=== PATIENT | female | born 1945 | race Caucasian/White ===

== ENCOUNTER 2017-04-16 12:24 | Inpatient (IN) | payer OTHER ==
[2017-04-16] MEDS ORDERED: NS 1000 ML 1,000 ML IV ONE (13:17)
[2017-04-16 13:46] LABS: BASOPHILS % (AUTO) 0.6 % (0.2-1.0); EOSINOPHILS # (AUTO) 0.1 x10^3/uL (0.0-0.2); EOSINOPHILS % (AUTO) 0.8 % (0.9-2.9); HEMATOCRIT 42.6 % (36.0-47.0); HEMOGLOBIN 14.3 g/dL (12.0-16.0); LYMPHOCYTES # (AUTO) 2.4 X10^3/uL (1.3-2.9); LYMPHOCYTES % (AUTO) 30.6 % (21.0-51.0); MEAN CORPUSCULAR HEMOGLOBIN 32.4 pg (27.0-34.0); MEAN CORPUSCULAR HGB CONC 33.6 g/dL (33.0-35.0); MEAN CORPUSCULAR VOLUME 96.6 fL (80.0-100.0); MEAN PLATELET VOLUME 9.4 fL (7.4-11.0); MONOCYTES # (AUTO) 0.3 x10^3/uL (0.3-0.8); MONOCYTES % (AUTO) 3.6 % (0.0-13.0); NEUTROPHILS % (AUTO) 64.4 % (42.0-75.0); PLATELET COUNT 274 X10^3/uL (150.0-450.0); RED BLOOD COUNT 4.41 X10^6/uL (3.5-5.4); WHITE BLOOD COUNT 7.7 X10^3/uL (3.6-10.0)
[2017-04-16 13:58] LABS: ALANINE AMINOTRANSFERASE 46 Units/L (12-78); ALBUMIN 3.5 g/dL (3.4-5.0); ALKALINE PHOSPHATASE 66 Units/L (46-116); ASPARTATE AMINO TRANSFERASE 37 Units/L (15-37); BLOOD UREA NITROGEN 16 mg/dL (7-18); CALCIUM 8.6 mg/dL (8.5-10.1); CARBON DIOXIDE 27.3 mmol/L (21-32); CHLORIDE 101 mmol/L (98-107); COR NA(FOR HYPERGLY) 141 mmol/L (136-145); CREATININE 0.88 mg/dL (0.55-1.02); SODIUM 139 mmol/L (136-145); eGFR BLACK RACES > 60 (>60); eGFR NON BLACK RACES > 60 (>60)
[2017-04-16] MEDS: ZOVIRAX TOP SCH ×3 (14:27→22:21)
--- NOTE | 2017-04-16 14:46 | DR.UPDATE ---
H&P Update History and Physical Update: WAS SEEN IN THE OFFICE TODAY. A H&P WAS COMPLETED PRIOR TO ADMISSION. PATIENT HAS BEEN SEEN AND EXAMINED WITH NO CHANGES NOTED TO H&P. Changes noted: NO Yes with the following:
[2017-04-16] MEDS: NS 1000 ML 1,000 ML IV SCH ×2 (14:47→18:14)
[2017-04-16] MEDS: XYLOCAINE VISCOUS TOP SCH ×3 (14:47→21:53)
[2017-04-16] MEDS: NICOTINE PATCH TD SCH (15:00)
[2017-04-16] MEDS: NORCO 10/325 TAB PO PRN ×3 (15:00→22:22)
[2017-04-16] MEDS: ZOVIRAX PO SCH ×3 (15:21→21:53)
[2017-04-16] MEDS: MORPHINE SULFATE INJ 2 MG INJ IVP PRN ×2 (16:00→20:04)
[2017-04-16 16:25] LABS: BILIRUBIN,URINE NEGATIVE (NEGATIVE); BLOOD/HEMOGLOBIN,URINE 1+ (NEGATIVE); GLUCOSE, URINE NEGATIVE (NEGATIVE); KETONES,URINE NEGATIVE (NEGATIVE); LEUKOCYTE ESTERASE ,URINE NEGATIVE (NEGATIVE); NITRITES,URINE NEGATIVE (NEGATIVE); PROTEIN,URINE NEGATIVE (NEGATIVE); UROBILINOGEN,URINE NORMAL (NORMAL)
[2017-04-16 16:32] LABS: APPEARANCE,URINE CLEAR (CLEAR); COLOR,URINE YELLOW (YELLOW)
[2017-04-16 16:33] LABS: BACTERIA,URINE NEGATIVE /HPF (NEGATIVE); RBC,URINE 0-2 /HPF (NEGATIVE); SQUAMOUS EPITHELIAL CELL,UR NEGATIVE /HPF (NEGATIVE)
[2017-04-16] MEDS ORDERED: AMBIEN PO PRN (20:11)
[2017-04-17] MEDS: ZOVIRAX TOP SCH ×6 (01:10→21:11)
[2017-04-17] MEDS: XYLOCAINE VISCOUS TOP SCH ×4 (01:11→22:29)
[2017-04-17] MEDS: ZOVIRAX PO SCH ×4 (01:36→13:33)
[2017-04-17] MEDS: NS 1000 ML 1,000 ML IV SCH ×5 (01:37→16:46)
[2017-04-17] MEDS: MORPHINE SULFATE INJ 2 MG INJ IVP PRN ×4 (03:11→20:56)
[2017-04-17] MEDS: NORCO 10/325 TAB PO PRN ×3 (05:34→16:45)
[2017-04-17 05:36] LABS: BASOPHILS # (AUTO) 0.1 X10^3/uL (0.0-0.1); BASOPHILS % (AUTO) 0.9 % (0.2-1.0); EOSINOPHILS # (AUTO) 0.2 x10^3/uL (0.0-0.2); EOSINOPHILS % (AUTO) 3.1 % (0.9-2.9); HEMATOCRIT 34.3 % (36.0-47.0); HEMOGLOBIN 11.7 g/dL (12.0-16.0); MEAN CORPUSCULAR HEMOGLOBIN 32.8 pg (27.0-34.0); MEAN CORPUSCULAR HGB CONC 34.2 g/dL (33.0-35.0); MEAN CORPUSCULAR VOLUME 95.9 fL (80.0-100.0); MEAN PLATELET VOLUME 9.1 fL (7.4-11.0); MONOCYTES # (AUTO) 0.6 x10^3/uL (0.3-0.8); MONOCYTES % (AUTO) 8.6 % (0.0-13.0); NEUTROPHILS # (AUTO) 4.3 x10^3/uL (2.2-4.8); NEUTROPHILS % (AUTO) 59.4 % (42.0-75.0); PLATELET COUNT 178 X10^3/uL (150.0-450.0); RED BLOOD COUNT 3.57 X10^6/uL (3.5-5.4); RED CELL DISTRIBUTION WIDTH 14.8 % (11.6-16.5); WHITE BLOOD COUNT 7.2 X10^3/uL (3.6-10.0)
[2017-04-17 05:45] LABS: ALANINE AMINOTRANSFERASE 43 Units/L (12-78); ALBUMIN 2.4 g/dL (3.4-5.0); ALKALINE PHOSPHATASE 46 Units/L (46-116); ASPARTATE AMINO TRANSFERASE 38 Units/L (15-37); BLOOD UREA NITROGEN 13 mg/dL (7-18); CALCIUM 6.9 mg/dL (8.5-10.1); CARBON DIOXIDE 30.8 mmol/L (21-32); CHLORIDE 108 mmol/L (98-107); COR CA(FOR HYPOALB) 8.2 mg/dL (8.5-10.1); CREATININE 0.81 mg/dL (0.55-1.02); SODIUM 143 mmol/L (136-145); TOTAL PROTEIN 5.2 g/dL (6.4-8.2); eGFR BLACK RACES > 60 (>60); eGFR NON BLACK RACES > 60 (>60)
[2017-04-17] MEDS: ZOFRAN INJ 4 MG VIAL IVP PRN (06:21)
[2017-04-17] MEDS ORDERED: POTASSIUM CHL 60 MEQ/NS 0.45% 500 ML IV PRN (07:21)
[2017-04-17] MEDS ORDERED: POTASSIUM CHL 40 MEQ/NS 0.45% 500 ML IV PRN (07:21)
[2017-04-17] MEDS ORDERED: MAGNESIUM SULFATE 1 GM/100 mL PREMIX 1 GM/100 ML BAG IV PRN (07:21)
[2017-04-17] MEDS ORDERED: K-RIDER 10 MEQ/NS 100 ML 10 MEQ/100 ML BAG IV PRN (07:21)
[2017-04-17] MEDS ORDERED: POTASSIUM CHLORIDE LIQ 20 MEQ UDC PO PRN (07:21)
[2017-04-17] MEDS: NICOTINE PATCH TD SCH (09:39)
[2017-04-17] MEDS: K-LYTE EFFERVESCENT PO PRN (09:41)
[2017-04-17] MEDS: MAG-OX TAB PO PRN ×2 (09:42→20:55)
[2017-04-17] MEDS ORDERED: PATIENT'S HOME MEDICATION (Aspirin [Aspirin] 81 MG) PO SCH (09:45)
[2017-04-17] MEDS ORDERED: PATIENT'S HOME MEDICATION PO SCH ×2 (10:00)
[2017-04-17] MEDS: ASPIRIN EC 81 MG PO SCH (10:00)
[2017-04-17] MEDS: CYMBALTA PO SCH (10:01)
[2017-04-17] MEDS: SYNTHROID 88 mcg TAB PO SCH (10:01)
[2017-04-17] MEDS: IMURAN PO SCH (11:09)
[2017-04-17] MEDS: PHENERGAN INJ 25 MG IV PRN (15:21)
[2017-04-17] MEDS: NEURONTIN CAP 300 MG PO SCH ×2 (16:45→22:29)
[2017-04-17] MEDS: TORADOL 30 MG VIAL IVP SCH ×2 (16:46→21:11)
[2017-04-17] MEDS: LIPITOR TAB 40 MG PO SCH (20:54)
[2017-04-17] MEDS: AMBIEN PO SCH (20:54)
[2017-04-17] MEDS ORDERED: PATIENT'S HOME MEDICATION (Atorvastatin Calcium [Lipitor] 80 MG) PO SCH (21:00)
[2017-04-17] MEDS: ZOVIRAX VIAL 500 MG 500 MG in NS 100 ML IV + SPIKE MINIBAG* 100 ML IV SCH (21:12)
[2017-04-18] MEDS: XYLOCAINE VISCOUS TOP SCH ×4 (01:49→20:40)
[2017-04-18] MEDS: ZOVIRAX TOP SCH ×6 (01:49→20:46)
[2017-04-18] MEDS: NS 1000 ML 1,000 ML IV SCH ×5 (01:49→17:50)
[2017-04-18] MEDS: TORADOL 30 MG VIAL IVP SCH ×5 (04:50→21:55)
[2017-04-18] MEDS: ZOVIRAX VIAL 500 MG 500 MG in NS 100 ML IV + SPIKE MINIBAG* 100 ML IV SCH ×3 (05:09→21:54)
[2017-04-18] MEDS: NEURONTIN CAP 300 MG PO SCH ×3 (05:09→21:54)
[2017-04-18 05:23] LABS: BASOPHILS % (AUTO) 0.8 % (0.2-1.0); EOSINOPHILS # (AUTO) 0.3 x10^3/uL (0.0-0.2); EOSINOPHILS % (AUTO) 4.9 % (0.9-2.9); HEMATOCRIT 35.2 % (36.0-47.0); LYMPHOCYTES # (AUTO) 1.9 X10^3/uL (1.3-2.9); LYMPHOCYTES % (AUTO) 32.1 % (21.0-51.0); MEAN CORPUSCULAR HEMOGLOBIN 32.7 pg (27.0-34.0); MEAN CORPUSCULAR VOLUME 96.3 fL (80.0-100.0); MEAN PLATELET VOLUME 9.6 fL (7.4-11.0); MONOCYTES # (AUTO) 0.5 x10^3/uL (0.3-0.8); MONOCYTES % (AUTO) 8.9 % (0.0-13.0); NEUTROPHILS # (AUTO) 3.1 x10^3/uL (2.2-4.8); NEUTROPHILS % (AUTO) 53.3 % (42.0-75.0); PLATELET COUNT 178 X10^3/uL (150.0-450.0); RED BLOOD COUNT 3.66 X10^6/uL (3.5-5.4); RED CELL DISTRIBUTION WIDTH 14.7 % (11.6-16.5); WHITE BLOOD COUNT 5.9 X10^3/uL (3.6-10.0)
[2017-04-18 05:41] LABS: ALANINE AMINOTRANSFERASE 47 Units/L (12-78); ALBUMIN 2.4 g/dL (3.4-5.0); ALKALINE PHOSPHATASE 51 Units/L (46-116); ASPARTATE AMINO TRANSFERASE 46 Units/L (15-37); BLOOD UREA NITROGEN 7 mg/dL (7-18); CALCIUM 6.9 mg/dL (8.5-10.1); CHLORIDE 108 mmol/L (98-107); COR CA(FOR HYPOALB) 8.2 mg/dL (8.5-10.1); CREATININE 0.78 mg/dL (0.55-1.02); MAGNESIUM 1.7 mg/dL (1.7-2.9); SODIUM 143 mmol/L (136-145); TOTAL PROTEIN 5.3 g/dL (6.4-8.2); eGFR BLACK RACES > 60 (>60); eGFR NON BLACK RACES > 60 (>60)
[2017-04-18] MEDS: MORPHINE SULFATE INJ 2 MG INJ IVP PRN ×2 (06:50→12:03)
[2017-04-18] MEDS: K-LYTE EFFERVESCENT PO PRN (09:12)
[2017-04-18] MEDS: CYMBALTA PO SCH (09:12)
[2017-04-18] MEDS: SYNTHROID 88 mcg TAB PO SCH (09:12)
[2017-04-18] MEDS: OSCAL+D or CALTRATE+D PO SCH (09:12)
[2017-04-18] MEDS: ASPIRIN EC 81 MG PO SCH (09:13)
[2017-04-18] MEDS: IMURAN PO SCH (09:13)
[2017-04-18] MEDS: NICOTINE PATCH TD SCH (09:14)
[2017-04-18] MEDS: NORCO 10/325 TAB PO PRN ×3 (09:20→19:55)
[2017-04-18] MEDS ORDERED: IMODIUM CAP 2 MG PO ONE (20:08)
[2017-04-18] MEDS ORDERED: IMODIUM CAP 2 MG PO PRN (20:08)
[2017-04-18] MEDS: AMBIEN PO SCH (20:44)
[2017-04-18] MEDS: BENTYL CAP 10 MG PO SCH (20:44)
[2017-04-18] MEDS: LIPITOR TAB 40 MG PO SCH (20:45)
[2017-04-18] MEDS: PHENERGAN INJ 25 MG IV PRN (23:15)
[2017-04-19] MEDS: XYLOCAINE VISCOUS TOP SCH ×4 (01:09→20:31)
[2017-04-19] MEDS: ZOVIRAX TOP SCH ×6 (01:09→21:54)
[2017-04-19] MEDS: NEURONTIN CAP 300 MG PO SCH ×3 (05:21→21:47)
[2017-04-19] MEDS: TORADOL 30 MG VIAL IVP SCH ×4 (05:21→21:54)
[2017-04-19] MEDS: NS 1000 ML 1,000 ML IV SCH ×4 (05:24→21:51)
[2017-04-19 05:31] LABS: BASOPHILS % (AUTO) 0.6 % (0.2-1.0); EOSINOPHILS # (AUTO) 0.3 x10^3/uL (0.0-0.2); EOSINOPHILS % (AUTO) 4.3 % (0.9-2.9); HEMATOCRIT 31.5 % (36.0-47.0); HEMOGLOBIN 10.9 g/dL (12.0-16.0); LYMPHOCYTES # (AUTO) 1.2 X10^3/uL (1.3-2.9); LYMPHOCYTES % (AUTO) 18.8 % (21.0-51.0); MEAN CORPUSCULAR HEMOGLOBIN 33.2 pg (27.0-34.0); MEAN CORPUSCULAR HGB CONC 34.5 g/dL (33.0-35.0); MEAN CORPUSCULAR VOLUME 96.1 fL (80.0-100.0); MEAN PLATELET VOLUME 9.8 fL (7.4-11.0); MONOCYTES # (AUTO) 0.8 x10^3/uL (0.3-0.8); MONOCYTES % (AUTO) 12.6 % (0.0-13.0); NEUTROPHILS # (AUTO) 3.9 x10^3/uL (2.2-4.8); NEUTROPHILS % (AUTO) 63.7 % (42.0-75.0); PLATELET COUNT 162 X10^3/uL (150.0-450.0); RED BLOOD COUNT 3.28 X10^6/uL (3.5-5.4); RED CELL DISTRIBUTION WIDTH 15.3 % (11.6-16.5); WHITE BLOOD COUNT 6.1 X10^3/uL (3.6-10.0)
[2017-04-19 05:44] LABS: ALANINE AMINOTRANSFERASE 45 Units/L (12-78); ALKALINE PHOSPHATASE 62 Units/L (46-116); ASPARTATE AMINO TRANSFERASE 51 Units/L (15-37); BLOOD UREA NITROGEN 11 mg/dL (7-18); CALCIUM 6.2 mg/dL (8.5-10.1); CARBON DIOXIDE 27.5 mmol/L (21-32); CHLORIDE 108 mmol/L (98-107); COR CA(FOR HYPOALB) 7.8 mg/dL (8.5-10.1); CREATININE 0.77 mg/dL (0.55-1.02); TOTAL PROTEIN 4.6 g/dL (6.4-8.2); eGFR BLACK RACES > 60 (>60); eGFR NON BLACK RACES > 60 (>60)
[2017-04-19 06:01] LABS: SODIUM 137 mmol/L (136-145)
[2017-04-19] MEDS: ZOVIRAX VIAL 500 MG 500 MG in NS 100 ML IV + SPIKE MINIBAG* 100 ML IV SCH ×3 (07:10→21:53)
[2017-04-19] MEDS: ASPIRIN EC 81 MG PO SCH (09:00)
[2017-04-19] MEDS: OSCAL+D or CALTRATE+D PO SCH (09:00)
[2017-04-19] MEDS: CYMBALTA PO SCH (09:00)
[2017-04-19] MEDS: NICOTINE PATCH TD SCH (09:00)
[2017-04-19] MEDS: BENTYL CAP 10 MG PO SCH ×4 (09:00→20:34)
[2017-04-19] MEDS: SYNTHROID 88 mcg TAB PO SCH (09:00)
[2017-04-19] MEDS: IMURAN PO SCH (09:02)
[2017-04-19] MEDS: ALBUMIN HUMAN 25%- 100ML 100 ML IV SCH (10:00)
[2017-04-19] MEDS: PROCALAMINE 3 % 1,000 ML IV SCH (10:00)
[2017-04-19] MEDS ORDERED: PHARMACY CONSULT - TPN XX SCH (10:00)
[2017-04-19] MEDS: ZOFRAN INJ 4 MG VIAL IVP PRN (13:33)
[2017-04-19] MEDS: MORPHINE SULFATE INJ 2 MG INJ IVP PRN ×2 (13:34→20:36)
[2017-04-19] MEDS: AMBIEN PO SCH (20:34)
[2017-04-19] MEDS: LIPITOR TAB 40 MG PO SCH (20:35)
--- NOTE | 2017-04-19 21:17 | PCM.PROG ---
Progress Note - Progress Note for Day of Date: 04/17/17 - Subjective Subjective: WAS ADMITTED FOR SHINGLES AND DEHYDRATION. TODAY, SHE IS ALERT AND ORIENTED, LYING IN BED ON MORNING ROUNDS. PATIENTS FAMILY IS AT BEDSIDE. TODAY, SHE IS NOTED TO BE CRYING AND IS WITH COMPLAINTS OF SEVERE PAIN TO LEFT ARM, FLANK. AND BACK. SHE ALSO COMPLAINS OF NAUSEA AND VOMITING. ON EXAMINATION, HEART IS NORMAL IN RATE AND RHYTHM. BILATERAL LUNGS ARE CLEAR TO AUSCULTATION. ABDOMEN IS ROUND, SOFT, AND NON-TENDER WITH NORMAL BOWEL SOUNDS NOTED IN ALL QUADRANTS. SHE CONTINUES WITH VESICULAR RASH AND ERYTHEMA TO LEFT CHEST AND BREAST AREA, LEFT UPPER ARM, LEFT FLANK, AND LEFT UPPER BACK. THERE IS NORMAL RANGE OF MOTION NOTED TO ALL EXTREMITIES. HER VITALS THIS MORNING ARE 98.2-101-20-91%-130/74. LABS WERE OBTAINED. ABNORMAL LAB VALUES INCLUDE THE FOLLOWING: HGB 11.7, HCT 34.3, POTASSIUM 3.4, CHLORIDE 108, CALCIUM 6.9, MAGNESIUM 1.3, AST 38, TOTAL PROTEIN 5.2, ALBUMIN 2.4. TODAY, WE WILL START CYMBALTA 30MG PO DAILY, TORADOL 30MG IV Q6H, GABAPENTIN 300MG PO TID. WE WILL DISCONTINUE PO ACYCLOVIR AND START ACYCLOVIR 500MG IV Q8H. WE WILL ALSO START PHENERGAN 12.5MG IV Q6H PRN. WE PLAN TO FOLLOW UP WITH AM LABS AND CONTINUE TO MONITOR PATIENT. - Past Medical Family Social History Past Med/Fam/Surg Hx: No changes since H&P Allergies: Allergies iodine Allergy (Verified 04/16/17 14:07) prochlorperazine Allergy (Verified 04/16/17 14:07) - Review of Systems ROS: No change since H&P - Vital Signs and I&O's Vital Signs: Temperature 98.4 F Pulse Rate [Right Brachial] 107 Respiratory Rate 18 Blood Pressure [Right Arm] 138/71 Blood Pressure [Left Arm] 150/83 Blood Pressure 106/55 O2 Sat by Pulse Oximetry 94 Intake and Output: Intake & Output 04/17/17 04/18/17 04/19/17 04/20/17 11:59 11:59 11:59 11:59 Intake Total 3050 2040 1060 480 Output Total 350 3100 1300 Balance 2700 -1060 -240 480 - Physical Exam Oriented: Normal Eyes: Normal Ear: Normal Nose: Normal Throat: Normal Respiratory: Normal Cardiovascular: Normal : Normal Auscultation: Bowel Sounds: Normal Palpation: Normal Tenderness: Normal Skin: Vesicular (VESICULAR RASH TO LEFT CHEST, BREAST AREA, UPPER ARM, FLANK, AND UPPER BACK), Red, Tender Musculoskeletal: Normal Psychiatric: Normal Mood Description: Calm Affect: Normal Speech Pattern: Clear, Appropriate - Laboratory and Diagnostics Result Diagrams: 04/19/17 04:10 04/19/17 04:10 Labs: Laboratory WBC 6.1 X10^3/uL (3.6-10.0) 04/19/17 04:10 RBC 3.28 X10^6/uL (3.5-5.4) L 04/19/17 04:10 Hgb 10.9 g/dL (12.0-16.0) L 04/19/17 04:10 Hct 31.5 % (36.0-47.0) L 04/19/17 04:10 MCV 96.1 fL (80.0-100.0) 04/19/17 04:10 MCH 33.2 pg (27.0-34.0) 04/19/17 04:10 MCHC 34.5 g/dL (33.0-35.0) 04/19/17 04:10 RDW 15.3 % (11.6-16.5) 04/19/17 04:10 Plt Count 162 X10^3/uL (150.0-450.0) 04/19/17 04:10 MPV 9.8 fL (7.4-11.0) 04/19/17 04:10 Neut % 63.7 % (42.0-75.0) 04/19/17 04:10 Lymph % 18.8 % (21.0-51.0) L 04/19/17 04:10 [place] % 12.6 % (0.0-13.0) 04/19/17 04:10 Eos % 4.3 % (0.9-2.9) H 04/19/17 04:10 Baso % 0.6 % (0.2-1.0) 04/19/17 04:10 Neut # 3.9 x10^3/uL (2.2-4.8) 04/19/17 04:10 Lymph # 1.2 X10^3/uL (1.3-2.9) L 04/19/17 04:10 [place] # 0.8 x10^3/uL (0.3-0.8) 04/19/17 04:10 Eos # 0.3 x10^3/uL (0.0-0.2) H 04/19/17 04:10 Baso # 0.0 X10^3/uL (0.0-0.1) 04/19/17 04:10 Absolute Nucleated RBC 0.1 /100WBC 04/19/17 04:10 Sodium 137 mmol/L (136-145) 04/19/17 04:10 Corrected Sodium TNP 04/19/17 04:10 Potassium 3.7 mmol/L (3.5-5.1) 04/19/17 04:10 Chloride 108 mmol/L (98-107) H 04/19/17 04:10 Carbon Dioxide 27.5 mmol/L (21-32) 04/19/17 04:10 BUN 11 mg/dL (7-18) 04/19/17 04:10 Creatinine 0.77 mg/dL (0.55-1.02) 04/19/17 04:10 Est GFR (MDRD) Af Amer > 60 (>60) 04/19/17 04:10 Est GFR (MDRD) Non-Af > 60 (>60) 04/19/17 04:10 Glucose 97 mg/dL (65-99) 04/19/17 04:10 Calcium 6.2 mg/dL (8.5-10.1) L 04/19/17 04:10 Corrected Calcium 7.8 mg/dL (8.5-10.1) L 04/19/17 04:10 Magnesium 1.7 mg/dL (1.7-2.9) 04/18/17 04:20 Total Bilirubin 0.30 mg/dL (0.2-1.0) 04/19/17 04:10 AST 51 Units/L (15-37) H 04/19/17 04:10 ALT 45 Units/L (12-78) 04/19/17 04:10 Alkaline Phosphatase 62 Units/L (46-116) 04/19/17 04:10 Total Protein 4.6 g/dL (6.4-8.2) L 04/19/17 04:10 Albumin 2.0 g/dL (3.4-5.0) L 04/19/17 04:10 Globulin 2.6 g/dL (2.5-4.5) 04/19/17 04:10 Albumin/Globulin Ratio 0.8 Ratio (1.1-2.1) L 04/19/17 04:10 Specimen Type Clean catch urine 04/16/17 16:00 Urine Color Yellow (YELLOW) 04/16/17 16:00 Urine Appearance Clear (CLEAR) 04/16/17 16:00 Urine pH 7.0 (5.0 - 8.0) 04/16/17 16:00 Ur Specific [place] 1.005 (1.000-1.030) 04/16/17 16:00 Urine Protein Negative (NEGATIVE) 04/16/17 16:00 Urine Glucose (UA) Negative (NEGATIVE) 04/16/17 16:00 Urine Ketones Negative (NEGATIVE) 04/16/17 16:00 Urine Occult Blood 1+ (NEGATIVE) 04/16/17 16:00 Urine Nitrite Negative (NEGATIVE) 04/16/17 16:00 Urine Bilirubin Negative (NEGATIVE) 04/16/17 16:00 Urine Urobilinogen Normal (NORMAL) 04/16/17 16:00 Ur Leukocyte Esterase Negative (NEGATIVE) 04/16/17 16:00 Urine RBC 0-2 /HPF (NEGATIVE) 04/16/17 16:00 Urine WBC 0-2 /HPF (NEGATIVE) 04/16/17 16:00 Ur Squamous Epith Cells Negative /HPF (NEGATIVE) 04/16/17 16:00 Urine Bacteria Negative /HPF (NEGATIVE) 04/16/17 16:00 Ur Culture Indicated? No/not indicated 04/16/17 16:00 - Plan (1) Shingles Status: Acute Qualifiers: Herpes zoster complications: unspecified herpes zoster complication Qualified Code(s): B02.8 - Zoster with other complications Plan: ACYCLOVIR 500MG IV Q8H, ACYCLOVIR TOPICAL Q4H, GABAPENTIN 300MG PO TID, TORADOL 30MG IV Q6H, CONTINUE TO MONITOR (2) Dehydration Status: Acute Plan: NORMAL SALINE AT 150ML/HR, CONTINUE TO MONITOR (3) Nausea & vomiting Status: Acute Qualifiers: Vomiting type: unspecified Vomiting Intractability: intractable Qualified Code(s): R11.2 - Nausea with vomiting, unspecified Plan: PHENERGAN 12.5MG IV Q6H PRN, ZOFRAN 4MG IV Q6H PRN, CONTINUE TO MONITOR (4) Depression Status: Chronic Qualifiers: Depression Type: major depressive disorder Major depression recurrence: recurrent Active/Remission status: currently active Major depression episode severity: unspecified Qualified Code(s): F33.9 - Major depressive disorder, recurrent, unspecified Plan: CYMBALTA 30MG PO DAILY, CONTINUE TO MONITOR (5) Hx of Crohn's disease Status: Chronic Plan: CONTINUE IMURAN, CONTINUE TO MONITOR (6) Hyperlipidemia Status: Chronic Qualifiers: Hyperlipidemia type: mixed hyperlipidemia Qualified Code(s): E78.2 - Mixed hyperlipidemia Plan: CONTINUE LIPITOR, CONTINUE TO MONITOR (7) Hypothyroidism Status: Chronic Qualifiers: Hypothyroidism type: acquired Qualified Code(s): E03.9 - Hypothyroidism, unspecified Plan: CONTINUE SYNTHROID, CONTINUE TO MONITOR
[2017-04-20] MEDS: XYLOCAINE VISCOUS TOP SCH ×4 (02:00→20:26)
[2017-04-20] MEDS: ZOVIRAX TOP SCH ×6 (02:00→20:34)
[2017-04-20] MEDS: TORADOL 30 MG VIAL IVP SCH ×2 (04:45→09:02)
[2017-04-20] MEDS: NEURONTIN CAP 300 MG PO SCH ×3 (06:01→21:30)
[2017-04-20] MEDS: ZOVIRAX VIAL 500 MG 500 MG in NS 100 ML IV + SPIKE MINIBAG* 100 ML IV SCH ×3 (06:03→21:31)
[2017-04-20 06:09] LABS: ALANINE AMINOTRANSFERASE 51 Units/L (12-78); ALBUMIN 2.2 g/dL (3.4-5.0); ALKALINE PHOSPHATASE 68 Units/L (46-116); ASPARTATE AMINO TRANSFERASE 47 Units/L (15-37); BLOOD UREA NITROGEN 9 mg/dL (7-18); CALCIUM 6.8 mg/dL (8.5-10.1); CARBON DIOXIDE 27.1 mmol/L (21-32); CHLORIDE 109 mmol/L (98-107); COR CA(FOR HYPOALB) 8.2 mg/dL (8.5-10.1); CREATININE 0.68 mg/dL (0.55-1.02); SODIUM 142 mmol/L (136-145); eGFR BLACK RACES > 60 (>60); eGFR NON BLACK RACES > 60 (>60)
[2017-04-20 06:12] LABS: BASOPHILS % (AUTO) 0.8 % (0.2-1.0); EOSINOPHILS # (AUTO) 0.2 x10^3/uL (0.0-0.2); HEMATOCRIT 32.4 % (36.0-47.0); HEMOGLOBIN 11.2 g/dL (12.0-16.0); LYMPHOCYTES # (AUTO) 1.1 X10^3/uL (1.3-2.9); LYMPHOCYTES % (AUTO) 19.1 % (21.0-51.0); MEAN CORPUSCULAR HGB CONC 34.5 g/dL (33.0-35.0); MEAN CORPUSCULAR VOLUME 95.5 fL (80.0-100.0); MEAN PLATELET VOLUME 9.8 fL (7.4-11.0); MONOCYTES # (AUTO) 0.5 x10^3/uL (0.3-0.8); MONOCYTES % (AUTO) 8.9 % (0.0-13.0); NEUTROPHILS % (AUTO) 67.2 % (42.0-75.0); PLATELET COUNT 158 X10^3/uL (150.0-450.0); RED CELL DISTRIBUTION WIDTH 15.1 % (11.6-16.5)
[2017-04-20] MEDS: ALBUMIN HUMAN 25%- 100ML 100 ML IV SCH (08:57)
[2017-04-20] MEDS: NICOTINE PATCH TD SCH (08:57)
[2017-04-20] MEDS: IMURAN PO SCH (08:58)
[2017-04-20] MEDS: SYNTHROID 88 mcg TAB PO SCH (08:58)
[2017-04-20] MEDS: BENTYL CAP 10 MG PO SCH ×4 (08:59→21:30)
[2017-04-20] MEDS: OSCAL+D or CALTRATE+D PO SCH (09:00)
[2017-04-20] MEDS: ASPIRIN EC 81 MG PO SCH (09:01)
[2017-04-20] MEDS: CYMBALTA PO SCH (09:06)
[2017-04-20] MEDS: NS 1000 ML 1,000 ML IV SCH ×2 (11:17→13:31)
[2017-04-20] MEDS: NORCO 10/325 TAB PO PRN (12:01)
[2017-04-20] MEDS: PROCALAMINE 3 % 1,000 ML IV SCH (12:02)
[2017-04-20] MEDS: MORPHINE SULFATE INJ 2 MG INJ IVP PRN ×2 (13:35→20:33)
--- NOTE | 2017-04-20 14:17 | PCM.PROG ---
Progress Note - Progress Note for Day of Date: 04/18/17 - Subjective Subjective: WAS ADMITTED FOR SHINGLES AND DEHYDRATION. TODAY, SHE IS ALERT AND ORIENTED, SITTING UP IN BED ON MORNING ROUNDS. PATIENTS FAMILY IS AT BEDSIDE. TODAY, SHE IS REPORTS THAT PAIN CONTINUES TO BE PRESENT, BUT HAS IMPROVED SINCE YESTERDAY. SHE REPORTS THAT NAUSEA HAS SUBSIDED AT THIS TIME. ON EXAMINATION, HEART IS NORMAL IN RATE AND RHYTHM. BILATERAL LUNGS ARE CLEAR TO AUSCULTATION. ABDOMEN IS ROUND, SOFT, AND NON-TENDER WITH NORMAL BOWEL SOUNDS NOTED IN ALL QUADRANTS. SHE CONTINUES WITH VESICULAR RASH AND ERYTHEMA TO LEFT CHEST AND BREAST AREA, LEFT UPPER ARM, LEFT FLANK, AND LEFT UPPER BACK. THERE IS NORMAL RANGE OF MOTION NOTED TO ALL EXTREMITIES. HER VITALS THIS MORNING ARE 96.9-97-18-97%-94/55. LABS WERE OBTAINED. ABNORMAL LAB VALUES INCLUDE THE FOLLOWING: HCT 35.2, CHLORIDE 108, CALCIUM 6.9, AST 46, TOTAL PROTEIN 5.3, ALBUMIN 2.4. SHE CONTINUES TO RECEIVE ACYCLOVIR IV AND TOPICAL WELL PAIN MEDICATIONS. WE PLAN TO FOLLOW UP WITH AM LABS AND CONTINUE TO MONITOR PATIENT. IF SHE REMAINS STABLE, WE WILL PLAN FOR DISCHARGE IN THE MORNING. - Past Medical Family Social History Past Med/Fam/Surg Hx: No changes since H&P Allergies: Allergies iodine Allergy (Verified 04/16/17 14:07) prochlorperazine Allergy (Verified 04/16/17 14:07) - Review of Systems ROS: No change since H&P - Vital Signs and I&O's Vital Signs: Temperature 98.0 F Pulse Rate [Right Brachial] 100 Respiratory Rate 20 Blood Pressure [Right Arm] 160/84 Blood Pressure [Left Arm] 150/83 Blood Pressure 106/55 O2 Sat by Pulse Oximetry 99 Intake and Output: Intake & Output 04/18/17 04/19/17 04/20/17 04/21/17 11:59 11:59 11:59 11:59 Intake Total 2040 1060 960 Output Total 3100 1300 Balance -1060 -240 960 - Physical Exam Oriented: Normal Eyes: Normal Ear: Normal Nose: Normal Throat: Normal Respiratory: Normal Cardiovascular: Normal : Normal Auscultation: Bowel Sounds: Normal Palpation: Normal Tenderness: Normal Skin: Vesicular (VESICULAR RASH TO LEFT CHEST, BREAST AREA, UPPER ARM, FLANK, AND UPPER BACK), Red, Tender Musculoskeletal: Normal Psychiatric: Normal Mood Description: Calm Affect: Normal Speech Pattern: Clear, Appropriate - Laboratory and Diagnostics Result Diagrams: 04/20/17 04:05 04/20/17 04:05 Labs: Laboratory WBC 6.0 X10^3/uL (3.6-10.0) 04/20/17 04:05 RBC 3.40 X10^6/uL (3.5-5.4) L 04/20/17 04:05 Hgb 11.2 g/dL (12.0-16.0) L 04/20/17 04:05 Hct 32.4 % (36.0-47.0) L 04/20/17 04:05 MCV 95.5 fL (80.0-100.0) 04/20/17 04:05 MCH 33.0 pg (27.0-34.0) 04/20/17 04:05 MCHC 34.5 g/dL (33.0-35.0) 04/20/17 04:05 RDW 15.1 % (11.6-16.5) 04/20/17 04:05 Plt Count 158 X10^3/uL (150.0-450.0) 04/20/17 04:05 MPV 9.8 fL (7.4-11.0) 04/20/17 04:05 Neut % 67.2 % (42.0-75.0) 04/20/17 04:05 Lymph % 19.1 % (21.0-51.0) L 04/20/17 04:05 [place] % 8.9 % (0.0-13.0) 04/20/17 04:05 Eos % 4.0 % (0.9-2.9) H 04/20/17 04:05 Baso % 0.8 % (0.2-1.0) 04/20/17 04:05 Neut # 4.0 x10^3/uL (2.2-4.8) 04/20/17 04:05 Lymph # 1.1 X10^3/uL (1.3-2.9) L 04/20/17 04:05 [place] # 0.5 x10^3/uL (0.3-0.8) 04/20/17 04:05 Eos # 0.2 x10^3/uL (0.0-0.2) 04/20/17 04:05 Baso # 0.0 X10^3/uL (0.0-0.1) 04/20/17 04:05 Absolute Nucleated RBC 0.1 /100WBC 04/20/17 04:05 Sodium 142 mmol/L (136-145) 04/20/17 04:05 Corrected Sodium TNP 04/20/17 04:05 Potassium 3.8 mmol/L (3.5-5.1) 04/20/17 04:05 Chloride 109 mmol/L (98-107) H 04/20/17 04:05 Carbon Dioxide 27.1 mmol/L (21-32) 04/20/17 04:05 BUN 9 mg/dL (7-18) 04/20/17 04:05 Creatinine 0.68 mg/dL (0.55-1.02) 04/20/17 04:05 Est GFR (MDRD) Af Amer > 60 (>60) 04/20/17 04:05 Est GFR (MDRD) Non-Af > 60 (>60) 04/20/17 04:05 Glucose 104 mg/dL (65-99) H 04/20/17 04:05 Calcium 6.8 mg/dL (8.5-10.1) L 04/20/17 04:05 Corrected Calcium 8.2 mg/dL (8.5-10.1) L 04/20/17 04:05 Magnesium 1.7 mg/dL (1.7-2.9) 04/18/17 04:20 Total Bilirubin 0.30 mg/dL (0.2-1.0) 04/20/17 04:05 AST 47 Units/L (15-37) H 04/20/17 04:05 ALT 51 Units/L (12-78) 04/20/17 04:05 Alkaline Phosphatase 68 Units/L (46-116) 04/20/17 04:05 Total Protein 5.0 g/dL (6.4-8.2) L 04/20/17 04:05 Albumin 2.2 g/dL (3.4-5.0) L 04/20/17 04:05 Globulin 2.8 g/dL (2.5-4.5) 04/20/17 04:05 Albumin/Globulin Ratio 0.8 Ratio (1.1-2.1) L 04/20/17 04:05 Specimen Type Clean catch urine 04/16/17 16:00 Urine Color Yellow (YELLOW) 04/16/17 16:00 Urine Appearance Clear (CLEAR) 04/16/17 16:00 Urine pH 7.0 (5.0 - 8.0) 04/16/17 16:00 Ur Specific [place] 1.005 (1.000-1.030) 04/16/17 16:00 Urine Protein Negative (NEGATIVE) 04/16/17 16:00 Urine Glucose (UA) Negative (NEGATIVE) 04/16/17 16:00 Urine Ketones Negative (NEGATIVE) 04/16/17 16:00 Urine Occult Blood 1+ (NEGATIVE) 04/16/17 16:00 Urine Nitrite Negative (NEGATIVE) 04/16/17 16:00 Urine Bilirubin Negative (NEGATIVE) 04/16/17 16:00 Urine Urobilinogen Normal (NORMAL) 04/16/17 16:00 Ur Leukocyte Esterase Negative (NEGATIVE) 04/16/17 16:00 Urine RBC 0-2 /HPF (NEGATIVE) 04/16/17 16:00 Urine WBC 0-2 /HPF (NEGATIVE) 04/16/17 16:00 Ur Squamous Epith Cells Negative /HPF (NEGATIVE) 04/16/17 16:00 Urine Bacteria Negative /HPF (NEGATIVE) 04/16/17 16:00 Ur Culture Indicated? No/not indicated 04/16/17 16:00 - Plan (1) Shingles Status: Acute Qualifiers: Herpes zoster complications: unspecified herpes zoster complication Qualified Code(s): B02.8 - Zoster with other complications Plan: ACYCLOVIR 500MG IV Q8H, ACYCLOVIR TOPICAL Q4H, GABAPENTIN 300MG PO TID, TORADOL 30MG IV Q6H, CONTINUE TO MONITOR (2) Dehydration Status: Acute Plan: NORMAL SALINE AT 150ML/HR, CONTINUE TO MONITOR (3) Nausea & vomiting Status: Acute Qualifiers: Vomiting type: unspecified Vomiting Intractability: intractable Qualified Code(s): R11.2 - Nausea with vomiting, unspecified Plan: PHENERGAN 12.5MG IV Q6H PRN, ZOFRAN 4MG IV Q6H PRN, CONTINUE TO MONITOR (4) Depression Status: Chronic Qualifiers: Depression Type: major depressive disorder Major depression recurrence: recurrent Active/Remission status: currently active Major depression episode severity: unspecified Qualified Code(s): F33.9 - Major depressive disorder, recurrent, unspecified Plan: CYMBALTA 30MG PO DAILY, CONTINUE TO MONITOR (5) Hx of Crohn's disease Status: Chronic Plan: CONTINUE IMURAN, CONTINUE TO MONITOR (6) Hyperlipidemia Status: Chronic Qualifiers: Hyperlipidemia type: mixed hyperlipidemia Qualified Code(s): E78.2 - Mixed hyperlipidemia Plan: CONTINUE LIPITOR, CONTINUE TO MONITOR (7) Hypothyroidism Status: Chronic Qualifiers: Hypothyroidism type: acquired Qualified Code(s): E03.9 - Hypothyroidism, unspecified Plan: CONTINUE SYNTHROID, CONTINUE TO MONITOR
[2017-04-20] MEDS: LIPITOR TAB 40 MG PO SCH (20:28)
[2017-04-20] MEDS: AMBIEN PO SCH (20:29)
[2017-04-21] MEDS: NS 1000 ML 1,000 ML IV SCH ×2 (00:33→11:14)
[2017-04-21] MEDS: ZOVIRAX TOP SCH ×6 (01:47→20:53)
[2017-04-21] MEDS: MORPHINE SULFATE INJ 2 MG INJ IVP PRN ×3 (02:16→20:52)
[2017-04-21] MEDS: XYLOCAINE VISCOUS TOP SCH ×4 (02:16→20:52)
[2017-04-21] MEDS: ZOVIRAX VIAL 500 MG 500 MG in NS 100 ML IV + SPIKE MINIBAG* 100 ML IV SCH ×3 (05:19→21:41)
[2017-04-21] MEDS: NEURONTIN CAP 300 MG PO SCH ×3 (05:19→21:40)
[2017-04-21] MEDS: TYLENOL 325 MG TAB PO PRN (05:20)
[2017-04-21 05:25] LABS: BASOPHILS # (AUTO) 0.1 X10^3/uL (0.0-0.1); BASOPHILS % (AUTO) 0.8 % (0.2-1.0); EOSINOPHILS # (AUTO) 0.3 x10^3/uL (0.0-0.2); EOSINOPHILS % (AUTO) 3.6 % (0.9-2.9); HEMATOCRIT 32.1 % (36.0-47.0); LYMPHOCYTES # (AUTO) 1.4 X10^3/uL (1.3-2.9); LYMPHOCYTES % (AUTO) 16.8 % (21.0-51.0); MEAN CORPUSCULAR HEMOGLOBIN 32.8 pg (27.0-34.0); MEAN CORPUSCULAR HGB CONC 34.1 g/dL (33.0-35.0); MEAN CORPUSCULAR VOLUME 96.1 fL (80.0-100.0); MEAN PLATELET VOLUME 9.2 fL (7.4-11.0); MONOCYTES # (AUTO) 0.7 x10^3/uL (0.3-0.8); MONOCYTES % (AUTO) 8.9 % (0.0-13.0); NEUTROPHILS # (AUTO) 5.8 x10^3/uL (2.2-4.8); NEUTROPHILS % (AUTO) 69.9 % (42.0-75.0); PLATELET COUNT 177 X10^3/uL (150.0-450.0); RED BLOOD COUNT 3.35 X10^6/uL (3.5-5.4); WHITE BLOOD COUNT 8.3 X10^3/uL (3.6-10.0)
[2017-04-21 05:37] LABS: ALANINE AMINOTRANSFERASE 39 Units/L (12-78); ALBUMIN 2.6 g/dL (3.4-5.0); ALKALINE PHOSPHATASE 108 Units/L (46-116); ASPARTATE AMINO TRANSFERASE 41 Units/L (15-37); BLOOD UREA NITROGEN 8 mg/dL (7-18); CALCIUM 6.8 mg/dL (8.5-10.1); CARBON DIOXIDE 27.1 mmol/L (21-32); CHLORIDE 104 mmol/L (98-107); COR CA(FOR HYPOALB) 7.9 mg/dL (8.5-10.1); CREATININE 0.74 mg/dL (0.55-1.02); SODIUM 136 mmol/L (136-145); TOTAL PROTEIN 5.4 g/dL (6.4-8.2); eGFR BLACK RACES > 60 (>60); eGFR NON BLACK RACES > 60 (>60)
[2017-04-21] MEDS: OSCAL+D or CALTRATE+D PO SCH (08:31)
[2017-04-21] MEDS: BENTYL CAP 10 MG PO SCH ×4 (08:31→21:40)
[2017-04-21] MEDS: SYNTHROID 88 mcg TAB PO SCH (08:31)
[2017-04-21] MEDS: CYMBALTA PO SCH (08:32)
[2017-04-21] MEDS: IMURAN PO SCH (08:32)
[2017-04-21] MEDS: ASPIRIN EC 81 MG PO SCH (08:32)
[2017-04-21] MEDS: ALBUMIN HUMAN 25%- 100ML 100 ML IV SCH (08:33)
[2017-04-21] MEDS: NICOTINE PATCH TD SCH (08:33)
[2017-04-21] MEDS: NORCO 10/325 TAB PO PRN (08:53)
--- NOTE | 2017-04-21 11:14 | RAD ---
History: Shortness of breath Study: Portable upright AP chest Comparison: None Findings: The heart size is normal. There is a Port-A-Cath via the right subclavian vein. There are s urgical clips adjacent to the right hilum. The lungs are grossly clear without mass or atelectasis or consolidation. No effusion is demonstrated. Impression: No evidence for acute disease status post right thoracotomy Reported By:
--- NOTE | 2017-04-21 12:22 | PCM.PROG ---
Progress Note - Progress Note for Day of Date: 04/19/17 - Subjective Subjective: WAS ADMITTED FOR SHINGLES AND DEHYDRATION. TODAY, SHE IS ALERT AND ORIENTED, LYING IN BED ON MORNING ROUNDS. TODAY, SHE REPORTS CONTINUED IMPROVEMENT IN PAIN RELATED TO SHINGLES. SHE ALSO REPORTS WEAKNESS AND MODERATE, DIFFUSE ABDOMINAL PAIN AND DIARRHEA. PATIENT HAS A MEDICAL HISTORY SIGNIFICANT FOR CROHNS DISEASE FOR WHICH SHE CURRENTLY TAKES IMURAN. ON EXAMINATION, HEART IS NORMAL IN RATE AND RHYTHM. BILATERAL LUNGS ARE CLEAR TO AUSCULTATION. ABDOMEN IS ROUND, SOFT, AND NOTED WITH DIFFUSE TENDERNESS ON PALPATION. HYPERACTIVE BOWEL SOUNDS ARE NOTED IN ALL QUADRATNS. SHE CONTINUES WITH VESICULAR RASH AND ERYTHEMA TO LEFT CHEST AND BREAST AREA, LEFT UPPER ARM, LEFT FLANK, AND LEFT UPPER BACK. THERE IS NORMAL RANGE OF MOTION NOTED TO ALL EXTREMITIES. HER VITALS THIS MORNING ARE 98.3-95-18-93%-116/65. LABS WERE OBTAINED. ABNORMAL LAB VALUES INCLUDE THE FOLLOWING: RBC 3.25, HGB 11.2, HCT 32.4, CHLORIDE 108, CALCIUM 6.2, AST 51, TOTAL PROTEIN 4.6, ALBUMIN 2.0. TODAY, WE WILL START TPN AND ALBUMIN 25% IV DAILY. WE WILL ALSO START BENTYL 20MG PO QID AND INCREASE GABAPENTIN TO 600MG PO TID. OTHERWISE, WE WILL CONTINUE WITH CURRENT PLAN OF CARE. WE PLAN TO FOLLOW UP WITH AM LABS AND CONTINUE TO MONITOR PATIENT. - Past Medical Family Social History Past Med/Fam/Surg Hx: No changes since H&P Allergies: Allergies iodine Allergy (Verified 04/16/17 14:07) prochlorperazine Allergy (Verified 04/16/17 14:07) - Review of Systems ROS: No change since H&P - Vital Signs and I&O's Vital Signs: Temperature 98.8 F Pulse Rate [Right Brachial] 98 Respiratory Rate 22 Blood Pressure [Right Arm] 112/60 Blood Pressure [Left Arm] 150/83 Blood Pressure 106/55 O2 Sat by Pulse Oximetry 94 Intake and Output: Intake & Output 04/19/17 04/20/17 04/21/17 04/22/17 11:59 11:59 11:59 11:59 Intake Total 9969 393 9213 Output Total 1300 Balance -000 213 1837 - Physical Exam Oriented: Normal Eyes: Normal Ear: Normal Nose: Normal Throat: Normal Respiratory: Normal Cardiovascular: Normal : Normal Auscultation: Bowel Sounds: Increased Palpation: Normal Tenderness: Diffuse, Moderate, Guarding. negative: Rebound, Rigidity Skin: Vesicular (VESICULAR RASH TO LEFT CHEST, BREAST AREA, UPPER ARM, FLANK, AND UPPER BACK), Red, Tender Musculoskeletal: Normal Psychiatric: Normal Mood Description: Calm Affect: Normal Speech Pattern: Clear, Appropriate - Laboratory and Diagnostics Result Diagrams: 04/21/17 04:30 04/21/17 04:30 Labs: Laboratory WBC 8.3 X10^3/uL (3.6-10.0) 04/21/17 04:30 RBC 3.35 X10^6/uL (3.5-5.4) L 04/21/17 04:30 Hgb 11.0 g/dL (12.0-16.0) L 04/21/17 04:30 Hct 32.1 % (36.0-47.0) L 04/21/17 04:30 MCV 96.1 fL (80.0-100.0) 04/21/17 04:30 MCH 32.8 pg (27.0-34.0) 04/21/17 04:30 MCHC 34.1 g/dL (33.0-35.0) 04/21/17 04:30 RDW 15.0 % (11.6-16.5) 04/21/17 04:30 Plt Count 177 X10^3/uL (150.0-450.0) 04/21/17 04:30 MPV 9.2 fL (7.4-11.0) 04/21/17 04:30 Neut % 69.9 % (42.0-75.0) 04/21/17 04:30 Lymph % 16.8 % (21.0-51.0) L 04/21/17 04:30 [place] % 8.9 % (0.0-13.0) 04/21/17 04:30 Eos % 3.6 % (0.9-2.9) H 04/21/17 04:30 Baso % 0.8 % (0.2-1.0) 04/21/17 04:30 Neut # 5.8 x10^3/uL (2.2-4.8) H 04/21/17 04:30 Lymph # 1.4 X10^3/uL (1.3-2.9) 04/21/17 04:30 [place] # 0.7 x10^3/uL (0.3-0.8) 04/21/17 04:30 Eos # 0.3 x10^3/uL (0.0-0.2) H 04/21/17 04:30 Baso # 0.1 X10^3/uL (0.0-0.1) 04/21/17 04:30 Absolute Nucleated RBC 0.0 /100WBC 04/21/17 04:30 Sodium 136 mmol/L (136-145) 04/21/17 04:30 Corrected Sodium TNP 04/21/17 04:30 Potassium 3.5 mmol/L (3.5-5.1) 04/21/17 04:30 Chloride 104 mmol/L (98-107) 04/21/17 04:30 Carbon Dioxide 27.1 mmol/L (21-32) 04/21/17 04:30 BUN 8 mg/dL (7-18) 04/21/17 04:30 Creatinine 0.74 mg/dL (0.55-1.02) 04/21/17 04:30 Est GFR (MDRD) Af Amer > 60 (>60) 04/21/17 04:30 Est GFR (MDRD) Non-Af > 60 (>60) 04/21/17 04:30 Glucose 92 mg/dL (65-99) 04/21/17 04:30 Calcium 6.8 mg/dL (8.5-10.1) L 04/21/17 04:30 Corrected Calcium 7.9 mg/dL (8.5-10.1) L 04/21/17 04:30 Magnesium 1.7 mg/dL (1.7-2.9) 04/18/17 04:20 Total Bilirubin 0.40 mg/dL (0.2-1.0) 04/21/17 04:30 AST 41 Units/L (15-37) H 04/21/17 04:30 ALT 39 Units/L (12-78) 04/21/17 04:30 Alkaline Phosphatase 108 Units/L (46-116) 04/21/17 04:30 Total Protein 5.4 g/dL (6.4-8.2) L 04/21/17 04:30 Albumin 2.6 g/dL (3.4-5.0) L 04/21/17 04:30 Globulin 2.8 g/dL (2.5-4.5) 04/21/17 04:30 Albumin/Globulin Ratio 0.9 Ratio (1.1-2.1) L 04/21/17 04:30 Specimen Type Clean catch urine 04/16/17 16:00 Urine Color Yellow (YELLOW) 04/16/17 16:00 Urine Appearance Clear (CLEAR) 04/16/17 16:00 Urine pH 7.0 (5.0 - 8.0) 04/16/17 16:00 Ur Specific [place] 1.005 (1.000-1.030) 04/16/17 16:00 Urine Protein Negative (NEGATIVE) 04/16/17 16:00 Urine Glucose (UA) Negative (NEGATIVE) 04/16/17 16:00 Urine Ketones Negative (NEGATIVE) 04/16/17 16:00 Urine Occult Blood 1+ (NEGATIVE) 04/16/17 16:00 Urine Nitrite Negative (NEGATIVE) 04/16/17 16:00 Urine Bilirubin Negative (NEGATIVE) 04/16/17 16:00 Urine Urobilinogen Normal (NORMAL) 04/16/17 16:00 Ur Leukocyte Esterase Negative (NEGATIVE) 04/16/17 16:00 Urine RBC 0-2 /HPF (NEGATIVE) 04/16/17 16:00 Urine WBC 0-2 /HPF (NEGATIVE) 04/16/17 16:00 Ur Squamous Epith Cells Negative /HPF (NEGATIVE) 04/16/17 16:00 Urine Bacteria Negative /HPF (NEGATIVE) 04/16/17 16:00 Ur Culture Indicated? No/not indicated 04/16/17 16:00 - Plan (1) Shingles Status: Acute Qualifiers: Herpes zoster complications: unspecified herpes zoster complication Qualified Code(s): B02.8 - Zoster with other complications Plan: ACYCLOVIR 500MG IV Q8H, ACYCLOVIR TOPICAL Q4H, GABAPENTIN 600MG PO TID, TORADOL 30MG IV Q6H, CONTINUE TO MONITOR (2) Abdominal pain Status: Acute Qualifiers: Abdominal location: unspecified location Qualified Code(s): R10.9 - Unspecified abdominal pain Plan: BENTYL 20MG PO QID, CONTINUE TO MONITOR (3) Dehydration Status: Acute Plan: PROCALAMINE AT 40ML/HR, NORMAL SALINE AT 150ML/HR, ALBUMIN 255 IV DAILY, CONTINUE TO MONITOR (4) Nausea & vomiting Status: Acute Qualifiers: Vomiting type: unspecified Vomiting Intractability: intractable Qualified Code(s): R11.2 - Nausea with vomiting, unspecified Plan: PHENERGAN 12.5MG IV Q6H PRN, ZOFRAN 4MG IV Q6H PRN, CONTINUE TO MONITOR (5) Depression Status: Chronic Qualifiers: Depression Type: major depressive disorder Major depression recurrence: recurrent Active/Remission status: currently active Major depression episode severity: unspecified Qualified Code(s): F33.9 - Major depressive disorder, recurrent, unspecified Plan: CYMBALTA 30MG PO DAILY, CONTINUE TO MONITOR (6) Hx of Crohn's disease Status: Chronic Plan: CONTINUE IMURAN, CONTINUE TO MONITOR (7) Hyperlipidemia Status: Chronic Qualifiers: Hyperlipidemia type: mixed hyperlipidemia Qualified Code(s): E78.2 - Mixed hyperlipidemia Plan: CONTINUE LIPITOR, CONTINUE TO MONITOR (8) Hypothyroidism Status: Chronic Qualifiers: Hypothyroidism type: acquired Qualified Code(s): E03.9 - Hypothyroidism, unspecified Plan: CONTINUE SYNTHROID, CONTINUE TO MONITOR
[2017-04-21] MEDS: ZOFRAN INJ 4 MG VIAL IVP PRN (12:58)
[2017-04-21 13:02] LABS: BILIRUBIN,URINE NEGATIVE (NEGATIVE); BLOOD/HEMOGLOBIN,URINE 3+ (NEGATIVE); GLUCOSE, URINE NEGATIVE (NEGATIVE); KETONES,URINE NEGATIVE (NEGATIVE); LEUKOCYTE ESTERASE ,URINE NEGATIVE (NEGATIVE); NITRITES,URINE NEGATIVE (NEGATIVE); PROTEIN,URINE NEGATIVE (NEGATIVE); UROBILINOGEN,URINE NORMAL (NORMAL)
[2017-04-21 13:08] LABS: APPEARANCE,URINE CLEAR (CLEAR); BACTERIA,URINE NEGATIVE /HPF (NEGATIVE); COLOR,URINE YELLOW (YELLOW); RBC,URINE 0-2 /HPF (NEGATIVE); SQUAMOUS EPITHELIAL CELL,UR NEGATIVE /HPF (NEGATIVE)
[2017-04-21] MEDS: CHECK PATCH XX SCH (20:53)
[2017-04-21] MEDS: LIPITOR TAB 40 MG PO SCH (20:53)
[2017-04-21] MEDS: AMBIEN PO SCH (20:53)
--- NOTE | 2017-04-21 21:30 | PCM.PROG ---
Progress Note - Progress Note for Day of Date: 04/20/17 - Subjective Subjective: WAS ADMITTED FOR SHINGLES AND DEHYDRATION. TODAY, SHE IS ALERT AND ORIENTED, LYING IN BED ON MORNING ROUNDS. TODAY, SHE REPORTS CONTINUED IMPROVEMENT IN PAIN RELATED TO SHINGLES. SHE ALSO CONTINUES WITH ABDOMINAL PAIN TODAY, BUT REPORTS THAT IT HAS SIGNIFICANTLY IMPROVED SINCE YESTERDAY. SHE DENIES DIARRHEA THIS MORNING. ON EXAMINATION, HEART IS NORMAL IN RATE AND RHYTHM. BILATERAL LUNGS ARE CLEAR TO AUSCULTATION. ABDOMEN IS ROUND, SOFT, AND NOTED WITH DIFFUSE TENDERNESS ON PALPATION. HYPERACTIVE BOWEL SOUNDS ARE NOTED IN ALL QUADRATNS. SHE CONTINUES WITH VESICULAR RASH AND ERYTHEMA TO LEFT CHEST AND BREAST AREA, LEFT UPPER ARM, LEFT FLANK, AND LEFT UPPER BACK. THERE IS NORMAL RANGE OF MOTION NOTED TO ALL EXTREMITIES. HER VITALS THIS MORNING ARE 98.0-110-22-97%-171/81. LABS WERE OBTAINED. ABNORMAL LAB VALUES INCLUDE THE FOLLOWING: RBC 3.40, HGB 11.2, HCT 32.4, CHLORIDE 109, GLUCOSE 104, CALCIUM 6.8, AST 47, TOTAL PROTEIN 5.0, ALBUMIN 2.2. TODAY, WE WILL DISCONTINUE THE TORADOL, THIS MAY BE A CAUSE OF THE [place] FLARE UP. OTHERWISE, WE WILL CONTINUE WITH CURRENT PLAN OF CARE. WE PLAN TO FOLLOW UP WITH AM LABS AND CONTINUE TO MONITOR PATIENT. - Past Medical Family Social History Past Med/Fam/Surg Hx: No changes since H&P Allergies: Allergies iodine Allergy (Verified 04/16/17 14:07) prochlorperazine Allergy (Verified 04/16/17 14:07) - Review of Systems ROS: No change since H&P - Vital Signs and I&O's Vital Signs: Temperature 98.8 F Pulse Rate [Right Brachial] 124 Respiratory Rate 23 Blood Pressure [Right Arm] 173/79 Blood Pressure [Left Arm] 150/83 Blood Pressure 106/55 O2 Sat by Pulse Oximetry 94 Intake and Output: Intake & Output 04/19/17 04/20/17 04/21/17 04/22/17 11:59 11:59 11:59 11:59 Intake Total 3086 643 5654 1300 Output Total 1300 Balance -787 270 3267 1300 - Physical Exam Oriented: Normal Eyes: Normal Ear: Normal Nose: Normal Throat: Normal Respiratory: Normal Cardiovascular: Normal : Normal Auscultation: Bowel Sounds: Increased Palpation: Normal Tenderness: Diffuse, Moderate, Guarding. negative: Rebound, Rigidity Skin: Vesicular (VESICULAR RASH TO LEFT CHEST, BREAST AREA, UPPER ARM, FLANK, AND UPPER BACK), Red, Tender Musculoskeletal: Normal Psychiatric: Normal Mood Description: Calm Affect: Normal Speech Pattern: Clear, Appropriate - Laboratory and Diagnostics Result Diagrams: 04/21/17 04:30 04/21/17 04:30 Labs: Laboratory WBC 8.3 X10^3/uL (3.6-10.0) 04/21/17 04:30 RBC 3.35 X10^6/uL (3.5-5.4) L 04/21/17 04:30 Hgb 11.0 g/dL (12.0-16.0) L 04/21/17 04:30 Hct 32.1 % (36.0-47.0) L 04/21/17 04:30 MCV 96.1 fL (80.0-100.0) 04/21/17 04:30 MCH 32.8 pg (27.0-34.0) 04/21/17 04:30 MCHC 34.1 g/dL (33.0-35.0) 04/21/17 04:30 RDW 15.0 % (11.6-16.5) 04/21/17 04:30 Plt Count 177 X10^3/uL (150.0-450.0) 04/21/17 04:30 MPV 9.2 fL (7.4-11.0) 04/21/17 04:30 Neut % 69.9 % (42.0-75.0) 04/21/17 04:30 Lymph % 16.8 % (21.0-51.0) L 04/21/17 04:30 [place] % 8.9 % (0.0-13.0) 04/21/17 04:30 Eos % 3.6 % (0.9-2.9) H 04/21/17 04:30 Baso % 0.8 % (0.2-1.0) 04/21/17 04:30 Neut # 5.8 x10^3/uL (2.2-4.8) H 04/21/17 04:30 Lymph # 1.4 X10^3/uL (1.3-2.9) 04/21/17 04:30 [place] # 0.7 x10^3/uL (0.3-0.8) 04/21/17 04:30 Eos # 0.3 x10^3/uL (0.0-0.2) H 04/21/17 04:30 Baso # 0.1 X10^3/uL (0.0-0.1) 04/21/17 04:30 Absolute Nucleated RBC 0.0 /100WBC 04/21/17 04:30 Sodium 136 mmol/L (136-145) 04/21/17 04:30 Corrected Sodium TNP 04/21/17 04:30 Potassium 3.5 mmol/L (3.5-5.1) 04/21/17 04:30 Chloride 104 mmol/L (98-107) 04/21/17 04:30 Carbon Dioxide 27.1 mmol/L (21-32) 04/21/17 04:30 BUN 8 mg/dL (7-18) 04/21/17 04:30 Creatinine 0.74 mg/dL (0.55-1.02) 04/21/17 04:30 Est GFR (MDRD) Af Amer > 60 (>60) 04/21/17 04:30 Est GFR (MDRD) Non-Af > 60 (>60) 04/21/17 04:30 Glucose 92 mg/dL (65-99) 04/21/17 04:30 Calcium 6.8 mg/dL (8.5-10.1) L 04/21/17 04:30 Corrected Calcium 7.9 mg/dL (8.5-10.1) L 04/21/17 04:30 Magnesium 1.7 mg/dL (1.7-2.9) 04/18/17 04:20 Total Bilirubin 0.40 mg/dL (0.2-1.0) 04/21/17 04:30 AST 41 Units/L (15-37) H 04/21/17 04:30 ALT 39 Units/L (12-78) 04/21/17 04:30 Alkaline Phosphatase 108 Units/L (46-116) 04/21/17 04:30 Total Protein 5.4 g/dL (6.4-8.2) L 04/21/17 04:30 Albumin 2.6 g/dL (3.4-5.0) L 04/21/17 04:30 Globulin 2.8 g/dL (2.5-4.5) 04/21/17 04:30 Albumin/Globulin Ratio 0.9 Ratio (1.1-2.1) L 04/21/17 04:30 Specimen Type Clean catch urine 04/21/17 12:43 Urine Color Yellow (YELLOW) 04/21/17 12:43 Urine Appearance Clear (CLEAR) 04/21/17 12:43 Urine pH 7.0 (5.0 - 8.0) 04/21/17 12:43 Ur Specific [place] 1.005 (1.000-1.030) 04/21/17 12:43 Urine Protein Negative (NEGATIVE) 04/21/17 12:43 Urine Glucose (UA) Negative (NEGATIVE) 04/21/17 12:43 Urine Ketones Negative (NEGATIVE) 04/21/17 12:43 Urine Occult Blood 3+ (NEGATIVE) 04/21/17 12:43 Urine Nitrite Negative (NEGATIVE) 04/21/17 12:43 Urine Bilirubin Negative (NEGATIVE) 04/21/17 12:43 Urine Urobilinogen Normal (NORMAL) 04/21/17 12:43 Ur Leukocyte Esterase Negative (NEGATIVE) 04/21/17 12:43 Urine RBC 0-2 /HPF (NEGATIVE) 04/21/17 12:43 Urine WBC 0 /HPF (NEGATIVE) 04/21/17 12:43 Ur Squamous Epith Cells Negative /HPF (NEGATIVE) 04/21/17 12:43 Urine Bacteria Negative /HPF (NEGATIVE) 04/21/17 12:43 Ur Culture Indicated? Yes/culture set up 04/21/17 12:43 Influenza Type A (PCR) Negative (NEGATIVE) 04/21/17 17:17 Influenza Type B (PCR) Negative (NEGATIVE) 04/21/17 17:17 - Plan (1) Shingles Status: Acute Qualifiers: Herpes zoster complications: unspecified herpes zoster complication Qualified Code(s): B02.8 - Zoster with other complications Plan: ACYCLOVIR 500MG IV Q8H, ACYCLOVIR TOPICAL Q4H, GABAPENTIN 600MG PO TID, CONTINUE TO MONITOR (2) Abdominal pain Status: Acute Qualifiers: Abdominal location: unspecified location Qualified Code(s): R10.9 - Unspecified abdominal pain Plan: BENTYL 20MG PO QID, CONTINUE TO MONITOR (3) Dehydration Status: Acute Plan: PROCALAMINE AT 40ML/HR, NORMAL SALINE AT 150ML/HR, ALBUMIN 255 IV DAILY, CONTINUE TO MONITOR (4) Nausea & vomiting Status: Acute Qualifiers: Vomiting type: unspecified Vomiting Intractability: intractable Qualified Code(s): R11.2 - Nausea with vomiting, unspecified Plan: PHENERGAN 12.5MG IV Q6H PRN, ZOFRAN 4MG IV Q6H PRN, CONTINUE TO MONITOR (5) Depression Status: Chronic Qualifiers: Depression Type: major depressive disorder Major depression recurrence: recurrent Active/Remission status: currently active Major depression episode severity: unspecified Qualified Code(s): F33.9 - Major depressive disorder, recurrent, unspecified Plan: CYMBALTA 30MG PO DAILY, CONTINUE TO MONITOR (6) Hx of Crohn's disease Status: Chronic Plan: CONTINUE IMURAN, CONTINUE TO MONITOR (7) Hyperlipidemia Status: Chronic Qualifiers: Hyperlipidemia type: mixed hyperlipidemia Qualified Code(s): E78.2 - Mixed hyperlipidemia Plan: CONTINUE LIPITOR, CONTINUE TO MONITOR (8) Hypothyroidism Status: Chronic Qualifiers: Hypothyroidism type: acquired Qualified Code(s): E03.9 - Hypothyroidism, unspecified Plan: CONTINUE SYNTHROID, CONTINUE TO MONITOR
[2017-04-22] MEDS: TYLENOL 325 MG TAB PO PRN (00:20)
[2017-04-22] MEDS: NS 1000 ML 1,000 ML IV SCH ×2 (01:37→14:18)
[2017-04-22] MEDS: ZOVIRAX TOP SCH ×6 (01:37→22:44)
[2017-04-22] MEDS: XYLOCAINE VISCOUS TOP SCH ×4 (01:38→20:17)
[2017-04-22] MEDS: NEURONTIN CAP 300 MG PO SCH ×3 (05:22→22:44)
[2017-04-22] MEDS: ZOVIRAX VIAL 500 MG 500 MG in NS 100 ML IV + SPIKE MINIBAG* 100 ML IV SCH ×3 (05:23→22:45)
[2017-04-22 05:55] LABS: ALANINE AMINOTRANSFERASE 39 Units/L (12-78); ALBUMIN 2.6 g/dL (3.4-5.0); ALKALINE PHOSPHATASE 130 Units/L (46-116); ASPARTATE AMINO TRANSFERASE 41 Units/L (15-37); BLOOD UREA NITROGEN 8 mg/dL (7-18); CALCIUM 7.3 mg/dL (8.5-10.1); CARBON DIOXIDE 27.9 mmol/L (21-32); CHLORIDE 106 mmol/L (98-107); COR CA(FOR HYPOALB) 8.4 mg/dL (8.5-10.1); COR NA(FOR HYPERGLY) 142 mmol/L (136-145); CREATININE 0.75 mg/dL (0.55-1.02); SODIUM 141 mmol/L (136-145); TOTAL PROTEIN 5.4 g/dL (6.4-8.2); eGFR BLACK RACES > 60 (>60); eGFR NON BLACK RACES > 60 (>60)
[2017-04-22 06:13] LABS: BASOPHILS # (AUTO) 0.1 X10^3/uL (0.0-0.1); EOSINOPHILS # (AUTO) 0.2 x10^3/uL (0.0-0.2); EOSINOPHILS % (AUTO) 2.8 % (0.9-2.9); HEMATOCRIT 29.3 % (36.0-47.0); HEMOGLOBIN 10.3 g/dL (12.0-16.0); LYMPHOCYTES % (AUTO) 14.4 % (21.0-51.0); MEAN CORPUSCULAR HEMOGLOBIN 33.3 pg (27.0-34.0); MEAN CORPUSCULAR HGB CONC 35.1 g/dL (33.0-35.0); MEAN PLATELET VOLUME 9.2 fL (7.4-11.0); MONOCYTES # (AUTO) 0.7 x10^3/uL (0.3-0.8); NEUTROPHILS # (AUTO) 4.7 x10^3/uL (2.2-4.8); NEUTROPHILS % (AUTO) 70.8 % (42.0-75.0); PLATELET COUNT 168 X10^3/uL (150.0-450.0); RED BLOOD COUNT 3.08 X10^6/uL (3.5-5.4); RED CELL DISTRIBUTION WIDTH 15.1 % (11.6-16.5); WHITE BLOOD COUNT 6.7 X10^3/uL (3.6-10.0)
[2017-04-22] MEDS: BENTYL CAP 10 MG PO SCH ×4 (08:40→20:15)
[2017-04-22] MEDS: OSCAL+D or CALTRATE+D PO SCH (08:41)
[2017-04-22] MEDS: ASPIRIN EC 81 MG PO SCH (08:41)
[2017-04-22] MEDS: CYMBALTA PO SCH (08:41)
[2017-04-22] MEDS: IMURAN PO SCH (08:41)
[2017-04-22] MEDS: MAG-OX TAB PO PRN (08:41)
[2017-04-22] MEDS: SYNTHROID 88 mcg TAB PO SCH (08:41)
[2017-04-22] MEDS: NICOTINE PATCH TD SCH (08:41)
[2017-04-22] MEDS: CHECK PATCH XX SCH ×2 (08:42→20:26)
[2017-04-22] MEDS: ALBUMIN HUMAN 25%- 100ML 100 ML IV SCH (08:43)
[2017-04-22] MEDS: NORCO 10/325 TAB PO PRN ×3 (08:55→20:13)
[2017-04-22] MEDS ORDERED: SALINE 3% 15 ML NEB TX NEB ONE (09:34)
[2017-04-22] MEDS ORDERED: PHARMACY CONSULT - VANCOMYCIN XX SCH (11:00)
[2017-04-22] MEDS ORDERED: VANCOMYCIN HCL 1 GM VIAL 1 GM in D5W 250 ML IV 250 ML IV SCH (11:00)
[2017-04-22] MEDS: TAMIFLU PO SCH ×2 (11:04→20:15)
[2017-04-22] MEDS: VANCOMYCIN HCL 1 GM VIAL 1 GM in NS 250 ML IV 250 ML IV SCH ×2 (11:04→20:18)
--- NOTE | 2017-04-22 13:24 | PCM.PROG ---
Progress Note - Progress Note for Day of Date: 04/21/17 - Subjective Subjective: WAS ADMITTED FOR SHINGLES AND DEHYDRATION. TODAY, SHE IS ALERT AND ORIENTED, LYING IN BED ON MORNING ROUNDS. THROUGHOUT THE NIGHT, PATIENT BEGAN WITH FEVER. TEMPERATURE WAS NOTED TO REACH 101.8 AT 4AM. TODAY, SHE REPORTS GENERALIZED WEAKNESS AND CHILLS. SHE IS ALSO NOTED WITH COMPLAINTS OF NASAL CONGESTION AND COUGH. ON EXAMINATION, HEART IS NORMAL IN RATE AND RHYTHM. BILATERAL LUNGS ARE NOTED WITH SCATTERED WHEEZING. ABDOMEN IS ROUND, SOFT, AND CONTINUES WITH MILD, DIFFUSE TENDERNESS ON PALPATION. NORMAL BOWEL SOUNDS ARE NOTED IN ALL QUADRATNS. SHE CONTINUES WITH VESICULAR RASH AND ERYTHEMA TO LEFT CHEST AND BREAST AREA, LEFT UPPER ARM, LEFT FLANK, AND LEFT UPPER BACK, ALTHOUGH IMPROVING. THERE IS NORMAL RANGE OF MOTION NOTED TO ALL EXTREMITIES. HER VITALS THIS MORNING ARE 98.8-98-22-94%-112/60. LABS WERE OBTAINED. ABNORMAL LAB VALUES INCLUDE THE FOLLOWING: RBC 3.35, HGB 11.0, HCT 32.1, CALCIUM 6.8, AST 41, TOTAL PROTEIN 5.4, ALBUMIN 2.6. BLOOD CULTURES ARE PENDING. TODAY, WE PLAN TO OBTAIN URINE, AND SPUTUM CULTURES. WE WILL OBTAIN A CHEST XRAY AND INFLUENZA SWAB. OTHERWISE, WE WILL CONTINUE WITH CURRENT PLAN OF CARE. WE PLAN TO FOLLOW UP WITH AM LABS AND CONTINUE TO MONITOR PATIENT. - Past Medical Family Social History Past Med/Fam/Surg Hx: No changes since H&P Allergies: Allergies iodine Allergy (Verified 04/16/17 14:07) prochlorperazine Allergy (Verified 04/16/17 14:07) - Review of Systems ROS: No change since H&P - Vital Signs and I&O's Vital Signs: Temperature 98.4 F Pulse Rate [Right Brachial] 102 Pulse Rate 110 Respiratory Rate 20 Blood Pressure [Right Arm] 120/71 Blood Pressure [Left Arm] 150/83 Blood Pressure 106/55 O2 Sat by Pulse Oximetry 95 Intake and Output: Intake & Output 04/20/17 04/21/17 04/22/17 04/23/17 11:59 11:59 11:59 11:59 Intake Total 960 5300 2220 Balance 960 5300 2220 - Physical Exam Oriented: Normal Eyes: Normal Ear: Normal Nose: Other (NASAL CONGESTION ) Throat: Normal Respiratory: Normal Cardiovascular: Normal : Normal Auscultation: Bowel Sounds: Increased Palpation: Normal Tenderness: Diffuse, Moderate, Guarding. negative: Rebound, Rigidity Skin: Vesicular (VESICULAR RASH TO LEFT CHEST, BREAST AREA, UPPER ARM, FLANK, AND UPPER BACK), Red, Tender Musculoskeletal: Normal Psychiatric: Normal Mood Description: Calm Affect: Normal Speech Pattern: Clear, Appropriate - Laboratory and Diagnostics Result Diagrams: 04/22/17 04:15 04/22/17 04:15 Labs: 04/22/17 10:40 Sputum - Expectorated Sputum - Final 04/21/17 12:43 Urine,Clean Catch Urine Culture - Preliminary Laboratory WBC 6.7 X10^3/uL (3.6-10.0) 04/22/17 04:15 RBC 3.08 X10^6/uL (3.5-5.4) L 04/22/17 04:15 Hgb 10.3 g/dL (12.0-16.0) L 04/22/17 04:15 Hct 29.3 % (36.0-47.0) L 04/22/17 04:15 MCV 95.0 fL (80.0-100.0) 04/22/17 04:15 MCH 33.3 pg (27.0-34.0) 04/22/17 04:15 MCHC 35.1 g/dL (33.0-35.0) H 04/22/17 04:15 RDW 15.1 % (11.6-16.5) 04/22/17 04:15 Plt Count 168 X10^3/uL (150.0-450.0) 04/22/17 04:15 MPV 9.2 fL (7.4-11.0) 04/22/17 04:15 Neut % 70.8 % (42.0-75.0) 04/22/17 04:15 Lymph % 14.4 % (21.0-51.0) L 04/22/17 04:15 [place] % 11.0 % (0.0-13.0) 04/22/17 04:15 Eos % 2.8 % (0.9-2.9) 04/22/17 04:15 Baso % 1.0 % (0.2-1.0) 04/22/17 04:15 Neut # 4.7 x10^3/uL (2.2-4.8) 04/22/17 04:15 Lymph # 1.0 X10^3/uL (1.3-2.9) L 04/22/17 04:15 [place] # 0.7 x10^3/uL (0.3-0.8) 04/22/17 04:15 Eos # 0.2 x10^3/uL (0.0-0.2) 04/22/17 04:15 Baso # 0.1 X10^3/uL (0.0-0.1) 04/22/17 04:15 Absolute Nucleated RBC 0.0 /100WBC 04/22/17 04:15 Sodium 141 mmol/L (136-145) 04/22/17 04:15 Corrected Sodium 142 mmol/L (136-145) 04/22/17 04:15 Potassium 3.1 mmol/L (3.5-5.1) L 04/22/17 04:15 Chloride 106 mmol/L (98-107) 04/22/17 04:15 Carbon Dioxide 27.9 mmol/L (21-32) 04/22/17 04:15 BUN 8 mg/dL (7-18) 04/22/17 04:15 Creatinine 0.75 mg/dL (0.55-1.02) 04/22/17 04:15 Est GFR (MDRD) Af Amer > 60 (>60) 04/22/17 04:15 Est GFR (MDRD) Non-Af > 60 (>60) 04/22/17 04:15 Glucose 121 mg/dL (65-99) H 04/22/17 04:15 Calcium 7.3 mg/dL (8.5-10.1) L 04/22/17 04:15 Corrected Calcium 8.4 mg/dL (8.5-10.1) L 04/22/17 04:15 Magnesium 1.6 mg/dL (1.7-2.9) L 04/22/17 04:15 Total Bilirubin 0.70 mg/dL (0.2-1.0) 04/22/17 04:15 AST 41 Units/L (15-37) H 04/22/17 04:15 ALT 39 Units/L (12-78) 04/22/17 04:15 Alkaline Phosphatase 130 Units/L (46-116) H 04/22/17 04:15 Total Protein 5.4 g/dL (6.4-8.2) L 04/22/17 04:15 Albumin 2.6 g/dL (3.4-5.0) L 04/22/17 04:15 Globulin 2.8 g/dL (2.5-4.5) 04/22/17 04:15 Albumin/Globulin Ratio 0.9 Ratio (1.1-2.1) L 04/22/17 04:15 Specimen Type Clean catch urine 04/21/17 12:43 Urine Color Yellow (YELLOW) 04/21/17 12:43 Urine Appearance Clear (CLEAR) 04/21/17 12:43 Urine pH 7.0 (5.0 - 8.0) 04/21/17 12:43 Ur Specific [place] 1.005 (1.000-1.030) 04/21/17 12:43 Urine Protein Negative (NEGATIVE) 04/21/17 12:43 Urine Glucose (UA) Negative (NEGATIVE) 04/21/17 12:43 Urine Ketones Negative (NEGATIVE) 04/21/17 12:43 Urine Occult Blood 3+ (NEGATIVE) 04/21/17 12:43 Urine Nitrite Negative (NEGATIVE) 04/21/17 12:43 Urine Bilirubin Negative (NEGATIVE) 04/21/17 12:43 Urine Urobilinogen Normal (NORMAL) 04/21/17 12:43 Ur Leukocyte Esterase Negative (NEGATIVE) 04/21/17 12:43 Urine RBC 0-2 /HPF (NEGATIVE) 04/21/17 12:43 Urine WBC 0 /HPF (NEGATIVE) 04/21/17 12:43 Ur Squamous Epith Cells Negative /HPF (NEGATIVE) 04/21/17 12:43 Urine Bacteria Negative /HPF (NEGATIVE) 04/21/17 12:43 Ur Culture Indicated? Yes/culture set up 04/21/17 12:43 Influenza Type A (PCR) Negative (NEGATIVE) 04/21/17 17:17 Influenza Type B (PCR) Negative (NEGATIVE) 04/21/17 17:17 - Plan (1) Shingles Status: Acute Qualifiers: Herpes zoster complications: unspecified herpes zoster complication Qualified Code(s): B02.8 - Zoster with other complications Plan: ACYCLOVIR 500MG IV Q8H, ACYCLOVIR TOPICAL Q4H, GABAPENTIN 600MG PO TID, CONTINUE TO MONITOR (2) Abdominal pain Status: Acute Qualifiers: Abdominal location: unspecified location Qualified Code(s): R10.9 - Unspecified abdominal pain Plan: BENTYL 20MG PO QID, CONTINUE TO MONITOR (3) Dehydration Status: Acute Plan: PROCALAMINE AT 40ML/HR, NORMAL SALINE AT 150ML/HR, ALBUMIN 255 IV DAILY, CONTINUE TO MONITOR (4) Nausea & vomiting Status: Acute Qualifiers: Vomiting type: unspecified Vomiting Intractability: intractable Qualified Code(s): R11.2 - Nausea with vomiting, unspecified Plan: PHENERGAN 12.5MG IV Q6H PRN, ZOFRAN 4MG IV Q6H PRN, CONTINUE TO MONITOR (5) Depression Status: Chronic Qualifiers: Depression Type: major depressive disorder Major depression recurrence: recurrent Active/Remission status: currently active Major depression episode severity: unspecified Qualified Code(s): F33.9 - Major depressive disorder, recurrent, unspecified Plan: CYMBALTA 30MG PO DAILY, CONTINUE TO MONITOR (6) Hx of Crohn's disease Status: Chronic Plan: CONTINUE IMURAN, CONTINUE TO MONITOR (7) Hyperlipidemia Status: Chronic Qualifiers: Hyperlipidemia type: mixed hyperlipidemia Qualified Code(s): E78.2 - Mixed hyperlipidemia Plan: CONTINUE LIPITOR, CONTINUE TO MONITOR (8) Hypothyroidism Status: Chronic Qualifiers: Hypothyroidism type: acquired Qualified Code(s): E03.9 - Hypothyroidism, unspecified Plan: CONTINUE SYNTHROID, CONTINUE TO MONITOR
[2017-04-22] MEDS: DIFLUCAN 200 MG IV PREMIX* 200 MG/100 ML BAG IV SCH (16:28)
[2017-04-22] MEDS: LIPITOR TAB 40 MG PO SCH (20:14)
[2017-04-22] MEDS: AMBIEN PO SCH (20:15)
[2017-04-23] MEDS: NORCO 10/325 TAB PO PRN ×3 (00:22→13:49)
[2017-04-23] MEDS: PROCALAMINE 3 % 1,000 ML IV SCH (00:23)
[2017-04-23] MEDS: ZOVIRAX TOP SCH ×6 (00:31→21:47)
[2017-04-23] MEDS: XYLOCAINE VISCOUS TOP SCH ×4 (02:34→21:47)
[2017-04-23] MEDS: NS 1000 ML 1,000 ML IV SCH ×3 (02:34→17:46)
[2017-04-23 05:45] LABS: BASOPHILS # (AUTO) 0.1 X10^3/uL (0.0-0.1); BASOPHILS % (AUTO) 1.3 % (0.2-1.0); EOSINOPHILS # (AUTO) 0.2 x10^3/uL (0.0-0.2); EOSINOPHILS % (AUTO) 3.9 % (0.9-2.9); HEMOGLOBIN 9.7 g/dL (12.0-16.0); LYMPHOCYTES # (AUTO) 0.9 X10^3/uL (1.3-2.9); LYMPHOCYTES % (AUTO) 17.7 % (21.0-51.0); MEAN CORPUSCULAR HEMOGLOBIN 33.5 pg (27.0-34.0); MEAN CORPUSCULAR HGB CONC 34.7 g/dL (33.0-35.0); MEAN CORPUSCULAR VOLUME 96.6 fL (80.0-100.0); MEAN PLATELET VOLUME 9.6 fL (7.4-11.0); MONOCYTES # (AUTO) 0.7 x10^3/uL (0.3-0.8); NEUTROPHILS # (AUTO) 3.3 x10^3/uL (2.2-4.8); NEUTROPHILS % (AUTO) 64.1 % (42.0-75.0); PLATELET COUNT 153 X10^3/uL (150.0-450.0); RED CELL DISTRIBUTION WIDTH 15.9 % (11.6-16.5); WHITE BLOOD COUNT 5.2 X10^3/uL (3.6-10.0)
[2017-04-23] MEDS: NEURONTIN CAP 300 MG PO SCH ×3 (05:52→21:38)
[2017-04-23] MEDS: ZOVIRAX VIAL 500 MG 500 MG in NS 100 ML IV + SPIKE MINIBAG* 100 ML IV SCH (05:54)
[2017-04-23 05:58] LABS: ALANINE AMINOTRANSFERASE 51 Units/L (12-78); ALBUMIN 2.6 g/dL (3.4-5.0); ALKALINE PHOSPHATASE 130 Units/L (46-116); ASPARTATE AMINO TRANSFERASE 71 Units/L (15-37); BLOOD UREA NITROGEN 6 mg/dL (7-18); CALCIUM 6.9 mg/dL (8.5-10.1); CARBON DIOXIDE 28.3 mmol/L (21-32); CHLORIDE 107 mmol/L (98-107); CREATININE 0.61 mg/dL (0.55-1.02); MAGNESIUM 1.5 mg/dL (1.7-2.9); SODIUM 141 mmol/L (136-145); TOTAL PROTEIN 5.4 g/dL (6.4-8.2); eGFR BLACK RACES > 60 (>60); eGFR NON BLACK RACES > 60 (>60)
[2017-04-23 06:04] LABS: BAND NEUTROPHILS % 2 % (0-10)
[2017-04-23 06:05] LABS: PLATELET MORPHOLOGY COMMENT NORMAL (NORMAL)
[2017-04-23] MEDS: VANCOMYCIN HCL 1 GM VIAL 1 GM in NS 250 ML IV 250 ML IV SCH ×2 (08:10→22:10)
[2017-04-23] MEDS: CHECK PATCH XX SCH ×2 (08:10→21:48)
[2017-04-23] MEDS: NICOTINE PATCH TD SCH (08:11)
[2017-04-23] MEDS: ALBUMIN HUMAN 25%- 100ML 100 ML IV SCH (08:11)
[2017-04-23] MEDS: CYMBALTA PO SCH (08:12)
[2017-04-23] MEDS: SYNTHROID 88 mcg TAB PO SCH (08:12)
[2017-04-23] MEDS: OSCAL+D or CALTRATE+D PO SCH (08:12)
[2017-04-23] MEDS: MAG-OX TAB PO PRN (08:13)
[2017-04-23] MEDS: ASPIRIN EC 81 MG PO SCH (08:13)
[2017-04-23] MEDS: BENTYL CAP 10 MG PO SCH ×4 (08:13→21:39)
[2017-04-23] MEDS: MILK OF MAGNESIA PO PRN (08:14)
[2017-04-23] MEDS: DIFLUCAN 200 MG IV PREMIX* 200 MG/100 ML BAG IV SCH (08:14)
[2017-04-23] MEDS: COLACE CAP 100 MG PO PRN (08:14)
[2017-04-23] MEDS: LEVAQUIN PREMIX IV 750 MG 750 MG/150 ML BAG IV SCH (08:14)
[2017-04-23] MEDS: TAMIFLU PO SCH ×2 (08:22→21:39)
[2017-04-23] MEDS: IMURAN PO SCH (08:22)
[2017-04-23] MEDS: MORPHINE SULFATE INJ 2 MG INJ IVP PRN ×2 (16:18→21:39)
[2017-04-23 20:31] LABS: CREATININE 0.67 mg/dL (0.55-1.02); VANCOMYCIN,TROUGH 11.8 ug/mL (15-20)
[2017-04-23] MEDS: LIPITOR TAB 40 MG PO SCH (21:39)
[2017-04-23] MEDS: AMBIEN PO SCH (21:39)
[2017-04-24] MEDS: PHENERGAN INJ 25 MG IV PRN (00:53)
[2017-04-24] MEDS: XYLOCAINE VISCOUS TOP SCH ×3 (02:24→13:18)
[2017-04-24] MEDS: ZOVIRAX TOP SCH ×4 (02:24→13:18)
[2017-04-24] MEDS: PROCALAMINE 3 % 1,000 ML IV SCH (02:37)
[2017-04-24] MEDS: NS 1000 ML 1,000 ML IV SCH (04:55)
[2017-04-24 05:34] LABS: ALANINE AMINOTRANSFERASE 38 Units/L (12-78); ALBUMIN 3.3 g/dL (3.4-5.0); ALKALINE PHOSPHATASE 141 Units/L (46-116); ASPARTATE AMINO TRANSFERASE 45 Units/L (15-37); BLOOD UREA NITROGEN 8 mg/dL (7-18); CALCIUM 7.5 mg/dL (8.5-10.1); CARBON DIOXIDE 27.7 mmol/L (21-32); CHLORIDE 103 mmol/L (98-107); COR CA(FOR HYPOALB) 8.1 mg/dL (8.5-10.1); SODIUM 139 mmol/L (136-145); TOTAL PROTEIN 6.5 g/dL (6.4-8.2); eGFR BLACK RACES > 60 (>60); eGFR NON BLACK RACES > 60 (>60)
[2017-04-24] MEDS: NEURONTIN CAP 300 MG PO SCH ×2 (05:36→13:18)
[2017-04-24 05:55] LABS: BASOPHILS % (AUTO) 0.7 % (0.2-1.0); EOSINOPHILS # (AUTO) 0.2 x10^3/uL (0.0-0.2); EOSINOPHILS % (AUTO) 2.9 % (0.9-2.9); HEMATOCRIT 31.7 % (36.0-47.0); HEMOGLOBIN 10.9 g/dL (12.0-16.0); LYMPHOCYTES # (AUTO) 0.9 X10^3/uL (1.3-2.9); LYMPHOCYTES % (AUTO) 12.6 % (21.0-51.0); MEAN CORPUSCULAR HEMOGLOBIN 32.8 pg (27.0-34.0); MEAN CORPUSCULAR HGB CONC 34.3 g/dL (33.0-35.0); MEAN CORPUSCULAR VOLUME 95.7 fL (80.0-100.0); MONOCYTES # (AUTO) 0.7 x10^3/uL (0.3-0.8); MONOCYTES % (AUTO) 10.7 % (0.0-13.0); NEUTROPHILS % (AUTO) 73.1 % (42.0-75.0); PLATELET COUNT 223 X10^3/uL (150.0-450.0); RED BLOOD COUNT 3.31 X10^6/uL (3.5-5.4); RED CELL DISTRIBUTION WIDTH 16.1 % (11.6-16.5); WHITE BLOOD COUNT 6.8 X10^3/uL (3.6-10.0)
[2017-04-24] MEDS: LEVAQUIN PREMIX IV 750 MG 750 MG/150 ML BAG IV SCH (09:18)
[2017-04-24] MEDS: DIFLUCAN 200 MG IV PREMIX* 200 MG/100 ML BAG IV SCH (09:18)
[2017-04-24] MEDS: OSCAL+D or CALTRATE+D PO SCH (09:19)
[2017-04-24] MEDS: VANCOMYCIN HCL 1 GM VIAL 1 GM in NS 250 ML IV 250 ML IV SCH (09:19)
[2017-04-24] MEDS: IMURAN PO SCH (09:19)
[2017-04-24] MEDS: ASPIRIN EC 81 MG PO SCH (09:20)
[2017-04-24] MEDS: BENTYL CAP 10 MG PO SCH ×2 (09:20→13:17)
[2017-04-24] MEDS: SYNTHROID 88 mcg TAB PO SCH (09:20)
[2017-04-24] MEDS: TAMIFLU PO SCH (09:20)
[2017-04-24] MEDS: CYMBALTA PO SCH (09:20)
[2017-04-24] MEDS: COLACE CAP 100 MG PO PRN (09:20)
[2017-04-24] MEDS: ALBUMIN HUMAN 25%- 100ML 100 ML IV SCH (09:22)
[2017-04-24] MEDS: NICOTINE PATCH TD SCH (09:23)
[2017-04-24] MEDS: CHECK PATCH XX SCH (09:23)
[2017-04-24] MEDS: MILK OF MAGNESIA PO PRN (09:27)
[2017-04-24 13:12] VITALS: BP 138/67
--- NOTE | 2017-04-24 19:13 | PCM.PROG ---
Progress Note - Progress Note for Day of Date: 04/22/17 - Subjective Subjective: WAS ADMITTED FOR SHINGLES AND DEHYDRATION. TODAY, SHE IS ALERT AND ORIENTED, LYING IN BED ON MORNING ROUNDS. SHE CONTINUED WITH FEVER THROUGHOUT THE NIGHT. A TEMPERATURE OF 103.1 WAS NOTED AT MIDNIGHT. SHE IS AFEBRIL THIS MORNING. TODAY, SHE CONTINUES WITH COMPLAINTS OF GENERALIZED WEAKNESS AND CHILLS. SHE REPORTS THAT PAIN FROM SHINGLES HAS RESOLVED. SHE ALSO REPORTS THAT RESPIRATORY SYMPTOMS OF COUGH AND CONGESTION HAVE IMPROVED SINCE WE VISITED WITH HER YESTERDAY. ON EXAMINATION, HEART IS NORMAL IN RATE AND RHYTHM. BILATERAL LUNGS ARE NOTED WITH SCATTERED WHEEZING. ABDOMEN IS ROUND, SOFT, AND CONTINUES WITH MILD, DIFFUSE TENDERNESS ON PALPATION. NORMAL BOWEL SOUNDS ARE NOTED IN ALL QUADRATNS. SHE CONTINUES WITH VESICULAR RASH AND ERYTHEMA TO LEFT CHEST AND BREAST AREA, LEFT UPPER ARM, LEFT FLANK, AND LEFT UPPER BACK, ALTHOUGH IMPROVING. THERE IS NORMAL RANGE OF MOTION NOTED TO ALL EXTREMITIES. HER VITALS THIS MORNING ARE 98.4-99-20-95%-120/71. LABS WERE OBTAINED. ABNORMAL LAB VALUES INCLUDE THE FOLLOWING: RBC 3.08, HGB 10.3, HCT 29.3, POTASSIUM 3.1, GLUCOSE 121, CALCIUM 7.3, MAGNESIUM 1.6, AST 41, ALK PHOS 130, TOTAL PROTEIN 5.4, ALBUMIN 2.6. BLOOD CULTURES ARE PENDING. LAB REPORTS THAT PRELIMINARY REPORTS ARE POSITIVE FOR GROWTH OF COAGULASE NEGATIVE STAPH. A SPUTUM CULURE IS PENDING. GRAM STAIN REPORTS MODERATE GROWTH OF YEAST. URINE CULTURE IS PENDING. TODAY, WE PLAN TO START PATIENT ON VANCOMYCIN 1GM IV Q12H, LEVAQUIN 750MG IV DAILY, AND TAMIFLU 75MG PO BID PROPHYLAXIS PATIENT EXHIBITS SYMTOMS OF THE FLU ALTHOUGH SWABS ARE NEGATIVE. OTHERWISE, WE WILL CONTINUE WITH CURRENT PLAN OF CARE. WE PLAN TO FOLLOW UP WITH AM LABS AND CONTINUE TO MONITOR PATIENT. - Past Medical Family Social History Past Med/Fam/Surg Hx: No changes since H&P Allergies: Allergies iodine Allergy (Verified 04/16/17 14:07) prochlorperazine Allergy (Verified 04/16/17 14:07) - Review of Systems ROS: No change since H&P - Vital Signs and I&O's Vital Signs: Temperature 98.6 F Pulse Rate [Right Brachial] 93 Pulse Rate 110 Respiratory Rate 20 Blood Pressure [Right Arm] 138/67 Blood Pressure [Left Arm] 150/83 Blood Pressure 106/55 O2 Sat by Pulse Oximetry 94 Intake and Output: Intake & Output 04/22/17 04/23/17 04/24/17 04/25/17 11:59 11:59 11:59 11:59 Intake Total 2220 3305 4600 Balance 2220 3305 4600 - Physical Exam Oriented: Normal Eyes: Normal Ear: Normal Nose: Other Throat: Normal Respiratory: Normal Cardiovascular: Normal : Normal Auscultation: Bowel Sounds: Increased Palpation: Normal Tenderness: Diffuse, Moderate, Guarding. negative: Rebound, Rigidity Skin: Vesicular (VESICULAR RASH TO LEFT CHEST, BREAST AREA, UPPER ARM, FLANK, AND UPPER BACK), Red, Tender Musculoskeletal: Normal Psychiatric: Normal Mood Description: Calm Affect: Normal Speech Pattern: Clear, Appropriate - Laboratory and Diagnostics Result Diagrams: 04/24/17 04:08 04/24/17 04:08 Labs: 04/21/17 05:05 Blood Blood Culture - Preliminary 04/21/17 05:07 Blood Blood Culture - Final Staphylococcus Epidermidis 04/22/17 10:40 Sputum - Expectorated Sputum Sputum Culture - Preliminary 04/22/17 10:40 Sputum - Expectorated Sputum - Final 04/21/17 12:43 Urine,Clean Catch Urine Culture - Final Laboratory WBC 6.8 X10^3/uL (3.6-10.0) 04/24/17 04:08 RBC 3.31 X10^6/uL (3.5-5.4) L 04/24/17 04:08 Hgb 10.9 g/dL (12.0-16.0) L 04/24/17 04:08 Hct 31.7 % (36.0-47.0) L 04/24/17 04:08 MCV 95.7 fL (80.0-100.0) 04/24/17 04:08 MCH 32.8 pg (27.0-34.0) 04/24/17 04:08 MCHC 34.3 g/dL (33.0-35.0) 04/24/17 04:08 RDW 16.1 % (11.6-16.5) 04/24/17 04:08 Plt Count 223 X10^3/uL (150.0-450.0) 04/24/17 04:08 Plt Count Comment Adequate (ADEQUATE) 04/23/17 04:03 MPV 9.0 fL (7.4-11.0) 04/24/17 04:08 Neut % 73.1 % (42.0-75.0) 04/24/17 04:08 Lymph % 12.6 % (21.0-51.0) L 04/24/17 04:08 [place] % 10.7 % (0.0-13.0) 04/24/17 04:08 Eos % 2.9 % (0.9-2.9) 04/24/17 04:08 Baso % 0.7 % (0.2-1.0) 04/24/17 04:08 Neut # 5.0 x10^3/uL (2.2-4.8) H 04/24/17 04:08 Lymph # 0.9 X10^3/uL (1.3-2.9) L 04/24/17 04:08 [place] # 0.7 x10^3/uL (0.3-0.8) 04/24/17 04:08 Eos # 0.2 x10^3/uL (0.0-0.2) 04/24/17 04:08 Baso # 0.0 X10^3/uL (0.0-0.1) 04/24/17 04:08 Absolute Nucleated RBC 0.1 /100WBC 04/24/17 04:08 Total Counted 100 04/23/17 04:03 Neutrophils % (Manual) 65 % (39-76) 04/23/17 04:03 Band Neutrophils % 2 % (0-10) 04/23/17 04:03 Lymphocytes % (Manual) 18 % (13-43) 04/23/17 04:03 Monocytes % (Manual) 9 % (4-9) 04/23/17 04:03 Eosinophils % (Manual) 6 % (0-6) 04/23/17 04:03 Plt Morphology Comment Normal (NORMAL) 04/23/17 04:03 RBC Morphology Normal (NORMAL) 04/23/17 04:03 Sodium 139 mmol/L (136-145) 04/24/17 04:08 Corrected Sodium TNP 04/24/17 04:08 Potassium 3.8 mmol/L (3.5-5.1) 04/24/17 04:08 Chloride 103 mmol/L (98-107) 04/24/17 04:08 Carbon Dioxide 27.7 mmol/L (21-32) 04/24/17 04:08 BUN 8 mg/dL (7-18) 04/24/17 04:08 Creatinine 0.70 mg/dL (0.55-1.02) 04/24/17 04:08 Est GFR (MDRD) Af Amer > 60 (>60) 04/24/17 04:08 Est GFR (MDRD) Non-Af > 60 (>60) 04/24/17 04:08 Glucose 96 mg/dL (65-99) 04/24/17 04:08 Calcium 7.5 mg/dL (8.5-10.1) L 04/24/17 04:08 Corrected Calcium 8.1 mg/dL (8.5-10.1) L 04/24/17 04:08 Magnesium 1.7 mg/dL (1.7-2.9) 04/24/17 04:08 Total Bilirubin 0.70 mg/dL (0.2-1.0) 04/24/17 04:08 AST 45 Units/L (15-37) H 04/24/17 04:08 ALT 38 Units/L (12-78) 04/24/17 04:08 Alkaline Phosphatase 141 Units/L (46-116) H 04/24/17 04:08 Total Protein 6.5 g/dL (6.4-8.2) 04/24/17 04:08 Albumin 3.3 g/dL (3.4-5.0) L 04/24/17 04:08 Globulin 3.2 g/dL (2.5-4.5) 04/24/17 04:08 Albumin/Globulin Ratio 1.0 Ratio (1.1-2.1) L 04/24/17 04:08 Specimen Type Clean catch urine 04/21/17 12:43 Urine Color Yellow (YELLOW) 04/21/17 12:43 Urine Appearance Clear (CLEAR) 04/21/17 12:43 Urine pH 7.0 (5.0 - 8.0) 04/21/17 12:43 Ur Specific [place] 1.005 (1.000-1.030) 04/21/17 12:43 Urine Protein Negative (NEGATIVE) 04/21/17 12:43 Urine Glucose (UA) Negative (NEGATIVE) 04/21/17 12:43 Urine Ketones Negative (NEGATIVE) 04/21/17 12:43 Urine Occult Blood 3+ (NEGATIVE) 04/21/17 12:43 Urine Nitrite Negative (NEGATIVE) 04/21/17 12:43 Urine Bilirubin Negative (NEGATIVE) 04/21/17 12:43 Urine Urobilinogen Normal (NORMAL) 04/21/17 12:43 Ur Leukocyte Esterase Negative (NEGATIVE) 04/21/17 12:43 Urine RBC 0-2 /HPF (NEGATIVE) 04/21/17 12:43 Urine WBC 0 /HPF (NEGATIVE) 04/21/17 12:43 Ur Squamous Epith Cells Negative /HPF (NEGATIVE) 04/21/17 12:43 Urine Bacteria Negative /HPF (NEGATIVE) 04/21/17 12:43 Ur Culture Indicated? Yes/culture set up 04/21/17 12:43 Vancomycin Trough 11.8 ug/mL (15-20) L 04/23/17 20:08 Influenza Type A (PCR) Negative (NEGATIVE) 04/21/17 17:17 Influenza Type B (PCR) Negative (NEGATIVE) 04/21/17 17:17 - Plan (1) Shingles Status: Acute Qualifiers: Herpes zoster complications: unspecified herpes zoster complication Qualified Code(s): B02.8 - Zoster with other complications Plan: ACYCLOVIR 500MG IV Q8H, ACYCLOVIR TOPICAL Q4H, GABAPENTIN 600MG PO TID, CONTINUE TO MONITOR (2) Abdominal pain Status: Acute Qualifiers: Abdominal location: unspecified location Qualified Code(s): R10.9 - Unspecified abdominal pain Plan: BENTYL 20MG PO QID, CONTINUE TO MONITOR (3) Dehydration Status: Acute Plan: PROCALAMINE AT 40ML/HR, NORMAL SALINE AT 150ML/HR, ALBUMIN 255 IV DAILY, CONTINUE TO MONITOR (4) Positive blood culture Status: Acute Plan: VANCOMYCIN 1GM IV Q12H, LEVAQUIN 750MG IV DAILY, UNTIL FURTHER REPORTS (5) Nausea & vomiting Status: Acute Qualifiers: Vomiting type: unspecified Vomiting Intractability: intractable Qualified Code(s): R11.2 - Nausea with vomiting, unspecified Plan: PHENERGAN 12.5MG IV Q6H PRN, ZOFRAN 4MG IV Q6H PRN, CONTINUE TO MONITOR (6) Depression Status: Chronic Qualifiers: Depression Type: major depressive disorder Major depression recurrence: recurrent Active/Remission status: currently active Major depression episode severity: unspecified Qualified Code(s): F33.9 - Major depressive disorder, recurrent, unspecified Plan: CYMBALTA 30MG PO DAILY, CONTINUE TO MONITOR (7) Hx of Crohn's disease Status: Chronic Plan: CONTINUE IMURAN, CONTINUE TO MONITOR (8) Hyperlipidemia Status: Chronic Qualifiers: Hyperlipidemia type: mixed hyperlipidemia Qualified Code(s): E78.2 - Mixed hyperlipidemia Plan: CONTINUE LIPITOR, CONTINUE TO MONITOR (9) Hypothyroidism Status: Chronic Qualifiers: Hypothyroidism type: acquired Qualified Code(s): E03.9 - Hypothyroidism, unspecified Plan: CONTINUE SYNTHROID, CONTINUE TO MONITOR
== END 2017-04-24 13:40 | disposition home or self-care (01) | DRG 866 ==
LOC: ICU 12:24 → MED/SURG 12:45 → OBSVTOIN 04-18 08:30
PROVIDERS: ADMIT Internal Medicine; ATTEND Internal Medicine
DX: B02.8 Zoster with other complications (principal); K50.90 Crohn's disease, unspecified, without complications; F33.8 Other recurrent depressive disorders; E86.0 Dehydration; E03.8 Other specified hypothyroidism; E78.2 Mixed hyperlipidemia; R11.2 Nausea with vomiting, unspecified; R10.84 Generalized abdominal pain
CPT/HCPCS: 36415; 71045; 80053; 80202; 81001; 82565; 83735; 84132; 85025; 87040; 87070; 87077; 87086; 87186; 87205; 87502; 94640; 94760; A4216; A4222; B5200; G9035; P9047; G0378; J0133; J1450; J1885; J1956; J2270; J2405; J2550; J3370

== ENCOUNTER 2017-05-29 09:40 | Inpatient (IN) | payer OTHER ==
[~2017-05-29 09:40] MED LIST: DIPRIVAN VIAL ONE; EPHEDRINE SULFATE INJ ONE; NEO-SYNEPHRINE INJ ONE; NORCURON INJ 10 MG VIAL ONE; REGLAN INJ 10 MG VIAL ONE; SUPRANE IN ONE; ZOFRAN INJ 4 MG VIAL ONE
[2017-05-29 10:52] LABS: BASOPHILS # (AUTO) 0.1 X10^3/uL (0.0-0.1); EOSINOPHILS % (AUTO) 0.3 % (0.9-2.9); HEMATOCRIT 32.4 % (36.0-47.0); HEMOGLOBIN 11.1 g/dL (12.0-16.0); LYMPHOCYTES # (AUTO) 0.7 X10^3/uL (1.3-2.9); LYMPHOCYTES % (AUTO) 13.7 % (21.0-51.0); MEAN CORPUSCULAR HEMOGLOBIN 32.6 pg (27.0-34.0); MEAN CORPUSCULAR HGB CONC 34.2 g/dL (33.0-35.0); MEAN CORPUSCULAR VOLUME 95.3 fL (80.0-100.0); MEAN PLATELET VOLUME 9.5 fL (7.4-11.0); MONOCYTES # (AUTO) 0.6 x10^3/uL (0.3-0.8); MONOCYTES % (AUTO) 10.5 % (0.0-13.0); NEUTROPHILS % (AUTO) 74.5 % (42.0-75.0); PLATELET COUNT 185 X10^3/uL (150.0-450.0); WHITE BLOOD COUNT 5.4 X10^3/uL (3.6-10.0)
[2017-05-29 11:17] LABS: ALANINE AMINOTRANSFERASE 20 Units/L (12-78); ALBUMIN 3.1 g/dL (3.4-5.0); ALKALINE PHOSPHATASE 43 Units/L (46-116); ASPARTATE AMINO TRANSFERASE 30 Units/L (15-37); BLOOD UREA NITROGEN 18 mg/dL (7-18); CALCIUM 7.6 mg/dL (8.5-10.1); CHLORIDE 102 mmol/L (98-107); COR CA(FOR HYPOALB) 8.3 mg/dL (8.5-10.1); CREATININE 1.28 mg/dL (0.55-1.02); SODIUM 140 mmol/L (136-145); TOTAL PROTEIN 6.2 g/dL (6.4-8.2); eGFR BLACK RACES 53 (>60); eGFR NON BLACK RACES 44 (>60)
[2017-05-29 11:40] VITALS: BMI 20.4
[2017-05-29] MEDS: NS 1000 ML 1,000 ML IV SCH ×2 (11:44→23:30)
[2017-05-29] MEDS: ZOSYN VIAL 3.375 GM 3.375 GM in NS 100 ML IV + SPIKE MINIBAG* 100 ML IV SCH ×3 (11:44→21:35)
[2017-05-29] MEDS: PERCOCET TAB 5/325 MG PO PRN ×2 (11:45→21:35)
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
[2017-05-29] MEDS ORDERED: TORADOL 15 MG VIAL ONE (13:56)
[2017-05-29] MEDS: TORADOL 15 MG VIAL IVP SCH ×2 (14:14→19:53)
[2017-05-29] MEDS ORDERED: HYDROGEN PEROXIDE 3% ONE (14:38)
[2017-05-29] MEDS ORDERED: VERSED ONE (15:45)
[2017-05-29] MEDS ORDERED: QUELICIN (OR ANECTINE) ONE (15:45)
[2017-05-29] MEDS ORDERED: BACITRACIN VIAL ONE ×2 (16:23→17:29)
[2017-05-29] MEDS ORDERED: MARCAINE 0.25% INJ ONE (16:28)
[2017-05-29] MEDS ORDERED: FENTANYL INJ 250 mcg ONE (16:41)
[2017-05-29] MEDS: NS 1000 ML 1,000 ML ONE ×2 (16:55→17:00)
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
[2017-05-29] MEDS ORDERED: NS IRRIGATION 1000 ML 1,000 ML with BACITRACIN VIAL 50,000 UNT IR ONE ×18 (17:21→17:50)
[2017-05-29] MEDS ORDERED: BACTROBAN OINT ONE (17:45)
[2017-05-29] MEDS ORDERED: PHENERGAN INJ 25 MG IVP PRN (18:05)
[2017-05-29] MEDS ORDERED: DILAUDID INJ IVP PRN (18:05)
[2017-05-29] MEDS ORDERED: ZOFRAN INJ 4 MG VIAL IVP PRN (18:05)
[2017-05-29] MEDS ORDERED: BENADRYL INJ 50 MG VIAL IVP PRN (18:05)
[2017-05-29] MEDS ORDERED: REGLAN INJ 10 MG VIAL IVP PRN (18:05)
[2017-05-29] MEDS ORDERED: DILAUDID INJ ONE (18:31)
[2017-05-29 20:32] LABS: BILIRUBIN,URINE NEGATIVE (NEGATIVE); BLOOD/HEMOGLOBIN,URINE 3+ (NEGATIVE); GLUCOSE, URINE NEGATIVE (NEGATIVE); KETONES,URINE 1+ (NEGATIVE); LEUKOCYTE ESTERASE ,URINE 1+ (NEGATIVE); NITRITES,URINE NEGATIVE (NEGATIVE); PROTEIN,URINE 2+ (NEGATIVE); UROBILINOGEN,URINE NORMAL (NORMAL)
[2017-05-29 20:46] LABS: APPEARANCE,URINE SLIGHTLY HAZY (CLEAR); COLOR,URINE AMBER (YELLOW)
[2017-05-29 20:47] LABS: BACTERIA,URINE TRACE /HPF (NEGATIVE); SQUAMOUS EPITHELIAL CELL,UR MODERATE /HPF (NEGATIVE)
[2017-05-30] MEDS: TORADOL 15 MG VIAL IVP SCH ×5 (01:05→22:10)
[2017-05-30] MEDS: PERCOCET TAB 5/325 MG PO PRN ×2 (03:50→15:09)
[2017-05-30 05:35] LABS: EOSINOPHILS # (AUTO) 0.1 x10^3/uL (0.0-0.2); EOSINOPHILS % (AUTO) 2.5 % (0.9-2.9); HEMATOCRIT 24.5 % (36.0-47.0); HEMOGLOBIN 8.5 g/dL (12.0-16.0); LYMPHOCYTES # (AUTO) 0.8 X10^3/uL (1.3-2.9); LYMPHOCYTES % (AUTO) 21.5 % (21.0-51.0); MEAN CORPUSCULAR HEMOGLOBIN 33.4 pg (27.0-34.0); MEAN CORPUSCULAR HGB CONC 34.8 g/dL (33.0-35.0); MEAN CORPUSCULAR VOLUME 95.8 fL (80.0-100.0); MEAN PLATELET VOLUME 9.8 fL (7.4-11.0); MONOCYTES # (AUTO) 0.3 x10^3/uL (0.3-0.8); MONOCYTES % (AUTO) 8.8 % (0.0-13.0); NEUTROPHILS # (AUTO) 2.6 x10^3/uL (2.2-4.8); NEUTROPHILS % (AUTO) 66.2 % (42.0-75.0); PLATELET COUNT 137 X10^3/uL (150.0-450.0); RED BLOOD COUNT 2.56 X10^6/uL (3.5-5.4); RED CELL DISTRIBUTION WIDTH 15.3 % (11.6-16.5); WHITE BLOOD COUNT 3.9 X10^3/uL (3.6-10.0)
[2017-05-30 05:46] LABS: ALANINE AMINOTRANSFERASE 15 Units/L (12-78); ALBUMIN 2.4 g/dL (3.4-5.0); ALKALINE PHOSPHATASE 34 Units/L (46-116); ASPARTATE AMINO TRANSFERASE 24 Units/L (15-37); BLOOD UREA NITROGEN 18 mg/dL (7-18); CALCIUM 6.4 mg/dL (8.5-10.1); CARBON DIOXIDE 23.6 mmol/L (21-32); CHLORIDE 108 mmol/L (98-107); COR CA(FOR HYPOALB) 7.7 mg/dL (8.5-10.1); CREATININE 0.86 mg/dL (0.55-1.02); SODIUM 142 mmol/L (136-145); TOTAL PROTEIN 4.9 g/dL (6.4-8.2); eGFR BLACK RACES > 60 (>60); eGFR NON BLACK RACES > 60 (>60)
[2017-05-30] MEDS ORDERED: K-RIDER 10 MEQ/NS 100 ML 10 MEQ/100 ML BAG IV PRN (06:01)
[2017-05-30] MEDS ORDERED: POTASSIUM CHLORIDE LIQ 20 MEQ UDC PO PRN (06:01)
[2017-05-30] MEDS ORDERED: MAG-OX TAB PO PRN (06:01)
[2017-05-30] MEDS ORDERED: MAGNESIUM SULFATE 1 GM/100 mL PREMIX 1 GM/100 ML BAG IV PRN (06:01)
[2017-05-30] MEDS ORDERED: K-LYTE EFFERVESCENT PO PRN (06:01)
[2017-05-30] MEDS ORDERED: POTASSIUM CHL 60 MEQ/NS 0.45% 500 ML IV PRN (06:01)
[2017-05-30] MEDS: ZOSYN VIAL 3.375 GM 3.375 GM in NS 100 ML IV + SPIKE MINIBAG* 100 ML IV SCH ×3 (06:37→22:02)
[2017-05-30] MEDS: DILAUDID INJ IVP PRN ×3 (07:56→23:30)
[2017-05-30] MEDS: BENADRYL INJ 50 MG VIAL IVP PRN ×2 (07:58→17:50)
[2017-05-30] MEDS ORDERED: LOVENOX INJ 40 MG SYR SC SCH (09:00)
[2017-05-30] MEDS: LOVENOX INJ 30 MG SYR SC SCH (10:25)
--- NOTE | 2017-05-30 11:16 | DR.PROGNOT ---
Hospital Progress Notes - Progress Note for Day of: Progress Note Date: 05/30/17 - Chief Complaint Chief Complaint: c/o pain Lt leg . swelling is less , able to move all toes without limitation. pulses are good . - History of Present Illness History of Present Illness: no changes. - Past Medical Family Social History Past Med/Fam/Surg Hx: No changes since H&P Allergies: Allergies iodine Allergy (Verified 05/29/17 10:22) prochlorperazine Allergy (Verified 05/29/17 10:22) - Vital Signs Vital Signs: Temperature 98.1 F Pulse Rate [Left Brachial] 99 Pulse Rate 113 Respiratory Rate 20 Blood Pressure [Right Arm] 138/67 Blood Pressure [Left Arm] 86/46 Blood Pressure 107/49 O2 Sat by Pulse Oximetry 96 - Physical Exam Oriented: Normal Eyes: Normal. negative: Blurred Vision, Diplopia, Discharge, Pain, Redness, Photophobia, Other Ear: Normal. negative: Right, Left, Swelling, Ecchymosis, Hemotypanum, Abrasion , Laceration Nose: Normal. negative: Injected, Discharge, Blood, Other Throat: Normal. negative: Tonsillar Hypertrophy, Red, Exudate, Dry, Other Cardiovascular: Edema. negative: S3, S4, Murmur : Normal GI:Auscultation: Normal GI:Palpation: Normal GI: Tenderness: Normal. negative: Rebound, Guarding, Rigidity Skin: Red, Tender, Wound (LEFT LEG AND FOOT ERYTHEMA AND 2+ PITTING EDEMA) Musculoskeletal: Left (still with some swelling of the foot . no blisters now , clean wound), Leg, Ankle, Foot, Swelling, Tender Psychiatric: Normal Mood Description: Calm Speech Pattern: Clear, Appropriate - Laboratory and Diagnostics Result Diagrams: 05/30/17 04:15 05/30/17 04:15 Labs: 05/29/17 17:25 Leg - Left Gram Stain - Final Laboratory WBC 3.9 X10^3/uL (3.6-10.0) 05/30/17 04:15 RBC 2.56 X10^6/uL (3.5-5.4) L 05/30/17 04:15 Hgb 8.5 g/dL (12.0-16.0) L D 05/30/17 04:15 Hct 24.5 % (36.0-47.0) L 05/30/17 04:15 MCV 95.8 fL (80.0-100.0) 05/30/17 04:15 MCH 33.4 pg (27.0-34.0) 05/30/17 04:15 MCHC 34.8 g/dL (33.0-35.0) 05/30/17 04:15 RDW 15.3 % (11.6-16.5) 05/30/17 04:15 Plt Count 137 X10^3/uL (150.0-450.0) L 05/30/17 04:15 MPV 9.8 fL (7.4-11.0) 05/30/17 04:15 Neut % 66.2 % (42.0-75.0) 05/30/17 04:15 Lymph % 21.5 % (21.0-51.0) 05/30/17 04:15 [place] % 8.8 % (0.0-13.0) 05/30/17 04:15 Eos % 2.5 % (0.9-2.9) 05/30/17 04:15 Baso % 1.0 % (0.2-1.0) 05/30/17 04:15 Neut # 2.6 x10^3/uL (2.2-4.8) 05/30/17 04:15 Lymph # 0.8 X10^3/uL (1.3-2.9) L 05/30/17 04:15 [place] # 0.3 x10^3/uL (0.3-0.8) 05/30/17 04:15 Eos # 0.1 x10^3/uL (0.0-0.2) 05/30/17 04:15 Baso # 0.0 X10^3/uL (0.0-0.1) 05/30/17 04:15 Absolute Nucleated RBC 0.0 /100WBC 05/30/17 04:15 Sodium 142 mmol/L (136-145) 05/30/17 04:15 Corrected Sodium TNP 05/30/17 04:15 Potassium 2.8 mmol/L (3.5-5.1) L* 05/30/17 04:15 Chloride 108 mmol/L (98-107) H 05/30/17 04:15 Carbon Dioxide 23.6 mmol/L (21-32) 05/30/17 04:15 BUN 18 mg/dL (7-18) 05/30/17 04:15 Creatinine 0.86 mg/dL (0.55-1.02) 05/30/17 04:15 Est GFR (MDRD) Af Amer > 60 (>60) 05/30/17 04:15 Est GFR (MDRD) Non-Af > 60 (>60) 05/30/17 04:15 Glucose 88 mg/dL (65-99) 05/30/17 04:15 Calcium 6.4 mg/dL (8.5-10.1) L 05/30/17 04:15 Corrected Calcium 7.7 mg/dL (8.5-10.1) L 05/30/17 04:15 Magnesium 1.8 mg/dL (1.7-2.9) 05/30/17 04:15 Total Bilirubin 0.30 mg/dL (0.2-1.0) 05/30/17 04:15 AST 24 Units/L (15-37) 05/30/17 04:15 ALT 15 Units/L (12-78) 05/30/17 04:15 Alkaline Phosphatase 34 Units/L (46-116) L 05/30/17 04:15 Total Protein 4.9 g/dL (6.4-8.2) L 05/30/17 04:15 Albumin 2.4 g/dL (3.4-5.0) L 05/30/17 04:15 Globulin 2.5 g/dL (2.5-4.5) 05/30/17 04:15 Albumin/Globulin Ratio 1.0 Ratio (1.1-2.1) L 05/30/17 04:15 Specimen Type Clean catch urine 05/29/17 19:45 Urine Color [place] (YELLOW) 05/29/17 19:45 Urine Appearance Slightly hazy (CLEAR) 05/29/17 19:45 Urine pH 5.0 (5.0 - 8.0) 05/29/17 19:45 Ur Specific [place] 1.020 (1.000-1.030) 05/29/17 19:45 Urine Protein 2+ (NEGATIVE) 05/29/17 19:45 Urine Glucose (UA) Negative (NEGATIVE) 05/29/17 19:45 Urine Ketones 1+ (NEGATIVE) 05/29/17 19:45 Urine Occult Blood 3+ (NEGATIVE) 05/29/17 19:45 Urine Nitrite Negative (NEGATIVE) 05/29/17 19:45 Urine Bilirubin Negative (NEGATIVE) 05/29/17 19:45 Urine Urobilinogen Normal (NORMAL) 05/29/17 19:45 Ur Leukocyte Esterase 1+ (NEGATIVE) 05/29/17 19:45 Urine RBC 3 - 7 /HPF (NONE SEEN) 05/29/17 19:45 Urine WBC 0 - 3 /HPF (NONE SEEN) 05/29/17 19:45 Ur Squamous Epith Cells Moderate /HPF (NEGATIVE) 05/29/17 19:45 Urine Bacteria Trace /HPF (NEGATIVE) 05/29/17 19:45 Ur Culture Indicated? No/not indicated 05/29/17 19:45 Tissue Pathology To follow 05/29/17 18:00 - Assessment and Plan 1: trauma Lt leg with compound Fx of ankle and metatarsals. wound Lt leg 8 x 5 cm. compartment syndrom Lt fot , s/p decompression and debridement. for skin graft next week. same IV ATB and DVT prophylaxis . - Problem Patient Problems: Patient Problems Compartment syndrome of left lower extremity (Acute) T79.A22A Fibula fracture (Acute) S82.409A Laceration of left lower leg (Acute) S81.812A Tibia fracture (Acute) S82.209A
[2017-05-30 11:20] LABS: CRYPTOSPORIDIUM PARVUM ANTIGEN NEGATIVE (NEGATIVE); GIARDIA LAMBLIA ANTIGEN NEGATIVE (NEGATIVE)
[2017-05-30 11:22] LABS: STOOL FOR WBC POSITIVE (NEGATIVE)
[2017-05-30] MEDS: NS 1000 ML 1,000 ML IV SCH (11:31)
[2017-05-30 12:10] LABS: HEMATOCRIT 25.7 % (36.0-47.0); HEMOGLOBIN 8.8 g/dL (12.0-16.0)
[2017-05-31] MEDS: NS 1000 ML 1,000 ML IV SCH ×2 (00:55→13:00)
[2017-05-31] MEDS: BENADRYL INJ 50 MG VIAL IVP PRN ×2 (03:20→19:05)
[2017-05-31] MEDS: TORADOL 15 MG VIAL IVP SCH ×4 (04:53→21:36)
[2017-05-31] MEDS: DILAUDID INJ IVP PRN ×4 (04:53→23:57)
[2017-05-31] MEDS: ZOSYN VIAL 3.375 GM 3.375 GM in NS 100 ML IV + SPIKE MINIBAG* 100 ML IV SCH ×3 (05:58→21:36)
[2017-05-31 06:45] LABS: EOSINOPHILS # (AUTO) 0.1 x10^3/uL (0.0-0.2); EOSINOPHILS % (AUTO) 3.1 % (0.9-2.9); HEMATOCRIT 25.8 % (36.0-47.0); HEMOGLOBIN 8.8 g/dL (12.0-16.0); LYMPHOCYTES # (AUTO) 0.6 X10^3/uL (1.3-2.9); LYMPHOCYTES % (AUTO) 13.1 % (21.0-51.0); MEAN CORPUSCULAR HEMOGLOBIN 33.2 pg (27.0-34.0); MEAN CORPUSCULAR HGB CONC 34.2 g/dL (33.0-35.0); MEAN CORPUSCULAR VOLUME 96.8 fL (80.0-100.0); MEAN PLATELET VOLUME 9.9 fL (7.4-11.0); MONOCYTES # (AUTO) 0.3 x10^3/uL (0.3-0.8); MONOCYTES % (AUTO) 5.9 % (0.0-13.0); NEUTROPHILS # (AUTO) 3.7 x10^3/uL (2.2-4.8); NEUTROPHILS % (AUTO) 76.9 % (42.0-75.0); PLATELET COUNT 158 X10^3/uL (150.0-450.0); RED BLOOD COUNT 2.67 X10^6/uL (3.5-5.4); RED CELL DISTRIBUTION WIDTH 15.1 % (11.6-16.5); WHITE BLOOD COUNT 4.8 X10^3/uL (3.6-10.0)
[2017-05-31 06:53] LABS: ALANINE AMINOTRANSFERASE 19 Units/L (12-78); ALBUMIN 2.3 g/dL (3.4-5.0); ALKALINE PHOSPHATASE 43 Units/L (46-116); ASPARTATE AMINO TRANSFERASE 33 Units/L (15-37); BLOOD UREA NITROGEN 11 mg/dL (7-18); CALCIUM 6.1 mg/dL (8.5-10.1); CARBON DIOXIDE 23.4 mmol/L (21-32); CHLORIDE 111 mmol/L (98-107); COR CA(FOR HYPOALB) 7.5 mg/dL (8.5-10.1); CREATININE 0.66 mg/dL (0.55-1.02); SODIUM 143 mmol/L (136-145); TOTAL PROTEIN 5.1 g/dL (6.4-8.2); eGFR BLACK RACES > 60 (>60); eGFR NON BLACK RACES > 60 (>60)
[2017-05-31] MEDS ORDERED: BENADRYL INJ 50 MG VIAL IV ONE (08:53)
[2017-05-31] MEDS ORDERED: ESTRADIOL PO SCH (09:00)
[2017-05-31] MEDS ORDERED: PATIENT'S HOME MEDICATION PO SCH ×2 (09:00)
[2017-05-31] MEDS ORDERED: NEURONTIN CAP 300 MG PO SCH (09:00)
[2017-05-31] MEDS: LOVENOX INJ 30 MG SYR SC SCH (09:25)
--- NOTE | 2017-05-31 10:05 | DR.PROGNOT ---
Hospital Progress Notes - Progress Note for Day of: Progress Note Date: 05/31/17 - Chief Complaint Chief Complaint: c/o pain Lt leg . swelling is less , able to move all toes without limitation. pulses are good . all incisions are clean - History of Present Illness History of Present Illness: no changes. - Past Medical Family Social History Past Med/Fam/Surg Hx: No changes since H&P Allergies: Allergies iodine Allergy (Verified 05/29/17 10:22) prochlorperazine Allergy (Verified 05/29/17 10:22) - Review Of Systems ROS: No change since H&P - Vital Signs Vital Signs: Temperature 99.3 F Pulse Rate [Left Brachial] 109 Pulse Rate 113 Respiratory Rate 22 Blood Pressure [Right Arm] 138/67 Blood Pressure [Left Arm] 130/57 Blood Pressure 107/49 O2 Sat by Pulse Oximetry 90 - Physical Exam Oriented: Normal Eyes: Normal. negative: Blurred Vision, Diplopia, Discharge, Pain, Redness, Photophobia, Other Ear: Normal. negative: Right, Left, Swelling, Ecchymosis, Hemotypanum, Abrasion , Laceration Nose: Normal. negative: Injected, Discharge, Blood, Other Throat: Normal. negative: Tonsillar Hypertrophy, Red, Exudate, Dry, Other Cardiovascular: Edema. negative: S3, S4, Murmur : Normal GI:Auscultation: Normal GI:Palpation: Normal GI: Tenderness: Normal. negative: Rebound, Guarding, Rigidity Skin: Red, Tender Musculoskeletal: Left (still with some swelling of the foot . no blisters now , clean wound), Leg, Ankle, Foot Psychiatric: Normal Speech Pattern: Clear, Appropriate - Laboratory and Diagnostics Result Diagrams: 05/31/17 05:05 05/31/17 05:05 Labs: 05/29/17 17:25 Leg - Left Gram Stain - Final 05/29/17 17:25 Leg - Left Wound Culture - Preliminary 05/30/17 09:33 Stool - Final Laboratory WBC 4.8 X10^3/uL (3.6-10.0) 05/31/17 05:05 RBC 2.67 X10^6/uL (3.5-5.4) L 05/31/17 05:05 Hgb 8.8 g/dL (12.0-16.0) L 05/31/17 05:05 Hct 25.8 % (36.0-47.0) L 05/31/17 05:05 MCV 96.8 fL (80.0-100.0) 05/31/17 05:05 MCH 33.2 pg (27.0-34.0) 05/31/17 05:05 MCHC 34.2 g/dL (33.0-35.0) 05/31/17 05:05 RDW 15.1 % (11.6-16.5) 05/31/17 05:05 Plt Count 158 X10^3/uL (150.0-450.0) 05/31/17 05:05 MPV 9.9 fL (7.4-11.0) 05/31/17 05:05 Neut % 76.9 % (42.0-75.0) H 05/31/17 05:05 Lymph % 13.1 % (21.0-51.0) L 05/31/17 05:05 [place] % 5.9 % (0.0-13.0) 05/31/17 05:05 Eos % 3.1 % (0.9-2.9) H 05/31/17 05:05 Baso % 1.0 % (0.2-1.0) 05/31/17 05:05 Neut # 3.7 x10^3/uL (2.2-4.8) 05/31/17 05:05 Lymph # 0.6 X10^3/uL (1.3-2.9) L 05/31/17 05:05 [place] # 0.3 x10^3/uL (0.3-0.8) 05/31/17 05:05 Eos # 0.1 x10^3/uL (0.0-0.2) 05/31/17 05:05 Baso # 0.0 X10^3/uL (0.0-0.1) 05/31/17 05:05 Absolute Nucleated RBC 0.0 /100WBC 05/31/17 05:05 Sodium 143 mmol/L (136-145) 05/31/17 05:05 Corrected Sodium TNP 05/31/17 05:05 Potassium 3.8 mmol/L (3.5-5.1) 05/31/17 05:05 Chloride 111 mmol/L (98-107) H 05/31/17 05:05 Carbon Dioxide 23.4 mmol/L (21-32) 05/31/17 05:05 BUN 11 mg/dL (7-18) 05/31/17 05:05 Creatinine 0.66 mg/dL (0.55-1.02) 05/31/17 05:05 Est GFR (MDRD) Af Amer > 60 (>60) 05/31/17 05:05 Est GFR (MDRD) Non-Af > 60 (>60) 05/31/17 05:05 Glucose 85 mg/dL (65-99) 05/31/17 05:05 Calcium 6.1 mg/dL (8.5-10.1) L 05/31/17 05:05 Corrected Calcium 7.5 mg/dL (8.5-10.1) L 05/31/17 05:05 Magnesium 1.8 mg/dL (1.7-2.9) 05/30/17 04:15 Total Bilirubin 0.20 mg/dL (0.2-1.0) 05/31/17 05:05 AST 33 Units/L (15-37) 05/31/17 05:05 ALT 19 Units/L (12-78) 05/31/17 05:05 Alkaline Phosphatase 43 Units/L (46-116) L 05/31/17 05:05 Total Protein 5.1 g/dL (6.4-8.2) L 05/31/17 05:05 Albumin 2.3 g/dL (3.4-5.0) L 05/31/17 05:05 Globulin 2.8 g/dL (2.5-4.5) 05/31/17 05:05 Albumin/Globulin Ratio 0.8 Ratio (1.1-2.1) L 05/31/17 05:05 Specimen Type Clean catch urine 05/29/17 19:45 Urine Color [place] (YELLOW) 05/29/17 19:45 Urine Appearance Slightly hazy (CLEAR) 05/29/17 19:45 Urine pH 5.0 (5.0 - 8.0) 05/29/17 19:45 Ur Specific [place] 1.020 (1.000-1.030) 05/29/17 19:45 Urine Protein 2+ (NEGATIVE) 05/29/17 19:45 Urine Glucose (UA) Negative (NEGATIVE) 05/29/17 19:45 Urine Ketones 1+ (NEGATIVE) 05/29/17 19:45 Urine Occult Blood 3+ (NEGATIVE) 05/29/17 19:45 Urine Nitrite Negative (NEGATIVE) 05/29/17 19:45 Urine Bilirubin Negative (NEGATIVE) 05/29/17 19:45 Urine Urobilinogen Normal (NORMAL) 05/29/17 19:45 Ur Leukocyte Esterase 1+ (NEGATIVE) 05/29/17 19:45 Urine RBC 3 - 7 /HPF (NONE SEEN) 05/29/17 19:45 Urine WBC 0 - 3 /HPF (NONE SEEN) 05/29/17 19:45 Ur Squamous Epith Cells Moderate /HPF (NEGATIVE) 05/29/17 19:45 Urine Bacteria Trace /HPF (NEGATIVE) 05/29/17 19:45 Ur Culture Indicated? No/not indicated 05/29/17 19:45 Stool Description 75 cc brown loose 05/30/17 09:33 Stl Occult Blood (IFOB) Positive (NEGATIVE) A 05/30/17 09:33 Stool for White Cells Positive (NEGATIVE) A 05/30/17 09:02 Stl C. diff Tox B Gene Negative (NEGATIVE) 05/30/17 09:33 Stl C. diff [id number] Negative (NEGATIVE) 05/30/17 09:33 Cryptosporid parvum Ag Negative (NEGATIVE) 05/30/17 09:33 E. histolytica Antigen Negative (NEGATIVE) 05/30/17 09:33 Giardia lamblia Ag Negative (NEGATIVE) 05/30/17 09:33 Tissue Pathology To follow 05/29/17 18:00 - Assessment and Plan 1: trauma Lt leg with compound Fx of ankle and metatarsals. wound Lt leg 8 x 5 cm. compartment syndrom Lt fot , s/p decompression and debridement. for skin graft next week. same IV ATB and DVT prophylaxis . for skin graft in few days - Problem Patient Problems: Patient Problems Compartment syndrome of left lower extremity (Acute) T79.A22A Fibula fracture (Acute) S82.409A Laceration of left lower leg (Acute) S81.812A Tibia fracture (Acute) S82.209A
[2017-05-31] MEDS: PERCOCET TAB 5/325 MG PO PRN (10:20)
[2017-05-31] MEDS: MEGACE PO SCH ×2 (10:50→20:48)
[2017-05-31] MEDS: CYMBALTA PO SCH (10:50)
[2017-05-31] MEDS: OSCAL+D or CALTRATE+D PO SCH (10:51)
[2017-05-31] MEDS: SYNTHROID 100 mcg TAB PO SCH (10:51)
[2017-05-31] MEDS: ESTRACE PO SCH (10:51)
[2017-05-31] MEDS: NEURONTIN CAP 300 MG PO SCH (10:57)
[2017-05-31] MEDS: IMURAN PO SCH (11:23)
[2017-05-31] MEDS ORDERED: DUONEB 0.5 MG/3 MG NEB SCH (19:00)
[2017-05-31] MEDS: AMBIEN PO SCH (20:48)
[2017-05-31] MEDS: LIPITOR TAB 40 MG PO SCH (20:48)
[2017-05-31] MEDS: NEURONTIN TAB 600 MG PO SCH (20:48)
[2017-05-31] MEDS ORDERED: PATIENT'S HOME MEDICATION (Atorvastatin Calcium [Lipitor] 80 MG) PO SCH (21:00)
[2017-05-31] MEDS: DUONEB 0.5 MG/3 MG NEB SCH (21:17)
[2017-06-01] MEDS: DUONEB 0.5 MG/3 MG NEB SCH ×6 (01:08→20:10)
[2017-06-01] MEDS: NS 1000 ML 1,000 ML IV SCH ×2 (04:01→14:03)
[2017-06-01] MEDS: TORADOL 15 MG VIAL IVP SCH (04:49)
[2017-06-01] MEDS: ZOSYN VIAL 3.375 GM 3.375 GM in NS 100 ML IV + SPIKE MINIBAG* 100 ML IV SCH ×3 (05:21→21:05)
[2017-06-01 05:25] LABS: BASOPHILS % (AUTO) 0.8 % (0.2-1.0); EOSINOPHILS # (AUTO) 0.1 x10^3/uL (0.0-0.2); EOSINOPHILS % (AUTO) 2.9 % (0.9-2.9); HEMATOCRIT 25.1 % (36.0-47.0); HEMOGLOBIN 8.6 g/dL (12.0-16.0); LYMPHOCYTES # (AUTO) 0.9 X10^3/uL (1.3-2.9); LYMPHOCYTES % (AUTO) 17.5 % (21.0-51.0); MEAN CORPUSCULAR HEMOGLOBIN 33.1 pg (27.0-34.0); MEAN CORPUSCULAR HGB CONC 34.4 g/dL (33.0-35.0); MEAN CORPUSCULAR VOLUME 96.4 fL (80.0-100.0); MEAN PLATELET VOLUME 9.4 fL (7.4-11.0); MONOCYTES # (AUTO) 0.3 x10^3/uL (0.3-0.8); MONOCYTES % (AUTO) 6.1 % (0.0-13.0); NEUTROPHILS # (AUTO) 3.6 x10^3/uL (2.2-4.8); NEUTROPHILS % (AUTO) 72.7 % (42.0-75.0); PLATELET COUNT 186 X10^3/uL (150.0-450.0); RED BLOOD COUNT 2.61 X10^6/uL (3.5-5.4); RED CELL DISTRIBUTION WIDTH 14.9 % (11.6-16.5); WHITE BLOOD COUNT 4.9 X10^3/uL (3.6-10.0)
[2017-06-01 05:39] LABS: ALANINE AMINOTRANSFERASE 19 Units/L (12-78); ALBUMIN 2.1 g/dL (3.4-5.0); ALKALINE PHOSPHATASE 65 Units/L (46-116); ASPARTATE AMINO TRANSFERASE 37 Units/L (15-37); BLOOD UREA NITROGEN 8 mg/dL (7-18); CALCIUM 6.4 mg/dL (8.5-10.1); CARBON DIOXIDE 24.4 mmol/L (21-32); CHLORIDE 109 mmol/L (98-107); COR CA(FOR HYPOALB) 7.9 mg/dL (8.5-10.1); SODIUM 142 mmol/L (136-145); TOTAL PROTEIN 5.2 g/dL (6.4-8.2); eGFR BLACK RACES > 60 (>60); eGFR NON BLACK RACES > 60 (>60)
--- NOTE | 2017-06-01 07:42 | RAD ---
HISTORY: Wheezing Study: Chest AP portable Comparison: 04/21/2017 Findings: The patient is rotated slightly to the right. There is a port present on the right. The heart is with in normal limits in size. The alla are normal. Pleuro parenchymal scarring is present in the right [place]iam [place]. A right basilar lung infiltrate suggests the presence of pneumonia. The remainder of the fransisco g hernández are clear. The bony thorax is unremarkable. IMPRESSION: Right basilar lung infiltrate suggestive of pneumonia Reported By:
[2017-06-01] MEDS: DILAUDID INJ IVP PRN ×3 (07:50→19:00)
[2017-06-01] MEDS: IMURAN PO SCH (09:33)
[2017-06-01] MEDS: NEURONTIN CAP 300 MG PO SCH (09:34)
[2017-06-01] MEDS: SYNTHROID 100 mcg TAB PO SCH (09:34)
[2017-06-01] MEDS: ESTRACE PO SCH (09:34)
[2017-06-01] MEDS: OSCAL+D or CALTRATE+D PO SCH (09:35)
[2017-06-01] MEDS: MEGACE PO SCH ×2 (09:35→21:05)
[2017-06-01] MEDS: CYMBALTA PO SCH (09:35)
[2017-06-01] MEDS: LOVENOX INJ 30 MG SYR SC SCH (09:35)
[2017-06-01] MEDS: PERCOCET TAB 5/325 MG PO PRN ×2 (11:52→17:25)
--- NOTE | 2017-06-01 14:32 | PCM.PROG ---
Progress Note - Progress Note for Day of Date: 05/30/17 - Subjective Subjective: IS BEING TREATED FOR OPEN TIBIA/FIBULA FRACTURES OF THE LEFT LEG, LEFT LEG LACERATION, AND COMPARTMENT SYNDROME. TODAY, SHE IS ALERT AND ORIENTED, LYING IN BED ON MORNING ROUNDS. UPON ROUNDS, SHE APPEARS TO BE IN MODERATED DISTRESS. SHE COMPLAINS OF SEVERE PAIN TO LEFT LEG AND ITCHING ALL OVER. SHE ALSO REPORTS SEVERAL LOOSE BOWEL MOVMENTS THE PAST FEW DAYS. ON EXAMINATION, HEART IS REGULAR IN RATE AND RHYTHM. BILATERAL LUNGS ARE CLEAR TO AUSCULTATION. ABDOMEN IS ROUND, SOFT, AND NON-TENDER WITH HYPERACTIVE BOWEL SOUNDS IN ALL QUADRANTS. LEFT LEG IS NOTED WITH A SPLINT. HER VITALS SIGNS THIS MORNING ARE 98.1-99-20-96%-86/46. LABS WERE OBTAINED THIS MORNING. ABNORMAL LAB VALUES INCLUDE THE FOLLOWING: RBC 2.56, HGB 8.5, HCT 24.5, PLT COUNT 137, POTASSIUM 2.8, CHLORIDE 108, CALCIUM 6.4, ALK PHOS 34, TOTAL PROTEIN 4.9, ALBUMIN 2.4. TODAY, WE WILL START DILAUDID 2MG IV Q4H PRN AND BENADRY 50MG IV Q8H PRN. WE WILL OBTAIN STOOL STUDIES. OTHERWISE, WE WILL CONTINUE WITH CURRENT PLAN OF CARE. WE PLAN TO FOLLOW UP WITH AM LABS AND CONTINUE TO MONITOR PATIENT. - Past Medical Family Social History Past Med/Fam/Surg Hx: No changes since H&P Allergies: Allergies iodine Allergy (Verified 05/29/17 10:22) prochlorperazine Allergy (Verified 05/29/17 10:22) - Review of Systems ROS: No change since H&P - Vital Signs and I&O's Vital Signs: Temperature 98.1 F Pulse Rate [Left Brachial] 122 Pulse Rate 97 Respiratory Rate 24 Blood Pressure [Right Arm] 112/55 Blood Pressure [Left Arm] 91/65 Blood Pressure 107/49 O2 Sat by Pulse Oximetry 95 Intake and Output: Intake & Output 05/30/17 05/31/17 06/01/17 06/02/17 11:59 11:59 11:59 11:59 Intake Total 1503 2897 2290 Output Total 5735 1800 925 Balance -4232 1097 1365 - Physical Exam Oriented: Normal Eyes: Normal. negative: Blurred Vision, Diplopia, Discharge, Pain, Redness, Photophobia, Other Ear: Normal. negative: Right, Left, Swelling, Ecchymosis, Hemotypanum, Abrasion , Laceration Nose: Normal. negative: Injected, Discharge, Blood, Other Throat: Normal. negative: Tonsillar Hypertrophy, Red, Exudate, Dry, Other Cardiovascular: Edema. negative: S3, S4, Murmur : Normal Auscultation: Bowel Sounds: Normal Tenderness: Normal. negative: Rebound, Guarding, Rigidity Skin: Red, Tender, Wound (LEFT LEG AND FOOT ERYTHEMA AND 2+ PITTING EDEMA) Musculoskeletal: Left, Leg, Ankle, Foot, Swelling, Tender Psychiatric: Normal Mood Description: Calm Speech Pattern: Clear - Laboratory and Diagnostics Result Diagrams: 06/01/17 04:30 06/01/17 04:30 Labs: 06/01/17 10:15 Sputum - Expectorated Sputum - Final 05/29/17 17:25 Leg - Left Gram Stain - Final 05/29/17 17:25 Leg - Left Wound Culture - Preliminary 05/30/17 09:33 Stool Stool Culture - Preliminary 05/30/17 09:33 Stool - Final Laboratory WBC 4.9 X10^3/uL (3.6-10.0) 06/01/17 04:30 RBC 2.61 X10^6/uL (3.5-5.4) L 06/01/17 04:30 Hgb 8.6 g/dL (12.0-16.0) L 06/01/17 04:30 Hct 25.1 % (36.0-47.0) L 06/01/17 04:30 MCV 96.4 fL (80.0-100.0) 06/01/17 04:30 MCH 33.1 pg (27.0-34.0) 06/01/17 04:30 MCHC 34.4 g/dL (33.0-35.0) 06/01/17 04:30 RDW 14.9 % (11.6-16.5) 06/01/17 04:30 Plt Count 186 X10^3/uL (150.0-450.0) 06/01/17 04:30 MPV 9.4 fL (7.4-11.0) 06/01/17 04:30 Neut % 72.7 % (42.0-75.0) 06/01/17 04:30 Lymph % 17.5 % (21.0-51.0) L 06/01/17 04:30 [place] % 6.1 % (0.0-13.0) 06/01/17 04:30 Eos % 2.9 % (0.9-2.9) 06/01/17 04:30 Baso % 0.8 % (0.2-1.0) 06/01/17 04:30 Neut # 3.6 x10^3/uL (2.2-4.8) 06/01/17 04:30 Lymph # 0.9 X10^3/uL (1.3-2.9) L 06/01/17 04:30 [place] # 0.3 x10^3/uL (0.3-0.8) 06/01/17 04:30 Eos # 0.1 x10^3/uL (0.0-0.2) 06/01/17 04:30 Baso # 0.0 X10^3/uL (0.0-0.1) 06/01/17 04:30 Absolute Nucleated RBC 0.0 /100WBC 06/01/17 04:30 Sodium 142 mmol/L (136-145) 06/01/17 04:30 Corrected Sodium TNP 06/01/17 04:30 Potassium 3.4 mmol/L (3.5-5.1) L 06/01/17 04:30 Chloride 109 mmol/L (98-107) H 06/01/17 04:30 Carbon Dioxide 24.4 mmol/L (21-32) 06/01/17 04:30 BUN 8 mg/dL (7-18) 06/01/17 04:30 Creatinine 0.70 mg/dL (0.55-1.02) 06/01/17 04:30 Est GFR (MDRD) Af Amer > 60 (>60) 06/01/17 04:30 Est GFR (MDRD) Non-Af > 60 (>60) 06/01/17 04:30 Glucose 89 mg/dL (65-99) 06/01/17 04:30 Calcium 6.4 mg/dL (8.5-10.1) L 06/01/17 04:30 Corrected Calcium 7.9 mg/dL (8.5-10.1) L 06/01/17 04:30 Magnesium 1.8 mg/dL (1.7-2.9) 05/30/17 04:15 Total Bilirubin 0.40 mg/dL (0.2-1.0) 06/01/17 04:30 AST 37 Units/L (15-37) 06/01/17 04:30 ALT 19 Units/L (12-78) 06/01/17 04:30 Alkaline Phosphatase 65 Units/L (46-116) 06/01/17 04:30 Total Protein 5.2 g/dL (6.4-8.2) L 06/01/17 04:30 Albumin 2.1 g/dL (3.4-5.0) L 06/01/17 04:30 Globulin 3.1 g/dL (2.5-4.5) 06/01/17 04:30 Albumin/Globulin Ratio 0.7 Ratio (1.1-2.1) L 06/01/17 04:30 Specimen Type Clean catch urine 05/29/17 19:45 Urine Color Gunjan (YELLOW) 05/29/17 19:45 Urine Appearance Slightly hazy (CLEAR) 05/29/17 19:45 Urine pH 5.0 (5.0 - 8.0) 05/29/17 19:45 Ur Specific Lawrence 1.020 (1.000-1.030) 05/29/17 19:45 Urine Protein 2+ (NEGATIVE) 05/29/17 19:45 Urine Glucose (UA) Negative (NEGATIVE) 05/29/17 19:45 Urine Ketones 1+ (NEGATIVE) 05/29/17 19:45 Urine Occult Blood 3+ (NEGATIVE) 05/29/17 19:45 Urine Nitrite Negative (NEGATIVE) 05/29/17 19:45 Urine Bilirubin Negative (NEGATIVE) 05/29/17 19:45 Urine Urobilinogen Normal (NORMAL) 05/29/17 19:45 Ur Leukocyte Esterase 1+ (NEGATIVE) 05/29/17 19:45 Urine RBC 3 - 7 /HPF (NONE SEEN) 05/29/17 19:45 Urine WBC 0 - 3 /HPF (NONE SEEN) 05/29/17 19:45 Ur Squamous Epith Cells Moderate /HPF (NEGATIVE) 05/29/17 19:45 Urine Bacteria Trace /HPF (NEGATIVE) 05/29/17 19:45 Ur Culture Indicated? No/not indicated 05/29/17 19:45 Stool Description 75 cc brown loose 05/30/17 09:33 Stl Occult Blood (IFOB) Positive (NEGATIVE) A 05/30/17 09:33 Stool for White Cells Positive (NEGATIVE) A 05/30/17 09:02 Stl C. diff Tox B Gene Negative (NEGATIVE) 05/30/17 09:33 Stl C. diff [id number] Negative (NEGATIVE) 05/30/17 09:33 Cryptosporid parvum Ag Negative (NEGATIVE) 05/30/17 09:33 E. histolytica Antigen Negative (NEGATIVE) 05/30/17 09:33 Giardia lamblia Ag Negative (NEGATIVE) 05/30/17 09:33 Tissue Pathology To follow 05/29/17 18:00 - Plan (1) Fibula fracture Status: Acute Qualifiers: Encounter type: initial encounter Fibula location: distal Fracture type: open Fracture morphology: unspecified fracture morphology Laterality: left Plan: ORTHOPEDIC CONSULT, TORADOL 15MG IV Q6H, PERCOCET 5/325 2 TABS Q4H PRN PAIN, CONTINUE TO MONITOR (2) Tibia fracture Status: Acute Qualifiers: Encounter type: initial encounter Tibia location: distal Fracture type: open Fracture morphology: unspecified fracture morphology Laterality: left Plan: ORTHOPEDIC CONSULT, TORADOL 15MG IV Q6H, PERCOCET 5/325 2 TABS Q4H PRN PAIN, CONTINUE TO MONITOR (3) Laceration of left lower leg Status: Acute Qualifiers: Encounter type: initial encounter Qualified Code(s): S81.812A - Laceration without foreign body, left lower leg, initial encounter Plan: WOUND CARE, CONTINUE TO MONITOR (4) Compartment syndrome of left lower extremity Status: Acute Qualifiers: Encounter type: initial encounter Qualified Code(s): T79.A22A - Traumatic compartment syndrome of left lower extremity, initial encounter Plan: ORTHOPEDIC CONSULT, CONTINUE TO MONITOR
[2017-06-01] MEDS: AMBIEN PO SCH (21:04)
[2017-06-01] MEDS: NEURONTIN TAB 600 MG PO SCH (21:05)
[2017-06-01] MEDS: LIPITOR TAB 40 MG PO SCH (21:05)
--- NOTE | 2017-06-01 21:16 | DR.PROGNOT ---
Hospital Progress Notes - Progress Note for Day of: Progress Note Date: 06/01/17 - Chief Complaint Chief Complaint: c/o pain Lt leg . swelling is less , able to move all toes without limitation. pulses are good . all incisions are clean - History of Present Illness History of Present Illness: no changes. - Past Medical Family Social History Past Med/Fam/Surg Hx: No changes since H&P Allergies: Allergies iodine Allergy (Verified 05/29/17 10:22) prochlorperazine Allergy (Verified 05/29/17 10:22) - Review Of Systems ROS: No change since H&P - Vital Signs Vital Signs: Temperature 98.5 F Pulse Rate [Left Brachial] 114 Pulse Rate 120 Respiratory Rate 24 Blood Pressure [Right Arm] 112/55 Blood Pressure [Left Arm] 103/51 Blood Pressure 107/49 O2 Sat by Pulse Oximetry 95 - Physical Exam Oriented: Normal Eyes: Normal. negative: Blurred Vision, Diplopia, Discharge, Pain, Redness, Photophobia, Other Ear: Normal. negative: Right, Left, Swelling, Ecchymosis, Hemotypanum, Abrasion , Laceration Nose: Normal. negative: Injected, Discharge, Blood, Other Throat: Normal. negative: Tonsillar Hypertrophy, Red, Exudate, Dry, Other Cardiovascular: Edema. negative: S3, S4, Murmur : Normal GI:Auscultation: Normal GI:Palpation: Normal GI: Tenderness: Normal. negative: Rebound, Guarding, Rigidity Skin: Red, Tender, Wound (LEFT LEG AND FOOT ERYTHEMA AND 2+ PITTING EDEMA) Musculoskeletal: Left, Leg, Ankle, Foot, Swelling, Tender Psychiatric: Normal Mood Description: Calm Speech Pattern: Clear, Appropriate - Laboratory and Diagnostics Result Diagrams: 06/01/17 04:30 06/01/17 04:30 Labs: 06/01/17 10:15 Sputum - Expectorated Sputum - Final 05/29/17 17:25 Leg - Left Gram Stain - Final 05/29/17 17:25 Leg - Left Wound Culture - Preliminary 05/30/17 09:33 Stool Stool Culture - Preliminary 05/30/17 09:33 Stool - Final Laboratory WBC 4.9 X10^3/uL (3.6-10.0) 06/01/17 04:30 RBC 2.61 X10^6/uL (3.5-5.4) L 06/01/17 04:30 Hgb 8.6 g/dL (12.0-16.0) L 06/01/17 04:30 Hct 25.1 % (36.0-47.0) L 06/01/17 04:30 MCV 96.4 fL (80.0-100.0) 06/01/17 04:30 MCH 33.1 pg (27.0-34.0) 06/01/17 04:30 MCHC 34.4 g/dL (33.0-35.0) 06/01/17 04:30 RDW 14.9 % (11.6-16.5) 06/01/17 04:30 Plt Count 186 X10^3/uL (150.0-450.0) 06/01/17 04:30 MPV 9.4 fL (7.4-11.0) 06/01/17 04:30 Neut % 72.7 % (42.0-75.0) 06/01/17 04:30 Lymph % 17.5 % (21.0-51.0) L 06/01/17 04:30 [place] % 6.1 % (0.0-13.0) 06/01/17 04:30 Eos % 2.9 % (0.9-2.9) 06/01/17 04:30 Baso % 0.8 % (0.2-1.0) 06/01/17 04:30 Neut # 3.6 x10^3/uL (2.2-4.8) 06/01/17 04:30 Lymph # 0.9 X10^3/uL (1.3-2.9) L 06/01/17 04:30 [place] # 0.3 x10^3/uL (0.3-0.8) 06/01/17 04:30 Eos # 0.1 x10^3/uL (0.0-0.2) 06/01/17 04:30 Baso # 0.0 X10^3/uL (0.0-0.1) 06/01/17 04:30 Absolute Nucleated RBC 0.0 /100WBC 06/01/17 04:30 Sodium 142 mmol/L (136-145) 06/01/17 04:30 Corrected Sodium TNP 06/01/17 04:30 Potassium 3.4 mmol/L (3.5-5.1) L 06/01/17 04:30 Chloride 109 mmol/L (98-107) H 06/01/17 04:30 Carbon Dioxide 24.4 mmol/L (21-32) 06/01/17 04:30 BUN 8 mg/dL (7-18) 06/01/17 04:30 Creatinine 0.70 mg/dL (0.55-1.02) 06/01/17 04:30 Est GFR (MDRD) Af Amer > 60 (>60) 06/01/17 04:30 Est GFR (MDRD) Non-Af > 60 (>60) 06/01/17 04:30 Glucose 89 mg/dL (65-99) 06/01/17 04:30 Calcium 6.4 mg/dL (8.5-10.1) L 06/01/17 04:30 Corrected Calcium 7.9 mg/dL (8.5-10.1) L 06/01/17 04:30 Magnesium 1.8 mg/dL (1.7-2.9) 05/30/17 04:15 Total Bilirubin 0.40 mg/dL (0.2-1.0) 06/01/17 04:30 AST 37 Units/L (15-37) 06/01/17 04:30 ALT 19 Units/L (12-78) 06/01/17 04:30 Alkaline Phosphatase 65 Units/L (46-116) 06/01/17 04:30 Total Protein 5.2 g/dL (6.4-8.2) L 06/01/17 04:30 Albumin 2.1 g/dL (3.4-5.0) L 06/01/17 04:30 Globulin 3.1 g/dL (2.5-4.5) 06/01/17 04:30 Albumin/Globulin Ratio 0.7 Ratio (1.1-2.1) L 06/01/17 04:30 Specimen Type Clean catch urine 05/29/17 19:45 Urine Color [place] (YELLOW) 05/29/17 19:45 Urine Appearance Slightly hazy (CLEAR) 05/29/17 19:45 Urine pH 5.0 (5.0 - 8.0) 05/29/17 19:45 Ur Specific [place] 1.020 (1.000-1.030) 05/29/17 19:45 Urine Protein 2+ (NEGATIVE) 05/29/17 19:45 Urine Glucose (UA) Negative (NEGATIVE) 05/29/17 19:45 Urine Ketones 1+ (NEGATIVE) 05/29/17 19:45 Urine Occult Blood 3+ (NEGATIVE) 05/29/17 19:45 Urine Nitrite Negative (NEGATIVE) 05/29/17 19:45 Urine Bilirubin Negative (NEGATIVE) 05/29/17 19:45 Urine Urobilinogen Normal (NORMAL) 05/29/17 19:45 Ur Leukocyte Esterase 1+ (NEGATIVE) 05/29/17 19:45 Urine RBC 3 - 7 /HPF (NONE SEEN) 05/29/17 19:45 Urine WBC 0 - 3 /HPF (NONE SEEN) 05/29/17 19:45 Ur Squamous Epith Cells Moderate /HPF (NEGATIVE) 05/29/17 19:45 Urine Bacteria Trace /HPF (NEGATIVE) 05/29/17 19:45 Ur Culture Indicated? No/not indicated 05/29/17 19:45 Stool Description 75 cc brown loose 05/30/17 09:33 Stl Occult Blood (IFOB) Positive (NEGATIVE) A 05/30/17 09:33 Stool for White Cells Positive (NEGATIVE) A 05/30/17 09:02 Stl C. diff Tox B Gene Negative (NEGATIVE) 05/30/17 09:33 Stl C. diff [id number] Negative (NEGATIVE) 05/30/17 09:33 Cryptosporid parvum Ag Negative (NEGATIVE) 05/30/17 09:33 E. histolytica Antigen Negative (NEGATIVE) 05/30/17 09:33 Giardia lamblia Ag Negative (NEGATIVE) 05/30/17 09:33 Tissue Pathology To follow 05/29/17 18:00 - Assessment and Plan 1: trauma Lt leg with compound Fx of ankle and metatarsals. wound Lt leg 8 x 5 cm. compartment syndrom Lt fot , s/p decompression and debridement. same IV ATB and DVT prophylaxis . for skin graft in 2 days ,awaiting C & S 2: same local care ,. leg elevation . IV ATB. for ORIF of the ankle FX and skin graft on Thursday . - Problem Patient Problems: Patient Problems Compartment syndrome of left lower extremity (Acute) T79.A22A Fibula fracture (Acute) S82.409A Laceration of left lower leg (Acute) S81.812A Tibia fracture (Acute) S82.209A
[2017-06-02] MEDS: DUONEB 0.5 MG/3 MG NEB SCH ×6 (00:56→23:34)
[2017-06-02] MEDS: DILAUDID INJ IVP PRN ×2 (01:21→12:17)
[2017-06-02] MEDS: BENADRYL INJ 50 MG VIAL IVP PRN ×2 (01:26→12:16)
[2017-06-02] MEDS: NS 1000 ML 1,000 ML IV SCH ×3 (01:29→12:16)
[2017-06-02] MEDS: PERCOCET TAB 5/325 MG PO PRN ×3 (05:45→17:33)
[2017-06-02] MEDS: ZOSYN VIAL 3.375 GM 3.375 GM in NS 100 ML IV + SPIKE MINIBAG* 100 ML IV SCH ×3 (05:46→20:59)
[2017-06-02 06:12] LABS: BASOPHILS % (AUTO) 0.6 % (0.2-1.0); EOSINOPHILS # (AUTO) 0.2 x10^3/uL (0.0-0.2); EOSINOPHILS % (AUTO) 3.7 % (0.9-2.9); HEMATOCRIT 25.1 % (36.0-47.0); HEMOGLOBIN 8.7 g/dL (12.0-16.0); LYMPHOCYTES # (AUTO) 0.7 X10^3/uL (1.3-2.9); LYMPHOCYTES % (AUTO) 11.4 % (21.0-51.0); MEAN CORPUSCULAR HEMOGLOBIN 33.2 pg (27.0-34.0); MEAN CORPUSCULAR HGB CONC 34.7 g/dL (33.0-35.0); MEAN CORPUSCULAR VOLUME 95.8 fL (80.0-100.0); MEAN PLATELET VOLUME 8.8 fL (7.4-11.0); MONOCYTES # (AUTO) 0.5 x10^3/uL (0.3-0.8); MONOCYTES % (AUTO) 7.9 % (0.0-13.0); NEUTROPHILS # (AUTO) 4.4 x10^3/uL (2.2-4.8); NEUTROPHILS % (AUTO) 76.4 % (42.0-75.0); PLATELET COUNT 205 X10^3/uL (150.0-450.0); RED BLOOD COUNT 2.62 X10^6/uL (3.5-5.4); WHITE BLOOD COUNT 5.8 X10^3/uL (3.6-10.0)
[2017-06-02 06:25] LABS: ALANINE AMINOTRANSFERASE 22 Units/L (12-78); ALKALINE PHOSPHATASE 94 Units/L (46-116); ASPARTATE AMINO TRANSFERASE 39 Units/L (15-37); BLOOD UREA NITROGEN 6 mg/dL (7-18); CALCIUM 6.4 mg/dL (8.5-10.1); CARBON DIOXIDE 22.8 mmol/L (21-32); CHLORIDE 109 mmol/L (98-107); CREATININE 0.64 mg/dL (0.55-1.02); SODIUM 142 mmol/L (136-145); TOTAL PROTEIN 5.5 g/dL (6.4-8.2); eGFR BLACK RACES > 60 (>60); eGFR NON BLACK RACES > 60 (>60)
[2017-06-02] MEDS: NEURONTIN CAP 300 MG PO SCH (08:24)
[2017-06-02] MEDS: LOVENOX INJ 30 MG SYR SC SCH (08:24)
[2017-06-02] MEDS: MEGACE PO SCH ×2 (08:24→20:57)
[2017-06-02] MEDS: ESTRACE PO SCH (08:24)
[2017-06-02] MEDS: IMURAN PO SCH (08:24)
[2017-06-02] MEDS: SYNTHROID 100 mcg TAB PO SCH (08:25)
[2017-06-02] MEDS: OSCAL+D or CALTRATE+D PO SCH (08:25)
[2017-06-02] MEDS: CYMBALTA PO SCH (09:40)
[2017-06-02] MEDS: POTASSIUM CHL 40 MEQ/NS 0.45% 500 ML IV PRN (12:16)
[2017-06-02] MEDS ORDERED: NEOSPORIN OINT ONE (14:20)
[2017-06-02] MEDS ORDERED: NEOSPORIN OINT TOP ONE (14:31)
--- NOTE | 2017-06-02 14:57 | DR.PROGNOT ---
Hospital Progress Notes - Progress Note for Day of: Progress Note Date: 06/02/17 - Chief Complaint Chief Complaint: c/o pain Lt leg . swelling is less , able to move all toes with moderate limitation. pulses are good . all incisions are clean ,no active infection or necrosis - History of Present Illness History of Present Illness: no changes. - Past Medical Family Social History Past Med/Fam/Surg Hx: No changes since H&P Allergies: Allergies iodine Allergy (Verified 05/29/17 10:22) prochlorperazine Allergy (Verified 05/29/17 10:22) - Review Of Systems ROS: No change since H&P - Vital Signs Vital Signs: Temperature 96.7 F Pulse Rate [Left Brachial] 129 Pulse Rate 128 Respiratory Rate 24 Blood Pressure [Right Arm] 112/55 Blood Pressure [Left Arm] 131/62 Blood Pressure 107/49 O2 Sat by Pulse Oximetry 95 - Physical Exam Oriented: Normal Eyes: Normal. negative: Blurred Vision, Diplopia, Discharge, Pain, Redness, Photophobia, Other Ear: Normal. negative: Right, Left, Swelling, Ecchymosis, Hemotypanum, Abrasion , Laceration Nose: Normal. negative: Injected, Discharge, Blood, Other Throat: Normal. negative: Tonsillar Hypertrophy, Red, Exudate, Dry, Other Cardiovascular: Edema. negative: S3, S4, Murmur : Normal GI:Auscultation: Normal GI:Palpation: Normal GI: Tenderness: Normal. negative: Rebound, Guarding, Rigidity Skin: Red, Tender, Wound (leg wound is healthy ,but the bone is exposed ,some tunneling on the medial aspect of the wound .pulses are present ) Musculoskeletal: Left, Leg, Ankle, Foot, Swelling, Tender Psychiatric: Normal Mood Description: Calm Speech Pattern: Clear, Appropriate - Laboratory and Diagnostics Result Diagrams: 06/02/17 05:40 06/02/17 05:40 Labs: 06/01/17 10:15 Sputum - Expectorated Sputum Sputum Culture - Preliminary 06/01/17 10:15 Sputum - Expectorated Sputum - Final 05/29/17 17:25 Leg - Left Gram Stain - Final 05/29/17 17:25 Leg - Left Wound Culture - Final 05/30/17 09:33 Stool Stool Culture - Final 05/30/17 09:33 Stool - Final Laboratory WBC 5.8 X10^3/uL (3.6-10.0) 06/02/17 05:40 RBC 2.62 X10^6/uL (3.5-5.4) L 06/02/17 05:40 Hgb 8.7 g/dL (12.0-16.0) L 06/02/17 05:40 Hct 25.1 % (36.0-47.0) L 06/02/17 05:40 MCV 95.8 fL (80.0-100.0) 06/02/17 05:40 MCH 33.2 pg (27.0-34.0) 06/02/17 05:40 MCHC 34.7 g/dL (33.0-35.0) 06/02/17 05:40 RDW 15.0 % (11.6-16.5) 06/02/17 05:40 Plt Count 205 X10^3/uL (150.0-450.0) 06/02/17 05:40 MPV 8.8 fL (7.4-11.0) 06/02/17 05:40 Neut % 76.4 % (42.0-75.0) H 06/02/17 05:40 Lymph % 11.4 % (21.0-51.0) L 06/02/17 05:40 [place] % 7.9 % (0.0-13.0) 06/02/17 05:40 Eos % 3.7 % (0.9-2.9) H 06/02/17 05:40 Baso % 0.6 % (0.2-1.0) 06/02/17 05:40 Neut # 4.4 x10^3/uL (2.2-4.8) 06/02/17 05:40 Lymph # 0.7 X10^3/uL (1.3-2.9) L 06/02/17 05:40 [place] # 0.5 x10^3/uL (0.3-0.8) 06/02/17 05:40 Eos # 0.2 x10^3/uL (0.0-0.2) 06/02/17 05:40 Baso # 0.0 X10^3/uL (0.0-0.1) 06/02/17 05:40 Absolute Nucleated RBC 0.0 /100WBC 06/02/17 05:40 Sodium 142 mmol/L (136-145) 06/02/17 05:40 Corrected Sodium TNP 06/02/17 05:40 Potassium 3.1 mmol/L (3.5-5.1) L 06/02/17 05:40 Chloride 109 mmol/L (98-107) H 06/02/17 05:40 Carbon Dioxide 22.8 mmol/L (21-32) 06/02/17 05:40 BUN 6 mg/dL (7-18) L 06/02/17 05:40 Creatinine 0.64 mg/dL (0.55-1.02) 06/02/17 05:40 Est GFR (MDRD) Af Amer > 60 (>60) 06/02/17 05:40 Est GFR (MDRD) Non-Af > 60 (>60) 06/02/17 05:40 Glucose 100 mg/dL (65-99) H 06/02/17 05:40 Calcium 6.4 mg/dL (8.5-10.1) L 06/02/17 05:40 Corrected Calcium 8.0 mg/dL (8.5-10.1) L 06/02/17 05:40 Magnesium 1.8 mg/dL (1.7-2.9) 05/30/17 04:15 Total Bilirubin 0.50 mg/dL (0.2-1.0) 06/02/17 05:40 AST 39 Units/L (15-37) H 06/02/17 05:40 ALT 22 Units/L (12-78) 06/02/17 05:40 Alkaline Phosphatase 94 Units/L (46-116) 06/02/17 05:40 Total Protein 5.5 g/dL (6.4-8.2) L 06/02/17 05:40 Albumin 2.0 g/dL (3.4-5.0) L 06/02/17 05:40 Globulin 3.5 g/dL (2.5-4.5) 06/02/17 05:40 Albumin/Globulin Ratio 0.6 Ratio (1.1-2.1) L 06/02/17 05:40 Specimen Type Clean catch urine 05/29/17 19:45 Urine Color [place] (YELLOW) 05/29/17 19:45 Urine Appearance Slightly hazy (CLEAR) 05/29/17 19:45 Urine pH 5.0 (5.0 - 8.0) 05/29/17 19:45 Ur Specific [place] 1.020 (1.000-1.030) 05/29/17 19:45 Urine Protein 2+ (NEGATIVE) 05/29/17 19:45 Urine Glucose (UA) Negative (NEGATIVE) 05/29/17 19:45 Urine Ketones 1+ (NEGATIVE) 05/29/17 19:45 Urine Occult Blood 3+ (NEGATIVE) 05/29/17 19:45 Urine Nitrite Negative (NEGATIVE) 05/29/17 19:45 Urine Bilirubin Negative (NEGATIVE) 05/29/17 19:45 Urine Urobilinogen Normal (NORMAL) 05/29/17 19:45 Ur Leukocyte Esterase 1+ (NEGATIVE) 05/29/17 19:45 Urine RBC 3 - 7 /HPF (NONE SEEN) 05/29/17 19:45 Urine WBC 0 - 3 /HPF (NONE SEEN) 05/29/17 19:45 Ur Squamous Epith Cells Moderate /HPF (NEGATIVE) 05/29/17 19:45 Urine Bacteria Trace /HPF (NEGATIVE) 05/29/17 19:45 Ur Culture Indicated? No/not indicated 05/29/17 19:45 Stool Description 75 cc brown loose 05/30/17 09:33 Stl Occult Blood (IFOB) Positive (NEGATIVE) A 05/30/17 09:33 Stool for White Cells Positive (NEGATIVE) A 05/30/17 09:02 Stl C. diff Tox B Gene Negative (NEGATIVE) 05/30/17 09:33 Stl C. diff [id number]-BI Negative (NEGATIVE) 05/30/17 09:33 Cryptosporid parvum Ag Negative (NEGATIVE) 05/30/17 09:33 E. histolytica Antigen Negative (NEGATIVE) 05/30/17 09:33 Giardia lamblia Ag Negative (NEGATIVE) 05/30/17 09:33 Tissue Pathology To follow 05/29/17 18:00 - Assessment and Plan 1: trauma Lt leg with compound Fx of ankle and metatarsals. wound Lt leg 8 x 5 cm. compartment syndrom Lt fot , s/p decompression and debridement. same IV ATB and DVT prophylaxis . for skin graft in am 2: same local care ,. leg elevation . IV ATB. for ORIF of the ankle FX and skin graft in am - Problem Patient Problems: Patient Problems Compartment syndrome of left lower extremity (Acute) T79.A22A Fibula fracture (Acute) S82.409A Laceration of left lower leg (Acute) S81.812A Tibia fracture (Acute) S82.209A
[2017-06-02] MEDS: LIPITOR TAB 40 MG PO SCH (20:57)
[2017-06-02] MEDS: NEURONTIN TAB 600 MG PO SCH (20:57)
[2017-06-02] MEDS: AMBIEN PO SCH (20:57)
[2017-06-03] MEDS: DUONEB 0.5 MG/3 MG NEB SCH ×5 (01:21→18:28)
[2017-06-03] MEDS: NS 1000 ML 1,000 ML IV SCH ×2 (02:04→23:38)
[2017-06-03] MEDS ORDERED: NS 100 ML IV 100 ML IV ONE ×3 (05:16→21:20)
[2017-06-03 05:27] LABS: BASOPHILS # (AUTO) 0.1 X10^3/uL (0.0-0.1); EOSINOPHILS # (AUTO) 0.3 x10^3/uL (0.0-0.2); EOSINOPHILS % (AUTO) 4.8 % (0.9-2.9); HEMATOCRIT 23.9 % (36.0-47.0); HEMOGLOBIN 8.4 g/dL (12.0-16.0); LYMPHOCYTES # (AUTO) 0.8 X10^3/uL (1.3-2.9); LYMPHOCYTES % (AUTO) 15.5 % (21.0-51.0); MEAN CORPUSCULAR HEMOGLOBIN 33.4 pg (27.0-34.0); MEAN CORPUSCULAR VOLUME 95.3 fL (80.0-100.0); MEAN PLATELET VOLUME 8.8 fL (7.4-11.0); MONOCYTES # (AUTO) 0.5 x10^3/uL (0.3-0.8); MONOCYTES % (AUTO) 9.2 % (0.0-13.0); NEUTROPHILS # (AUTO) 3.8 x10^3/uL (2.2-4.8); NEUTROPHILS % (AUTO) 69.5 % (42.0-75.0); PLATELET COUNT 239 X10^3/uL (150.0-450.0); RED CELL DISTRIBUTION WIDTH 15.4 % (11.6-16.5); WHITE BLOOD COUNT 5.4 X10^3/uL (3.6-10.0)
[2017-06-03] MEDS: ZOSYN VIAL 3.375 GM 3.375 GM in NS 100 ML IV + SPIKE MINIBAG* 100 ML IV SCH ×3 (05:28→21:26)
[2017-06-03 05:50] LABS: ALANINE AMINOTRANSFERASE 21 Units/L (12-78); ALBUMIN 1.8 g/dL (3.4-5.0); ALKALINE PHOSPHATASE 103 Units/L (46-116); ASPARTATE AMINO TRANSFERASE 39 Units/L (15-37); BLOOD UREA NITROGEN 6 mg/dL (7-18); CALCIUM 6.3 mg/dL (8.5-10.1); CARBON DIOXIDE 23.6 mmol/L (21-32); CHLORIDE 109 mmol/L (98-107); COR CA(FOR HYPOALB) 8.1 mg/dL (8.5-10.1); CREATININE 0.71 mg/dL (0.55-1.02); SODIUM 143 mmol/L (136-145); TOTAL PROTEIN 5.1 g/dL (6.4-8.2); eGFR BLACK RACES > 60 (>60); eGFR NON BLACK RACES > 60 (>60)
[2017-06-03] MEDS ORDERED: COLACE CAP 100 MG PO PRN (06:03)
[2017-06-03] MEDS ORDERED: MILK OF MAGNESIA PO PRN (06:03)
--- NOTE | 2017-06-03 07:13 | RAD ---
HISTORY: Wheezing Study: Chest AP portable Comparison: 06/01/2017 Findings: The patient is rotated slightly to the right. There is a right-sided port with its tip in the superio r vena cava. The heart is within normal limits in size. The alla are normal. Postsurgical changes are present on the right. Pleural parenchymal scarring is present right lung base. Right basilar infiltr ate is unchanged. The left lung is clear. IMPRESSION: No significant change from the prior examination Reported By:
[2017-06-03] MEDS ORDERED: MARCAINE 0.25% INJ ONE (07:38)
[2017-06-03] MEDS ORDERED: LR 1000 ML IV 1,000 ML IV ONE (07:50)
[2017-06-03] MEDS ORDERED: DUONEB 0.5 MG/3 MG NEB ONE (07:57)
[2017-06-03] MEDS ORDERED: FENTANYL INJ 100 mcg ONE (07:58)
[2017-06-03] MEDS ORDERED: PHARMACY CONSULT - TPN XX SCH (08:00)
[2017-06-03] MEDS: CYMBALTA PO SCH (08:28)
[2017-06-03] MEDS: ESTRACE PO SCH (08:28)
[2017-06-03] MEDS: IMURAN PO SCH (08:28)
[2017-06-03] MEDS: ALBUMIN HUMAN 25%- 100ML 100 ML IV SCH (08:28)
[2017-06-03] MEDS: MEGACE PO SCH ×2 (08:28→21:12)
[2017-06-03] MEDS: NEURONTIN CAP 300 MG PO SCH (08:29)
[2017-06-03] MEDS: OSCAL+D or CALTRATE+D PO SCH (08:29)
[2017-06-03] MEDS: SYNTHROID 100 mcg TAB PO SCH (08:29)
[2017-06-03] MEDS ORDERED: PROCALAMINE 3 % 1,000 ML IV SCH (09:00)
[2017-06-03] MEDS ORDERED: BACITRACIN VIAL ONE (09:04)
[2017-06-03] MEDS ORDERED: VERSED ONE (09:24)
[2017-06-03] MEDS ORDERED: NEO-SYNEPHRINE INJ ONE (09:24)
[2017-06-03] MEDS ORDERED: DIPRIVAN VIAL ONE (09:24)
[2017-06-03] MEDS ORDERED: ADRENALINE CHL INJ ONE (09:30)
[2017-06-03] MEDS ORDERED: NS IRRIGATION 1000 ML 1,000 ML with BACITRACIN VIAL 50,000 UNT IR ONE ×2 (09:35)
[2017-06-03] MEDS ORDERED: MINERAL OIL PO ONE (09:41)
[2017-06-03] MEDS ORDERED: MINERAL OIL TD ONE (09:41)
[2017-06-03] MEDS ORDERED: BACTROBAN OINT ONE (10:00)
[2017-06-03] MEDS ORDERED: DILAUDID INJ IVP PRN (10:58)
[2017-06-03] MEDS ORDERED: BENADRYL INJ 50 MG VIAL IVP PRN (10:58)
[2017-06-03] MEDS ORDERED: PHENERGAN INJ 25 MG IVP PRN (10:58)
[2017-06-03] MEDS ORDERED: REGLAN INJ 10 MG VIAL IVP PRN (10:58)
[2017-06-03] MEDS ORDERED: ZOFRAN INJ 4 MG VIAL IVP PRN (10:58)
[2017-06-03] MEDS: BENADRYL INJ 50 MG VIAL IVP PRN (15:19)
[2017-06-03] MEDS: DILAUDID INJ IVP PRN ×2 (15:20→21:12)
[2017-06-03] MEDS: PERCOCET TAB 5/325 MG PO PRN (18:19)
--- NOTE | 2017-06-03 20:20 | PCM.PROG ---
Progress Note - Progress Note for Day of Date: 05/31/17 - Subjective Subjective: IS BEING TREATED FOR OPEN TIBIA/FIBULA FRACTURES OF THE LEFT LEG, LEFT LEG LACERATION, AND COMPARTMENT SYNDROME. TODAY, SHE IS LYING IN BED WITH EYES CLOSED ON MORNING ROUNDS. SHE AWAKENS EASILY TO VERBAL STIMULI. PATIENT REPORTS THAT PAIN IS MUCH BETTER THAN YESTERDAY. ON EXAMINATION , HEART IS REGULAR IN RATE AND RHYTHM. BILATERAL LUNGS ARE CLEAR TO AUSCULTATION. ABDOMEN IS ROUND, SOFT, AND NON-TENDER WITH NORMAL BOWEL SOUNDS NOTED IN ALL QUADRANTS. LEFT LEG IS NOTED WITH A SPLINT. SWELLING HAS DECREASED SINCE YESTERDAY AND SHE IS ABLE TO MOVE ALL TOES MORE FREELY WITHOUT LIMITATION. HER VITALS SIGNS THIS MORNING ARE 99.3-109-22-90%-130/57. LABS WERE OBTAINED THIS MORNING. ABNORMAL LAB VALUES INCLUDE THE FOLLOWING: RBC 2.67, HGB 8.8, HCT 25.8, CHLORIDE 111, CALCIUM 6.1, ALK PHOS 43, TOTAL PROTEIN 5.1, ALBUMIN 2.3. WE OBTAINED STOOL STUDIES YESTERDAY. STOOLS POSITIVE FOR OCCULT BLOOD AND WHITE CELLS. TODAY, WE WILL CONTINUE WITH CURRENT PLAN OF CARE. AND CONTINUES TO MONITOR PATIENT WELL AND PLAN TO TAKE HER BACK TO THE OR NEXT WEEK FOR REPAIR OF FRACTURES AND A SKIN GRAFT. WE PLAN TO FOLLOW UP WITH AM LABS AND CONTINUE TO MONITOR PATIENT. - Past Medical Family Social History Past Med/Fam/Surg Hx: No changes since H&P Allergies: Allergies iodine Allergy (Verified 05/29/17 10:22) prochlorperazine Allergy (Verified 05/29/17 10:22) - Review of Systems ROS: No change since H&P - Vital Signs and I&O's Vital Signs: Temperature 99.1 F Pulse Rate [Left Brachial] 120 Pulse Rate 115 Respiratory Rate 16 Blood Pressure [Right Arm] 112/55 Blood Pressure [Left Arm] 113/58 Blood Pressure 134/64 O2 Sat by Pulse Oximetry 94 Intake and Output: Intake & Output 06/01/17 06/02/17 06/03/17 06/04/17 11:59 11:59 11:59 11:59 Intake Total 2290 2662 2230 240 Output Total 925 1450 3260 600 Balance 1365 1212 -1030 -360 - Physical Exam Oriented: Normal Eyes: Normal. negative: Blurred Vision, Diplopia, Discharge, Pain, Redness, Photophobia, Other Ear: Normal. negative: Right, Left, Swelling, Ecchymosis, Hemotypanum, Abrasion , Laceration Nose: Normal. negative: Injected, Discharge, Blood, Other Throat: Normal. negative: Tonsillar Hypertrophy, Red, Exudate, Dry, Other Respiratory: Normal Cardiovascular: Edema. negative: S3, S4, Murmur : Normal Auscultation: Bowel Sounds: Normal Palpation: Normal Tenderness: Normal. negative: Rebound, Guarding, Rigidity Skin: Red, Tender, Wound (leg wound is healthy ,but the bone is exposed ,some tunneling on the medial aspect of the wound .pulses are present ) Musculoskeletal: Left, Leg, Ankle, Foot, Swelling, Tender Psychiatric: Normal Mood Description: Calm Speech Pattern: Clear, Appropriate - Laboratory and Diagnostics Result Diagrams: 06/03/17 04:20 06/03/17 04:20 Labs: 05/29/17 17:25 Leg - Left Gram Stain - Final 05/29/17 17:25 Leg - Left Wound Culture - Preliminary 06/01/17 10:15 Sputum - Expectorated Sputum Sputum Culture - Preliminary 06/01/17 10:15 Sputum - Expectorated Sputum - Final 05/30/17 09:33 Stool Stool Culture - Final 05/30/17 09:33 Stool - Final Laboratory WBC 5.4 X10^3/uL (3.6-10.0) 06/03/17 04:20 RBC 2.50 X10^6/uL (3.5-5.4) L 06/03/17 04:20 Hgb 8.4 g/dL (12.0-16.0) L 06/03/17 04:20 Hct 23.9 % (36.0-47.0) L 06/03/17 04:20 MCV 95.3 fL (80.0-100.0) 06/03/17 04:20 MCH 33.4 pg (27.0-34.0) 06/03/17 04:20 MCHC 35.0 g/dL (33.0-35.0) 06/03/17 04:20 RDW 15.4 % (11.6-16.5) 06/03/17 04:20 Plt Count 239 X10^3/uL (150.0-450.0) 06/03/17 04:20 MPV 8.8 fL (7.4-11.0) 06/03/17 04:20 Neut % 69.5 % (42.0-75.0) 06/03/17 04:20 Lymph % 15.5 % (21.0-51.0) L 06/03/17 04:20 Long % 9.2 % (0.0-13.0) 06/03/17 04:20 Eos % 4.8 % (0.9-2.9) H 06/03/17 04:20 Baso % 1.0 % (0.2-1.0) 06/03/17 04:20 Neut # 3.8 x10^3/uL (2.2-4.8) 06/03/17 04:20 Lymph # 0.8 X10^3/uL (1.3-2.9) L 06/03/17 04:20 Long # 0.5 x10^3/uL (0.3-0.8) 06/03/17 04:20 Eos # 0.3 x10^3/uL (0.0-0.2) H 06/03/17 04:20 Baso # 0.1 X10^3/uL (0.0-0.1) 06/03/17 04:20 Absolute Nucleated RBC 0.0 /100WBC 06/03/17 04:20 Sodium 143 mmol/L (136-145) 06/03/17 04:20 Corrected Sodium TNP 06/03/17 04:20 Potassium 3.4 mmol/L (3.5-5.1) L 06/03/17 04:20 Chloride 109 mmol/L (98-107) H 06/03/17 04:20 Carbon Dioxide 23.6 mmol/L (21-32) 06/03/17 04:20 BUN 6 mg/dL (7-18) L 06/03/17 04:20 Creatinine 0.71 mg/dL (0.55-1.02) 06/03/17 04:20 Est GFR (MDRD) Af Amer > 60 (>60) 06/03/17 04:20 Est GFR (MDRD) Non-Af > 60 (>60) 06/03/17 04:20 Glucose 89 mg/dL (65-99) 06/03/17 04:20 Calcium 6.3 mg/dL (8.5-10.1) L 06/03/17 04:20 Corrected Calcium 8.1 mg/dL (8.5-10.1) L 06/03/17 04:20 Magnesium 1.8 mg/dL (1.7-2.9) 05/30/17 04:15 Total Bilirubin 0.50 mg/dL (0.2-1.0) 06/03/17 04:20 AST 39 Units/L (15-37) H 06/03/17 04:20 ALT 21 Units/L (12-78) 06/03/17 04:20 Alkaline Phosphatase 103 Units/L (46-116) 06/03/17 04:20 Total Protein 5.1 g/dL (6.4-8.2) L 06/03/17 04:20 Albumin 1.8 g/dL (3.4-5.0) L 06/03/17 04:20 Globulin 3.3 g/dL (2.5-4.5) 06/03/17 04:20 Albumin/Globulin Ratio 0.5 Ratio (1.1-2.1) L 06/03/17 04:20 Specimen Type Clean catch urine 05/29/17 19:45 Urine Color [place] (YELLOW) 05/29/17 19:45 Urine Appearance Slightly hazy (CLEAR) 05/29/17 19:45 Urine pH 5.0 (5.0 - 8.0) 05/29/17 19:45 Ur Specific [place] 1.020 (1.000-1.030) 05/29/17 19:45 Urine Protein 2+ (NEGATIVE) 05/29/17 19:45 Urine Glucose (UA) Negative (NEGATIVE) 05/29/17 19:45 Urine Ketones 1+ (NEGATIVE) 05/29/17 19:45 Urine Occult Blood 3+ (NEGATIVE) 05/29/17 19:45 Urine Nitrite Negative (NEGATIVE) 05/29/17 19:45 Urine Bilirubin Negative (NEGATIVE) 05/29/17 19:45 Urine Urobilinogen Normal (NORMAL) 05/29/17 19:45 Ur Leukocyte Esterase 1+ (NEGATIVE) 05/29/17 19:45 Urine RBC 3 - 7 /HPF (NONE SEEN) 05/29/17 19:45 Urine WBC 0 - 3 /HPF (NONE SEEN) 05/29/17 19:45 Ur Squamous Epith Cells Moderate /HPF (NEGATIVE) 05/29/17 19:45 Urine Bacteria Trace /HPF (NEGATIVE) 05/29/17 19:45 Ur Culture Indicated? No/not indicated 05/29/17 19:45 Stool Description 75 cc brown loose 05/30/17 09:33 Stl Occult Blood (IFOB) Positive (NEGATIVE) A 05/30/17 09:33 Stool for White Cells Positive (NEGATIVE) A 05/30/17 09:02 Stl C. diff Tox B Gene Negative (NEGATIVE) 05/30/17 09:33 Stl C. diff [id number]-BI Negative (NEGATIVE) 05/30/17 09:33 Cryptosporid parvum Ag Negative (NEGATIVE) 05/30/17 09:33 E. histolytica Antigen Negative (NEGATIVE) 05/30/17 09:33 Giardia lamblia Ag Negative (NEGATIVE) 05/30/17 09:33 Tissue Pathology To follow 05/29/17 18:00 - Plan (1) Fibula fracture Status: Acute Qualifiers: Encounter type: initial encounter Fibula location: distal Fracture type: open Fracture morphology: unspecified fracture morphology Laterality: left Plan: ORTHOPEDIC CONSULT, TORADOL 15MG IV Q6H, PERCOCET 5/325 2 TABS Q4H PRN PAIN, CONTINUE TO MONITOR (2) Tibia fracture Status: Acute Qualifiers: Encounter type: initial encounter Tibia location: distal Fracture type: open Fracture morphology: unspecified fracture morphology Laterality: left Plan: ORTHOPEDIC CONSULT, TORADOL 15MG IV Q6H, PERCOCET 5/325 2 TABS Q4H PRN PAIN, CONTINUE TO MONITOR (3) Laceration of left lower leg Status: Acute Qualifiers: Encounter type: initial encounter Qualified Code(s): S81.812A - Laceration without foreign body, left lower leg, initial encounter Plan: WOUND CARE, CONTINUE TO MONITOR (4) Compartment syndrome of left lower extremity Status: Acute Qualifiers: Encounter type: initial encounter Qualified Code(s): T79.A22A - Traumatic compartment syndrome of left lower extremity, initial encounter Plan: ORTHOPEDIC CONSULT, CONTINUE TO MONITOR (5) Depression Status: Chronic Qualifiers: Depression Type: major depressive disorder Major depression recurrence: recurrent Active/Remission status: currently active Major depression episode severity: unspecified Qualified Code(s): F33.9 - Major depressive disorder, recurrent, unspecified Plan: CONTINUE CYMBALTA, CONTINUE TO MONITOR (6) Hx of Crohn's disease Status: Chronic Plan: CONTINUE IMURAN, CONTINUE TO MONITOR (7) Hyperlipidemia Status: Chronic Qualifiers: Hyperlipidemia type: mixed hyperlipidemia Qualified Code(s): E78.2 - Mixed hyperlipidemia Plan: CONTINUE LIPITOR, CONTINUE TO MONITOR (8) Hypothyroidism Status: Chronic Qualifiers: Hypothyroidism type: subclinical iodine-deficiency Qualified Code(s): E02 - Subclinical iodine-deficiency hypothyroidism Plan: CONTINUE SYNTHROID, CONTINUE TO MONITOR
--- NOTE | 2017-06-03 20:27 | PCM.PROG ---
Progress Note - Progress Note for Day of Date: 06/01/17 - Subjective Subjective: IS BEING TREATED FOR OPEN TIBIA/FIBULA FRACTURES OF THE LEFT LEG, LEFT LEG LACERATION, AND COMPARTMENT SYNDROME. TODAY, SHE IS LYING IN BED WITH EYES CLOSED ON MORNING ROUNDS. SHE AWAKENS EASILY TO VERBAL STIMULI. PATIENT CONTINUES TO REPORT IMPROVED PAIN. TODAY, SHE REPORTS SHORTNESS OF BREATH. SHE REPORTS THAT SHORTNESS OF BREATH BEGAN LAST NIGHT. ON EXAMINATION, HEART IS REGULAR IN RATE AND RHYTHM. BILATERAL LUNGS ARE NOTED WITH DIMINISHED LUNG SOUNDS THROUGHOUT. ABDOMEN IS ROUND, SOFT, AND NON-TENDER WITH NORMAL BOWEL SOUNDS NOTED IN ALL QUADRANTS. LEFT LEG IS NOTED WITH A SPLINT. SWELLING HAS DECREASED SINCE YESTERDAY AND SHE IS ABLE TO MOVE ALL TOES MORE FREELY WITHOUT LIMITATION. HER VITALS SIGNS THIS MORNING ARE 98.5-104-24-96 %-92/63. LABS WERE OBTAINED THIS MORNING. ABNORMAL LAB VALUES INCLUDE THE FOLLOWING: RBC 2.61, HGB 8.6, HCT 25.1, POTASSIUM 3.4, CHLORIDE 109, CALCIUM 6.4 , TOTAL PROTEIN 5.2, ALBUMIN 2.1. WE OBTAINED A CHEST XRAY THIS MORNING DUE TO COMPLAINTS OF SHORTNESS OF BREATH. IT REPORTED RIGHT BASILAR LUNG INFILTRATE SUGGESTIVE OF PNEUMONIA. TODAY, WE WILL START PATIENT ON BREATHING TREATMENTS AND ON THE PNEUMONIA PATHWAY. OTHERWISE, WE WILL CONTINUE WITH CURRENT PLAN OF CARE. AND WILL CONTINUE TO MONITOR PATIENT WELL. WE PLAN TO FOLLOW UP WITH AM LABS AND CHEST XRAY AND CONTINUE TO MONITOR PATIENT. - Past Medical Family Social History Past Med/Fam/Surg Hx: No changes since H&P Allergies: Allergies iodine Allergy (Verified 05/29/17 10:22) prochlorperazine Allergy (Verified 05/29/17 10:22) - Review of Systems ROS: No change since H&P - Vital Signs and I&O's Vital Signs: Temperature 99.1 F Pulse Rate [Left Brachial] 120 Pulse Rate 115 Respiratory Rate 16 Blood Pressure [Right Arm] 112/55 Blood Pressure [Left Arm] 113/58 Blood Pressure 134/64 O2 Sat by Pulse Oximetry 94 Intake and Output: Intake & Output 06/01/17 06/02/17 06/03/17 06/04/17 11:59 11:59 11:59 11:59 Intake Total 2290 2662 2230 240 Output Total 925 1450 3390 600 Balance 1365 7948 -1918 -957 - Physical Exam Oriented: Normal Eyes: Normal. negative: Blurred Vision, Diplopia, Discharge, Pain, Redness, Photophobia, Other Ear: Normal. negative: Right, Left, Swelling, Ecchymosis, Hemotypanum, Abrasion , Laceration Nose: Normal. negative: Injected, Discharge, Blood, Other Throat: Normal. negative: Tonsillar Hypertrophy, Red, Exudate, Dry, Other Respiratory: Right, Left, Generalized, Diminished Cardiovascular: Edema. negative: S3, S4, Murmur : Normal Auscultation: Bowel Sounds: Normal Palpation: Normal Tenderness: Normal. negative: Rebound, Guarding, Rigidity Skin: Red, Tender, Wound (leg wound is healthy ,but the bone is exposed ,some tunneling on the medial aspect of the wound .pulses are present ) Musculoskeletal: Left, Leg, Ankle, Foot, Swelling, Tender Psychiatric: Normal Mood Description: Calm Speech Pattern: Clear, Appropriate - Laboratory and Diagnostics Result Diagrams: 06/03/17 04:20 06/03/17 04:20 Labs: 05/29/17 17:25 Leg - Left Gram Stain - Final 05/29/17 17:25 Leg - Left Wound Culture - Preliminary 06/01/17 10:15 Sputum - Expectorated Sputum Sputum Culture - Preliminary 06/01/17 10:15 Sputum - Expectorated Sputum - Final 05/30/17 09:33 Stool Stool Culture - Final 05/30/17 09:33 Stool - Final Laboratory WBC 5.4 X10^3/uL (3.6-10.0) 06/03/17 04:20 RBC 2.50 X10^6/uL (3.5-5.4) L 06/03/17 04:20 Hgb 8.4 g/dL (12.0-16.0) L 06/03/17 04:20 Hct 23.9 % (36.0-47.0) L 06/03/17 04:20 MCV 95.3 fL (80.0-100.0) 06/03/17 04:20 MCH 33.4 pg (27.0-34.0) 06/03/17 04:20 MCHC 35.0 g/dL (33.0-35.0) 06/03/17 04:20 RDW 15.4 % (11.6-16.5) 06/03/17 04:20 Plt Count 239 X10^3/uL (150.0-450.0) 06/03/17 04:20 MPV 8.8 fL (7.4-11.0) 06/03/17 04:20 Neut % 69.5 % (42.0-75.0) 06/03/17 04:20 Lymph % 15.5 % (21.0-51.0) L 06/03/17 04:20 [place] % 9.2 % (0.0-13.0) 06/03/17 04:20 Eos % 4.8 % (0.9-2.9) H 06/03/17 04:20 Baso % 1.0 % (0.2-1.0) 06/03/17 04:20 Neut # 3.8 x10^3/uL (2.2-4.8) 06/03/17 04:20 Lymph # 0.8 X10^3/uL (1.3-2.9) L 06/03/17 04:20 [place] # 0.5 x10^3/uL (0.3-0.8) 06/03/17 04:20 Eos # 0.3 x10^3/uL (0.0-0.2) H 06/03/17 04:20 Baso # 0.1 X10^3/uL (0.0-0.1) 06/03/17 04:20 Absolute Nucleated RBC 0.0 /100WBC 06/03/17 04:20 Sodium 143 mmol/L (136-145) 06/03/17 04:20 Corrected Sodium TNP 06/03/17 04:20 Potassium 3.4 mmol/L (3.5-5.1) L 06/03/17 04:20 Chloride 109 mmol/L (98-107) H 06/03/17 04:20 Carbon Dioxide 23.6 mmol/L (21-32) 06/03/17 04:20 BUN 6 mg/dL (7-18) L 06/03/17 04:20 Creatinine 0.71 mg/dL (0.55-1.02) 06/03/17 04:20 Est GFR (MDRD) Af Amer > 60 (>60) 06/03/17 04:20 Est GFR (MDRD) Non-Af > 60 (>60) 06/03/17 04:20 Glucose 89 mg/dL (65-99) 06/03/17 04:20 Calcium 6.3 mg/dL (8.5-10.1) L 06/03/17 04:20 Corrected Calcium 8.1 mg/dL (8.5-10.1) L 06/03/17 04:20 Magnesium 1.8 mg/dL (1.7-2.9) 05/30/17 04:15 Total Bilirubin 0.50 mg/dL (0.2-1.0) 06/03/17 04:20 AST 39 Units/L (15-37) H 06/03/17 04:20 ALT 21 Units/L (12-78) 06/03/17 04:20 Alkaline Phosphatase 103 Units/L (46-116) 06/03/17 04:20 Total Protein 5.1 g/dL (6.4-8.2) L 06/03/17 04:20 Albumin 1.8 g/dL (3.4-5.0) L 06/03/17 04:20 Globulin 3.3 g/dL (2.5-4.5) 06/03/17 04:20 Albumin/Globulin Ratio 0.5 Ratio (1.1-2.1) L 06/03/17 04:20 Specimen Type Clean catch urine 05/29/17 19:45 Urine Color [place] (YELLOW) 05/29/17 19:45 Urine Appearance Slightly hazy (CLEAR) 05/29/17 19:45 Urine pH 5.0 (5.0 - 8.0) 05/29/17 19:45 Ur Specific [place] 1.020 (1.000-1.030) 05/29/17 19:45 Urine Protein 2+ (NEGATIVE) 05/29/17 19:45 Urine Glucose (UA) Negative (NEGATIVE) 05/29/17 19:45 Urine Ketones 1+ (NEGATIVE) 05/29/17 19:45 Urine Occult Blood 3+ (NEGATIVE) 05/29/17 19:45 Urine Nitrite Negative (NEGATIVE) 05/29/17 19:45 Urine Bilirubin Negative (NEGATIVE) 05/29/17 19:45 Urine Urobilinogen Normal (NORMAL) 05/29/17 19:45 Ur Leukocyte Esterase 1+ (NEGATIVE) 05/29/17 19:45 Urine RBC 3 - 7 /HPF (NONE SEEN) 05/29/17 19:45 Urine WBC 0 - 3 /HPF (NONE SEEN) 05/29/17 19:45 Ur Squamous Epith Cells Moderate /HPF (NEGATIVE) 05/29/17 19:45 Urine Bacteria Trace /HPF (NEGATIVE) 05/29/17 19:45 Ur Culture Indicated? No/not indicated 05/29/17 19:45 Stool Description 75 cc brown loose 05/30/17 09:33 Stl Occult Blood (IFOB) Positive (NEGATIVE) A 05/30/17 09:33 Stool for White Cells Positive (NEGATIVE) A 05/30/17 09:02 Stl C. diff Tox B Gene Negative (NEGATIVE) 05/30/17 09:33 Stl C. diff [id number] Negative (NEGATIVE) 05/30/17 09:33 Cryptosporid parvum Ag Negative (NEGATIVE) 05/30/17 09:33 E. histolytica Antigen Negative (NEGATIVE) 05/30/17 09:33 Giardia lamblia Ag Negative (NEGATIVE) 05/30/17 09:33 Tissue Pathology To follow 05/29/17 18:00 - Plan (1) Fibula fracture Status: Acute Qualifiers: Encounter type: initial encounter Fibula location: distal Fracture type: open Fracture morphology: unspecified fracture morphology Laterality: left Plan: ORTHOPEDIC CONSULT, TORADOL 15MG IV Q6H, PERCOCET 5/325 2 TABS Q4H PRN PAIN, CONTINUE TO MONITOR (2) Tibia fracture Status: Acute Qualifiers: Encounter type: initial encounter Tibia location: distal Fracture type: open Fracture morphology: unspecified fracture morphology Laterality: left Plan: ORTHOPEDIC CONSULT, TORADOL 15MG IV Q6H, PERCOCET 5/325 2 TABS Q4H PRN PAIN, CONTINUE TO MONITOR (3) Laceration of left lower leg Status: Acute Qualifiers: Encounter type: initial encounter Qualified Code(s): S81.812A - Laceration without foreign body, left lower leg, initial encounter Plan: WOUND CARE, CONTINUE TO MONITOR (4) Compartment syndrome of left lower extremity Status: Acute Qualifiers: Encounter type: initial encounter Qualified Code(s): T79.A22A - Traumatic compartment syndrome of left lower extremity, initial encounter Plan: ORTHOPEDIC CONSULT, CONTINUE TO MONITOR (5) Pneumonia Status: Acute Qualifiers: Pneumonia type: due to unspecified organism Laterality: right Lung location: lower lobe of lung Qualified Code(s): J18.1 - Lobar pneumonia, unspecified organism Plan: PNEUMONIA PATHWAY, CONTINUE IV ANTIBIOTICS, RESPIRATORY TREATMENTS, AND SUPPLEMENTAL OXYGEN, CONTINUE TO MONITOR (6) Depression Status: Chronic Qualifiers: Depression Type: major depressive disorder Major depression recurrence: recurrent Active/Remission status: currently active Major depression episode severity: unspecified Qualified Code(s): F33.9 - Major depressive disorder, recurrent, unspecified Plan: CONTINUE CYMBALTA, CONTINUE TO MONITOR (7) Hx of Crohn's disease Status: Chronic Plan: CONTINUE IMURAN, CONTINUE TO MONITOR (8) Hyperlipidemia Status: Chronic Qualifiers: Hyperlipidemia type: mixed hyperlipidemia Qualified Code(s): E78.2 - Mixed hyperlipidemia Plan: CONTINUE LIPITOR, CONTINUE TO MONITOR (9) Hypothyroidism Status: Chronic Qualifiers: Hypothyroidism type: subclinical iodine-deficiency Qualified Code(s): E02 - Subclinical iodine-deficiency hypothyroidism Plan: CONTINUE SYNTHROID, CONTINUE TO MONITOR
[2017-06-03] MEDS: LIPITOR TAB 40 MG PO SCH (21:11)
[2017-06-03] MEDS: NEURONTIN TAB 600 MG PO SCH (21:11)
[2017-06-03] MEDS: AMBIEN PO SCH (21:12)
[2017-06-03] MEDS ORDERED: ZOSYN VIAL 3.375 GM IV ONE (21:20)
[2017-06-04] MEDS: DUONEB 0.5 MG/3 MG NEB SCH ×6 (00:53→20:55)
[2017-06-04] MEDS ORDERED: NS 100 ML IV 100 ML IV ONE (04:26)
[2017-06-04] MEDS ORDERED: ZOSYN VIAL 3.375 GM IV ONE (04:26)
[2017-06-04] MEDS: DILAUDID INJ IVP PRN ×2 (04:40→17:26)
[2017-06-04 05:11] LABS: BASOPHILS % (AUTO) 0.9 % (0.2-1.0); EOSINOPHILS # (AUTO) 0.3 x10^3/uL (0.0-0.2); EOSINOPHILS % (AUTO) 6.2 % (0.9-2.9); HEMATOCRIT 23.1 % (36.0-47.0); LYMPHOCYTES # (AUTO) 0.8 X10^3/uL (1.3-2.9); LYMPHOCYTES % (AUTO) 15.7 % (21.0-51.0); MEAN CORPUSCULAR HEMOGLOBIN 32.8 pg (27.0-34.0); MEAN CORPUSCULAR HGB CONC 34.4 g/dL (33.0-35.0); MEAN CORPUSCULAR VOLUME 95.2 fL (80.0-100.0); MEAN PLATELET VOLUME 8.8 fL (7.4-11.0); MONOCYTES # (AUTO) 0.5 x10^3/uL (0.3-0.8); MONOCYTES % (AUTO) 10.2 % (0.0-13.0); NEUTROPHILS # (AUTO) 3.5 x10^3/uL (2.2-4.8); PLATELET COUNT 281 X10^3/uL (150.0-450.0); RED BLOOD COUNT 2.43 X10^6/uL (3.5-5.4); RED CELL DISTRIBUTION WIDTH 15.2 % (11.6-16.5); WHITE BLOOD COUNT 5.2 X10^3/uL (3.6-10.0)
[2017-06-04 05:32] LABS: ALANINE AMINOTRANSFERASE 19 Units/L (12-78); ALBUMIN 1.7 g/dL (3.4-5.0); ALKALINE PHOSPHATASE 105 Units/L (46-116); ASPARTATE AMINO TRANSFERASE 40 Units/L (15-37); BLOOD UREA NITROGEN 5 mg/dL (7-18); CALCIUM 6.7 mg/dL (8.5-10.1); CARBON DIOXIDE 27.6 mmol/L (21-32); CHLORIDE 110 mmol/L (98-107); COR CA(FOR HYPOALB) 8.5 mg/dL (8.5-10.1); CREATININE 0.67 mg/dL (0.55-1.02); SODIUM 146 mmol/L (136-145); TOTAL PROTEIN 4.9 g/dL (6.4-8.2); eGFR BLACK RACES > 60 (>60); eGFR NON BLACK RACES > 60 (>60)
[2017-06-04] MEDS: ZOSYN VIAL 3.375 GM 3.375 GM in NS 100 ML IV + SPIKE MINIBAG* 100 ML IV SCH (05:50)
[2017-06-04] MEDS: POTASSIUM CHL 40 MEQ/NS 0.45% 500 ML IV PRN (05:53)
--- NOTE | 2017-06-04 06:55 | RAD ---
HISTORY: Bilateral wheezing Study: Chest AP portable Comparison: 06/03/2017 Findings: There is a port present on the right. The heart is within normal limits in size. The alla are normal. Postsurgical changes are present on the right. There is pleural parenchymal scarring in the right william ng base. Right basilar lung infiltrate is unchanged. The left lung remains clear. The bony thorax is unremarkable. IMPRESSION: No significant change from the prior examination Reported By:
[2017-06-04] MEDS: PERCOCET TAB 5/325 MG PO PRN ×2 (08:05→20:10)
[2017-06-04] MEDS: MEGACE PO SCH ×2 (08:09→20:15)
[2017-06-04] MEDS: OSCAL+D or CALTRATE+D PO SCH (08:09)
[2017-06-04] MEDS: NEURONTIN CAP 300 MG PO SCH (08:09)
[2017-06-04] MEDS: SYNTHROID 100 mcg TAB PO SCH (08:09)
[2017-06-04] MEDS: ESTRACE PO SCH (08:09)
[2017-06-04] MEDS: IMURAN PO SCH (08:10)
[2017-06-04] MEDS: ALBUMIN HUMAN 25%- 100ML 100 ML IV SCH (08:10)
[2017-06-04] MEDS: CYMBALTA PO SCH (08:18)
[2017-06-04] MEDS: PROTONIX INJ 40 MG VIAL IVP SCH ×2 (11:31→20:09)
[2017-06-04] MEDS: SOLU-Medrol 40 MG VIAL IVP SCH ×3 (11:31→22:56)
[2017-06-04] MEDS: PEPCID 20 MG IV PREMIX* 20 MG/50 ML BAG IV SCH ×2 (11:31→20:09)
[2017-06-04] MEDS ORDERED: PERCOCET TAB 5/325 MG PO ONE (12:48)
[2017-06-04] MEDS: ZOSYN VIAL 3.375 GM 3.375 GM in NS 100 ML IV 100 ML IV SCH ×2 (13:46→22:56)
[2017-06-04] MEDS: BENADRYL INJ 50 MG VIAL IVP PRN (17:26)
[2017-06-04] MEDS: NS 1000 ML 1,000 ML IV SCH ×2 (20:08→22:56)
[2017-06-04] MEDS: AMBIEN PO SCH (20:15)
[2017-06-04] MEDS: NEURONTIN TAB 600 MG PO SCH (20:15)
[2017-06-04] MEDS: LIPITOR TAB 40 MG PO SCH (20:15)
[2017-06-04] MEDS: PULMICORT NEB TX 0.5 MG NEB SCH (20:55)
[2017-06-05] MEDS: DUONEB 0.5 MG/3 MG NEB SCH ×3 (01:32→08:20)
[2017-06-05] MEDS: SOLU-Medrol 40 MG VIAL IVP SCH ×3 (05:29→21:52)
[2017-06-05] MEDS: DILAUDID INJ IVP PRN (05:29)
[2017-06-05] MEDS: BENADRYL INJ 50 MG VIAL IVP PRN (05:29)
[2017-06-05] MEDS: ZOSYN VIAL 3.375 GM 3.375 GM in NS 100 ML IV 100 ML IV SCH ×3 (05:30→21:52)
[2017-06-05 06:13] LABS: BASOPHILS % (AUTO) 0.3 % (0.2-1.0); HEMATOCRIT 23.2 % (36.0-47.0); HEMOGLOBIN 8.1 g/dL (12.0-16.0); LYMPHOCYTES # (AUTO) 0.3 X10^3/uL (1.3-2.9); LYMPHOCYTES % (AUTO) 7.1 % (21.0-51.0); MEAN CORPUSCULAR HEMOGLOBIN 33.3 pg (27.0-34.0); MEAN CORPUSCULAR HGB CONC 34.9 g/dL (33.0-35.0); MEAN CORPUSCULAR VOLUME 95.4 fL (80.0-100.0); MEAN PLATELET VOLUME 8.4 fL (7.4-11.0); MONOCYTES # (AUTO) 0.2 x10^3/uL (0.3-0.8); MONOCYTES % (AUTO) 4.1 % (0.0-13.0); NEUTROPHILS # (AUTO) 3.9 x10^3/uL (2.2-4.8); NEUTROPHILS % (AUTO) 88.5 % (42.0-75.0); PLATELET COUNT 355 X10^3/uL (150.0-450.0); RED BLOOD COUNT 2.43 X10^6/uL (3.5-5.4); RED CELL DISTRIBUTION WIDTH 15.8 % (11.6-16.5); WHITE BLOOD COUNT 4.4 X10^3/uL (3.6-10.0)
[2017-06-05 06:30] LABS: ALANINE AMINOTRANSFERASE 21 Units/L (12-78); ALBUMIN 2.5 g/dL (3.4-5.0); ALKALINE PHOSPHATASE 97 Units/L (46-116); ASPARTATE AMINO TRANSFERASE 41 Units/L (15-37); BLOOD UREA NITROGEN 7 mg/dL (7-18); CALCIUM 6.6 mg/dL (8.5-10.1); CARBON DIOXIDE 26.1 mmol/L (21-32); CHLORIDE 108 mmol/L (98-107); COR CA(FOR HYPOALB) 7.8 mg/dL (8.5-10.1); COR NA(FOR HYPERGLY) 147 mmol/L (136-145); CREATININE 0.89 mg/dL (0.55-1.02); SODIUM 146 mmol/L (136-145); TOTAL PROTEIN 5.8 g/dL (6.4-8.2); eGFR BLACK RACES > 60 (>60); eGFR NON BLACK RACES > 60 (>60)
--- NOTE | 2017-06-05 06:43 | RAD ---
Examination: AP chest History: Wheezing Comparison 06/04/2017 Findings: The continued normal heart size. Chronic pleural-parenchymal findings again noted at right base with volume loss of the right leann thorax consistent with previous surgery. Stable position of c entral line. No developing consolidation, or pneumothorax. Impression: No change. Reported By:
[2017-06-05] MEDS: PULMICORT NEB TX 0.5 MG NEB SCH ×2 (08:20→20:57)
[2017-06-05] MEDS: ALBUMIN HUMAN 25%- 100ML 100 ML IV SCH (08:53)
[2017-06-05] MEDS: NS 1000 ML 1,000 ML IV SCH ×4 (08:53→17:26)
[2017-06-05] MEDS: ESTRACE PO SCH (08:54)
[2017-06-05] MEDS: CYMBALTA PO SCH (08:54)
[2017-06-05] MEDS: IMURAN PO SCH (08:54)
[2017-06-05] MEDS: MEGACE PO SCH ×2 (08:54→20:31)
[2017-06-05] MEDS: NEURONTIN CAP 300 MG PO SCH (08:55)
[2017-06-05] MEDS: PROTONIX INJ 40 MG VIAL IVP SCH ×2 (08:55→20:31)
[2017-06-05] MEDS: SYNTHROID 100 mcg TAB PO SCH (08:55)
[2017-06-05] MEDS: OSCAL+D or CALTRATE+D PO SCH (08:55)
[2017-06-05] MEDS: PEPCID 20 MG IV PREMIX* 20 MG/50 ML BAG IV SCH ×2 (08:55→20:31)
[2017-06-05 11:03] LABS: ABG BASE EXCESS 4.5 mmol/L (-2.0-2.0); ABG HCO3 29.2 mmol/L (22-26)
[2017-06-05 11:04] LABS: ABG ALLEN TEST POS
--- NOTE | 2017-06-05 11:42 | PCM.PROG ---
Progress Note - Progress Note for Day of Date: 06/02/17 - Subjective Subjective: IS BEING TREATED FOR OPEN TIBIA/FIBULA FRACTURES OF THE LEFT LEG, LEFT LEG LACERATION, AND COMPARTMENT SYNDROME. TODAY, SHE IS LYING IN BED WITH EYES CLOSED ON MORNING ROUNDS. SHE AWAKENS EASILY TO VERBAL STIMULI. FAMILY AND STAFF REPORT INTERMITTENT CONFUSION THIS MORNING AND THROUGHOUT THE NIGHT. TODAY, SHE CONTINUES WITH SHORTNESS OF BREATH, COUGH, AND LEFT LEG PAIN. ON EXAMINATION, HEART IS REGULAR IN RATE AND RHYTHM. BILATERAL LUNGS CONTINUE WITH DIMINISHED LUNG SOUNDS THROUGHOUT. ABDOMEN IS ROUND, SOFT, AND NON-TENDER WITH NORMAL BOWEL SOUNDS NOTED IN ALL QUADRANTS. LEFT LEG IS NOTED WITH A SPLINT. SHE IS ABLE TO MOVE ALL TOES FREELY WITHOUT LIMITATION. HER VITALS SIGNS THIS MORNING ARE 98.8-121-20-90%-118/57. LABS WERE OBTAINED THIS MORNING. ABNORMAL LAB VALUES INCLUDE THE FOLLOWING: RBC 2.62, HGB 8.7, HCT 25.1, POTASSIUM 3.1, CHLORIDE 109, BUN 6, GLUCOSE 100, CALCIUM 6.4, AST 39, TOTAL PROTEIN 5.5, ALBUMIN 2.0. AND WILL CONTINUE TO MONITOR PATIENT AND PLAN TO TAKE PATIENT TO THE OR IN THE MORNING FOR ORIF OF LEFT ANKLE AND A SKIN GRAFT. WE WILL CONTINUE WITH IV ANTIBIOTICS, RESPIRATORY TREATMENTS, AND PAIN MEDICATIONS. OTHERWISE, WE PLAN TO FOLLOW UP WITH AM LABS AND CHEST XRAY AND CONTINUE TO MONITOR PATIENT. - Past Medical Family Social History Past Med/Fam/Surg Hx: No changes since H&P Allergies: Allergies iodine Allergy (Verified 05/29/17 10:22) prochlorperazine Allergy (Verified 05/29/17 10:22) - Review of Systems ROS: No change since H&P - Vital Signs and I&O's Vital Signs: Temperature 99 F Pulse Rate [Left Brachial] 120 Pulse Rate 103 Respiratory Rate 26 Blood Pressure [Right Arm] 130/62 Blood Pressure [Left Arm] 110/72 Blood Pressure 134/64 O2 Sat by Pulse Oximetry 96 Intake and Output: Intake & Output 06/02/17 06/03/17 06/04/17 06/05/17 11:59 11:59 11:59 11:59 Intake Total 2662 2230 1320 2042 Output Total 1450 3260 2050 1770 Balance 1212 -1030 -730 272 - Physical Exam Oriented: Normal Eyes: Normal. negative: Blurred Vision, Diplopia, Discharge, Pain, Redness, Photophobia, Other Ear: Normal. negative: Right, Left, Swelling, Ecchymosis, Hemotypanum, Abrasion , Laceration Nose: Normal. negative: Injected, Discharge, Blood, Other Throat: Normal. negative: Tonsillar Hypertrophy, Red, Exudate, Dry, Other Respiratory: Right, Left, Generalized, Diminished Cardiovascular: Edema. negative: S3, S4, Murmur : Normal Auscultation: Bowel Sounds: Normal Palpation: Normal Tenderness: Normal. negative: Rebound, Guarding, Rigidity Skin: Red, Tender, Wound (leg wound is healthy ,but the bone is exposed ,some tunneling on the medial aspect of the wound .pulses are present ) Musculoskeletal: Left, Leg, Ankle, Foot, Swelling, Tender Psychiatric: Normal Mood Description: Calm Speech Pattern: Unclear, Inappropriate - Laboratory and Diagnostics Result Diagrams: 06/05/17 05:10 06/05/17 05:10 Labs: 06/01/17 10:15 Sputum - Expectorated Sputum Sputum Culture - Final 06/01/17 10:15 Sputum - Expectorated Sputum - Final 05/29/17 17:25 Leg - Left Gram Stain - Final 05/29/17 17:25 Leg - Left Wound Culture - Final 05/30/17 09:33 Stool Stool Culture - Final 05/30/17 09:33 Stool - Final Laboratory WBC 4.4 X10^3/uL (3.6-10.0) 06/05/17 05:10 RBC 2.43 X10^6/uL (3.5-5.4) L 06/05/17 05:10 Hgb 8.1 g/dL (12.0-16.0) L 06/05/17 05:10 Hct 23.2 % (36.0-47.0) L 06/05/17 05:10 MCV 95.4 fL (80.0-100.0) 06/05/17 05:10 MCH 33.3 pg (27.0-34.0) 06/05/17 05:10 MCHC 34.9 g/dL (33.0-35.0) 06/05/17 05:10 RDW 15.8 % (11.6-16.5) 06/05/17 05:10 Plt Count 355 X10^3/uL (150.0-450.0) 06/05/17 05:10 MPV 8.4 fL (7.4-11.0) 06/05/17 05:10 Neut % 88.5 % (42.0-75.0) H 06/05/17 05:10 Lymph % 7.1 % (21.0-51.0) L 06/05/17 05:10 [place] % 4.1 % (0.0-13.0) 06/05/17 05:10 Eos % 0.0 % (0.9-2.9) L 06/05/17 05:10 Baso % 0.3 % (0.2-1.0) 06/05/17 05:10 Neut # 3.9 x10^3/uL (2.2-4.8) 06/05/17 05:10 Lymph # 0.3 X10^3/uL (1.3-2.9) L 06/05/17 05:10 [place] # 0.2 x10^3/uL (0.3-0.8) L 06/05/17 05:10 Eos # 0.0 x10^3/uL (0.0-0.2) 06/05/17 05:10 Baso # 0.0 X10^3/uL (0.0-0.1) 06/05/17 05:10 Absolute Nucleated RBC 0.4 /100WBC 06/05/17 05:10 Sample Site Rr 06/05/17 10:10 ABG pH 7.440 (7.35-7.45) 06/05/17 10:10 ABG pCO2 43.0 mmHg (35.0-45.0) 06/05/17 10:10 ABG pO2 63.0 mmHg (80.0-100.0) L 06/05/17 10:10 ABG HCO3 29.2 mmol/L (22-26) H 06/05/17 10:10 ABG O2 Saturation 93.0 % (90-100) 06/05/17 10:10 ABG Base Excess 4.5 mmol/L (-2.0-2.0) H 06/05/17 10:10 Kvng Test Pos 06/05/17 10:10 A-a Gradient 111.0 mmHg 06/05/17 10:10 FiO2 32.000 06/05/17 10:10 Blood Gas Comments Pt yesi well. cdn/sd 06/05/17 10:10 Sodium 146 mmol/L (136-145) H 06/05/17 05:10 Corrected Sodium 147 mmol/L (136-145) H 06/05/17 05:10 Potassium 3.5 mmol/L (3.5-5.1) 06/05/17 05:10 Chloride 108 mmol/L (98-107) H 06/05/17 05:10 Carbon Dioxide 26.1 mmol/L (21-32) 06/05/17 05:10 BUN 7 mg/dL (7-18) 06/05/17 05:10 Creatinine 0.89 mg/dL (0.55-1.02) 06/05/17 05:10 Est GFR (MDRD) Af Amer > 60 (>60) 06/05/17 05:10 Est GFR (MDRD) Non-Af > 60 (>60) 06/05/17 05:10 Glucose 124 mg/dL (65-99) H 06/05/17 05:10 Calcium 6.6 mg/dL (8.5-10.1) L 06/05/17 05:10 Corrected Calcium 7.8 mg/dL (8.5-10.1) L 06/05/17 05:10 Magnesium 1.8 mg/dL (1.7-2.9) 05/30/17 04:15 Total Bilirubin 0.50 mg/dL (0.2-1.0) 06/05/17 05:10 AST 41 Units/L (15-37) H 06/05/17 05:10 ALT 21 Units/L (12-78) 06/05/17 05:10 Alkaline Phosphatase 97 Units/L (46-116) 06/05/17 05:10 Total Protein 5.8 g/dL (6.4-8.2) L 06/05/17 05:10 Albumin 2.5 g/dL (3.4-5.0) L 06/05/17 05:10 Globulin 3.3 g/dL (2.5-4.5) 06/05/17 05:10 Albumin/Globulin Ratio 0.8 Ratio (1.1-2.1) L 06/05/17 05:10 Specimen Type Clean catch urine 05/29/17 19:45 Urine Color [place] (YELLOW) 05/29/17 19:45 Urine Appearance Slightly hazy (CLEAR) 05/29/17 19:45 Urine pH 5.0 (5.0 - 8.0) 05/29/17 19:45 Ur Specific [place] 1.020 (1.000-1.030) 05/29/17 19:45 Urine Protein 2+ (NEGATIVE) 05/29/17 19:45 Urine Glucose (UA) Negative (NEGATIVE) 05/29/17 19:45 Urine Ketones 1+ (NEGATIVE) 05/29/17 19:45 Urine Occult Blood 3+ (NEGATIVE) 05/29/17 19:45 Urine Nitrite Negative (NEGATIVE) 05/29/17 19:45 Urine Bilirubin Negative (NEGATIVE) 05/29/17 19:45 Urine Urobilinogen Normal (NORMAL) 05/29/17 19:45 Ur Leukocyte Esterase 1+ (NEGATIVE) 05/29/17 19:45 Urine RBC 3 - 7 /HPF (NONE SEEN) 05/29/17 19:45 Urine WBC 0 - 3 /HPF (NONE SEEN) 05/29/17 19:45 Ur Squamous Epith Cells Moderate /HPF (NEGATIVE) 05/29/17 19:45 Urine Bacteria Trace /HPF (NEGATIVE) 05/29/17 19:45 Ur Culture Indicated? No/not indicated 05/29/17 19:45 Stool Description 75 cc brown loose 05/30/17 09:33 Stl Occult Blood (IFOB) Positive (NEGATIVE) A 05/30/17 09:33 Stool for White Cells Positive (NEGATIVE) A 05/30/17 09:02 Stl C. diff Tox B Gene Negative (NEGATIVE) 05/30/17 09:33 Stl C. diff [id number] Negative (NEGATIVE) 05/30/17 09:33 Cryptosporid parvum Ag Negative (NEGATIVE) 05/30/17 09:33 E. histolytica Antigen Negative (NEGATIVE) 05/30/17 09:33 Giardia lamblia Ag Negative (NEGATIVE) 05/30/17 09:33 Tissue Pathology To follow 05/29/17 18:00 - Plan (1) Bimalleolar ankle fracture Status: Acute Qualifiers: Encounter type: initial encounter Fracture type: open Laterality: left Plan: ORIF TOMORROW, CONTINUE IV PAIN MEDICATION, CONTINUE TO MONITOR (2) Fibula fracture Status: Acute Qualifiers: Encounter type: initial encounter Fibula location: distal Fracture type: open Fracture morphology: unspecified fracture morphology Laterality: left Plan: OCL SPLINT, TORADOL 15MG IV Q6H, PERCOCET 5/325 2 TABS Q4H PRN PAIN, CONTINUE TO MONITOR (3) Tibia fracture Status: Acute Qualifiers: Encounter type: initial encounter Tibia location: distal Fracture type: open Fracture morphology: unspecified fracture morphology Laterality: left Plan: ORTHOPEDIC CONSULT, TORADOL 15MG IV Q6H, PERCOCET 5/325 2 TABS Q4H PRN PAIN, CONTINUE TO MONITOR (4) Laceration of left lower leg Status: Acute Qualifiers: Encounter type: initial encounter Qualified Code(s): S81.812A - Laceration without foreign body, left lower leg, initial encounter Plan: WOUND CARE, CONTINUE TO MONITOR (5) Compartment syndrome of left lower extremity Status: Acute Qualifiers: Encounter type: initial encounter Qualified Code(s): T79.A22A - Traumatic compartment syndrome of left lower extremity, initial encounter Plan: ORTHOPEDIC CONSULT, CONTINUE TO MONITOR (6) Pneumonia Status: Acute Qualifiers: Pneumonia type: due to unspecified organism Laterality: right Lung location: lower lobe of lung Qualified Code(s): J18.1 - Lobar pneumonia, unspecified organism Plan: PNEUMONIA PATHWAY, CONTINUE IV ANTIBIOTICS, RESPIRATORY TREATMENTS, AND SUPPLEMENTAL OXYGEN, CONTINUE TO MONITOR (7) Depression Status: Chronic Qualifiers: Depression Type: major depressive disorder Major depression recurrence: recurrent Active/Remission status: currently active Major depression episode severity: unspecified Qualified Code(s): F33.9 - Major depressive disorder, recurrent, unspecified Plan: CONTINUE CYMBALTA, CONTINUE TO MONITOR (8) Hx of Crohn's disease Status: Chronic Plan: CONTINUE IMURAN, CONTINUE TO MONITOR (9) Hyperlipidemia Status: Chronic Qualifiers: Hyperlipidemia type: mixed hyperlipidemia Qualified Code(s): E78.2 - Mixed hyperlipidemia Plan: CONTINUE LIPITOR, CONTINUE TO MONITOR (10) Hypothyroidism Status: Chronic Qualifiers: Hypothyroidism type: subclinical iodine-deficiency Qualified Code(s): E02 - Subclinical iodine-deficiency hypothyroidism Plan: CONTINUE SYNTHROID, CONTINUE TO MONITOR
[2017-06-05] MEDS ORDERED: ATIVAN 20 MG/10 ML VIAL ONE (12:42)
[2017-06-05] MEDS: ATIVAN INJ 2 MG VIAL IVP PRN ×2 (12:48→14:18)
[2017-06-05] MEDS: PERCOCET TAB 5/325 MG PO PRN ×2 (13:05→21:51)
[2017-06-05] MEDS: PROCALAMINE 3 % 1,000 ML IV SCH (13:06)
[2017-06-05] MEDS: XOPENEX 1.25 MG/3 ML NEBULE NEB SCH ×4 (13:10→20:57)
[2017-06-05] MEDS ORDERED: NS 1000 ML 1,000 ML ONE (17:17)
[2017-06-05] MEDS: NEURONTIN TAB 600 MG PO SCH (20:31)
[2017-06-05] MEDS: AMBIEN PO SCH (20:31)
[2017-06-05] MEDS: LIPITOR TAB 40 MG PO SCH (20:31)
[2017-06-06] MEDS: DILAUDID INJ IVP PRN ×4 (05:09→23:09)
[2017-06-06] MEDS: ZOSYN VIAL 3.375 GM 3.375 GM in NS 100 ML IV 100 ML IV SCH ×3 (05:46→21:05)
[2017-06-06] MEDS: SOLU-Medrol 40 MG VIAL IVP SCH ×3 (05:46→21:08)
[2017-06-06 06:07] LABS: BASOPHILS % (AUTO) 0.1 % (0.2-1.0); HEMOGLOBIN 7.6 g/dL (12.0-16.0); LYMPHOCYTES # (AUTO) 0.4 X10^3/uL (1.3-2.9); MONOCYTES # (AUTO) 0.3 x10^3/uL (0.3-0.8); NEUTROPHILS # (AUTO) 4.9 x10^3/uL (2.2-4.8); WHITE BLOOD COUNT 5.6 X10^3/uL (3.6-10.0)
[2017-06-06 06:15] LABS: LYMPHOCYTES % (AUTO) 6.3 % (21.0-51.0); MEAN CORPUSCULAR HEMOGLOBIN 32.8 pg (27.0-34.0); MEAN CORPUSCULAR HGB CONC 34.3 g/dL (33.0-35.0); MEAN CORPUSCULAR VOLUME 95.7 fL (80.0-100.0); MEAN PLATELET VOLUME 8.2 fL (7.4-11.0); MONOCYTES % (AUTO) 6.2 % (0.0-13.0); NEUTROPHILS % (AUTO) 87.4 % (42.0-75.0); PLATELET COUNT 348 X10^3/uL (150.0-450.0); RED CELL DISTRIBUTION WIDTH 15.8 % (11.6-16.5)
[2017-06-06 06:18] LABS: ALANINE AMINOTRANSFERASE 28 Units/L (12-78); ALBUMIN 2.9 g/dL (3.4-5.0); ALKALINE PHOSPHATASE 88 Units/L (46-116); ASPARTATE AMINO TRANSFERASE 56 Units/L (15-37); BLOOD UREA NITROGEN 13 mg/dL (7-18); CALCIUM 6.4 mg/dL (8.5-10.1); CARBON DIOXIDE 27.2 mmol/L (21-32); CHLORIDE 108 mmol/L (98-107); COR CA(FOR HYPOALB) 7.3 mg/dL (8.5-10.1); COR NA(FOR HYPERGLY) 147 mmol/L (136-145); CREATININE 0.83 mg/dL (0.55-1.02); SODIUM 146 mmol/L (136-145); TOTAL PROTEIN 6.1 g/dL (6.4-8.2); eGFR BLACK RACES > 60 (>60); eGFR NON BLACK RACES > 60 (>60)
[2017-06-06 06:57] LABS: PLATELET MORPHOLOGY COMMENT NORMAL (NORMAL)
[2017-06-06 06:59] LABS: HYPOCHROMASIA SLIGHT
[2017-06-06] MEDS ORDERED: CYMBALTA PO ONE (08:54)
[2017-06-06] MEDS: PROTONIX INJ 40 MG VIAL IVP SCH ×2 (09:04→21:07)
[2017-06-06] MEDS: PROCALAMINE 3 % 1,000 ML IV SCH ×2 (09:04→13:16)
[2017-06-06] MEDS: ALBUMIN HUMAN 25%- 100ML 100 ML IV SCH (09:05)
[2017-06-06] MEDS: SYNTHROID 100 mcg TAB PO SCH (09:06)
[2017-06-06] MEDS: MEGACE PO SCH ×2 (09:06→21:07)
[2017-06-06] MEDS: ESTRACE PO SCH (09:06)
[2017-06-06] MEDS: OSCAL+D or CALTRATE+D PO SCH (09:06)
[2017-06-06] MEDS: NEURONTIN CAP 300 MG PO SCH (09:06)
[2017-06-06] MEDS: PEPCID 20 MG IV PREMIX* 20 MG/50 ML BAG IV SCH ×2 (09:07→21:06)
[2017-06-06] MEDS: CYMBALTA PO SCH (09:07)
[2017-06-06] MEDS: XOPENEX 1.25 MG/3 ML NEBULE NEB SCH ×5 (09:15→20:30)
[2017-06-06] MEDS: PULMICORT NEB TX 0.5 MG NEB SCH ×2 (09:16→20:30)
[2017-06-06] MEDS: IMURAN PO SCH (09:18)
[2017-06-06] MEDS: PERCOCET TAB 5/325 MG PO PRN ×2 (11:53→21:25)
[2017-06-06] MEDS ORDERED: LASIX IVP ONE (20:51)
[2017-06-06] MEDS ORDERED: BROVANA ONE (20:58)
[2017-06-06] MEDS ORDERED: ACCUNEB 1.25 MG NEBULE NEB SCH ×2 (21:00)
[2017-06-06] MEDS ORDERED: BROVANA IN SCH (21:00)
[2017-06-06] MEDS: MILK OF MAGNESIA PO SCH (21:05)
[2017-06-06] MEDS: AMBIEN PO SCH (21:07)
[2017-06-06] MEDS: LIPITOR TAB 40 MG PO SCH (21:07)
[2017-06-06] MEDS: NEURONTIN TAB 600 MG PO SCH (21:08)
[2017-06-06] MEDS: COLACE CAP 100 MG PO SCH (21:08)
--- NOTE | 2017-06-06 23:18 | CT ---
CTA chest Indication: Shortness of breath, hypoxia Comparison: None Technique: CT images of the chest were obtained with contrast. Automatic exposure control was utilize d. MIP images provided. Findings: No aggressive osseous lesions. Previous right thoracotomy is noted. Images through the uppe r abdomen demonstrate cholelithiasis. Normal heart size, without significant pericardial thickening or pericardial effusion. No pathologica lly enlarged intrathoracic lymph nodes are identified. The thoracic aorta is grossly normal aside fro m scattered atherosclerotic calcifications. No pulmonary arterial filling defect is identified. Previ ous partial right pneumonectomy is noted. There is severe emphysema bilaterally with areas of scarring scattered throughout. There is moderate right and small left pleural effusion, with associated compressive atelectasis, most prominent within the lung bases. Patchy areas of ground-glass are noted in both lungs, most prominent within the left upper lobe and right lung base. Major airways are patent. Impression: No evidence for PTE. Moderate right and small left pleural effusions with basilar predominant compressive atelectasis. Severe emphysema with previous partial right pneumonectomy. Patchy ground-glass may be a chronic finding, but acute multifocal pneumonitis is not excluded. Cholelithiasis. Reported By:
[2017-06-07] MEDS: ZOSYN VIAL 3.375 GM 3.375 GM in NS 100 ML IV 100 ML IV SCH ×3 (05:20→21:03)
[2017-06-07] MEDS: SOLU-Medrol 40 MG VIAL IVP SCH (05:20)
[2017-06-07 06:12] LABS: BASOPHILS % (AUTO) 0.2 % (0.2-1.0); HEMATOCRIT 21.3 % (36.0-47.0); HEMOGLOBIN 7.2 g/dL (12.0-16.0); LYMPHOCYTES # (AUTO) 0.3 X10^3/uL (1.3-2.9); LYMPHOCYTES % (AUTO) 6.5 % (21.0-51.0); MEAN CORPUSCULAR HEMOGLOBIN 32.2 pg (27.0-34.0); MEAN CORPUSCULAR HGB CONC 33.9 g/dL (33.0-35.0); MEAN CORPUSCULAR VOLUME 95.1 fL (80.0-100.0); MEAN PLATELET VOLUME 8.3 fL (7.4-11.0); MONOCYTES # (AUTO) 0.3 x10^3/uL (0.3-0.8); MONOCYTES % (AUTO) 6.3 % (0.0-13.0); NEUTROPHILS # (AUTO) 4.5 x10^3/uL (2.2-4.8); PLATELET COUNT 364 X10^3/uL (150.0-450.0); RED BLOOD COUNT 2.24 X10^6/uL (3.5-5.4); RED CELL DISTRIBUTION WIDTH 15.8 % (11.6-16.5); WHITE BLOOD COUNT 5.2 X10^3/uL (3.6-10.0)
[2017-06-07 06:17] LABS: ALANINE AMINOTRANSFERASE 26 Units/L (12-78); ALBUMIN 3.3 g/dL (3.4-5.0); ALKALINE PHOSPHATASE 75 Units/L (46-116); ASPARTATE AMINO TRANSFERASE 46 Units/L (15-37); BLOOD UREA NITROGEN 19 mg/dL (7-18); CALCIUM 6.4 mg/dL (8.5-10.1); CARBON DIOXIDE 33.6 mmol/L (21-32); CHLORIDE 106 mmol/L (98-107); COR NA(FOR HYPERGLY) 148 mmol/L (136-145); CREATININE 0.92 mg/dL (0.55-1.02); SODIUM 147 mmol/L (136-145); TOTAL PROTEIN 6.3 g/dL (6.4-8.2); eGFR BLACK RACES > 60 (>60); eGFR NON BLACK RACES > 60 (>60)
[2017-06-07 06:58] LABS: ANISOCYTOSIS 1+; HYPOCHROMASIA 1+; PLATELET MORPHOLOGY COMMENT NORMAL (NORMAL)
[2017-06-07] MEDS: DILAUDID INJ IVP PRN ×3 (07:26→19:10)
--- NOTE | 2017-06-07 07:27 | RAD ---
Uncal Examination: Portable AP chest Comparison reference 06/05/2017 History: SOB, hypoxia Findings: Stable heart size. Interval improvement in aeration of the right lower lung. There is persi stent airspace disease in this location. No new abnormality is noted. Unchanged position of right sub clavian line. No pneumothorax seen. Impression: Interval improvement in appearance of the right lower lobe with no new abnormality identi fied. Reported By:
[2017-06-07] MEDS: XOPENEX 1.25 MG/3 ML NEBULE NEB SCH ×4 (08:25→20:44)
[2017-06-07] MEDS: BROVANA IN SCH ×2 (08:25→20:44)
[2017-06-07] MEDS: PULMICORT NEB TX 0.5 MG NEB SCH ×2 (08:25→20:44)
[2017-06-07] MEDS: ALBUMIN HUMAN 25%- 100ML 100 ML IV SCH (08:44)
[2017-06-07] MEDS: PROTONIX INJ 40 MG VIAL IVP SCH ×2 (08:45→20:58)
[2017-06-07] MEDS: NEURONTIN CAP 300 MG PO SCH (08:46)
[2017-06-07] MEDS: MEGACE PO SCH ×2 (08:46→20:57)
[2017-06-07] MEDS: SYNTHROID 100 mcg TAB PO SCH (08:46)
[2017-06-07] MEDS: COLACE CAP 100 MG PO SCH ×2 (08:46→20:57)
[2017-06-07] MEDS: OSCAL+D or CALTRATE+D PO SCH (08:46)
[2017-06-07] MEDS: ESTRACE PO SCH (08:46)
[2017-06-07] MEDS: PEPCID 20 MG IV PREMIX* 20 MG/50 ML BAG IV SCH ×2 (08:46→20:58)
[2017-06-07] MEDS ORDERED: CYMBALTA PO ONE (08:47)
[2017-06-07] MEDS: MILK OF MAGNESIA PO SCH ×3 (08:48→20:57)
[2017-06-07] MEDS: IMURAN PO SCH (08:48)
[2017-06-07] MEDS: CYMBALTA PO SCH (08:48)
--- NOTE | 2017-06-07 11:42 | PCM.PROG ---
Progress Note - Progress Note for Day of Date: 06/07/17 - Subjective Subjective: IS BEING TREATED FOR OPEN TIBIA/FIBULA FRACTURES OF THE LEFT LEG, LEFT LEG LACERATION, AND COMPARTMENT SYNDROME. TODAY, SHE IS LYING IN BED WITH FAMILY AT BEDSIDE. FAMILY AND STAFF REPORT INTERMITTENT CONFUSION THIS MORNING AND THROUGHOUT THE NIGHT. TODAY, SHE CONTINUES WITH SHORTNESS OF BREATH, COUGH, AND LEFT LEG PAIN. BILATERAL LUNGS CONTINUE WITH DIMINISHED LUNG SOUNDS THROUGHOUT. PT HAD CT CHEST LAST NIGHT WITH CHRONIC FINDINGS WITH PLEURAL EFFUSION. PT TREATED WITH IV LASIX. - Past Medical Family Social History Past Med/Fam/Surg Hx: No changes since H&P Allergies: Allergies prochlorperazine Allergy (Verified 05/29/17 10:22) - Review of Systems ROS: No change since H&P - Vital Signs and I&O's Vital Signs: Temperature 97.6 F Pulse Rate [Left Brachial] 120 Pulse Rate 117 Respiratory Rate 16 Blood Pressure [Right Arm] 130/62 Blood Pressure [Left Arm] 135/66 Blood Pressure 134/64 O2 Sat by Pulse Oximetry 98 Intake and Output: Intake & Output 06/04/17 06/05/17 06/06/17 06/07/17 11:59 11:59 11:59 12:59 Intake Total 1320 2042 3070 1606 Output Total 2050 1770 1180 3025 Balance -007 414 9650 -1419 - Physical Exam Oriented: Person Eyes: Normal Ear: Normal Nose: Normal Throat: Dry Respiratory: Generalized, Diminished, Rales Cardiovascular: Tachycardia, Edema : Normal Auscultation: Bowel Sounds: Normal Tenderness: Normal Skin: Red, Tender, Wound Musculoskeletal: Left, Leg, Ankle, Foot, Swelling, Tender Psychiatric: Normal Mood Description: Calm Speech Pattern: Unclear, Inappropriate - Laboratory and Diagnostics Result Diagrams: 06/07/17 05:20 06/07/17 05:20 Labs: 06/01/17 10:15 Sputum - Expectorated Sputum Sputum Culture - Final 06/01/17 10:15 Sputum - Expectorated Sputum - Final 05/29/17 17:25 Leg - Left Gram Stain - Final 05/29/17 17:25 Leg - Left Wound Culture - Final 05/30/17 09:33 Stool Stool Culture - Final 05/30/17 09:33 Stool - Final Laboratory WBC 5.2 X10^3/uL (3.6-10.0) 06/07/17 05:20 RBC 2.24 X10^6/uL (3.5-5.4) L 06/07/17 05:20 Hgb 7.2 g/dL (12.0-16.0) L 06/07/17 05:20 Hct 21.3 % (36.0-47.0) L 06/07/17 05:20 MCV 95.1 fL (80.0-100.0) 06/07/17 05:20 MCH 32.2 pg (27.0-34.0) 06/07/17 05:20 MCHC 33.9 g/dL (33.0-35.0) 06/07/17 05:20 RDW 15.8 % (11.6-16.5) 06/07/17 05:20 Plt Count 364 X10^3/uL (150.0-450.0) 06/07/17 05:20 Plt Count Comment Adequate (ADEQUATE) 06/07/17 05:20 MPV 8.3 fL (7.4-11.0) 06/07/17 05:20 Neut % 87.0 % (42.0-75.0) H 06/07/17 05:20 Lymph % 6.5 % (21.0-51.0) L 06/07/17 05:20 [place] % 6.3 % (0.0-13.0) 06/07/17 05:20 Eos % 0.0 % (0.9-2.9) L 06/07/17 05:20 Baso % 0.2 % (0.2-1.0) 06/07/17 05:20 Neut # 4.5 x10^3/uL (2.2-4.8) 06/07/17 05:20 Lymph # 0.3 X10^3/uL (1.3-2.9) L 06/07/17 05:20 [place] # 0.3 x10^3/uL (0.3-0.8) 06/07/17 05:20 Eos # 0.0 x10^3/uL (0.0-0.2) 06/07/17 05:20 Baso # 0.0 X10^3/uL (0.0-0.1) 06/07/17 05:20 Absolute Nucleated RBC 0.1 /100WBC 06/07/17 05:20 Plt Morphology Comment Normal (NORMAL) 06/07/17 05:20 RBC Morphology Abnormal (NORMAL) A 06/07/17 05:20 Hypochromasia 1+ A 06/07/17 05:20 Anisocytosis 1+ A 06/07/17 05:20 Sample Site Rr 06/05/17 10:10 ABG pH 7.440 (7.35-7.45) 06/05/17 10:10 ABG pCO2 43.0 mmHg (35.0-45.0) 06/05/17 10:10 ABG pO2 63.0 mmHg (80.0-100.0) L 06/05/17 10:10 ABG HCO3 29.2 mmol/L (22-26) H 06/05/17 10:10 ABG O2 Saturation 93.0 % (90-100) 06/05/17 10:10 ABG Base Excess 4.5 mmol/L (-2.0-2.0) H 06/05/17 10:10 Kvng Test Pos 06/05/17 10:10 A-a Gradient 111.0 mmHg 06/05/17 10:10 FiO2 32.000 06/05/17 10:10 Blood Gas Comments Pt yesi well. cdn/sd 06/05/17 10:10 Sodium 147 mmol/L (136-145) H 06/07/17 05:20 Corrected Sodium 148 mmol/L (136-145) H 06/07/17 05:20 Potassium 3.5 mmol/L (3.5-5.1) 06/07/17 05:20 Chloride 106 mmol/L (98-107) 06/07/17 05:20 Carbon Dioxide 33.6 mmol/L (21-32) H 06/07/17 05:20 BUN 19 mg/dL (7-18) H 06/07/17 05:20 Creatinine 0.92 mg/dL (0.55-1.02) 06/07/17 05:20 Est GFR (MDRD) Af Amer > 60 (>60) 06/07/17 05:20 Est GFR (MDRD) Non-Af > 60 (>60) 06/07/17 05:20 Glucose 126 mg/dL (65-99) H 06/07/17 05:20 Calcium 6.4 mg/dL (8.5-10.1) L 06/07/17 05:20 Corrected Calcium 7.0 mg/dL (8.5-10.1) L 06/07/17 05:20 Magnesium 1.8 mg/dL (1.7-2.9) 05/30/17 04:15 Total Bilirubin 0.60 mg/dL (0.2-1.0) 06/07/17 05:20 AST 46 Units/L (15-37) H 06/07/17 05:20 ALT 26 Units/L (12-78) 06/07/17 05:20 Alkaline Phosphatase 75 Units/L (46-116) 06/07/17 05:20 Total Protein 6.3 g/dL (6.4-8.2) L 06/07/17 05:20 Albumin 3.3 g/dL (3.4-5.0) L 06/07/17 05:20 Globulin 3.0 g/dL (2.5-4.5) 06/07/17 05:20 Albumin/Globulin Ratio 1.1 Ratio (1.1-2.1) 06/07/17 05:20 Specimen Type Clean catch urine 05/29/17 19:45 Urine Color [place] (YELLOW) 05/29/17 19:45 Urine Appearance Slightly hazy (CLEAR) 05/29/17 19:45 Urine pH 5.0 (5.0 - 8.0) 05/29/17 19:45 Ur Specific [place] 1.020 (1.000-1.030) 05/29/17 19:45 Urine Protein 2+ (NEGATIVE) 05/29/17 19:45 Urine Glucose (UA) Negative (NEGATIVE) 05/29/17 19:45 Urine Ketones 1+ (NEGATIVE) 05/29/17 19:45 Urine Occult Blood 3+ (NEGATIVE) 05/29/17 19:45 Urine Nitrite Negative (NEGATIVE) 05/29/17 19:45 Urine Bilirubin Negative (NEGATIVE) 05/29/17 19:45 Urine Urobilinogen Normal (NORMAL) 05/29/17 19:45 Ur Leukocyte Esterase 1+ (NEGATIVE) 05/29/17 19:45 Urine RBC 3 - 7 /HPF (NONE SEEN) 03/02/18 19:45 Urine WBC 0 - 3 /HPF (NONE SEEN) 05/29/17 19:45 Ur Squamous Epith Cells Moderate /HPF (NEGATIVE) 05/29/17 19:45 Urine Bacteria Trace /HPF (NEGATIVE) 05/29/17 19:45 Ur Culture Indicated? No/not indicated 05/29/17 19:45 Stool Description 75 cc brown loose 05/30/17 09:33 Stl Occult Blood (IFOB) Positive (NEGATIVE) A 05/30/17 09:33 Stool for White Cells Positive (NEGATIVE) A 05/30/17 09:02 Stl C. diff Tox B Gene Negative (NEGATIVE) 05/30/17 09:33 Stl C. diff [id number] Negative (NEGATIVE) 05/30/17 09:33 Cryptosporid parvum Ag Negative (NEGATIVE) 05/30/17 09:33 E. histolytica Antigen Negative (NEGATIVE) 05/30/17 09:33 Giardia lamblia Ag Negative (NEGATIVE) 05/30/17 09:33 Tissue Pathology To follow 05/29/17 18:00 - Plan (1) COPD (chronic obstructive pulmonary disease) Status: Acute Plan: RESP THERAPY, SUPPLEMENTAL O2. JET NEBS, REVIEWED CT CHEST. AM CXR (2) Pleural effusion Status: Acute Plan: IV LASIX, I & OS. OBTAIN LAST ECHO REPORT (3) Anemia Status: Acute Plan: ANEMIA PANEL, MONITOR H & H (4) Bimalleolar ankle fracture Status: Acute Qualifiers: Encounter type: initial encounter Fracture type: open Laterality: left Plan: S/P ORIF CONTINUE IV PAIN MEDICATION, CONTINUE TO MONITOR (5) Compartment syndrome of left lower extremity Status: Acute Qualifiers: Encounter type: initial encounter Qualified Code(s): T79.A22A - Traumatic compartment syndrome of left lower extremity, initial encounter Plan: ORTHOPEDIC CONSULT, CONTINUE TO MONITOR (6) ANN (generalized anxiety disorder) Status: Chronic (7) Hypothyroidism Status: Chronic Qualifiers: Hypothyroidism type: subclinical iodine-deficiency Qualified Code(s): E02 - Subclinical iodine-deficiency hypothyroidism Plan: CONTINUE SYNTHROID, CONTINUE TO MONITOR
--- NOTE | 2017-06-07 13:51 | CT ---
HISTORY: AMS Study: CT brain without contrast Comparison: No priors Technique: Multiple axial images of the brain were obtained from the skull base to the vertex without administra tion of IV contrast. Coronal and sagittal images are also reviewed. Dose reduction techniques utilize d automatic exposure control. Findings: No acute intraparenchymal hemorrhage or mass can be identified. No extra-axial fluid collections are seen. No alteration in the attenuation of the brain parenchyma can be identified to suggest acute o r subacute ischemic change. The ventricular system is symmetric and nondilated. There is chronic pe riventricular white matter disease observed and age-appropriate generalized atrophy. IMPRESSION: 1. No acute intracranial process can be identified. 2. Chronic periventricular white matter disease likely on the basis of small vessel ischemic change. 3. Age-appropriate atrophic changes are seen. Reported By:
[2017-06-07] MEDS: PERCOCET TAB 5/325 MG PO PRN ×2 (16:05→21:08)
[2017-06-07 16:11] LABS: HEMATOCRIT 22.2 % (36.0-47.0); HEMOGLOBIN 7.5 g/dL (12.0-16.0)
[2017-06-07] MEDS ORDERED: LASIX IVP ONE (17:27)
[2017-06-07 17:39] LABS: ABG BASE EXCESS 10.6 mmol/L (-2.0-2.0)
[2017-06-07 17:40] LABS: ABG ALLEN TEST POS; ABG HCO3 35.1 mmol/L (22-26)
[2017-06-07] MEDS: ZITHROMAX INJ 500 MG VIAL 500 MG in NS 250 ML IV 250 ML IV SCH (17:55)
[2017-06-07] MEDS: AMBIEN PO SCH ×2 (20:55→20:56)
[2017-06-07] MEDS: LIPITOR TAB 40 MG PO SCH (20:56)
[2017-06-07] MEDS: NEURONTIN TAB 600 MG PO SCH (20:56)
[2017-06-07] MEDS: BENADRYL INJ 50 MG VIAL IVP PRN (22:24)
[2017-06-08 05:10] LABS: BASOPHILS # (AUTO) 0.3 X10^3/uL (0.0-0.1); BASOPHILS % (AUTO) 2.3 % (0.2-1.0); EOSINOPHILS # (AUTO) 0.1 x10^3/uL (0.0-0.2); EOSINOPHILS % (AUTO) 0.5 % (0.9-2.9); HEMATOCRIT 23.4 % (36.0-47.0); HEMOGLOBIN 7.8 g/dL (12.0-16.0); LYMPHOCYTES % (AUTO) 8.9 % (21.0-51.0); MEAN CORPUSCULAR HEMOGLOBIN 31.7 pg (27.0-34.0); MEAN CORPUSCULAR HGB CONC 33.6 g/dL (33.0-35.0); MEAN CORPUSCULAR VOLUME 94.2 fL (80.0-100.0); MEAN PLATELET VOLUME 7.7 fL (7.4-11.0); MONOCYTES # (AUTO) 0.6 x10^3/uL (0.3-0.8); MONOCYTES % (AUTO) 5.6 % (0.0-13.0); NEUTROPHILS # (AUTO) 9.4 x10^3/uL (2.2-4.8); NEUTROPHILS % (AUTO) 82.7 % (42.0-75.0); PLATELET COUNT 428 X10^3/uL (150.0-450.0); RED BLOOD COUNT 2.48 X10^6/uL (3.5-5.4); RED CELL DISTRIBUTION WIDTH 15.6 % (11.6-16.5); WHITE BLOOD COUNT 11.4 X10^3/uL (3.6-10.0)
[2017-06-08 05:13] LABS: ALANINE AMINOTRANSFERASE 28 Units/L (12-78); ALBUMIN 3.6 g/dL (3.4-5.0); ALKALINE PHOSPHATASE 74 Units/L (46-116); ASPARTATE AMINO TRANSFERASE 54 Units/L (15-37); BLOOD UREA NITROGEN 17 mg/dL (7-18); CALCIUM 6.1 mg/dL (8.5-10.1); CARBON DIOXIDE 35.8 mmol/L (21-32); CHLORIDE 104 mmol/L (98-107); CREATININE 0.88 mg/dL (0.55-1.02); SODIUM 148 mmol/L (136-145); TOTAL PROTEIN 6.5 g/dL (6.4-8.2); eGFR BLACK RACES > 60 (>60); eGFR NON BLACK RACES > 60 (>60)
[2017-06-08] MEDS: DILAUDID INJ IVP PRN ×3 (05:26→20:02)
[2017-06-08] MEDS: ZOSYN VIAL 3.375 GM 3.375 GM in NS 100 ML IV 100 ML IV SCH (05:27)
[2017-06-08 05:56] LABS: PLATELET MORPHOLOGY COMMENT NORMAL (NORMAL)
[2017-06-08 06:10] LABS: CKMB % 0.2 % (<4); CREATINE KINASE MB 1.6 ng/mL (0-4.0); TROPONIN I 0.16 ng/mL (0-1.5)
[2017-06-08] MEDS: POTASSIUM CHL 40 MEQ/NS 0.45% 500 ML IV PRN (06:39)
--- NOTE | 2017-06-08 06:43 | RAD ---
HISTORY: Shortness of breath. Prior history of coronary artery disease, cervical and skin cancer. Ri ght lung lobectomy. Study: Single-view chest Comparison: 06/07/2017. Findings: Right-sided LifePort is seen inserted via subclavian approach with tip in the lower SVC. Surgical cli ps are present in the right hilum from prior lobectomy. Significant interval increase in predominantl y interstitial markings is seen involving both lungs. Findings may represent interstitial infiltrate, fluid overload or superimposed CHF. No pleural fluid or pneumothorax is seen. Osseous structures are intact. IMPRESSION: Significant interval increase in interstitial markings bilaterally which may represent interstitial i nfiltrate, CHF or fluid overload. Reported By:
[2017-06-08] MEDS: ZITHROMAX INJ 500 MG VIAL 500 MG in NS 250 ML IV 250 ML IV SCH (08:16)
[2017-06-08] MEDS: MILK OF MAGNESIA PO SCH ×3 (08:17→22:01)
[2017-06-08] MEDS: PEPCID 20 MG IV PREMIX* 20 MG/50 ML BAG IV SCH ×2 (08:17→20:05)
[2017-06-08] MEDS: ALBUMIN HUMAN 25%- 100ML 100 ML IV SCH (08:17)
[2017-06-08] MEDS: COLACE CAP 100 MG PO SCH ×2 (08:18→22:01)
[2017-06-08] MEDS: OSCAL+D or CALTRATE+D PO SCH (08:18)
[2017-06-08] MEDS: NEURONTIN CAP 300 MG PO SCH (08:18)
[2017-06-08] MEDS: ESTRACE PO SCH (08:19)
[2017-06-08] MEDS: PROTONIX INJ 40 MG VIAL IVP SCH ×2 (08:22→20:05)
[2017-06-08] MEDS: SYNTHROID 100 mcg TAB PO SCH (08:22)
[2017-06-08] MEDS: PERCOCET TAB 5/325 MG PO PRN (08:23)
[2017-06-08] MEDS: MEGACE PO SCH ×2 (08:23→22:01)
[2017-06-08] MEDS: CYMBALTA PO SCH (08:26)
[2017-06-08] MEDS: IMURAN PO SCH (08:32)
[2017-06-08] MEDS: XOPENEX 1.25 MG/3 ML NEBULE NEB SCH ×4 (09:12→21:36)
[2017-06-08] MEDS: PULMICORT NEB TX 0.5 MG NEB SCH ×2 (09:12→21:36)
[2017-06-08] MEDS: BROVANA IN SCH ×2 (09:12→21:36)
--- NOTE | 2017-06-08 12:56 | PCM.PROG ---
Progress Note - Progress Note for Day of Date: 06/08/17 - Subjective Subjective: IS BEING TREATED FOR OPEN TIBIA/FIBULA FRACTURES OF THE LEFT LEG, LEFT LEG LACERATION, AND COMPARTMENT SYNDROME. SHE IS STATUS POST ORIF OF THE LEFT ANKLE AND SKIN GRAFT. TODAY, SHE IS LYING IN BED WITH FAMILY AT BEDSIDE. FAMILY AND STAFF REPORT THAT PATIENT CONTINUES WITH INTERMITTENT CONFUSION THIS MORNING AND THROUGHOUT THE NIGHT. PATIENT IS MOANING AND COMPLAINS OF PAIN TO THE LEFT LEG. SHE ALSO CONTINUES WITH MODERATE SHORTNESS OF BREATH AND NON-PRODUCTIVE COUGH. ON EXAMINATION, SHE IS TACHYCARDIC WITH HEARTRATE NOTED TO BE IN THE 120S. BILATERAL LUNGS ARE NOTED WITH SCATTERED WHEEZING AND RHONCHI THROUGHOUT. ABDOMEN IS ROUND, SOFT, AND NON-TENDER WITH NORMAL BOWEL SOUNDS NOTED IN ALL QUADRANTS. LEFT LEG IS NOTED WITH SPLINT. SWELLING HAS DECREASED SINCE WE LAST SAW SUZY ON THURSDAY. APPARENTLY HER HGB HAD DROPPED TO 7.2 YESTERDAY, BUT HAS INCREASED TO 7.8 THIS MORNING. WBC HAS INCREASED FROM 5.2 TO 11.4. A CHEST XRAY WAS OBTAINED THIS MORNING AND REPORTED SIGNIFICANT INTERVAL INCREASE IN INTERSTITIAL MARKINGS BILATERALLY WHICH MAY REPRESENT INTERSTITIAL INFILTRATE, CHF, OR FLUID OVERLOAD. TODAY, WE WILL ADMINISTER LASIX 20MG IV X 2 DOSES AND START NEB TX VIA BIPAP. OTHERWISE, WE WILL CONTINUE TO MONITOR PATIENT. WE WILL FOLLOW UP WITH AM LABS AND CHEST XRAY. - Past Medical Family Social History Past Med/Fam/Surg Hx: No changes since H&P Allergies: Allergies prochlorperazine Allergy (Verified 05/29/17 10:22) - Review of Systems ROS: No change since H&P - Vital Signs and I&O's Vital Signs: Temperature 98.1 F Pulse Rate [Left Brachial] 120 Pulse Rate 121 Respiratory Rate 13 Blood Pressure [Right Arm] 130/62 Blood Pressure [Left Arm] 120/66 Blood Pressure 134/64 O2 Sat by Pulse Oximetry 98 Intake and Output: Intake & Output 06/06/17 06/07/17 06/08/17 06/09/17 10:59 11:59 11:59 11:59 Intake Total 832 Output Total 3200 Balance -2368 - Physical Exam Oriented: Person Eyes: Normal Ear: Normal Nose: Normal Throat: Dry Respiratory: Generalized, Diminished, Wheezes Cardiovascular: Tachycardia, Edema : Normal Auscultation: Bowel Sounds: Normal Palpation: Normal Tenderness: Normal Skin: Red, Tender, Wound Musculoskeletal: Left, Leg, Ankle, Foot, Swelling, Tender Psychiatric: Normal Mood Description: Calm Speech Pattern: Unclear, Inappropriate - Laboratory and Diagnostics Result Diagrams: 06/08/17 04:45 06/08/17 04:45 Labs: 06/01/17 10:15 Sputum - Expectorated Sputum Sputum Culture - Final 06/01/17 10:15 Sputum - Expectorated Sputum - Final 05/29/17 17:25 Leg - Left Gram Stain - Final 05/29/17 17:25 Leg - Left Wound Culture - Final 05/30/17 09:33 Stool Stool Culture - Final 05/30/17 09:33 Stool - Final Laboratory WBC 11.4 X10^3/uL (3.6-10.0) H 06/08/17 04:45 RBC 2.48 X10^6/uL (3.5-5.4) L 06/08/17 04:45 Hgb 7.8 g/dL (12.0-16.0) L 06/08/17 04:45 Hct 23.4 % (36.0-47.0) L 06/08/17 04:45 MCV 94.2 fL (80.0-100.0) 06/08/17 04:45 MCH 31.7 pg (27.0-34.0) 06/08/17 04:45 MCHC 33.6 g/dL (33.0-35.0) 06/08/17 04:45 RDW 15.6 % (11.6-16.5) 06/08/17 04:45 Plt Count 428 X10^3/uL (150.0-450.0) 06/08/17 04:45 Plt Count Comment Adequate (ADEQUATE) 06/08/17 04:45 MPV 7.7 fL (7.4-11.0) 06/08/17 04:45 Neut % 82.7 % (42.0-75.0) H 06/08/17 04:45 Lymph % 8.9 % (21.0-51.0) L 06/08/17 04:45 Power % 5.6 % (0.0-13.0) 06/08/17 04:45 Eos % 0.5 % (0.9-2.9) L 06/08/17 04:45 Baso % 2.3 % (0.2-1.0) H 06/08/17 04:45 Neut # 9.4 x10^3/uL (2.2-4.8) H 06/08/17 04:45 Lymph # 1.0 X10^3/uL (1.3-2.9) L 06/08/17 04:45 Power # 0.6 x10^3/uL (0.3-0.8) 06/08/17 04:45 Eos # 0.1 x10^3/uL (0.0-0.2) 06/08/17 04:45 Baso # 0.3 X10^3/uL (0.0-0.1) H 06/08/17 04:45 Absolute Nucleated RBC 0.0 /100WBC 06/08/17 04:45 Plt Morphology Comment Normal (NORMAL) 06/08/17 04:45 RBC Morphology Normal (NORMAL) 06/08/17 04:45 Hypochromasia 1+ A 06/07/17 05:20 Anisocytosis 1+ A 06/07/17 05:20 Sample Site Rr 06/07/17 17:15 ABG pH 7.500 (7.35-7.45) H 06/07/17 17:15 ABG pCO2 45.0 mmHg (35.0-45.0) 06/07/17 17:15 ABG pO2 66.0 mmHg (80.0-100.0) L 06/07/17 17:15 ABG HCO3 35.1 mmol/L (22-26) H* 06/07/17 17:15 ABG O2 Saturation 94.0 % (90-100) 06/07/17 17:15 ABG Base Excess 10.6 mmol/L (-2.0-2.0) H 06/07/17 17:15 Kvng Test Pos 06/07/17 17:15 A-a Gradient 106.0 mmHg 06/07/17 17:15 FiO2 32.000 06/07/17 17:15 Blood Gas Comments Miguel well lj 06/07/17 17:15 Sodium 148 mmol/L (136-145) H 06/08/17 04:45 Corrected Sodium TNP 06/08/17 04:45 Potassium 3.3 mmol/L (3.5-5.1) L 06/08/17 04:45 Chloride 104 mmol/L (98-107) 06/08/17 04:45 Carbon Dioxide 35.8 mmol/L (21-32) H 06/08/17 04:45 BUN 17 mg/dL (7-18) 06/08/17 04:45 Creatinine 0.88 mg/dL (0.55-1.02) 06/08/17 04:45 Est GFR (MDRD) Af Amer > 60 (>60) 06/08/17 04:45 Est GFR (MDRD) Non-Af > 60 (>60) 06/08/17 04:45 Glucose 100 mg/dL (65-99) H 06/08/17 04:45 POC Glucose (mg/dL) 141 mg/dL (65-99) H 06/08/17 05:23 Lactic Acid 1.6 mmol/L (0.4-2.0) 06/08/17 06:15 Calcium 6.1 mg/dL (8.5-10.1) L 06/08/17 04:45 Corrected Calcium TNP 06/08/17 04:45 Magnesium 2.1 mg/dL (1.7-2.9) 06/08/17 06:15 Iron 21 ug/dL (50-175) L 06/07/17 05:25 Transferrin 139 mg/dL (202-364) L 06/07/17 05:25 Ferritin 107 ng/mL (8-252) 06/07/17 05:25 Total Bilirubin 0.70 mg/dL (0.2-1.0) 06/08/17 04:45 AST 54 Units/L (15-37) H 06/08/17 04:45 ALT 28 Units/L (12-78) 06/08/17 04:45 Alkaline Phosphatase 74 Units/L (46-116) 06/08/17 04:45 Creatine Kinase 688 Units/L (26-192) H 06/08/17 04:45 CK-MB (CK-2) 1.6 ng/mL (0-4.0) 06/08/17 04:45 CK/CKMB % Calc 0.2 % (<4) 06/08/17 04:45 Troponin I 0.16 ng/mL (0-1.5) 06/08/17 04:45 Total Protein 6.5 g/dL (6.4-8.2) 06/08/17 04:45 Albumin 3.6 g/dL (3.4-5.0) 06/08/17 04:45 Globulin 2.9 g/dL (2.5-4.5) 06/08/17 04:45 Albumin/Globulin Ratio 1.2 Ratio (1.1-2.1) 06/08/17 04:45 Vitamin B12 832 pg/mL (193-986) 06/07/17 05:25 Folate 19.0 ng/mL (>8.6) 06/07/17 05:25 Specimen Type Clean catch urine 05/29/17 19:45 Urine Color [place] (YELLOW) 05/29/17 19:45 Urine Appearance Slightly hazy (CLEAR) 05/29/17 19:45 Urine pH 5.0 (5.0 - 8.0) 05/29/17 19:45 Ur Specific [place] 1.020 (1.000-1.030) 05/29/17 19:45 Urine Protein 2+ (NEGATIVE) 05/29/17 19:45 Urine Glucose (UA) Negative (NEGATIVE) 05/29/17 19:45 Urine Ketones 1+ (NEGATIVE) 05/29/17 19:45 Urine Occult Blood 3+ (NEGATIVE) 05/29/17 19:45 Urine Nitrite Negative (NEGATIVE) 05/29/17 19:45 Urine Bilirubin Negative (NEGATIVE) 05/29/17 19:45 Urine Urobilinogen Normal (NORMAL) 05/29/17 19:45 Ur Leukocyte Esterase 1+ (NEGATIVE) 05/29/17 19:45 Urine RBC 3 - 7 /HPF (NONE SEEN) 05/29/17 19:45 Urine WBC 0 - 3 /HPF (NONE SEEN) 05/29/17 19:45 Ur Squamous Epith Cells Moderate /HPF (NEGATIVE) 05/29/17 19:45 Urine Bacteria Trace /HPF (NEGATIVE) 05/29/17 19:45 Ur Culture Indicated? No/not indicated 05/29/17 19:45 Stool Description 75 cc brown loose 05/30/17 09:33 Stl Occult Blood (IFOB) Positive (NEGATIVE) A 05/30/17 09:33 Stool for White Cells Positive (NEGATIVE) A 05/30/17 09:02 Stl C. diff Tox B Gene Negative (NEGATIVE) 05/30/17 09:33 Stl C. diff [id number] Negative (NEGATIVE) 05/30/17 09:33 Cryptosporid parvum Ag Negative (NEGATIVE) 05/30/17 09:33 E. histolytica Antigen Negative (NEGATIVE) 05/30/17 09:33 Giardia lamblia Ag Negative (NEGATIVE) 05/30/17 09:33 Tissue Pathology To follow 05/29/17 18:00 - Plan (1) Bimalleolar ankle fracture Status: Acute Qualifiers: Encounter type: initial encounter Fracture type: open Laterality: left Plan: S/P ORIF CONTINUE IV PAIN MEDICATION, CONTINUE TO MONITOR (2) Fibula fracture Status: Acute Qualifiers: Encounter type: initial encounter Fibula location: distal Fracture type: open Fracture morphology: unspecified fracture morphology Laterality: left Plan: OCL SPLINT, TORADOL 15MG IV Q6H, PERCOCET 5/325 2 TABS Q4H PRN PAIN, CONTINUE TO MONITOR (3) Tibia fracture Status: Acute Qualifiers: Encounter type: initial encounter Tibia location: distal Fracture type: open Fracture morphology: unspecified fracture morphology Laterality: left Plan: ORTHOPEDIC CONSULT, TORADOL 15MG IV Q6H, PERCOCET 5/325 2 TABS Q4H PRN PAIN, CONTINUE TO MONITOR (4) Laceration of left lower leg Status: Acute Qualifiers: Encounter type: initial encounter Qualified Code(s): S81.812A - Laceration without foreign body, left lower leg, initial encounter Plan: WOUND CARE, CONTINUE TO MONITOR (5) Congestive heart failure Status: Acute Qualifiers: Heart failure type: unspecified Heart failure chronicity: acute Qualified Code(s): I50.9 - Heart failure, unspecified Plan: LASIX 20MG IV Q12H X 2 DOSE, NEB [place] VIA BIPAP, CONTINUE TO MONITOR (6) Compartment syndrome of left lower extremity Status: Acute Qualifiers: Encounter type: initial encounter Qualified Code(s): T79.A22A - Traumatic compartment syndrome of left lower extremity, initial encounter Plan: ORTHOPEDIC CONSULT, CONTINUE TO MONITOR (7) Pneumonia Status: Acute Qualifiers: Pneumonia type: due to unspecified organism Laterality: right Lung location: lower lobe of lung Qualified Code(s): J18.1 - Lobar pneumonia, unspecified organism Plan: PNEUMONIA PATHWAY, CONTINUE IV ANTIBIOTICS, RESPIRATORY TREATMENTS, AND SUPPLEMENTAL OXYGEN, CONTINUE TO MONITOR (8) Depression Status: Chronic Qualifiers: Depression Type: major depressive disorder Major depression recurrence: recurrent Active/Remission status: currently active Major depression episode severity: unspecified Qualified Code(s): F33.9 - Major depressive disorder, recurrent, unspecified Plan: CONTINUE CYMBALTA, CONTINUE TO MONITOR (9) Hx of Crohn's disease Status: Chronic Plan: CONTINUE IMURAN, CONTINUE TO MONITOR (10) Hyperlipidemia Status: Chronic Qualifiers: Hyperlipidemia type: mixed hyperlipidemia Qualified Code(s): E78.2 - Mixed hyperlipidemia Plan: CONTINUE LIPITOR, CONTINUE TO MONITOR (11) Hypothyroidism Status: Chronic Qualifiers: Hypothyroidism type: subclinical iodine-deficiency Qualified Code(s): E02 - Subclinical iodine-deficiency hypothyroidism Plan: CONTINUE SYNTHROID, CONTINUE TO MONITOR
[2017-06-08] MEDS: LASIX IVP SCH ×2 (13:25→20:04)
[2017-06-08] MEDS ORDERED: DILAUDID INJ ONE (19:54)
[2017-06-08] MEDS ORDERED: NS 100 ML IV + SPIKE MINIBAG* 100 ML IV ONE (20:53)
[2017-06-08] MEDS: LIPITOR TAB 40 MG PO SCH (22:01)
[2017-06-08] MEDS: NEURONTIN TAB 600 MG PO SCH (22:02)
[2017-06-08] MEDS: ZOSYN VIAL 3.375 GM IV SCH ×2 (22:02)
[2017-06-08] MEDS: PROCALAMINE 3 % 1,000 ML IV SCH (22:04)
[2017-06-09] MEDS: DILAUDID INJ IVP PRN ×4 (01:12→21:55)
[2017-06-09] MEDS ORDERED: NS 100 ML IV + SPIKE MINIBAG* 100 ML IV ONE ×3 (04:46→20:22)
[2017-06-09] MEDS: ZOSYN VIAL 3.375 GM IV SCH ×3 (05:44→21:27)
[2017-06-09 06:08] LABS: BASOPHILS % (AUTO) 0.2 % (0.2-1.0); EOSINOPHILS % (AUTO) 0.1 % (0.9-2.9); HEMOGLOBIN 8.1 g/dL (12.0-16.0); LYMPHOCYTES # (AUTO) 0.9 X10^3/uL (1.3-2.9); LYMPHOCYTES % (AUTO) 7.3 % (21.0-51.0); MEAN CORPUSCULAR HEMOGLOBIN 31.8 pg (27.0-34.0); MEAN CORPUSCULAR HGB CONC 33.7 g/dL (33.0-35.0); MEAN CORPUSCULAR VOLUME 94.3 fL (80.0-100.0); MEAN PLATELET VOLUME 8.7 fL (7.4-11.0); MONOCYTES # (AUTO) 0.5 x10^3/uL (0.3-0.8); MONOCYTES % (AUTO) 4.4 % (0.0-13.0); PLATELET COUNT 433 X10^3/uL (150.0-450.0); RED BLOOD COUNT 2.55 X10^6/uL (3.5-5.4); RED CELL DISTRIBUTION WIDTH 15.7 % (11.6-16.5); WHITE BLOOD COUNT 12.5 X10^3/uL (3.6-10.0)
[2017-06-09 06:42] LABS: ALANINE AMINOTRANSFERASE 34 Units/L (12-78); ALBUMIN 3.5 g/dL (3.4-5.0); ALKALINE PHOSPHATASE 64 Units/L (46-116); ASPARTATE AMINO TRANSFERASE 75 Units/L (15-37); BLOOD UREA NITROGEN 18 mg/dL (7-18); CARBON DIOXIDE 30.2 mmol/L (21-32); CHLORIDE 102 mmol/L (98-107); CREATININE 1.01 mg/dL (0.55-1.02); SODIUM 144 mmol/L (136-145); TOTAL PROTEIN 6.3 g/dL (6.4-8.2); eGFR BLACK RACES > 60 (>60); eGFR NON BLACK RACES 58 (>60)
--- NOTE | 2017-06-09 07:27 | RAD ---
HISTORY: Shortness of breath Study: Single-view chest Comparison: 06/08/2017. Findings: Right-sided LifePort is again seen with tip in the lower SVC. There surgical clips present in the rig ht hilar region from right lung surgery. There is slight interval improvement with some reduction in the interstitial markings in both lungs. Findings have the appearance of COPD with superimposed inter stitial infiltrate, CHF or fluid overload. Small bilateral pleural effusions are suspected. No pneumo thorax is seen. No acute osseous changes are identified. The trachea is midline. The heart size is no rmal. Osseous structures are intact. IMPRESSION: Slight interval improvement with some reduction in interstitial markings involving both lungs since the prior studies. Reported By:
[2017-06-09] MEDS: ATIVAN INJ 2 MG VIAL IVP PRN ×2 (08:25→19:15)
[2017-06-09] MEDS ORDERED: DUONEB 0.5 MG/3 MG ONE (08:25)
[2017-06-09] MEDS: BROVANA IN SCH ×2 (08:30→20:07)
[2017-06-09] MEDS: PULMICORT NEB TX 0.5 MG NEB SCH ×2 (08:30→20:07)
[2017-06-09] MEDS: XOPENEX 1.25 MG/3 ML NEBULE NEB SCH ×4 (08:30→20:07)
[2017-06-09] MEDS: COLACE CAP 100 MG PO SCH ×2 (09:16→21:25)
[2017-06-09] MEDS: OSCAL+D or CALTRATE+D PO SCH (09:16)
[2017-06-09] MEDS: SYNTHROID 100 mcg TAB PO SCH (09:16)
[2017-06-09] MEDS: CYMBALTA PO SCH (09:17)
[2017-06-09] MEDS: NEURONTIN CAP 300 MG PO SCH (09:17)
[2017-06-09] MEDS: MILK OF MAGNESIA PO SCH ×2 (09:17→21:26)
[2017-06-09] MEDS: ESTRACE PO SCH (09:17)
[2017-06-09] MEDS: IMURAN PO SCH (09:18)
[2017-06-09] MEDS: MEGACE PO SCH ×2 (09:18→21:25)
[2017-06-09] MEDS: PROTONIX INJ 40 MG VIAL IVP SCH ×2 (09:22→21:26)
[2017-06-09] MEDS: ALBUMIN HUMAN 25%- 100ML 100 ML IV SCH (09:23)
[2017-06-09] MEDS: PEPCID 20 MG IV PREMIX* 20 MG/50 ML BAG IV SCH ×2 (10:22→21:26)
[2017-06-09] MEDS: MAGIC MOUTHWASH MT SCH ×5 (10:48→21:25)
[2017-06-09] MEDS ORDERED: PHARMACY CONSULT - DOSE _____ XX SCH (16:00)
[2017-06-09] MEDS: PROCALAMINE 3 % 1,000 ML IV SCH (17:19)
[2017-06-09] MEDS: DIFLUCAN 200 MG IV PREMIX* 200 MG/100 ML BAG IV SCH (17:31)
[2017-06-09] MEDS ORDERED: LASIX IVP ONE (19:34)
[2017-06-09] MEDS: LIPITOR TAB 40 MG PO SCH (21:25)
[2017-06-09] MEDS: NEURONTIN TAB 600 MG PO SCH (21:26)
[2017-06-10] MEDS ORDERED: NS 100 ML IV + SPIKE MINIBAG* 100 ML IV ONE ×3 (04:59→20:54)
[2017-06-10] MEDS: ZOSYN VIAL 3.375 GM IV SCH ×3 (05:05→22:41)
--- NOTE | 2017-06-10 05:37 | RAD ---
Chest, AP portable Indication: Shortness of breath Comparison: 06/09/2017 Findings: Cardiac silhouette is unchanged. There is stable right subclavian approach Port-A-Cath. The re are increased interstitial markings bilaterally, most prominent within the left upper lung and rig ht lung base. No significant pneumothorax. Impression: Worsened bilateral interstitial opacities. Reported By:
[2017-06-10 05:57] LABS: ABG BASE EXCESS 10.7 mmol/L (-2.0-2.0); ABG HCO3 34.2 mmol/L (22-26)
[2017-06-10 05:58] LABS: ABG ALLEN TEST POS
[2017-06-10 06:42] LABS: BASOPHILS % (AUTO) 0.1 % (0.2-1.0); EOSINOPHILS # (AUTO) 0.1 x10^3/uL (0.0-0.2); EOSINOPHILS % (AUTO) 0.9 % (0.9-2.9); HEMATOCRIT 23.2 % (36.0-47.0); HEMOGLOBIN 7.8 g/dL (12.0-16.0); LYMPHOCYTES # (AUTO) 1.1 X10^3/uL (1.3-2.9); LYMPHOCYTES % (AUTO) 8.9 % (21.0-51.0); MEAN CORPUSCULAR HEMOGLOBIN 31.4 pg (27.0-34.0); MEAN CORPUSCULAR HGB CONC 33.7 g/dL (33.0-35.0); MEAN CORPUSCULAR VOLUME 93.3 fL (80.0-100.0); MEAN PLATELET VOLUME 8.8 fL (7.4-11.0); MONOCYTES # (AUTO) 0.7 x10^3/uL (0.3-0.8); MONOCYTES % (AUTO) 5.9 % (0.0-13.0); NEUTROPHILS % (AUTO) 84.2 % (42.0-75.0); PLATELET COUNT 400 X10^3/uL (150.0-450.0); RED BLOOD COUNT 2.49 X10^6/uL (3.5-5.4); RED CELL DISTRIBUTION WIDTH 15.8 % (11.6-16.5); WHITE BLOOD COUNT 11.9 X10^3/uL (3.6-10.0)
[2017-06-10 07:13] LABS: PLATELET MORPHOLOGY COMMENT NORMAL (NORMAL)
[2017-06-10 07:22] LABS: ALANINE AMINOTRANSFERASE 33 Units/L (12-78); ALBUMIN 3.5 g/dL (3.4-5.0); ALKALINE PHOSPHATASE 52 Units/L (46-116); ASPARTATE AMINO TRANSFERASE 49 Units/L (15-37); BLOOD UREA NITROGEN 20 mg/dL (7-18); CALCIUM 6.6 mg/dL (8.5-10.1); CARBON DIOXIDE 31.1 mmol/L (21-32); CHLORIDE 102 mmol/L (98-107); CREATININE 0.88 mg/dL (0.55-1.02); SODIUM 142 mmol/L (136-145); TOTAL PROTEIN 6.1 g/dL (6.4-8.2); eGFR BLACK RACES > 60 (>60); eGFR NON BLACK RACES > 60 (>60)
[2017-06-10] MEDS: ATIVAN INJ 2 MG VIAL IVP PRN ×2 (08:40→20:44)
[2017-06-10] MEDS: DILAUDID INJ IVP PRN ×2 (08:45→20:27)
[2017-06-10] MEDS: ALBUMIN HUMAN 25%- 100ML 100 ML IV SCH (08:48)
[2017-06-10] MEDS: DIFLUCAN 200 MG IV PREMIX* 200 MG/100 ML BAG IV SCH (08:49)
[2017-06-10] MEDS: PEPCID 20 MG IV PREMIX* 20 MG/50 ML BAG IV SCH ×2 (08:49→21:53)
[2017-06-10] MEDS: SYNTHROID 100 mcg TAB PO SCH (08:50)
[2017-06-10] MEDS: COLACE CAP 100 MG PO SCH ×2 (08:50→21:51)
[2017-06-10] MEDS: PROTONIX INJ 40 MG VIAL IVP SCH ×2 (08:50→21:54)
[2017-06-10] MEDS: POTASSIUM CHL 40 MEQ/NS 0.45% 500 ML IV PRN (08:50)
[2017-06-10] MEDS: MAGIC MOUTHWASH MT SCH ×4 (08:51→21:51)
[2017-06-10] MEDS: MEGACE PO SCH ×2 (08:52→21:51)
[2017-06-10] MEDS: CYMBALTA PO SCH (08:52)
[2017-06-10] MEDS: MILK OF MAGNESIA PO SCH ×2 (08:52→21:52)
[2017-06-10] MEDS: NEURONTIN CAP 300 MG PO SCH (08:52)
[2017-06-10] MEDS: IMURAN PO SCH (08:52)
[2017-06-10] MEDS: OSCAL+D or CALTRATE+D PO SCH (08:52)
[2017-06-10] MEDS: ESTRACE PO SCH (08:53)
[2017-06-10] MEDS: BROVANA IN SCH ×2 (09:42→20:27)
[2017-06-10] MEDS: XOPENEX 1.25 MG/3 ML NEBULE NEB SCH ×4 (09:42→20:27)
[2017-06-10] MEDS: PULMICORT NEB TX 0.5 MG NEB SCH ×2 (09:42→20:27)
[2017-06-10] MEDS ORDERED: HYDROGEN PEROXIDE 3% ONE (09:59)
[2017-06-10] MEDS ORDERED: NS IRRIGATION 500 ML IR ONE (10:18)
[2017-06-10] MEDS ORDERED: ANCEF VIAL 1 GM ONE (10:19)
[2017-06-10] MEDS ORDERED: DILAUDID INJ IVP ONE (10:30)
[2017-06-10] MEDS ORDERED: GENTAMICIN TOPICAL OINT ONE (10:35)
[2017-06-10] MEDS ORDERED: GENTAMICIN TOPICAL OINT TOP PRN (10:40)
--- NOTE | 2017-06-10 11:09 | DR.PROGNOT ---
Hospital Progress Notes - Progress Note for Day of: Progress Note Date: 06/10/17 - Chief Complaint Chief Complaint: dressing was changed donor site is healthy , no infection . graft sites are taking 90%, no infection .. the skin between the foot skin grafts is dark with compromized blood supply . all wounds were redressed .. c & s were taken .. will keep dressing for few days . - History of Present Illness History of Present Illness: no changes. - Past Medical Family Social History Past Med/Fam/Surg Hx: No changes since H&P Allergies: Allergies prochlorperazine Allergy (Verified 05/29/17 10:22) - Review Of Systems ROS: No change since H&P - Vital Signs Vital Signs: Temperature 98.4 F Pulse Rate [Left Brachial] 119 Pulse Rate 135 Respiratory Rate 23 Blood Pressure [Right Arm] 130/62 Blood Pressure [Left Arm] 105/51 Blood Pressure 134/64 O2 Sat by Pulse Oximetry 98 - Physical Exam Oriented: Person Eyes: Normal Ear: Normal Nose: Normal Throat: Dry Respiratory: Generalized, Diminished, Wheezes Cardiovascular: Tachycardia, Edema : Normal GI:Auscultation: Normal GI:Palpation: Normal GI: Tenderness: Normal Skin: Red, Tender, Wound Musculoskeletal: Left, Leg, Ankle, Foot, Swelling, Tender Psychiatric: Normal Mood Description: Calm Speech Pattern: Clear, Appropriate - Laboratory and Diagnostics Result Diagrams: 06/10/17 05:34 06/10/17 05:34 Labs: 06/01/17 10:15 Sputum - Expectorated Sputum Sputum Culture - Final 06/01/17 10:15 Sputum - Expectorated Sputum - Final 05/29/17 17:25 Leg - Left Gram Stain - Final 05/29/17 17:25 Leg - Left Wound Culture - Final 05/30/17 09:33 Stool Stool Culture - Final 05/30/17 09:33 Stool - Final Laboratory WBC 11.9 X10^3/uL (3.6-10.0) H 06/10/17 05:34 RBC 2.49 X10^6/uL (3.5-5.4) L 06/10/17 05:34 Hgb 7.8 g/dL (12.0-16.0) L 06/10/17 05:34 Hct 23.2 % (36.0-47.0) L 06/10/17 05:34 MCV 93.3 fL (80.0-100.0) 06/10/17 05:34 MCH 31.4 pg (27.0-34.0) 06/10/17 05:34 MCHC 33.7 g/dL (33.0-35.0) 06/10/17 05:34 RDW 15.8 % (11.6-16.5) 06/10/17 05:34 Plt Count 400 X10^3/uL (150.0-450.0) 06/10/17 05:34 Plt Count Comment Adequate (ADEQUATE) 06/10/17 05:34 MPV 8.8 fL (7.4-11.0) 06/10/17 05:34 Neut % (Auto) 84.2 % (42.0-75.0) H 06/10/17 05:34 Lymph % (Auto) 8.9 % (21.0-51.0) L 06/10/17 05:34 [place] % (Auto) 5.9 % (0.0-13.0) 06/10/17 05:34 Eos % (Auto) 0.9 % (0.9-2.9) 06/10/17 05:34 Baso % (Auto) 0.1 % (0.2-1.0) L 06/10/17 05:34 Neut # (Auto) 10.0 x10^3/uL (2.2-4.8) H 06/10/17 05:34 Lymph # (Auto) 1.1 X10^3/uL (1.3-2.9) L 06/10/17 05:34 [place] # (Auto) 0.7 x10^3/uL (0.3-0.8) 06/10/17 05:34 Eos # (Auto) 0.1 x10^3/uL (0.0-0.2) 06/10/17 05:34 Baso # (Auto) 0.0 X10^3/uL (0.0-0.1) 06/10/17 05:34 Absolute Nucleated RBC 0.0 /100WBC 06/10/17 05:34 Hypochromasia 1+ A 06/07/17 05:20 Anisocytosis 1+ A 06/07/17 05:20 Plt Morphology Comment Normal (NORMAL) 06/10/17 05:34 RBC Morphology Normal (NORMAL) 06/10/17 05:34 Sample Site Rrad 06/10/17 05:38 ABG pH 7.540 (7.35-7.45) H 06/10/17 05:38 ABG pCO2 40.0 mmHg (35.0-45.0) 06/10/17 05:38 ABG pO2 77.0 mmHg (80.0-100.0) L 06/10/17 05:38 ABG HCO3 34.2 mmol/L (22-26) H* 06/10/17 05:38 ABG O2 Saturation 97.0 % (90-100) 06/10/17 05:38 ABG Base Excess 10.7 mmol/L (-2.0-2.0) H 06/10/17 05:38 Kvng Test Pos 06/10/17 05:38 A-a Gradient 123.0 mmHg 06/10/17 05:38 FiO2 35.000 06/10/17 05:38 Blood Gas Comments Miguel abg well-mtf 06/10/17 05:38 Sodium 142 mmol/L (136-145) 06/10/17 05:34 Corrected Sodium TNP 06/10/17 05:34 Potassium 3.2 mmol/L (3.5-5.1) L 06/10/17 05:34 Chloride 102 mmol/L (98-107) 06/10/17 05:34 Carbon Dioxide 31.1 mmol/L (21-32) 06/10/17 05:34 BUN 20 mg/dL (7-18) H 06/10/17 05:34 Creatinine 0.88 mg/dL (0.55-1.02) 06/10/17 05:34 POC Glucose (mg/dL) 141 mg/dL (65-99) H 06/08/17 05:23 Est GFR (MDRD) Af Amer > 60 (>60) 06/10/17 05:34 Est GFR (MDRD) Non-Af > 60 (>60) 06/10/17 05:34 Glucose 102 mg/dL (65-99) H 06/10/17 05:34 Lactic Acid 1.6 mmol/L (0.4-2.0) 06/08/17 06:15 Magnesium 2.1 mg/dL (1.7-2.9) 06/08/17 06:15 Iron 21 ug/dL (50-175) L 06/07/17 05:25 Transferrin 139 mg/dL (202-364) L 06/07/17 05:25 Ferritin 107 ng/mL (8-252) 06/07/17 05:25 Calcium 6.6 mg/dL (8.5-10.1) L 06/10/17 05:34 Corrected Calcium TNP 06/10/17 05:34 Creatine Kinase 688 Units/L (26-192) H 06/08/17 04:45 CK-MB (CK-2) 1.6 ng/mL (0-4.0) 06/08/17 04:45 Total Bilirubin 0.90 mg/dL (0.2-1.0) 06/10/17 05:34 CK/CKMB % Calc 0.2 % (<4) 06/08/17 04:45 Troponin I 0.16 ng/mL (0-1.5) 06/08/17 04:45 AST 49 Units/L (15-37) H 06/10/17 05:34 ALT 33 Units/L (12-78) 06/10/17 05:34 Alkaline Phosphatase 52 Units/L (46-116) 06/10/17 05:34 Total Protein 6.1 g/dL (6.4-8.2) L 06/10/17 05:34 Albumin 3.5 g/dL (3.4-5.0) 06/10/17 05:34 Globulin 2.6 g/dL (2.5-4.5) 06/10/17 05:34 Albumin/Globulin Ratio 1.3 Ratio (1.1-2.1) 06/10/17 05:34 Vitamin B12 832 pg/mL (193-986) 06/07/17 05:25 Folate 19.0 ng/mL (>8.6) 06/07/17 05:25 Specimen Type Clean catch urine 05/29/17 19:45 Urine Color Gunjan (YELLOW) 05/29/17 19:45 Urine Appearance Slightly hazy (CLEAR) 05/29/17 19:45 Urine pH 5.0 (5.0 - 8.0) 05/29/17 19:45 Ur Specific [place] 1.020 (1.000-1.030) 05/29/17 19:45 Urine Protein 2+ (NEGATIVE) 05/29/17 19:45 Urine Glucose (UA) Negative (NEGATIVE) 05/29/17 19:45 Urine Ketones 1+ (NEGATIVE) 05/29/17 19:45 Urine Occult Blood 3+ (NEGATIVE) 05/29/17 19:45 Urine Nitrite Negative (NEGATIVE) 05/29/17 19:45 Urine Bilirubin Negative (NEGATIVE) 05/29/17 19:45 Urine Urobilinogen Normal (NORMAL) 05/29/17 19:45 Ur Leukocyte Esterase 1+ (NEGATIVE) 05/29/17 19:45 Urine RBC 3 - 7 /HPF (NONE SEEN) 05/29/17 19:45 Urine WBC 0 - 3 /HPF (NONE SEEN) 05/29/17 19:45 Ur Squamous Epith Cells Moderate /HPF (NEGATIVE) 05/29/17 19:45 Urine Bacteria Trace /HPF (NEGATIVE) 05/29/17 19:45 Ur Culture Indicated? No/not indicated 05/29/17 19:45 Stool Description 75 cc brown loose 05/30/17 09:33 Stl Occult Blood (IFOB) Positive (NEGATIVE) A 05/30/17 09:33 Stool for White Cells Positive (NEGATIVE) A 05/30/17 09:02 Stl C. diff Tox B Gene Negative (NEGATIVE) 05/30/17 09:33 Stl C. diff [id number] Negative (NEGATIVE) 05/30/17 09:33 Cryptosporid parvum Ag Negative (NEGATIVE) 05/30/17 09:33 E. histolytica Antigen Negative (NEGATIVE) 05/30/17 09:33 Giardia lamblia Ag Negative (NEGATIVE) 05/30/17 09:33 Tissue Pathology To follow 05/29/17 18:00 - Assessment and Plan 1: trauma Lt leg with compound Fx of ankle and metatarsals. wound Lt leg 8 x 5 cm. compartment syndrom Lt fot , s/p decompression and debridement. s/P skin grafs with good results 2: same local care ,. leg elevation . to have Dr Wilson check the foot in am . will keep the dressing in place for another week . - Problem Patient Problems: Patient Problems Anemia (Acute) D64.9 Bimalleolar ankle fracture (Acute) S82.843A COPD (chronic obstructive pulmonary disease) (Acute) J44.9 Compartment syndrome of left lower extremity (Acute) T79.A22A Congestive heart failure (Acute) I50.9 Fibula fracture (Acute) S82.409A Laceration of left lower leg (Acute) S81.812A Pleural effusion (Acute) J90 Pneumonia (Acute) J18.9 Tibia fracture (Acute) S82.209A
[2017-06-10] MEDS ORDERED: TYLENOL SUPP 650 MG PR PRN (18:47)
[2017-06-10] MEDS ORDERED: NS 500 ML IV 500 ML IV ONE (18:47)
--- NOTE | 2017-06-10 18:54 | PCM.PROG ---
Progress Note - Progress Note for Day of Date: 06/09/17 - Subjective Subjective: IS BEING TREATED FOR OPEN TIBIA/FIBULA FRACTURES OF THE LEFT LEG, LEFT LEG LACERATION, AND COMPARTMENT SYNDROME. SHE IS STATUS POST ORIF OF THE LEFT ANKLE AND SKIN GRAFT. TODAY, SHE IS LYING IN BED WITH EYES CLOSED ON MORNING ROUNDS. SHE OPENS EYES TO VERBAL STIMULI, BUT DOES NOT VERBALLY RESPOND BACK. FAMILY AND STAFF REPORT THAT PATIENT CONTINUES WITH INTERMITTENT CONFUSION THIS MORNING AND THROUGHOUT THE NIGHT. ON EXAMINATION, SHE IS TACHYCARDIC WITH HEARTRATE NOTED TO BE IN THE 140s. BILATERAL LUNGS CONTINUE WITH SCATTERED WHEEZING AND RHONCHI THROUGHOUT. SHE IS CURRENTLY UTILIZING OXYGEN VIA NASAL CANNULA AT 2L/MIN. ABDOMEN IS ROUND, SOFT, AND NON- TENDER WITH NORMAL BOWEL SOUNDS NOTED IN ALL QUADRANTS. LEFT LEG IS NOTED WITH SPLINT. HER VITALS THIS MORNING ARE 100.0-140-34-88%-122/66. LABS WERE OBTAINED THIS MORNING. ABNORMAL LAB VALUES INCLUDE THE FOLLOWING: WBC 12.5, RBC 2.55, HGB 8.1, HCT 24.0, GFR 58, GLUCOSE 110, CALCIUM 6.0, AST 75, TOTAL PROTEIN 6.3. A CHEST XRAY WAS OBTAINED THIS MORNING AND REPORTED SLIGHT INTERVAL IMPROVEMENT WITH SOME REDUCTION IN INTERSTITIAL MARKINGS INVOLVING BOTH LUNGS SINCE THE PRIOR STUDIES. TODAY, WE WILL CONTINUE WITH IV ANTIBIOTICS, RESPIRATORY TREATMENTS VIA BIPAP, AND CURRENT PLAN OF CARE. OTHERWISE, WE WILL CONTINUE TO MONITOR PATIENT. WE WILL FOLLOW UP WITH AM LABS AND CHEST XRAY. - Past Medical Family Social History Past Med/Fam/Surg Hx: No changes since H&P Allergies: Allergies prochlorperazine Allergy (Verified 05/29/17 10:22) - Review of Systems ROS: No change since H&P - Vital Signs and I&O's Vital Signs: Temperature 98.1 F Pulse Rate [Left Brachial] 98 Pulse Rate 135 Respiratory Rate 17 Blood Pressure [Right Arm] 130/62 Blood Pressure [Left Arm] 117/61 Blood Pressure 134/64 O2 Sat by Pulse Oximetry 100 Intake and Output: Intake & Output 06/08/17 06/09/17 06/10/17 06/11/17 11:59 11:59 11:59 11:59 Intake Total 832 1487 2030 944 Output Total 3200 3800 2325 450 Balance -4360 -7934 -374 099 - Physical Exam Oriented: Unable to test Eyes: Normal Ear: Normal Nose: Normal Throat: Dry Respiratory: Generalized, Diminished, Wheezes Cardiovascular: Tachycardia, Edema : Normal Auscultation: Bowel Sounds: Normal Palpation: Normal Tenderness: Normal Skin: Red, Tender, Wound Musculoskeletal: Left, Leg, Ankle, Foot, Swelling, Tender Psychiatric: Normal Mood Description: Calm Speech Pattern: Clear, Appropriate - Laboratory and Diagnostics Result Diagrams: 06/10/17 05:34 06/10/17 05:34 Labs: 06/10/17 10:51 Foot - Left Gram Stain - Final 06/01/17 10:15 Sputum - Expectorated Sputum Sputum Culture - Final 06/01/17 10:15 Sputum - Expectorated Sputum - Final 05/29/17 17:25 Leg - Left Gram Stain - Final 05/29/17 17:25 Leg - Left Wound Culture - Final 05/30/17 09:33 Stool Stool Culture - Final 05/30/17 09:33 Stool - Final Laboratory WBC 11.9 X10^3/uL (3.6-10.0) H 06/10/17 05:34 RBC 2.49 X10^6/uL (3.5-5.4) L 06/10/17 05:34 Hgb 7.8 g/dL (12.0-16.0) L 06/10/17 05:34 Hct 23.2 % (36.0-47.0) L 06/10/17 05:34 MCV 93.3 fL (80.0-100.0) 06/10/17 05:34 MCH 31.4 pg (27.0-34.0) 06/10/17 05:34 MCHC 33.7 g/dL (33.0-35.0) 06/10/17 05:34 RDW 15.8 % (11.6-16.5) 06/10/17 05:34 Plt Count 400 X10^3/uL (150.0-450.0) 06/10/17 05:34 Plt Count Comment Adequate (ADEQUATE) 06/10/17 05:34 MPV 8.8 fL (7.4-11.0) 06/10/17 05:34 Neut % (Auto) 84.2 % (42.0-75.0) H 06/10/17 05:34 Lymph % (Auto) 8.9 % (21.0-51.0) L 06/10/17 05:34 [place] % (Auto) 5.9 % (0.0-13.0) 06/10/17 05:34 Eos % (Auto) 0.9 % (0.9-2.9) 06/10/17 05:34 Baso % (Auto) 0.1 % (0.2-1.0) L 06/10/17 05:34 Neut # (Auto) 10.0 x10^3/uL (2.2-4.8) H 06/10/17 05:34 Lymph # (Auto) 1.1 X10^3/uL (1.3-2.9) L 06/10/17 05:34 [place] # (Auto) 0.7 x10^3/uL (0.3-0.8) 06/10/17 05:34 Eos # (Auto) 0.1 x10^3/uL (0.0-0.2) 06/10/17 05:34 Baso # (Auto) 0.0 X10^3/uL (0.0-0.1) 06/10/17 05:34 Absolute Nucleated RBC 0.0 /100WBC 06/10/17 05:34 Hypochromasia 1+ A 06/07/17 05:20 Anisocytosis 1+ A 06/07/17 05:20 Plt Morphology Comment Normal (NORMAL) 06/10/17 05:34 RBC Morphology Normal (NORMAL) 06/10/17 05:34 Sample Site Rrad 06/10/17 05:38 ABG pH 7.540 (7.35-7.45) H 06/10/17 05:38 ABG pCO2 40.0 mmHg (35.0-45.0) 06/10/17 05:38 ABG pO2 77.0 mmHg (80.0-100.0) L 06/10/17 05:38 ABG HCO3 34.2 mmol/L (22-26) H* 06/10/17 05:38 ABG O2 Saturation 97.0 % (90-100) 06/10/17 05:38 ABG Base Excess 10.7 mmol/L (-2.0-2.0) H 06/10/17 05:38 Kvng Test Pos 03/14/18 05:38 A-a Gradient 123.0 mmHg 06/10/17 05:38 FiO2 35.000 06/10/17 05:38 Blood Gas Comments Miguel abg well-mtf 06/10/17 05:38 Sodium 142 mmol/L (136-145) 06/10/17 05:34 Corrected Sodium TNP 06/10/17 05:34 Potassium 3.2 mmol/L (3.5-5.1) L 06/10/17 05:34 Chloride 102 mmol/L (98-107) 06/10/17 05:34 Carbon Dioxide 31.1 mmol/L (21-32) 06/10/17 05:34 BUN 20 mg/dL (7-18) H 06/10/17 05:34 Creatinine 0.88 mg/dL (0.55-1.02) 06/10/17 05:34 POC Glucose (mg/dL) 141 mg/dL (65-99) H 06/08/17 05:23 Est GFR (MDRD) Af Amer > 60 (>60) 06/10/17 05:34 Est GFR (MDRD) Non-Af > 60 (>60) 06/10/17 05:34 Glucose 102 mg/dL (65-99) H 06/10/17 05:34 Lactic Acid 1.6 mmol/L (0.4-2.0) 06/08/17 06:15 Magnesium 2.1 mg/dL (1.7-2.9) 06/08/17 06:15 Iron 21 ug/dL (50-175) L 06/07/17 05:25 Transferrin 139 mg/dL (202-364) L 06/07/17 05:25 Ferritin 107 ng/mL (8-252) 06/07/17 05:25 Calcium 6.6 mg/dL (8.5-10.1) L 06/10/17 05:34 Corrected Calcium TNP 06/10/17 05:34 Creatine Kinase 688 Units/L (26-192) H 06/08/17 04:45 CK-MB (CK-2) 1.6 ng/mL (0-4.0) 06/08/17 04:45 Total Bilirubin 0.90 mg/dL (0.2-1.0) 06/10/17 05:34 CK/CKMB % Calc 0.2 % (<4) 06/08/17 04:45 Troponin I 0.16 ng/mL (0-1.5) 06/08/17 04:45 AST 49 Units/L (15-37) H 06/10/17 05:34 ALT 33 Units/L (12-78) 06/10/17 05:34 Alkaline Phosphatase 52 Units/L (46-116) 06/10/17 05:34 Total Protein 6.1 g/dL (6.4-8.2) L 06/10/17 05:34 Albumin 3.5 g/dL (3.4-5.0) 06/10/17 05:34 Globulin 2.6 g/dL (2.5-4.5) 06/10/17 05:34 Albumin/Globulin Ratio 1.3 Ratio (1.1-2.1) 06/10/17 05:34 Vitamin B12 832 pg/mL (193-986) 06/07/17 05:25 Folate 19.0 ng/mL (>8.6) 06/07/17 05:25 Specimen Type Clean catch urine 05/29/17 19:45 Urine Color [place] (YELLOW) 05/29/17 19:45 Urine Appearance Slightly hazy (CLEAR) 05/29/17 19:45 Urine pH 5.0 (5.0 - 8.0) 05/29/17 19:45 Ur Specific [place] 1.020 (1.000-1.030) 05/29/17 19:45 Urine Protein 2+ (NEGATIVE) 05/29/17 19:45 Urine Glucose (UA) Negative (NEGATIVE) 05/29/17 19:45 Urine Ketones 1+ (NEGATIVE) 05/29/17 19:45 Urine Occult Blood 3+ (NEGATIVE) 05/29/17 19:45 Urine Nitrite Negative (NEGATIVE) 05/29/17 19:45 Urine Bilirubin Negative (NEGATIVE) 05/29/17 19:45 Urine Urobilinogen Normal (NORMAL) 05/29/17 19:45 Ur Leukocyte Esterase 1+ (NEGATIVE) 05/29/17 19:45 Urine RBC 3 - 7 /HPF (NONE SEEN) 05/29/17 19:45 Urine WBC 0 - 3 /HPF (NONE SEEN) 05/29/17 19:45 Ur Squamous Epith Cells Moderate /HPF (NEGATIVE) 05/29/17 19:45 Urine Bacteria Trace /HPF (NEGATIVE) 05/29/17 19:45 Ur Culture Indicated? No/not indicated 05/29/17 19:45 Stool Description 75 cc brown loose 05/30/17 09:33 Stl Occult Blood (IFOB) Positive (NEGATIVE) A 05/30/17 09:33 Stool for White Cells Positive (NEGATIVE) A 05/30/17 09:02 Stl C. diff Tox B Gene Negative (NEGATIVE) 05/30/17 09:33 Stl C. diff [id number] Negative (NEGATIVE) 05/30/17 09:33 Cryptosporid parvum Ag Negative (NEGATIVE) 05/30/17 09:33 E. histolytica Antigen Negative (NEGATIVE) 05/30/17 09:33 Giardia lamblia Ag Negative (NEGATIVE) 05/30/17 09:33 Tissue Pathology To follow 05/29/17 18:00 - Plan (1) Pneumonia Status: Acute Qualifiers: Pneumonia type: due to unspecified organism Laterality: right Lung location: lower lobe of lung Qualified Code(s): J18.1 - Lobar pneumonia, unspecified organism Plan: PNEUMONIA PATHWAY, CONTINUE IV ANTIBIOTICS, RESPIRATORY TREATMENTS, AND SUPPLEMENTAL OXYGEN, CONTINUE TO MONITOR (2) Congestive heart failure Status: Acute Qualifiers: Heart failure type: unspecified Heart failure chronicity: acute Qualified Code(s): I50.9 - Heart failure, unspecified Plan: NEB [place] VIA BIPAP, CONTINUE TO MONITOR (3) Bimalleolar ankle fracture Status: Acute Qualifiers: Encounter type: initial encounter Fracture type: open Laterality: left Plan: S/P ORIF CONTINUE IV PAIN MEDICATION, CONTINUE TO MONITOR (4) Fibula fracture Status: Acute Qualifiers: Encounter type: initial encounter Fibula location: distal Fracture type: open Fracture morphology: unspecified fracture morphology Laterality: left Plan: OCL SPLINT, TORADOL 15MG IV Q6H, PERCOCET 5/325 2 TABS Q4H PRN PAIN, CONTINUE TO MONITOR (5) Tibia fracture Status: Acute Qualifiers: Encounter type: initial encounter Tibia location: distal Fracture type: open Fracture morphology: unspecified fracture morphology Laterality: left Plan: ORTHOPEDIC CONSULT, TORADOL 15MG IV Q6H, PERCOCET 5/325 2 TABS Q4H PRN PAIN, CONTINUE TO MONITOR (6) Laceration of left lower leg Status: Acute Qualifiers: Encounter type: initial encounter Qualified Code(s): S81.812A - Laceration without foreign body, left lower leg, initial encounter Plan: WOUND CARE, CONTINUE TO MONITOR (7) Compartment syndrome of left lower extremity Status: Acute Qualifiers: Encounter type: initial encounter Qualified Code(s): T79.A22A - Traumatic compartment syndrome of left lower extremity, initial encounter Plan: ORTHOPEDIC CONSULT, CONTINUE TO MONITOR (8) Depression Status: Chronic Qualifiers: Depression Type: major depressive disorder Major depression recurrence: recurrent Active/Remission status: currently active Major depression episode severity: unspecified Qualified Code(s): F33.9 - Major depressive disorder, recurrent, unspecified Plan: CONTINUE CYMBALTA, CONTINUE TO MONITOR (9) Hx of Crohn's disease Status: Chronic Plan: CONTINUE IMURAN, CONTINUE TO MONITOR (10) Hyperlipidemia Status: Chronic Qualifiers: Hyperlipidemia type: mixed hyperlipidemia Qualified Code(s): E78.2 - Mixed hyperlipidemia Plan: CONTINUE LIPITOR, CONTINUE TO MONITOR (11) Hypothyroidism Status: Chronic Qualifiers: Hypothyroidism type: subclinical iodine-deficiency Qualified Code(s): E02 - Subclinical iodine-deficiency hypothyroidism Plan: CONTINUE SYNTHROID, CONTINUE TO MONITOR
--- NOTE | 2017-06-10 19:13 | PCM.PROG ---
Progress Note - Progress Note for Day of Date: 06/10/17 - Subjective Subjective: IS BEING TREATED FOR PNEUMONIA, CHF, OPEN TIBIA/ FIBULA FRACTURES OF THE LEFT LEG, LEFT LEG LACERATION, AND COMPARTMENT SYNDROME. SHE IS STATUS POST ORIF OF THE LEFT ANKLE AND SKIN GRAFT. TODAY, SHE IS LYING IN BED UTILIZING THE BIPAP. SHE OPENS EYES TO VERBAL STIMULI AND ATTEMPTS TO SPEAK, BUT SPEECH IS UNCLEAR. FAMILY AND STAFF REPORT THAT PATIENT CONTINUES WITH INTERMITTENT CONFUSION THIS MORNING AND THROUGHOUT THE NIGHT. ON EXAMINATION, HEART IS REGULAR IN RATE AND RHYTHM. BILATERAL LUNGS CONTINUE WITH SCATTERED WHEEZING AND RHONCHI THROUGHOUT. ABDOMEN IS ROUND, SOFT, AND NON- TENDER WITH NORMAL BOWEL SOUNDS NOTED IN ALL QUADRANTS. LEFT LEG IS NOTED WITH SPLINT. HER VITALS THIS MORNING ARE 98.9-100-28-97%-123/58. LABS WERE OBTAINED THIS MORNING. ABNORMAL LAB VALUES INCLUDE THE FOLLOWING: WBC 11.9, RBC 2.49, HGB 7.8, HCT 23.2, POTASSIUM 3.2, BUN 20, GLUCOSE 102, CALCIUM 6.6, AST 49. AN ABG WAS OBTAINED AND REVEALED PH 7.540, P02 77, HC03 34.2, BASE EXCESS 10.7. A CHEST XRAY WAS OBTAINED THIS MORNING AND REPORTED WORSENED BILATERAL INTERSTITIAL OPACITIES. TODAY, WE WILL ADMINISTER 1 UNIT OF PACKED RED BLOOD CELLS FOLLOWED BY LASIX 40MG IV X 1 DOSE. OTHERWISE, WE WILL CONTINUE WITH IV ANTIBIOTICS, RESPIRATORY TREATMENTS VIA BIPAP, AND CURRENT PLAN OF CARE. WILL SEE PATIENT TODAY TO CHECK SKIN GRAFT AND CHANGE DRESSING. WE WILL FOLLOW UP WITH AM LABS AND CONTINUE TO MONITOR PATIENT. - Past Medical Family Social History Past Med/Fam/Surg Hx: No changes since H&P Allergies: Allergies prochlorperazine Allergy (Verified 05/29/17 10:22) - Review of Systems ROS: No change since H&P - Vital Signs and I&O's Vital Signs: Temperature 98.1 F Pulse Rate [Left Brachial] 98 Pulse Rate 135 Respiratory Rate 17 Blood Pressure [Right Arm] 130/62 Blood Pressure [Left Arm] 117/61 Blood Pressure 134/64 O2 Sat by Pulse Oximetry 100 Intake and Output: Intake & Output 06/08/17 06/09/17 06/10/17 06/11/17 11:59 11:59 11:59 11:59 Intake Total 832 1487 2030 944 Output Total 0096 5308 [id number] 449 [facility] [phone] - Physical Exam Oriented: Unable to test Eyes: Normal Ear: Normal Nose: Normal Throat: Normal, Dry Respiratory: Generalized, Diminished, Wheezes Cardiovascular: Tachycardia, Edema : Normal Auscultation: Bowel Sounds: Normal Palpation: Normal Tenderness: Normal Skin: Red, Tender, Wound Musculoskeletal: Left, Leg, Ankle, Foot, Swelling, Tender Psychiatric: Normal Mood Description: Calm Speech Pattern: Clear, Appropriate - Laboratory and Diagnostics Result Diagrams: 06/10/17 05:34 06/10/17 05:34 Labs: 06/10/17 10:51 Foot - Left Gram Stain - Final 06/01/17 10:15 Sputum - Expectorated Sputum Sputum Culture - Final 06/01/17 10:15 Sputum - Expectorated Sputum - Final 05/29/17 17:25 Leg - Left Gram Stain - Final 05/29/17 17:25 Leg - Left Wound Culture - Final 05/30/17 09:33 Stool Stool Culture - Final 05/30/17 09:33 Stool - Final Laboratory WBC 11.9 X10^3/uL (3.6-10.0) H 06/10/17 05:34 RBC 2.49 X10^6/uL (3.5-5.4) L 06/10/17 05:34 Hgb 7.8 g/dL (12.0-16.0) L 06/10/17 05:34 Hct 23.2 % (36.0-47.0) L 06/10/17 05:34 MCV 93.3 fL (80.0-100.0) 06/10/17 05:34 MCH 31.4 pg (27.0-34.0) 06/10/17 05:34 MCHC 33.7 g/dL (33.0-35.0) 06/10/17 05:34 RDW 15.8 % (11.6-16.5) 06/10/17 05:34 Plt Count 400 X10^3/uL (150.0-450.0) 06/10/17 05:34 Plt Count Comment Adequate (ADEQUATE) 06/10/17 05:34 MPV 8.8 fL (7.4-11.0) 06/10/17 05:34 Neut % (Auto) 84.2 % (42.0-75.0) H 06/10/17 05:34 Lymph % (Auto) 8.9 % (21.0-51.0) L 06/10/17 05:34 Hardy % (Auto) 5.9 % (0.0-13.0) 06/10/17 05:34 Eos % (Auto) 0.9 % (0.9-2.9) 06/10/17 05:34 Baso % (Auto) 0.1 % (0.2-1.0) L 06/10/17 05:34 Neut # (Auto) 10.0 x10^3/uL (2.2-4.8) H 06/10/17 05:34 Lymph # (Auto) 1.1 X10^3/uL (1.3-2.9) L 06/10/17 05:34 Hardy # (Auto) 0.7 x10^3/uL (0.3-0.8) 06/10/17 05:34 Eos # (Auto) 0.1 x10^3/uL (0.0-0.2) 06/10/17 05:34 Baso # (Auto) 0.0 X10^3/uL (0.0-0.1) 06/10/17 05:34 Absolute Nucleated RBC 0.0 /100WBC 06/10/17 05:34 Hypochromasia 1+ A 06/07/17 05:20 Anisocytosis 1+ A 06/07/17 05:20 Plt Morphology Comment Normal (NORMAL) 06/10/17 05:34 RBC Morphology Normal (NORMAL) 06/10/17 05:34 Sample Site Rrad 06/10/17 05:38 ABG pH 7.540 (7.35-7.45) H 06/10/17 05:38 ABG pCO2 40.0 mmHg (35.0-45.0) 06/10/17 05:38 ABG pO2 77.0 mmHg (80.0-100.0) L 06/10/17 05:38 ABG HCO3 34.2 mmol/L (22-26) H* 06/10/17 05:38 ABG O2 Saturation 97.0 % (90-100) 06/10/17 05:38 ABG Base Excess 10.7 mmol/L (-2.0-2.0) H 06/10/17 05:38 Kvng Test Pos 06/10/17 05:38 A-a Gradient 123.0 mmHg 06/10/17 05:38 FiO2 35.000 06/10/17 05:38 Blood Gas Comments Miguel abg well-mtf 06/10/17 05:38 Sodium 142 mmol/L (136-145) 06/10/17 05:34 Corrected Sodium TNP 06/10/17 05:34 Potassium 3.2 mmol/L (3.5-5.1) L 06/10/17 05:34 Chloride 102 mmol/L (98-107) 06/10/17 05:34 Carbon Dioxide 31.1 mmol/L (21-32) 06/10/17 05:34 BUN 20 mg/dL (7-18) H 06/10/17 05:34 Creatinine 0.88 mg/dL (0.55-1.02) 06/10/17 05:34 POC Glucose (mg/dL) 141 mg/dL (65-99) H 06/08/17 05:23 Est GFR (MDRD) Af Amer > 60 (>60) 06/10/17 05:34 Est GFR (MDRD) Non-Af > 60 (>60) 06/10/17 05:34 Glucose 102 mg/dL (65-99) H 06/10/17 05:34 Lactic Acid 1.6 mmol/L (0.4-2.0) 06/08/17 06:15 Magnesium 2.1 mg/dL (1.7-2.9) 06/08/17 06:15 Iron 21 ug/dL (50-175) L 06/07/17 05:25 Transferrin 139 mg/dL (202-364) L 06/07/17 05:25 Ferritin 107 ng/mL (8-252) 06/07/17 05:25 Calcium 6.6 mg/dL (8.5-10.1) L 06/10/17 05:34 Corrected Calcium TNP 06/10/17 05:34 Creatine Kinase 688 Units/L (26-192) H 06/08/17 04:45 CK-MB (CK-2) 1.6 ng/mL (0-4.0) 06/08/17 04:45 Total Bilirubin 0.90 mg/dL (0.2-1.0) 06/10/17 05:34 CK/CKMB % Calc 0.2 % (<4) 06/08/17 04:45 Troponin I 0.16 ng/mL (0-1.5) 06/08/17 04:45 AST 49 Units/L (15-37) H 06/10/17 05:34 ALT 33 Units/L (12-78) 06/10/17 05:34 Alkaline Phosphatase 52 Units/L (46-116) 06/10/17 05:34 Total Protein 6.1 g/dL (6.4-8.2) L 06/10/17 05:34 Albumin 3.5 g/dL (3.4-5.0) 06/10/17 05:34 Globulin 2.6 g/dL (2.5-4.5) 06/10/17 05:34 Albumin/Globulin Ratio 1.3 Ratio (1.1-2.1) 06/10/17 05:34 Vitamin B12 832 pg/mL (193-986) 06/07/17 05:25 Folate 19.0 ng/mL (>8.6) 06/07/17 05:25 Specimen Type Clean catch urine 05/29/17 19:45 Urine Color Gunjan (YELLOW) 05/29/17 19:45 Urine Appearance Slightly hazy (CLEAR) 05/29/17 19:45 Urine pH 5.0 (5.0 - 8.0) 05/29/17 19:45 Ur Specific [place] 1.020 (1.000-1.030) 05/29/17 19:45 Urine Protein 2+ (NEGATIVE) 05/29/17 19:45 Urine Glucose (UA) Negative (NEGATIVE) 05/29/17 19:45 Urine Ketones 1+ (NEGATIVE) 05/29/17 19:45 Urine Occult Blood 3+ (NEGATIVE) 05/29/17 19:45 Urine Nitrite Negative (NEGATIVE) 05/29/17 19:45 Urine Bilirubin Negative (NEGATIVE) 05/29/17 19:45 Urine Urobilinogen Normal (NORMAL) 05/29/17 19:45 Ur Leukocyte Esterase 1+ (NEGATIVE) 05/29/17 19:45 Urine RBC 3 - 7 /HPF (NONE SEEN) 05/29/17 19:45 Urine WBC 0 - 3 /HPF (NONE SEEN) 05/29/17 19:45 Ur Squamous Epith Cells Moderate /HPF (NEGATIVE) 05/29/17 19:45 Urine Bacteria Trace /HPF (NEGATIVE) 05/29/17 19:45 Ur Culture Indicated? No/not indicated 05/29/17 19:45 Stool Description 75 cc brown loose 05/30/17 09:33 Stl Occult Blood (IFOB) Positive (NEGATIVE) A 05/30/17 09:33 Stool for White Cells Positive (NEGATIVE) A 05/30/17 09:02 Stl C. diff Tox B Gene Negative (NEGATIVE) 05/30/17 09:33 Stl C. diff [id number] Negative (NEGATIVE) 05/30/17 09:33 Cryptosporid parvum Ag Negative (NEGATIVE) 05/30/17 09:33 E. histolytica Antigen Negative (NEGATIVE) 05/30/17 09:33 Giardia lamblia Ag Negative (NEGATIVE) 05/30/17 09:33 Tissue Pathology To follow 05/29/17 18:00 - Plan (1) Pneumonia Status: Acute Qualifiers: Pneumonia type: due to unspecified organism Laterality: right Lung location: lower lobe of lung Qualified Code(s): J18.1 - Lobar pneumonia, unspecified organism Plan: PNEUMONIA PATHWAY, CONTINUE IV ANTIBIOTICS, RESPIRATORY TREATMENTS, AND SUPPLEMENTAL OXYGEN, CONTINUE TO MONITOR (2) Congestive heart failure Status: Acute Qualifiers: Heart failure type: unspecified Heart failure chronicity: acute Qualified Code(s): I50.9 - Heart failure, unspecified Plan: NEB [place] VIA BIPAP, CONTINUE TO MONITOR (3) Anemia Status: Acute Qualifiers: Anemia type: iron deficiency Iron deficiency anemia type: unspecified iron deficiency Qualified Code(s): D50.9 - Iron deficiency anemia, unspecified Plan: ADMINISTER 1 UNIT PRBC, CONTINUE TO MONITOR (4) Bimalleolar ankle fracture Status: Acute Qualifiers: Encounter type: initial encounter Fracture type: open Laterality: left Plan: S/P ORIF CONTINUE IV PAIN MEDICATION, CONTINUE TO MONITOR (5) Fibula fracture Status: Acute Qualifiers: Encounter type: initial encounter Fibula location: distal Fracture type: open Fracture morphology: unspecified fracture morphology Laterality: left Plan: OCL SPLINT, TORADOL 15MG IV Q6H, PERCOCET 5/325 2 TABS Q4H PRN PAIN, CONTINUE TO MONITOR (6) Tibia fracture Status: Acute Qualifiers: Encounter type: initial encounter Tibia location: distal Fracture type: open Fracture morphology: unspecified fracture morphology Laterality: left Plan: ORTHOPEDIC CONSULT, TORADOL 15MG IV Q6H, PERCOCET 5/325 2 TABS Q4H PRN PAIN, CONTINUE TO MONITOR (7) Laceration of left lower leg Status: Acute Qualifiers: Encounter type: initial encounter Qualified Code(s): S81.812A - Laceration without foreign body, left lower leg, initial encounter Plan: WOUND CARE, CONTINUE TO MONITOR (8) Compartment syndrome of left lower extremity Status: Acute Qualifiers: Encounter type: initial encounter Qualified Code(s): T79.A22A - Traumatic compartment syndrome of left lower extremity, initial encounter Plan: ORTHOPEDIC CONSULT, CONTINUE TO MONITOR (9) Depression Status: Chronic Qualifiers: Depression Type: major depressive disorder Major depression recurrence: recurrent Active/Remission status: currently active Major depression episode severity: unspecified Qualified Code(s): F33.9 - Major depressive disorder, recurrent, unspecified Plan: CONTINUE CYMBALTA, CONTINUE TO MONITOR (10) Hx of Crohn's disease Status: Chronic Plan: CONTINUE IMURAN, CONTINUE TO MONITOR (11) Hyperlipidemia Status: Chronic Qualifiers: Hyperlipidemia type: mixed hyperlipidemia Qualified Code(s): E78.2 - Mixed hyperlipidemia Plan: CONTINUE LIPITOR, CONTINUE TO MONITOR (12) Hypothyroidism Status: Chronic Qualifiers: Hypothyroidism type: subclinical iodine-deficiency Qualified Code(s): E02 - Subclinical iodine-deficiency hypothyroidism Plan: CONTINUE SYNTHROID, CONTINUE TO MONITOR
[2017-06-10 20:00] LABS: HEMATOCRIT 21.8 % (36.0-47.0); HEMOGLOBIN 7.4 g/dL (12.0-16.0)
[2017-06-10] MEDS ORDERED: LASIX IVP ONE (20:00)
[2017-06-10] MEDS: LIPITOR TAB 40 MG PO SCH (21:51)
[2017-06-10] MEDS: NEURONTIN TAB 600 MG PO SCH (21:53)
[2017-06-10] MEDS ORDERED: NS 250 ML IV 250 ML IV ONE (22:02)
[2017-06-11] MEDS: DILAUDID INJ IVP PRN ×3 (01:45→20:31)
[2017-06-11] MEDS: ATIVAN INJ 2 MG VIAL IVP PRN ×3 (01:55→16:08)
[2017-06-11] MEDS: ZOSYN VIAL 3.375 GM IV SCH ×2 (05:15→14:20)
[2017-06-11 05:41] LABS: ALANINE AMINOTRANSFERASE 29 Units/L (12-78); ALBUMIN 3.7 g/dL (3.4-5.0); ALKALINE PHOSPHATASE 53 Units/L (46-116); ASPARTATE AMINO TRANSFERASE 35 Units/L (15-37); BLOOD UREA NITROGEN 19 mg/dL (7-18); CALCIUM 6.7 mg/dL (8.5-10.1); CARBON DIOXIDE 29.9 mmol/L (21-32); CHLORIDE 103 mmol/L (98-107); CREATININE 0.73 mg/dL (0.55-1.02); SODIUM 143 mmol/L (136-145); TOTAL PROTEIN 6.3 g/dL (6.4-8.2); eGFR BLACK RACES > 60 (>60); eGFR NON BLACK RACES > 60 (>60)
[2017-06-11 05:50] LABS: BASOPHILS # (AUTO) 0.1 X10^3/uL (0.0-0.1); BASOPHILS % (AUTO) 0.7 % (0.2-1.0); EOSINOPHILS # (AUTO) 0.3 x10^3/uL (0.0-0.2); EOSINOPHILS % (AUTO) 2.9 % (0.9-2.9); HEMATOCRIT 27.6 % (36.0-47.0); HEMOGLOBIN 9.5 g/dL (12.0-16.0); LYMPHOCYTES # (AUTO) 0.9 X10^3/uL (1.3-2.9); LYMPHOCYTES % (AUTO) 8.8 % (21.0-51.0); MEAN CORPUSCULAR HEMOGLOBIN 31.7 pg (27.0-34.0); MEAN CORPUSCULAR HGB CONC 34.5 g/dL (33.0-35.0); MEAN CORPUSCULAR VOLUME 91.9 fL (80.0-100.0); MEAN PLATELET VOLUME 8.8 fL (7.4-11.0); MONOCYTES # (AUTO) 0.8 x10^3/uL (0.3-0.8); MONOCYTES % (AUTO) 7.4 % (0.0-13.0); NEUTROPHILS # (AUTO) 8.1 x10^3/uL (2.2-4.8); NEUTROPHILS % (AUTO) 80.2 % (42.0-75.0); PLATELET COUNT 396 X10^3/uL (150.0-450.0); RED CELL DISTRIBUTION WIDTH 16.2 % (11.6-16.5); WHITE BLOOD COUNT 10.1 X10^3/uL (3.6-10.0)
--- NOTE | 2017-06-11 07:00 | RAD ---
The examination: AP chest History: SOB Comparison 06/10/2017 Findings: Continued normal heart size. There is little change in appearance of the chest, stable bila teral pulmonary infiltrates and suspect right pleural effusion. Right subclavian catheter again noted . No complicating pneumothorax. Impression: No significant change in appearance of the chest since 1 day prior. Reported By:
[2017-06-11] MEDS: XOPENEX 1.25 MG/3 ML NEBULE NEB SCH ×4 (09:11→21:56)
[2017-06-11] MEDS: PULMICORT NEB TX 0.5 MG NEB SCH ×2 (09:12→21:56)
[2017-06-11] MEDS: BROVANA IN SCH ×2 (09:12→21:56)
[2017-06-11] MEDS: DIFLUCAN 200 MG IV PREMIX* 200 MG/100 ML BAG IV SCH (09:46)
[2017-06-11] MEDS: ALBUMIN HUMAN 25%- 100ML 100 ML IV SCH (09:46)
[2017-06-11] MEDS: PROTONIX INJ 40 MG VIAL IVP SCH (09:46)
[2017-06-11] MEDS: PEPCID 20 MG IV PREMIX* 20 MG/50 ML BAG IV SCH (09:47)
[2017-06-11] MEDS: COLACE CAP 100 MG PO SCH (10:03)
[2017-06-11] MEDS: OSCAL+D or CALTRATE+D PO SCH (10:03)
[2017-06-11] MEDS: CYMBALTA PO SCH (10:03)
[2017-06-11] MEDS: IMURAN PO SCH (10:04)
[2017-06-11] MEDS: ESTRACE PO SCH (10:04)
[2017-06-11] MEDS: MEGACE PO SCH ×2 (10:05→13:52)
[2017-06-11] MEDS: MILK OF MAGNESIA PO SCH (10:05)
[2017-06-11] MEDS: MAGIC MOUTHWASH MT SCH ×3 (10:05→18:04)
[2017-06-11] MEDS: SYNTHROID 100 mcg TAB PO SCH ×2 (10:06→13:52)
[2017-06-11] MEDS: NEURONTIN CAP 300 MG PO SCH (10:06)
--- NOTE | 2017-06-11 11:41 | PCM.PROG ---
Progress Note - Progress Note for Day of Date: 06/11/17 - Subjective Subjective: IS BEING TREATED FOR PNEUMONIA, CHF, OPEN TIBIA/ FIBULA FRACTURES OF THE LEFT LEG, LEFT LEG LACERATION, AND COMPARTMENT SYNDROME. SHE IS STATUS POST ORIF OF THE LEFT ANKLE AND SKIN GRAFT. TODAY, SHE IS ALERT AND ORIENTED, LYING IN BED UTILIZING THE BIPAP. SHE IS SIGNIFICANTLY MORE ALERT TODAY THAN SHE HAS BEEN. FAMILY REPORTS THAT SHE DID HAVE A FEW EPISODES OF INTERMITTENT CONFUSION THROUGHOUT THE NIGHT. ON EXAMINATION, HEART IS REGULAR IN RATE AND RHYTHM. BILATERAL LUNGS CONTINUE WITH SCATTERED WHEEZING AND RHONCHI THROUGHOUT. SHE CONTINUES TO UTILIZE THE BIPAP AT THIS TIME. ABDOMEN IS ROUND, SOFT, AND NON-TENDER WITH NORMAL BOWEL SOUNDS NOTED IN ALL QUADRANTS. LEFT LEG IS NOTED TO BE OPEN TO AIR. PERFORMED DRESSING CHANGE AND ASSESSED SKIN GRAFT YESTERDAY. HE REPORTS THAT GRAFT IS TAKING WELL AND IS WITHOUT SIGNS OR SYMPTOMS OF INFECTION. HER VITALS THIS MORNING ARE 97.8- 92-18-99%-129/71. LABS WERE OBTAINED THIS MORNING. ABNORMAL LAB VALUES INCLUDE THE FOLLOWING: WBC 10.1, RBC 3.00, HGB 9.5, HCT 27.6, BUN 19, GLUCOSE 103, CALCIUM 6.7, TOTAL BILI 1.10, TOTAL PROTEIN 6.3. A CHEST XRAY WAS OBTAINED THIS MORNING AND REPORTED LITTLE CHANGE IN THE APPEARANCE OF THE CHEST, STABLE BILATERAL PULMONARY INFILTRATES, AND SUSPECET RIGHT PLEURAL EFFUSION. WE ENCOURAGE PATIENT TO EAT AND TAKE IN LIQUIDS. TODAY, WE WILL CONTINUE WITH IV ANTIBIOTICS, RESPIRATORY TREATMENTS , BIPAP, AND CURRENT PLAN OF CARE. WE WILL HAVE PHYSICAL THERAPY PERFORM PASSIVE RANGE OF MOTION. OTHERWISE, WE WILL FOLLOW UP WITH AM LABS AND CONTINUE TO MONITOR PATIENT. - Past Medical Family Social History Past Med/Fam/Surg Hx: No changes since H&P Allergies: Allergies prochlorperazine Allergy (Verified 05/29/17 10:22) - Review of Systems ROS: No change since H&P - Vital Signs and I&O's Vital Signs: Temperature 97.8 F Pulse Rate [Left Brachial] 105 Pulse Rate 99 Respiratory Rate 30 Blood Pressure [Right Arm] 130/62 Blood Pressure [Left Arm] 139/66 Blood Pressure 134/64 O2 Sat by Pulse Oximetry 94 Intake and Output: Intake & Output 06/08/17 06/09/17 06/10/1706/11/18 11:59 11:59 11:59 11:59 Intake Total 337 8799 6877 0601 Output Total 3714 9417 9922 4393 [id number] -[id number] [phone] - Physical Exam Oriented: Normal Eyes: Normal Ear: Normal Nose: Normal Throat: Normal, Dry Respiratory: Generalized, Diminished, Wheezes Cardiovascular: Tachycardia, Edema : Normal Auscultation: Bowel Sounds: Normal Palpation: Normal Tenderness: Normal Skin: Red, Tender, Wound Musculoskeletal: Left, Leg, Ankle, Foot, Swelling, Tender Psychiatric: Normal Mood Description: Calm Speech Pattern: Clear, Appropriate - Laboratory and Diagnostics Result Diagrams: 06/11/17 04:55 06/11/17 04:55 Labs: 06/10/17 10:51 Foot - Left Gram Stain - Final 06/10/17 10:51 Foot - Left Wound Culture - Preliminary 06/01/17 10:15 Sputum - Expectorated Sputum Sputum Culture - Final 06/01/17 10:15 Sputum - Expectorated Sputum - Final 05/29/17 17:25 Leg - Left Gram Stain - Final 05/29/17 17:25 Leg - Left Wound Culture - Final 05/30/17 09:33 Stool Stool Culture - Final 05/30/17 09:33 Stool - Final Laboratory WBC 10.1 X10^3/uL (3.6-10.0) H 06/11/17 04:55 RBC 3.00 X10^6/uL (3.5-5.4) L 06/11/17 04:55 Hgb 9.5 g/dL (12.0-16.0) L D 06/11/17 04:55 Hct 27.6 % (36.0-47.0) L 06/11/17 04:55 MCV 91.9 fL (80.0-100.0) 06/11/17 04:55 MCH 31.7 pg (27.0-34.0) 06/11/17 04:55 MCHC 34.5 g/dL (33.0-35.0) 06/11/17 04:55 RDW 16.2 % (11.6-16.5) 06/11/17 04:55 Plt Count 396 X10^3/uL (150.0-450.0) 06/11/17 04:55 Plt Count Comment Adequate (ADEQUATE) 06/10/17 05:34 MPV 8.8 fL (7.4-11.0) 06/11/17 04:55 Neut % (Auto) 80.2 % (42.0-75.0) H 06/11/17 04:55 Lymph % (Auto) 8.8 % (21.0-51.0) L 06/11/17 04:55 [place] % (Auto) 7.4 % (0.0-13.0) 06/11/17 04:55 Eos % (Auto) 2.9 % (0.9-2.9) 06/11/17 04:55 Baso % (Auto) 0.7 % (0.2-1.0) 06/11/17 04:55 Neut # (Auto) 8.1 x10^3/uL (2.2-4.8) H 06/11/17 04:55 Lymph # (Auto) 0.9 X10^3/uL (1.3-2.9) L 06/11/17 04:55 [place] # (Auto) 0.8 x10^3/uL (0.3-0.8) 06/11/17 04:55 Eos # (Auto) 0.3 x10^3/uL (0.0-0.2) H 06/11/17 04:55 Baso # (Auto) 0.1 X10^3/uL (0.0-0.1) 06/11/17 04:55 Absolute Nucleated RBC 0.1 /100WBC 06/11/17 04:55 Hypochromasia 1+ A 06/07/17 05:20 Anisocytosis 1+ A 06/07/17 05:20 Plt Morphology Comment Normal (NORMAL) 06/10/17 05:34 RBC Morphology Normal (NORMAL) 06/10/17 05:34 Sample Site Rrad 06/10/17 05:38 ABG pH 7.540 (7.35-7.45) H 06/10/17 05:38 ABG pCO2 40.0 mmHg (35.0-45.0) 06/10/17 05:38 ABG pO2 77.0 mmHg (80.0-100.0) L 06/10/17 05:38 ABG HCO3 34.2 mmol/L (22-26) H* 06/10/17 05:38 ABG O2 Saturation 97.0 % (90-100) 06/10/17 05:38 ABG Base Excess 10.7 mmol/L (-2.0-2.0) H 06/10/17 05:38 Kvng Test Pos 06/10/17 05:38 A-a Gradient 123.0 mmHg 06/10/17 05:38 FiO2 35.000 06/10/17 05:38 Blood Gas Comments Miguel abg well-mtf 06/10/17 05:38 Sodium 143 mmol/L (136-145) 06/11/17 04:55 Corrected Sodium TNP 06/11/17 04:55 Potassium 3.5 mmol/L (3.5-5.1) 06/11/17 04:55 Chloride 103 mmol/L (98-107) 06/11/17 04:55 Carbon Dioxide 29.9 mmol/L (21-32) 06/11/17 04:55 BUN 19 mg/dL (7-18) H 06/11/17 04:55 Creatinine 0.73 mg/dL (0.55-1.02) 06/11/17 04:55 POC Glucose (mg/dL) 141 mg/dL (65-99) H 06/08/17 05:23 Est GFR (MDRD) Af Amer > 60 (>60) 06/11/17 04:55 Est GFR (MDRD) Non-Af > 60 (>60) 06/11/17 04:55 Glucose 103 mg/dL (65-99) H 06/11/17 04:55 Lactic Acid 1.6 mmol/L (0.4-2.0) 06/08/17 06:15 Magnesium 2.1 mg/dL (1.7-2.9) 06/08/17 06:15 Iron 21 ug/dL (50-175) L 06/07/17 05:25 Transferrin 139 mg/dL (202-364) L 06/07/17 05:25 Ferritin 107 ng/mL (8-252) 06/07/17 05:25 Calcium 6.7 mg/dL (8.5-10.1) L 06/11/17 04:55 Corrected Calcium TNP 06/11/17 04:55 Creatine Kinase 688 Units/L (26-192) H 06/08/17 04:45 CK-MB (CK-2) 1.6 ng/mL (0-4.0) 06/08/17 04:45 Total Bilirubin 1.10 mg/dL (0.2-1.0) H 06/11/17 04:55 CK/CKMB % Calc 0.2 % (<4) 06/08/17 04:45 Troponin I 0.16 ng/mL (0-1.5) 06/08/17 04:45 AST 35 Units/L (15-37) 06/11/17 04:55 ALT 29 Units/L (12-78) 06/11/17 04:55 Alkaline Phosphatase 53 Units/L (46-116) 06/11/17 04:55 Total Protein 6.3 g/dL (6.4-8.2) L 06/11/17 04:55 Albumin 3.7 g/dL (3.4-5.0) 06/11/17 04:55 Globulin 2.6 g/dL (2.5-4.5) 06/11/17 04:55 Albumin/Globulin Ratio 1.4 Ratio (1.1-2.1) 06/11/17 04:55 Vitamin B12 832 pg/mL (193-986) 06/07/17 05:25 Folate 19.0 ng/mL (>8.6) 06/07/17 05:25 Specimen Type Clean catch urine 05/29/17 19:45 Urine Color Gunjan (YELLOW) 05/29/17 19:45 Urine Appearance Slightly hazy (CLEAR) 05/29/17 19:45 Urine pH 5.0 (5.0 - 8.0) 05/29/17 19:45 Ur Specific [place] 1.020 (1.000-1.030) 05/29/17 19:45 Urine Protein 2+ (NEGATIVE) 05/29/17 19:45 Urine Glucose (UA) Negative (NEGATIVE) 05/29/17 19:45 Urine Ketones 1+ (NEGATIVE) 05/29/17 19:45 Urine Occult Blood 3+ (NEGATIVE) 05/29/17 19:45 Urine Nitrite Negative (NEGATIVE) 05/29/17 19:45 Urine Bilirubin Negative (NEGATIVE) 05/29/17 19:45 Urine Urobilinogen Normal (NORMAL) 05/29/17 19:45 Ur Leukocyte Esterase 1+ (NEGATIVE) 05/29/17 19:45 Urine RBC 3 - 7 /HPF (NONE SEEN) 05/29/17 19:45 Urine WBC 0 - 3 /HPF (NONE SEEN) 05/29/17 19:45 Ur Squamous Epith Cells Moderate /HPF (NEGATIVE) 05/29/17 19:45 Urine Bacteria Trace /HPF (NEGATIVE) 05/29/17 19:45 Ur Culture Indicated? No/not indicated 05/29/17 19:45 Stool Description 75 cc brown loose 05/30/17 09:33 Stl Occult Blood (IFOB) Positive (NEGATIVE) A 05/30/17 09:33 Stool for White Cells Positive (NEGATIVE) A 05/30/17 09:02 Stl C. diff Tox B Gene Negative (NEGATIVE) 05/30/17 09:33 Stl C. diff [id number] Negative (NEGATIVE) 05/30/17 09:33 Cryptosporid parvum Ag Negative (NEGATIVE) 05/30/17 09:33 E. histolytica Antigen Negative (NEGATIVE) 05/30/17 09:33 Giardia lamblia Ag Negative (NEGATIVE) 05/30/17 09:33 Tissue Pathology To follow 05/29/17 18:00 Blood Type O POSITIVE 06/10/17 19:00 Antibody Screen Negative 06/10/17 19:00 Crossmatch See Detail 06/10/17 19:00 - Plan (1) Pneumonia Status: Acute Qualifiers: Pneumonia type: due to unspecified organism Laterality: right Lung location: lower lobe of lung Qualified Code(s): J18.1 - Lobar pneumonia, unspecified organism Plan: PNEUMONIA PATHWAY, CONTINUE IV ANTIBIOTICS, RESPIRATORY TREATMENTS, AND SUPPLEMENTAL OXYGEN, CONTINUE TO MONITOR (2) Congestive heart failure Status: Acute Qualifiers: Heart failure type: unspecified Heart failure chronicity: acute Qualified Code(s): I50.9 - Heart failure, unspecified Plan: NEB [place] VIA BIPAP, CONTINUE TO MONITOR (3) Anemia Status: Acute Qualifiers: Anemia type: iron deficiency Iron deficiency anemia type: unspecified iron deficiency Qualified Code(s): D50.9 - Iron deficiency anemia, unspecified Plan: ADMINISTER 1 UNIT PRBC, CONTINUE TO MONITOR (4) Bimalleolar ankle fracture Status: Acute Qualifiers: Encounter type: initial encounter Fracture type: open Laterality: left Plan: S/P ORIF CONTINUE IV PAIN MEDICATION, CONTINUE TO MONITOR (5) Fibula fracture Status: Acute Qualifiers: Encounter type: initial encounter Fibula location: distal Fracture type: open Fracture morphology: unspecified fracture morphology Laterality: left Plan: OCL SPLINT, TORADOL 15MG IV Q6H, PERCOCET 5/325 2 TABS Q4H PRN PAIN, CONTINUE TO MONITOR (6) Tibia fracture Status: Acute Qualifiers: Encounter type: initial encounter Tibia location: distal Fracture type: open Fracture morphology: unspecified fracture morphology Laterality: left Plan: ORTHOPEDIC CONSULT, TORADOL 15MG IV Q6H, PERCOCET 5/325 2 TABS Q4H PRN PAIN, CONTINUE TO MONITOR (7) Laceration of left lower leg Status: Acute Qualifiers: Encounter type: initial encounter Qualified Code(s): S81.812A - Laceration without foreign body, left lower leg, initial encounter Plan: WOUND CARE, CONTINUE TO MONITOR (8) Compartment syndrome of left lower extremity Status: Acute Qualifiers: Encounter type: initial encounter Qualified Code(s): T79.A22A - Traumatic compartment syndrome of left lower extremity, initial encounter Plan: ORTHOPEDIC CONSULT, CONTINUE TO MONITOR (9) Depression Status: Chronic Qualifiers: Depression Type: major depressive disorder Major depression recurrence: recurrent Active/Remission status: currently active Major depression episode severity: unspecified Qualified Code(s): F33.9 - Major depressive disorder, recurrent, unspecified Plan: CONTINUE CYMBALTA, CONTINUE TO MONITOR (10) Hx of Crohn's disease Status: Chronic Plan: CONTINUE IMURAN, CONTINUE TO MONITOR (11) Hyperlipidemia Status: Chronic Qualifiers: Hyperlipidemia type: mixed hyperlipidemia Qualified Code(s): E78.2 - Mixed hyperlipidemia Plan: CONTINUE LIPITOR, CONTINUE TO MONITOR (12) Hypothyroidism Status: Chronic Qualifiers: Hypothyroidism type: subclinical iodine-deficiency Qualified Code(s): E02 - Subclinical iodine-deficiency hypothyroidism Plan: CONTINUE SYNTHROID, CONTINUE TO MONITOR
[2017-06-11] MEDS ORDERED: NS 100 ML IV 100 ML IV ONE (14:00)
[2017-06-11 16:30] LABS: BILIRUBIN,URINE NEGATIVE (NEGATIVE); BLOOD/HEMOGLOBIN,URINE 5+ (NEGATIVE); GLUCOSE, URINE NEGATIVE (NEGATIVE); KETONES,URINE 1+ (NEGATIVE); LEUKOCYTE ESTERASE ,URINE NEGATIVE (NEGATIVE); NITRITES,URINE NEGATIVE (NEGATIVE); PROTEIN,URINE 2+ (NEGATIVE); UROBILINOGEN,URINE NORMAL (NORMAL)
[2017-06-11 16:38] LABS: AMORPHOUS SEDIMENT,UR 1+ /HPF (NEGATIVE); APPEARANCE,URINE CLEAR (CLEAR); BACTERIA,URINE TRACE /HPF (NEGATIVE); COLOR,URINE YELLOW (YELLOW); RBC,URINE 25-30 /HPF (NONE SEEN); SQUAMOUS EPITHELIAL CELL,UR RARE /HPF (NEGATIVE)
[2017-06-12] MEDS: LIPITOR TAB 40 MG PO SCH ×2 (01:22→22:35)
[2017-06-12] MEDS: MAGIC MOUTHWASH MT SCH ×5 (01:22→22:35)
[2017-06-12] MEDS: COLACE CAP 100 MG PO SCH ×3 (01:22→22:34)
[2017-06-12] MEDS: PEPCID 20 MG IV PREMIX* 20 MG/50 ML BAG IV SCH ×3 (01:23→21:38)
[2017-06-12] MEDS: NEURONTIN TAB 600 MG PO SCH ×2 (01:23→22:35)
[2017-06-12] MEDS: MEGACE PO SCH ×3 (01:23→22:36)
[2017-06-12] MEDS: MILK OF MAGNESIA PO SCH ×3 (01:23→22:35)
[2017-06-12] MEDS ORDERED: NS 100 ML IV + SPIKE MINIBAG* 100 ML IV ONE ×3 (01:26→20:08)
[2017-06-12] MEDS: ZOSYN VIAL 3.375 GM IV SCH ×4 (01:27→21:37)
[2017-06-12] MEDS: DILAUDID INJ IVP PRN ×2 (02:07→22:30)
[2017-06-12] MEDS: PROTONIX INJ 40 MG VIAL IVP SCH ×3 (03:18→21:37)
[2017-06-12] MEDS: ATIVAN INJ 2 MG VIAL IVP PRN ×3 (05:10→22:15)
[2017-06-12 05:57] LABS: BASOPHILS # (AUTO) 0.1 X10^3/uL (0.0-0.1); BASOPHILS % (AUTO) 0.7 % (0.2-1.0); EOSINOPHILS # (AUTO) 0.4 x10^3/uL (0.0-0.2); HEMATOCRIT 31.1 % (36.0-47.0); HEMOGLOBIN 10.5 g/dL (12.0-16.0); LYMPHOCYTES % (AUTO) 9.2 % (21.0-51.0); MEAN CORPUSCULAR HEMOGLOBIN 31.2 pg (27.0-34.0); MEAN CORPUSCULAR HGB CONC 33.6 g/dL (33.0-35.0); MEAN CORPUSCULAR VOLUME 92.8 fL (80.0-100.0); MEAN PLATELET VOLUME 8.9 fL (7.4-11.0); MONOCYTES % (AUTO) 9.8 % (0.0-13.0); NEUTROPHILS # (AUTO) 8.1 x10^3/uL (2.2-4.8); NEUTROPHILS % (AUTO) 76.3 % (42.0-75.0); PLATELET COUNT 495 X10^3/uL (150.0-450.0); RED BLOOD COUNT 3.36 X10^6/uL (3.5-5.4); RED CELL DISTRIBUTION WIDTH 16.6 % (11.6-16.5); WHITE BLOOD COUNT 10.6 X10^3/uL (3.6-10.0)
[2017-06-12 06:12] LABS: ALANINE AMINOTRANSFERASE 32 Units/L (12-78); ALBUMIN 3.7 g/dL (3.4-5.0); ALKALINE PHOSPHATASE 60 Units/L (46-116); ASPARTATE AMINO TRANSFERASE 42 Units/L (15-37); BLOOD UREA NITROGEN 16 mg/dL (7-18); CARBON DIOXIDE 27.4 mmol/L (21-32); CHLORIDE 104 mmol/L (98-107); CREATININE 0.67 mg/dL (0.55-1.02); SODIUM 142 mmol/L (136-145); TOTAL PROTEIN 6.7 g/dL (6.4-8.2); eGFR BLACK RACES > 60 (>60); eGFR NON BLACK RACES > 60 (>60)
--- NOTE | 2017-06-12 06:17 | RAD ---
HISTORY: Shortness of breath. Study: Single-view chest Comparison: 06/11/2017. Findings: Patient is again rotated toward her right. Right-sided LifePort is present with the tip in the mid SV C. The chest again demonstrate volume loss with elevation of the right hemidiaphragm and a mild left- to-right mediastinal shift. Stable bilateral foci of atelectasis or infiltrate are present with a rig ht pleural effusion. No pneumothorax is seen. Osseous structures are intact. The heart size is normal . IMPRESSION: No significant interval change. Reported By:
[2017-06-12] MEDS: DIFLUCAN 200 MG IV PREMIX* 200 MG/100 ML BAG IV SCH (08:39)
[2017-06-12] MEDS: ALBUMIN HUMAN 25%- 100ML 100 ML IV SCH (08:39)
[2017-06-12] MEDS: ESTRACE PO SCH (08:40)
[2017-06-12] MEDS: IMURAN PO SCH (08:40)
[2017-06-12] MEDS: CYMBALTA PO SCH (08:40)
[2017-06-12] MEDS: OSCAL+D or CALTRATE+D PO SCH (08:41)
[2017-06-12] MEDS: NEURONTIN CAP 300 MG PO SCH (08:41)
[2017-06-12] MEDS: SYNTHROID 100 mcg TAB PO SCH (08:43)
[2017-06-12] MEDS ORDERED: NICOTINE PATCH TD ONE (09:31)
[2017-06-12] MEDS: NICOTINE PATCH TD SCH ×2 (09:38→15:07)
[2017-06-12] MEDS: XOPENEX 1.25 MG/3 ML NEBULE NEB SCH ×5 (09:42→22:04)
[2017-06-12] MEDS: BROVANA IN SCH ×2 (09:42→22:04)
[2017-06-12] MEDS: PULMICORT NEB TX 0.5 MG NEB SCH ×2 (09:43→22:05)
[2017-06-12] MEDS ORDERED: PLAVIX PO SCH (10:00)
--- NOTE | 2017-06-12 12:44 | CT ---
Exam: Head CT without contrast History: Altered mental status. Comparison: Recent unenhanced head CT from 06/07/2017. Technique: Multiple axial images the brain were obtained from the skullbase to the vertex without adm inistration of intravenous contrast. Coronal and sagittal images are also reviewed. Dose reduction te mikepérez utilized automatic exposure control. Findings: Generalized age related atrophic change is again seen. However there is no evidence of intracranial h emorrhage, extracerebral fluid collections, or intracranial mass. Ventricles are symmetric in size an d position with no mass effect seen. Patchy low density is again identified and periventricular white matter distribution, most likely reflecting chronic small vessel ischemia. On the bone windows, no a cute abnormality is seen. Visualized aspect of the paranasal sinuses and mastoid air cells are clear. IMPRESSION: Generalized age related atrophic change with patchy areas of chronic small vessel ischemia in a periv entricular white matter distribution. No acute intracranial abnormality is seen on today's exam. Reported By:
[2017-06-12] MEDS: LOVENOX INJ 30 MG SYR SC SCH ×2 (13:46→21:37)
[2017-06-12] MEDS: PROCALAMINE 3 % 1,000 ML IV SCH (13:48)
[2017-06-12] MEDS ORDERED: NS 1000 ML 1,000 ML ONE (17:49)
[2017-06-12] MEDS: NS 1000 ML 1,000 ML IV SCH (17:55)
[2017-06-13] MEDS ORDERED: NS 100 ML IV + SPIKE MINIBAG* 100 ML IV ONE ×3 (05:17→20:07)
[2017-06-13 05:38] LABS: BASOPHILS # (AUTO) 0.1 X10^3/uL (0.0-0.1); BASOPHILS % (AUTO) 0.9 % (0.2-1.0); EOSINOPHILS # (AUTO) 0.3 x10^3/uL (0.0-0.2); EOSINOPHILS % (AUTO) 2.8 % (0.9-2.9); HEMATOCRIT 32.7 % (36.0-47.0); HEMOGLOBIN 10.8 g/dL (12.0-16.0); LYMPHOCYTES % (AUTO) 8.9 % (21.0-51.0); MEAN PLATELET VOLUME 9.2 fL (7.4-11.0); MONOCYTES % (AUTO) 9.6 % (0.0-13.0); NEUTROPHILS # (AUTO) 8.3 x10^3/uL (2.2-4.8); NEUTROPHILS % (AUTO) 77.8 % (42.0-75.0); PLATELET COUNT 517 X10^3/uL (150.0-450.0); RED BLOOD COUNT 3.48 X10^6/uL (3.5-5.4); RED CELL DISTRIBUTION WIDTH 16.1 % (11.6-16.5); WHITE BLOOD COUNT 10.7 X10^3/uL (3.6-10.0)
[2017-06-13 06:00] LABS: ALANINE AMINOTRANSFERASE 43 Units/L (12-78); ALBUMIN 3.8 g/dL (3.4-5.0); ALKALINE PHOSPHATASE 66 Units/L (46-116); ASPARTATE AMINO TRANSFERASE 58 Units/L (15-37); BLOOD UREA NITROGEN 18 mg/dL (7-18); CALCIUM 7.5 mg/dL (8.5-10.1); CARBON DIOXIDE 24.3 mmol/L (21-32); CHLORIDE 106 mmol/L (98-107); CREATININE 0.66 mg/dL (0.55-1.02); SODIUM 142 mmol/L (136-145); TOTAL PROTEIN 6.7 g/dL (6.4-8.2); eGFR BLACK RACES > 60 (>60); eGFR NON BLACK RACES > 60 (>60)
[2017-06-13] MEDS: ZOSYN VIAL 3.375 GM IV SCH ×3 (06:00→21:10)
[2017-06-13] MEDS: NICOTINE PATCH TD SCH (09:00)
[2017-06-13] MEDS: PROTONIX INJ 40 MG VIAL IVP SCH ×2 (09:01→21:10)
[2017-06-13] MEDS: DIFLUCAN 200 MG IV PREMIX* 200 MG/100 ML BAG IV SCH (09:01)
[2017-06-13] MEDS: PEPCID 20 MG IV PREMIX* 20 MG/50 ML BAG IV SCH ×2 (09:01→21:10)
[2017-06-13] MEDS: ALBUMIN HUMAN 25%- 100ML 100 ML IV SCH (09:01)
[2017-06-13] MEDS: LOVENOX INJ 30 MG SYR SC SCH ×2 (09:02→21:10)
[2017-06-13] MEDS: COLACE CAP 100 MG PO SCH ×2 (09:03→21:11)
[2017-06-13] MEDS: CYMBALTA PO SCH (09:03)
[2017-06-13] MEDS: MAGIC MOUTHWASH MT SCH ×4 (09:04→21:11)
[2017-06-13] MEDS: ESTRACE PO SCH (09:04)
[2017-06-13] MEDS: NEURONTIN CAP 300 MG PO SCH (09:04)
[2017-06-13] MEDS: MILK OF MAGNESIA PO SCH ×2 (09:04→21:11)
[2017-06-13] MEDS: MEGACE PO SCH ×2 (09:04→21:11)
[2017-06-13] MEDS: IMURAN PO SCH (09:04)
[2017-06-13] MEDS: OSCAL+D or CALTRATE+D PO SCH (09:05)
[2017-06-13] MEDS: SYNTHROID 100 mcg TAB PO SCH (09:05)
[2017-06-13] MEDS: XOPENEX 1.25 MG/3 ML NEBULE NEB SCH ×4 (09:10→21:05)
[2017-06-13] MEDS: PULMICORT NEB TX 0.5 MG NEB SCH ×2 (09:10→21:05)
[2017-06-13] MEDS: BROVANA IN SCH ×2 (09:10→21:05)
[2017-06-13] MEDS: DILAUDID INJ IVP PRN ×2 (11:09→15:37)
--- NOTE | 2017-06-13 12:29 | DR.PROGNOT ---
Hospital Progress Notes - Progress Note for Day of: Progress Note Date: 06/13/17 - Chief Complaint Chief Complaint: no changes in mental status , alert and follows verbal commands but not talking . stable VS. will keep dressings in place and change them in 2 days . - History of Present Illness History of Present Illness: no changes. - Past Medical Family Social History Past Med/Fam/Surg Hx: No changes since H&P Allergies: Allergies prochlorperazine Allergy (Verified 05/29/17 10:22) - Review Of Systems ROS: No change since H&P - Vital Signs Vital Signs: Temperature 99.1 F Pulse Rate [Left Brachial] 117 Pulse Rate 119 Respiratory Rate 23 Blood Pressure [Right Arm] 130/62 Blood Pressure [Left Arm] 135/79 Blood Pressure 134/64 O2 Sat by Pulse Oximetry 98 - Physical Exam Oriented: Normal Eyes: Normal Ear: Normal Nose: Normal Throat: Normal, Dry Respiratory: Generalized, Diminished, Wheezes Cardiovascular: Tachycardia, Edema : Normal GI:Auscultation: Normal GI:Palpation: Normal GI: Tenderness: Normal Skin: Red, Tender, Wound Musculoskeletal: Left, Leg, Ankle, Foot, Swelling, Tender Psychiatric: Normal Mood Description: Calm Speech Pattern: Unclear, Inappropriate, Delayed, Slurred - Laboratory and Diagnostics Result Diagrams: 06/13/17 04:30 06/13/17 04:30 Labs: 06/11/17 16:10 Urine,[place] Urine Culture - Final 06/10/17 10:51 Foot - Left Gram Stain - Final 06/10/17 10:51 Foot - Left Wound Culture - Final 06/01/17 10:15 Sputum - Expectorated Sputum Sputum Culture - Final 06/01/17 10:15 Sputum - Expectorated Sputum - Final 05/29/17 17:25 Leg - Left Gram Stain - Final 05/29/17 17:25 Leg - Left Wound Culture - Final 05/30/17 09:33 Stool Stool Culture - Final 05/30/17 09:33 Stool - Final Laboratory WBC 10.7 X10^3/uL (3.6-10.0) H 06/13/17 04:30 RBC 3.48 X10^6/uL (3.5-5.4) L 06/13/17 04:30 Hgb 10.8 g/dL (12.0-16.0) L 06/13/17 04:30 Hct 32.7 % (36.0-47.0) L 06/13/17 04:30 MCV 94.0 fL (80.0-100.0) 06/13/17 04:30 MCH 31.0 pg (27.0-34.0) 06/13/17 04:30 MCHC 33.0 g/dL (33.0-35.0) 06/13/17 04:30 RDW 16.1 % (11.6-16.5) 06/13/17 04:30 Plt Count 517 X10^3/uL (150.0-450.0) H 06/13/17 04:30 Plt Count Comment Adequate (ADEQUATE) 06/10/17 05:34 MPV 9.2 fL (7.4-11.0) 06/13/17 04:30 Neut % (Auto) 77.8 % (42.0-75.0) H 06/13/17 04:30 Lymph % (Auto) 8.9 % (21.0-51.0) L 06/13/17 04:30 [place] % (Auto) 9.6 % (0.0-13.0) 06/13/17 04:30 Eos % (Auto) 2.8 % (0.9-2.9) 06/13/17 04:30 Baso % (Auto) 0.9 % (0.2-1.0) 06/13/17 04:30 Neut # (Auto) 8.3 x10^3/uL (2.2-4.8) H 06/13/17 04:30 Lymph # (Auto) 1.0 X10^3/uL (1.3-2.9) L 06/13/17 04:30 [place] # (Auto) 1.0 x10^3/uL (0.3-0.8) H 06/13/17 04:30 Eos # (Auto) 0.3 x10^3/uL (0.0-0.2) H 06/13/17 04:30 Baso # (Auto) 0.1 X10^3/uL (0.0-0.1) 06/13/17 04:30 Absolute Nucleated RBC 0.0 /100WBC 06/13/17 04:30 Hypochromasia 1+ A 03/11/18 05:20 Anisocytosis 1+ A 06/07/17 05:20 Plt Morphology Comment Normal (NORMAL) 06/10/17 05:34 RBC Morphology Normal (NORMAL) 06/10/17 05:34 Sample Site Rrad 06/10/17 05:38 ABG pH 7.540 (7.35-7.45) H 06/10/17 05:38 ABG pCO2 40.0 mmHg (35.0-45.0) 06/10/17 05:38 ABG pO2 77.0 mmHg (80.0-100.0) L 06/10/17 05:38 ABG HCO3 34.2 mmol/L (22-26) H* 06/10/17 05:38 ABG O2 Saturation 97.0 % (90-100) 06/10/17 05:38 ABG Base Excess 10.7 mmol/L (-2.0-2.0) H 06/10/17 05:38 Kvng Test Pos 06/10/17 05:38 A-a Gradient 123.0 mmHg 06/10/17 05:38 FiO2 35.000 06/10/17 05:38 Blood Gas Comments Miguel abg well-mtf 06/10/17 05:38 Sodium 142 mmol/L (136-145) 06/13/17 04:30 Corrected Sodium TNP 06/13/17 04:30 Potassium 3.6 mmol/L (3.5-5.1) 06/13/17 04:30 Chloride 106 mmol/L (98-107) 06/13/17 04:30 Carbon Dioxide 24.3 mmol/L (21-32) 06/13/17 04:30 BUN 18 mg/dL (7-18) 06/13/17 04:30 Creatinine 0.66 mg/dL (0.55-1.02) 06/13/17 04:30 POC Glucose (mg/dL) 141 mg/dL (65-99) H 06/08/17 05:23 Est GFR (MDRD) Af Amer > 60 (>60) 06/13/17 04:30 Est GFR (MDRD) Non-Af > 60 (>60) 06/13/17 04:30 Glucose 101 mg/dL (65-99) H 06/13/17 04:30 Lactic Acid 1.6 mmol/L (0.4-2.0) 06/08/17 06:15 Magnesium 2.1 mg/dL (1.7-2.9) 06/08/17 06:15 Iron 21 ug/dL (50-175) L 06/07/17 05:25 Transferrin 139 mg/dL (202-364) L 06/07/17 05:25 Ferritin 107 ng/mL (8-252) 06/07/17 05:25 Calcium 7.5 mg/dL (8.5-10.1) L 06/13/17 04:30 Corrected Calcium TNP 06/13/17 04:30 Creatine Kinase 688 Units/L (26-192) H 06/08/17 04:45 CK-MB (CK-2) 1.6 ng/mL (0-4.0) 06/08/17 04:45 Total Bilirubin 1.30 mg/dL (0.2-1.0) H 06/13/17 04:30 CK/CKMB % Calc 0.2 % (<4) 06/08/17 04:45 Troponin I 0.16 ng/mL (0-1.5) 06/08/17 04:45 AST 58 Units/L (15-37) H 06/13/17 04:30 ALT 43 Units/L (12-78) 06/13/17 04:30 Alkaline Phosphatase 66 Units/L (46-116) 06/13/17 04:30 Total Protein 6.7 g/dL (6.4-8.2) 06/13/17 04:30 Albumin 3.8 g/dL (3.4-5.0) 06/13/17 04:30 Globulin 2.9 g/dL (2.5-4.5) 06/13/17 04:30 Albumin/Globulin Ratio 1.3 Ratio (1.1-2.1) 06/13/17 04:30 Vitamin B12 832 pg/mL (193-986) 06/07/17 05:25 Folate 19.0 ng/mL (>8.6) 06/07/17 05:25 Specimen Type Catherized urine 06/11/17 16:10 Urine Color Yellow (YELLOW) 06/11/17 16:10 Urine Appearance Clear (CLEAR) 06/11/17 16:10 Urine pH 8.0 (5.0 - 8.0) 06/11/17 16:10 Ur Specific [place] 1.015 (1.000-1.030) 06/11/17 16:10 Urine Protein 2+ (NEGATIVE) 06/11/17 16:10 Urine Glucose (UA) Negative (NEGATIVE) 06/11/17 16:10 Urine Ketones 1+ (NEGATIVE) 06/11/17 16:10 Urine Occult Blood 5+ (NEGATIVE) 06/11/17 16:10 Urine Nitrite Negative (NEGATIVE) 06/11/17 16:10 Urine Bilirubin Negative (NEGATIVE) 06/11/17 16:10 Urine Urobilinogen Normal (NORMAL) 06/11/17 16:10 Ur Leukocyte Esterase Negative (NEGATIVE) 06/11/17 16:10 Urine RBC 25-30 /HPF (NONE SEEN) 06/11/17 16:10 Urine WBC 0-2 /HPF (NONE SEEN) 06/11/17 16:10 Ur Squamous Epith Cells Rare /HPF (NEGATIVE) 06/11/17 16:10 Amorphous Sediment 1+ /HPF (NEGATIVE) 06/11/17 16:10 Urine Bacteria Trace /HPF (NEGATIVE) 06/11/17 16:10 Ur Culture Indicated? Yes/culture set up 06/11/17 16:10 Stool Description 75 cc brown loose 05/30/17 09:33 Stl Occult Blood (IFOB) Positive (NEGATIVE) A 05/30/17 09:33 Stool for White Cells Positive (NEGATIVE) A 05/30/17 09:02 Stl C. diff Tox B Gene Negative (NEGATIVE) 05/30/17 09:33 Stl C. diff [id number] Negative (NEGATIVE) 05/30/17 09:33 Cryptosporid parvum Ag Negative (NEGATIVE) 05/30/17 09:33 E. histolytica Antigen Negative (NEGATIVE) 05/30/17 09:33 Giardia lamblia Ag Negative (NEGATIVE) 05/30/17 09:33 Tissue Pathology To follow 05/29/17 18:00 Blood Type O POSITIVE 06/10/17 19:00 Antibody Screen Negative 06/10/17 19:00 Crossmatch See Detail 06/10/17 19:00 - Assessment and Plan 1: trauma Lt leg with compound Fx of ankle and metatarsals. wound Lt leg 8 x 5 cm. compartment syndrom Lt fot , s/p decompression and debridement. s/P skin grafs with good results 2: same local care ,. leg elevation . to have Dr Wilson check the foot in am . will keep the dressing in place for two days. - Problem Patient Problems: Patient Problems Anemia (Acute) D64.9 Bimalleolar ankle fracture (Acute) S82.843A Compartment syndrome of left lower extremity (Acute) T79.A22A Congestive heart failure (Acute) I50.9 Fibula fracture (Acute) S82.409A Laceration of left lower leg (Acute) S81.812A Pleural effusion (Acute) J90 Pneumonia (Acute) J18.9 Tibia fracture (Acute) S82.209A COPD (chronic obstructive pulmonary disease) (Chronic) J44.9
[2017-06-13] MEDS: PROCALAMINE 3 % 1,000 ML IV SCH (14:26)
[2017-06-13] MEDS: ATIVAN INJ 2 MG VIAL IVP PRN (18:05)
[2017-06-13] MEDS: NS 1000 ML 1,000 ML IV SCH (18:14)
[2017-06-13] MEDS: NEURONTIN TAB 600 MG PO SCH (21:11)
[2017-06-13] MEDS: LIPITOR TAB 40 MG PO SCH (21:11)
[2017-06-14] MEDS ORDERED: NS 100 ML IV + SPIKE MINIBAG* 100 ML IV ONE ×3 (04:36→22:59)
[2017-06-14] MEDS: ZOSYN VIAL 3.375 GM IV SCH ×3 (05:13→23:15)
[2017-06-14 05:32] LABS: BASOPHILS # (AUTO) 0.1 X10^3/uL (0.0-0.1); BASOPHILS % (AUTO) 1.1 % (0.2-1.0); EOSINOPHILS # (AUTO) 0.4 x10^3/uL (0.0-0.2); EOSINOPHILS % (AUTO) 4.1 % (0.9-2.9); HEMATOCRIT 28.9 % (36.0-47.0); HEMOGLOBIN 9.8 g/dL (12.0-16.0); LYMPHOCYTES # (AUTO) 0.7 X10^3/uL (1.3-2.9); LYMPHOCYTES % (AUTO) 7.8 % (21.0-51.0); MEAN CORPUSCULAR HEMOGLOBIN 31.7 pg (27.0-34.0); MEAN CORPUSCULAR HGB CONC 34.1 g/dL (33.0-35.0); MEAN CORPUSCULAR VOLUME 93.2 fL (80.0-100.0); MEAN PLATELET VOLUME 8.8 fL (7.4-11.0); MONOCYTES # (AUTO) 0.9 x10^3/uL (0.3-0.8); MONOCYTES % (AUTO) 10.1 % (0.0-13.0); NEUTROPHILS # (AUTO) 7.1 x10^3/uL (2.2-4.8); NEUTROPHILS % (AUTO) 76.9 % (42.0-75.0); PLATELET COUNT 449 X10^3/uL (150.0-450.0); RED CELL DISTRIBUTION WIDTH 16.5 % (11.6-16.5); WHITE BLOOD COUNT 9.3 X10^3/uL (3.6-10.0)
[2017-06-14 06:00] LABS: ALANINE AMINOTRANSFERASE 66 Units/L (12-78); ALBUMIN 3.8 g/dL (3.4-5.0); ALKALINE PHOSPHATASE 71 Units/L (46-116); ASPARTATE AMINO TRANSFERASE 79 Units/L (15-37); BLOOD UREA NITROGEN 19 mg/dL (7-18); CALCIUM 7.6 mg/dL (8.5-10.1); CARBON DIOXIDE 23.2 mmol/L (21-32); CHLORIDE 107 mmol/L (98-107); CREATININE 0.65 mg/dL (0.55-1.02); SODIUM 142 mmol/L (136-145); TOTAL PROTEIN 6.6 g/dL (6.4-8.2); eGFR BLACK RACES > 60 (>60); eGFR NON BLACK RACES > 60 (>60)
--- NOTE | 2017-06-14 08:14 | RAD ---
Examination: Portable AP chest History: SOB pneumonia Comparison 06/12/2017 Findings: Continued normal heart size with deviation of the heart and mediastinum to the right of mid line. Persistent airspace disease and pleural reaction right base. Increasing infiltrate or edema thr oughout the left lung. No complicating pneumothorax. Stable position of right subclavian catheter. Impression: Stable appearance of right basal opacities. Increasing infiltrate or edema left lung sinc e prior study. Reported By:
[2017-06-14] MEDS: PROTONIX INJ 40 MG VIAL IVP SCH ×2 (08:21→23:15)
[2017-06-14] MEDS: ALBUMIN HUMAN 25%- 100ML 100 ML IV SCH (08:22)
[2017-06-14] MEDS: LOVENOX INJ 30 MG SYR SC SCH ×2 (08:22→23:15)
[2017-06-14] MEDS: NICOTINE PATCH TD SCH (08:22)
[2017-06-14] MEDS: DIFLUCAN 200 MG IV PREMIX* 200 MG/100 ML BAG IV SCH (08:22)
[2017-06-14] MEDS: PEPCID 20 MG IV PREMIX* 20 MG/50 ML BAG IV SCH ×2 (08:22→23:15)
[2017-06-14] MEDS: COLACE CAP 100 MG PO SCH ×2 (08:26→23:34)
[2017-06-14] MEDS: CYMBALTA PO SCH (08:31)
[2017-06-14] MEDS: MEGACE PO SCH ×2 (08:32→23:33)
[2017-06-14] MEDS: MILK OF MAGNESIA PO SCH ×2 (08:32→23:33)
[2017-06-14] MEDS: NEURONTIN CAP 300 MG PO SCH (08:32)
[2017-06-14] MEDS: MAGIC MOUTHWASH MT SCH ×4 (08:32→23:33)
[2017-06-14] MEDS: IMURAN PO SCH (08:32)
[2017-06-14] MEDS: ESTRACE PO SCH (08:32)
[2017-06-14] MEDS: OSCAL+D or CALTRATE+D PO SCH (08:33)
[2017-06-14] MEDS: SYNTHROID 100 mcg TAB PO SCH (08:33)
[2017-06-14] MEDS: BROVANA IN SCH ×2 (08:36→20:47)
[2017-06-14] MEDS: XOPENEX 1.25 MG/3 ML NEBULE NEB SCH ×4 (08:36→20:48)
[2017-06-14] MEDS: PULMICORT NEB TX 0.5 MG NEB SCH ×2 (08:36→20:48)
[2017-06-14] MEDS: PROCALAMINE 3 % 1,000 ML IV SCH (13:17)
[2017-06-14] MEDS: NS 1000 ML 1,000 ML IV SCH (17:55)
[2017-06-14] MEDS: ATIVAN INJ 2 MG VIAL IVP PRN ×2 (18:52→23:20)
[2017-06-14] MEDS: NEURONTIN TAB 600 MG PO SCH (23:33)
[2017-06-14] MEDS: LIPITOR TAB 40 MG PO SCH (23:34)
[2017-06-15] MEDS: DILAUDID INJ IVP PRN ×3 (00:43→17:49)
[2017-06-15] MEDS ORDERED: NS 100 ML IV + SPIKE MINIBAG* 100 ML IV ONE ×3 (05:45→21:11)
[2017-06-15] MEDS: ZOSYN VIAL 3.375 GM IV SCH ×3 (06:06→21:21)
[2017-06-15 06:28] LABS: BASOPHILS # (AUTO) 0.1 X10^3/uL (0.0-0.1); BASOPHILS % (AUTO) 1.1 % (0.2-1.0); EOSINOPHILS # (AUTO) 0.3 x10^3/uL (0.0-0.2); EOSINOPHILS % (AUTO) 2.4 % (0.9-2.9); HEMATOCRIT 28.7 % (36.0-47.0); HEMOGLOBIN 9.7 g/dL (12.0-16.0); LYMPHOCYTES # (AUTO) 0.8 X10^3/uL (1.3-2.9); LYMPHOCYTES % (AUTO) 7.8 % (21.0-51.0); MEAN CORPUSCULAR HEMOGLOBIN 31.4 pg (27.0-34.0); MEAN CORPUSCULAR HGB CONC 33.7 g/dL (33.0-35.0); MEAN CORPUSCULAR VOLUME 93.3 fL (80.0-100.0); MEAN PLATELET VOLUME 9.3 fL (7.4-11.0); MONOCYTES % (AUTO) 9.5 % (0.0-13.0); NEUTROPHILS # (AUTO) 8.3 x10^3/uL (2.2-4.8); NEUTROPHILS % (AUTO) 79.2 % (42.0-75.0); PLATELET COUNT 469 X10^3/uL (150.0-450.0); RED BLOOD COUNT 3.08 X10^6/uL (3.5-5.4); RED CELL DISTRIBUTION WIDTH 16.5 % (11.6-16.5); WHITE BLOOD COUNT 10.5 X10^3/uL (3.6-10.0)
[2017-06-15 06:30] LABS: ALANINE AMINOTRANSFERASE 68 Units/L (12-78); ALBUMIN 3.9 g/dL (3.4-5.0); ALKALINE PHOSPHATASE 72 Units/L (46-116); ASPARTATE AMINO TRANSFERASE 73 Units/L (15-37); BLOOD UREA NITROGEN 19 mg/dL (7-18); CALCIUM 7.8 mg/dL (8.5-10.1); CARBON DIOXIDE 24.1 mmol/L (21-32); CHLORIDE 107 mmol/L (98-107); CREATININE 0.68 mg/dL (0.55-1.02); SODIUM 143 mmol/L (136-145); TOTAL PROTEIN 6.7 g/dL (6.4-8.2); eGFR BLACK RACES > 60 (>60); eGFR NON BLACK RACES > 60 (>60)
--- NOTE | 2017-06-15 07:22 | RAD ---
06/14/2017 History: Shortness of breath, pneumonia, comparison Study: AP chest Findings: Single chest view shows the cardiac silhouette to be at upper limits normal. The right subc lavian catheter remains in place. Bilateral interstitial infiltrates are seen. Consolidation in the right base is seen. There is opacit y in the superior lateral left lung which has increased slightly. Blunting of the right costophrenic angle is seen compatible with fluid. Impression: 1. Persistent bilateral interstitial infiltrates. 2. Persistent right basilar consolidation suggestive of pneumonia. 3. Increasing consolidation superior lateral left lung Reported By:
[2017-06-15] MEDS: LOVENOX INJ 30 MG SYR SC SCH ×2 (08:19→21:25)
[2017-06-15] MEDS: NS 1000 ML 1,000 ML IV SCH ×2 (08:20→18:07)
[2017-06-15] MEDS: DIFLUCAN 200 MG IV PREMIX* 200 MG/100 ML BAG IV SCH (08:20)
[2017-06-15] MEDS: PEPCID 20 MG IV PREMIX* 20 MG/50 ML BAG IV SCH ×2 (08:20→21:15)
[2017-06-15] MEDS: NICOTINE PATCH TD SCH (08:21)
[2017-06-15] MEDS: PROTONIX INJ 40 MG VIAL IVP SCH ×2 (08:21→21:17)
[2017-06-15] MEDS: BROVANA IN SCH ×2 (08:30→21:07)
[2017-06-15] MEDS: PULMICORT NEB TX 0.5 MG NEB SCH ×2 (08:30→21:07)
[2017-06-15] MEDS: XOPENEX 1.25 MG/3 ML NEBULE NEB SCH ×5 (08:30→21:07)
[2017-06-15] MEDS: ALBUMIN HUMAN 25%- 100ML 100 ML IV SCH (08:31)
[2017-06-15] MEDS: COLACE CAP 100 MG PO SCH ×2 (08:43→21:23)
[2017-06-15] MEDS: OSCAL+D or CALTRATE+D PO SCH (08:43)
[2017-06-15] MEDS: IMURAN PO SCH (08:44)
[2017-06-15] MEDS: MEGACE PO SCH ×2 (08:44→21:24)
[2017-06-15] MEDS: ESTRACE PO SCH (08:44)
[2017-06-15] MEDS: MAGIC MOUTHWASH MT SCH ×4 (08:44→21:24)
[2017-06-15] MEDS: NEURONTIN CAP 300 MG PO SCH (08:44)
[2017-06-15] MEDS: SYNTHROID 100 mcg TAB PO SCH (08:44)
[2017-06-15] MEDS: CYMBALTA PO SCH (08:44)
[2017-06-15] MEDS: MILK OF MAGNESIA PO SCH ×2 (08:45→21:24)
[2017-06-15] MEDS: PROCALAMINE 3 % 1,000 ML IV SCH (09:44)
--- NOTE | 2017-06-15 10:12 | RAD ---
History: Follow-up fracture Study: AP and lateral left ankle Comparison: May 29 Findings: Images start seen through an overlying partial cast. I can barely see the nondisplaced obli que fracture of the distal fibula. The ankle mortise appears symmetrical and intact. No significant c allus formation is discerned. Impression: Unchanged nondisplaced oblique fracture of the distal fibula Reported By:
--- NOTE | 2017-06-15 10:15 | RAD ---
History: Follow-up fracture Study: AP and lateral left tibia and fibula Comparison: May 29 Findings: There is a partial cast. The oblique fracture of the distal fibula is barely discerned. The lateral projection suggests an acute nondisplaced fracture of the distal tibia anteriorly. No callus is demonstrated. Impression: Distal anterior tibial small fracture and barely visible oblique fracture of the distal f ibula Reported By:
[2017-06-15] MEDS: ATIVAN INJ 2 MG VIAL IVP PRN ×5 (11:00→23:38)
--- NOTE | 2017-06-15 11:24 | PCM.PROG ---
Progress Note - Progress Note for Day of Date: 06/12/17 - Subjective Subjective: IS BEING TREATED FOR PNEUMONIA, CHF, OPEN TIBIA/ FIBULA FRACTURES OF THE LEFT LEG, LEFT LEG LACERATION, AND COMPARTMENT SYNDROME. SHE IS STATUS POST ORIF OF THE LEFT ANKLE AND SKIN GRAFT. TODAY, SHE IS LYING IN BED WITH EYES CLOSED, UTILIZING THE BIPAP. SHE AWAKENS TO VERBAL STIMULI AND RESPONDS APPROPRIATELY. FAMILY REPORTS THAT SHE CONTINUES WITH INTERMITTENT CONFUSION. ON EXAMINATION, HEART IS REGULAR IN RATE AND RHYTHM. BILATERAL LUNGS CONTINUE WITH SCATTERED WHEEZING AND RHONCHI THROUGHOUT. ABDOMEN IS ROUND, SOFT, AND NON-TENDER WITH NORMAL BOWEL SOUNDS NOTED IN ALL QUADRANTS. LEFT LEG IS NOTED WITH A DRESSING, DRY AND INTACT WITHOUT SIGNS OR SYMPTOMS OF INFECTION. HER VITALS THIS MORNING ARE 97.0-107-28-99%-157/75. LABS WERE OBTAINED THIS MORNING. ABNORMAL LAB VALUES INCLUDE THE FOLLOWING: WBC 10.6 , RBC 3.36, HGB 10.5, HCT 31.1, PLT COUNT 495, CALCIUM 7.0, TOTAL BILI 1.10, AST 42. A CHEST XRAY WAS OBTAINED THIS MORNING AND REPORTED VOLUME LOSS WITH ELEVATION OF THE RIGHT HEMIDAPHRAGM WITH A MILD LEFT TO RIGHT MEDIASTINAL SHIFT. STABLE BILATERAL FOCI OF ATELECTASIS OR INFILTRATE PRESENT WITH A RIGHT PLEURAL EFFUSION. NO SIGNIFICANT INTERVAL CHANGE. WE ENCOURAGE PATIENT TO EAT AND TAKE IN LIQUIDS. TODAY, WE WILL CONTINUE WITH IV ANTIBIOTICS, RESPIRATORY TREATMENTS , BIPAP, AND CURRENT PLAN OF CARE. WE WILL ALSO OBTAIN A BRAIN CT WITHOUT CONTRAST. OTHERWISE, WE WILL FOLLOW UP WITH AM LABS AND CONTINUE TO MONITOR PATIENT. - Past Medical Family Social History Past Med/Fam/Surg Hx: No changes since H&P Allergies: Allergies prochlorperazine Allergy (Verified 05/29/17 10:22) - Review of Systems ROS: No change since H&P - Vital Signs and I&O's Vital Signs: Temperature 98.1 F Pulse Rate [Apical] 99 Pulse Rate [Left Brachial] 111 Pulse Rate 108 Respiratory Rate 27 Blood Pressure [Right Arm] 130/62 Blood Pressure [Left Arm] 158/75 Blood Pressure 134/64 O2 Sat by Pulse Oximetry 99 Intake and Output: Intake & Output 06/12/17 06/13/17 06/14/17 06/15/17 11:59 11:59 11:59 11:59 Intake Total 5664 4414 1996 2905 Output Total 1840 7906 305 4357 Balance 235 734 9668 1556 - Physical Exam Oriented: Normal Eyes: Normal Ear: Normal Nose: Normal Throat: Normal, Dry Respiratory: Generalized, Diminished, Wheezes, Rhonchi Cardiovascular: Tachycardia, Edema : Normal Auscultation: Bowel Sounds: Normal Palpation: Normal Tenderness: Normal Skin: Red, Tender, Wound Musculoskeletal: Left, Leg, Ankle, Foot, Tender Psychiatric: Normal Mood Description: Calm Affect: Normal Speech Pattern: Unclear, Delayed - Laboratory and Diagnostics Result Diagrams: 06/15/17 05:30 06/15/17 05:30 Labs: 06/11/17 16:10 Urine,[place] Urine Culture - Final 06/10/17 10:51 Foot - Left Gram Stain - Final 06/10/17 10:51 Foot - Left Wound Culture - Final 06/01/17 10:15 Sputum - Expectorated Sputum Sputum Culture - Final 06/01/17 10:15 Sputum - Expectorated Sputum - Final 05/29/17 17:25 Leg - Left Gram Stain - Final 05/29/17 17:25 Leg - Left Wound Culture - Final 05/30/17 09:33 Stool Stool Culture - Final 05/30/17 09:33 Stool - Final Laboratory WBC 10.5 X10^3/uL (3.6-10.0) H 06/15/17 05:30 RBC 3.08 X10^6/uL (3.5-5.4) L 06/15/17 05:30 Hgb 9.7 g/dL (12.0-16.0) L 06/15/17 05:30 Hct 28.7 % (36.0-47.0) L 06/15/17 05:30 MCV 93.3 fL (80.0-100.0) 06/15/17 05:30 MCH 31.4 pg (27.0-34.0) 06/15/17 05:30 MCHC 33.7 g/dL (33.0-35.0) 06/15/17 05:30 RDW 16.5 % (11.6-16.5) 06/15/17 05:30 Plt Count 469 X10^3/uL (150.0-450.0) H 06/15/17 05:30 Plt Count Comment Adequate (ADEQUATE) 06/10/17 05:34 MPV 9.3 fL (7.4-11.0) 06/15/17 05:30 Neut % (Auto) 79.2 % (42.0-75.0) H 06/15/17 05:30 Lymph % (Auto) 7.8 % (21.0-51.0) L 06/15/17 05:30 [place] % (Auto) 9.5 % (0.0-13.0) 06/15/17 05:30 Eos % (Auto) 2.4 % (0.9-2.9) 06/15/17 05:30 Baso % (Auto) 1.1 % (0.2-1.0) H 06/15/17 05:30 Neut # (Auto) 8.3 x10^3/uL (2.2-4.8) H 06/15/17 05:30 Lymph # (Auto) 0.8 X10^3/uL (1.3-2.9) L 06/15/17 05:30 [place] # (Auto) 1.0 x10^3/uL (0.3-0.8) H 06/15/17 05:30 Eos # (Auto) 0.3 x10^3/uL (0.0-0.2) H 06/15/17 05:30 Baso # (Auto) 0.1 X10^3/uL (0.0-0.1) 06/15/17 05:30 Absolute Nucleated RBC 0.0 /100WBC 06/15/17 05:30 Hypochromasia 1+ A 06/07/17 05:20 Anisocytosis 1+ A 06/07/17 05:20 Plt Morphology Comment Normal (NORMAL) 06/10/17 05:34 RBC Morphology Normal (NORMAL) 06/10/17 05:34 Sample Site Rrad 06/10/17 05:38 ABG pH 7.540 (7.35-7.45) H 06/10/17 05:38 ABG pCO2 40.0 mmHg (35.0-45.0) 06/10/17 05:38 ABG pO2 77.0 mmHg (80.0-100.0) L 06/10/17 05:38 ABG HCO3 34.2 mmol/L (22-26) H* 06/10/17 05:38 ABG O2 Saturation 97.0 % (90-100) 06/10/17 05:38 ABG Base Excess 10.7 mmol/L (-2.0-2.0) H 06/10/17 05:38 Kvng Test Pos 06/10/17 05:38 A-a Gradient 123.0 mmHg 06/10/17 05:38 FiO2 35.000 06/10/17 05:38 Blood Gas Comments Miguel abg well-mtf 06/10/17 05:38 Sodium 143 mmol/L (136-145) 06/15/17 05:30 Corrected Sodium TNP 06/15/17 05:30 Potassium 3.7 mmol/L (3.5-5.1) 06/15/17 05:30 Chloride 107 mmol/L (98-107) 06/15/17 05:30 Carbon Dioxide 24.1 mmol/L (21-32) 06/15/17 05:30 BUN 19 mg/dL (7-18) H 06/15/17 05:30 Creatinine 0.68 mg/dL (0.55-1.02) 06/15/17 05:30 POC Glucose (mg/dL) 141 mg/dL (65-99) H 06/08/17 05:23 Est GFR (MDRD) Af Amer > 60 (>60) 06/15/17 05:30 Est GFR (MDRD) Non-Af > 60 (>60) 06/15/17 05:30 Glucose 103 mg/dL (65-99) H 06/15/17 05:30 Lactic Acid 1.6 mmol/L (0.4-2.0) 06/08/17 06:15 Iron 21 ug/dL (50-175) L 06/07/17 05:25 Transferrin 139 mg/dL (202-364) L 06/07/17 05:25 Ferritin 107 ng/mL (8-252) 06/07/17 05:25 Calcium 7.8 mg/dL (8.5-10.1) L 06/15/17 05:30 Corrected Calcium TNP 06/15/17 05:30 Magnesium 2.1 mg/dL (1.7-2.9) 06/14/17 04:28 Creatine Kinase 688 Units/L (26-192) H 06/08/17 04:45 CK-MB (CK-2) 1.6 ng/mL (0-4.0) 06/08/17 04:45 Total Bilirubin 1.00 mg/dL (0.2-1.0) 06/15/17 05:30 CK/CKMB % Calc 0.2 % (<4) 06/08/17 04:45 Troponin I 0.16 ng/mL (0-1.5) 06/08/17 04:45 AST 73 Units/L (15-37) H 06/15/17 05:30 ALT 68 Units/L (12-78) 06/15/17 05:30 Alkaline Phosphatase 72 Units/L (46-116) 06/15/17 05:30 Total Protein 6.7 g/dL (6.4-8.2) 06/15/17 05:30 Albumin 3.9 g/dL (3.4-5.0) 06/15/17 05:30 Globulin 2.8 g/dL (2.5-4.5) 06/15/17 05:30 Albumin/Globulin Ratio 1.4 Ratio (1.1-2.1) 06/15/17 05:30 Vitamin B12 832 pg/mL (193-986) 06/07/17 05:25 Folate 19.0 ng/mL (>8.6) 06/07/17 05:25 Specimen Type Catherized urine 06/11/17 16:10 Urine Color Yellow (YELLOW) 06/11/17 16:10 Urine Appearance Clear (CLEAR) 06/11/17 16:10 Urine pH 8.0 (5.0 - 8.0) 06/11/17 16:10 Ur Specific [place] 1.015 (1.000-1.030) 06/11/17 16:10 Urine Protein 2+ (NEGATIVE) 06/11/17 16:10 Urine Glucose (UA) Negative (NEGATIVE) 06/11/17 16:10 Urine Ketones 1+ (NEGATIVE) 06/11/17 16:10 Urine Occult Blood 5+ (NEGATIVE) 06/11/17 16:10 Urine Nitrite Negative (NEGATIVE) 06/11/17 16:10 Urine Bilirubin Negative (NEGATIVE) 06/11/17 16:10 Urine Urobilinogen Normal (NORMAL) 06/11/17 16:10 Ur Leukocyte Esterase Negative (NEGATIVE) 06/11/17 16:10 Urine RBC 25-30 /HPF (NONE SEEN) 06/11/17 16:10 Urine WBC 0-2 /HPF (NONE SEEN) 06/11/17 16:10 Ur Squamous Epith Cells Rare /HPF (NEGATIVE) 06/11/17 16:10 Amorphous Sediment 1+ /HPF (NEGATIVE) 06/11/17 16:10 Urine Bacteria Trace /HPF (NEGATIVE) 06/11/17 16:10 Ur Culture Indicated? Yes/culture set up 06/11/17 16:10 Stool for White Cells Positive (NEGATIVE) A 05/30/17 09:02 Stool Description 3g,dk brown,mucoid 06/14/17 11:22 Stl Occult Blood (IFOB) Negative (NEGATIVE) 06/14/17 11:22 Stl C. diff Tox B Gene Negative (NEGATIVE) 06/14/17 11:22 Stl C. diff [id number] Negative (NEGATIVE) 06/14/17 11:22 Cryptosporid parvum Ag Negative (NEGATIVE) 05/30/17 09:33 E. histolytica Antigen Negative (NEGATIVE) 05/30/17 09:33 Giardia lamblia Ag Negative (NEGATIVE) 05/30/17 09:33 Tissue Pathology To follow 05/29/17 18:00 Blood Type O POSITIVE 06/10/17 19:00 Antibody Screen Negative 06/10/17 19:00 Crossmatch See Detail 06/10/17 19:00 - Plan (1) Pneumonia Status: Acute Qualifiers: Pneumonia type: due to unspecified organism Laterality: right Lung location: lower lobe of lung Qualified Code(s): J18.1 - Lobar pneumonia, unspecified organism Plan: PNEUMONIA PATHWAY, CONTINUE IV ANTIBIOTICS, RESPIRATORY TREATMENTS, AND SUPPLEMENTAL OXYGEN, CONTINUE TO MONITOR (2) Intermittent confusion Status: Acute Plan: OBTAIN REPEAT BRAIN CT, CONTINUE TO MONITOR (3) Anemia Status: Acute Qualifiers: Anemia type: iron deficiency Iron deficiency anemia type: unspecified iron deficiency Qualified Code(s): D50.9 - Iron deficiency anemia, unspecified Plan: CONTINUE TO MONITOR (4) Bimalleolar ankle fracture Status: Acute Qualifiers: Encounter type: initial encounter Fracture type: open Laterality: left Plan: S/P ORIF CONTINUE IV PAIN MEDICATION, CONTINUE TO MONITOR (5) Fibula fracture Status: Acute Qualifiers: Encounter type: initial encounter Fibula location: distal Fracture type: open Fracture morphology: unspecified fracture morphology Laterality: left Plan: OCL SPLINT, TORADOL 15MG IV Q6H, PERCOCET 5/325 2 TABS Q4H PRN PAIN, CONTINUE TO MONITOR (6) Tibia fracture Status: Acute Qualifiers: Encounter type: initial encounter Tibia location: distal Fracture type: open Fracture morphology: unspecified fracture morphology Laterality: left Plan: ORTHOPEDIC CONSULT, TORADOL 15MG IV Q6H, PERCOCET 5/325 2 TABS Q4H PRN PAIN, CONTINUE TO MONITOR (7) Laceration of left lower leg Status: Acute Qualifiers: Encounter type: initial encounter Qualified Code(s): S81.812A - Laceration without foreign body, left lower leg, initial encounter Plan: WOUND CARE, CONTINUE TO MONITOR (8) Compartment syndrome of left lower extremity Status: Acute Qualifiers: Encounter type: initial encounter Qualified Code(s): T79.A22A - Traumatic compartment syndrome of left lower extremity, initial encounter Plan: ORTHOPEDIC CONSULT, CONTINUE TO MONITOR (9) Depression Status: Chronic Qualifiers: Depression Type: major depressive disorder Major depression recurrence: recurrent Active/Remission status: currently active Major depression episode severity: unspecified Qualified Code(s): F33.9 - Major depressive disorder, recurrent, unspecified Plan: CONTINUE CYMBALTA, CONTINUE TO MONITOR (10) Hx of Crohn's disease Status: Chronic Plan: CONTINUE IMURAN, CONTINUE TO MONITOR (11) Hyperlipidemia Status: Chronic Qualifiers: Hyperlipidemia type: mixed hyperlipidemia Qualified Code(s): E78.2 - Mixed hyperlipidemia Plan: CONTINUE LIPITOR, CONTINUE TO MONITOR (12) Hypothyroidism Status: Chronic Qualifiers: Hypothyroidism type: subclinical iodine-deficiency Qualified Code(s): E02 - Subclinical iodine-deficiency hypothyroidism Plan: CONTINUE SYNTHROID, CONTINUE TO MONITOR (13) COPD (chronic obstructive pulmonary disease) Status: Chronic Plan: RESP THERAPY, SUPPLEMENTAL O2. JET NEBS, AM CXR
--- NOTE | 2017-06-15 11:50 | PCM.PROG ---
Progress Note - Progress Note for Day of Date: 06/15/17 - Subjective Subjective: IS BEING TREATED FOR PNEUMONIA, CHF, OPEN TIBIA/ FIBULA FRACTURES OF THE LEFT LEG, LEFT LEG LACERATION, AND COMPARTMENT SYNDROME. SHE IS STATUS POST ORIF OF THE LEFT ANKLE AND SKIN GRAFT. TODAY, SHE IS LYING IN BED WITH EYES CLOSED, UTILIZING THE BIPAP. SHE AWAKENS TO VERBAL STIMULI BUT DOES NOT SPEAK. FAMILY REPORTS THAT PATIENT FELL OUT OF THE BED YESTERDAY AND CONTINUES WITH INTERMITTENT CONFUSION. STAFF REPORTS THAT PATIENT HAS REMOVED BIPAP SEVERAL TIMES. WHEN BIPAP IS REMOVED, OXYGEN SATURATIONS FALL TO LOW 80S. ON EXAMINATION, HEART IS REGULAR IN RATE AND RHYTHM. BILATERAL LUNGS CONTINUE WITH SCATTERED WHEEZING AND RHONCHI THROUGHOUT. ABDOMEN IS ROUND , SOFT, AND NON-TENDER WITH NORMAL BOWEL SOUNDS NOTED IN ALL QUADRANTS. LEFT LEG IS NOTED WITH A DRESSING, DRY AND INTACT WITHOUT SIGNS OR SYMPTOMS OF INFECTION. HER VITALS THIS MORNING ARE 98.1-110-19-99%BIPAP, 170/77. LABS WERE OBTAINED THIS MORNING. ABNORMAL LAB VALUES INCLUDE THE FOLLOWING: WBC 10.5, RBC 3.08, HGB 9.7, HCT 28.7, BUN 19, CREATININE 0.68, GLUCOSE 103, CALCIUM 7.8, AST 73. A CHEST XRAY WAS OBTAINED THIS MORNING AND REPORTS PERSISENT BILATERAL INTERSTITIAL INFILTRATES, PERSISTENT RIGHT BASILAR CONSOLIDATION SUGGESTIVE OF PNEUMONIA, INCREASING CONSOLIDATION SUPERIOR LATERAL LEFT LUNG. WE ENCOURAGE PATIENT TO EAT AND TAKE IN LIQUIDS. TODAY, WE WILL CONTINUE WITH IV ANTIBIOTICS , RESPIRATORY TREATMENTS , BIPAP, AND CURRENT PLAN OF CARE. WE WILL OBTAIN A LEFT LEG/ANKLE XRAY. OTHERWISE, WE WILL FOLLOW UP WITH AM LABS AND CONTINUE TO MONITOR PATIENT. - Past Medical Family Social History Past Med/Fam/Surg Hx: No changes since H&P Allergies: Allergies prochlorperazine Allergy (Verified 05/29/17 10:22) - Review of Systems ROS: No change since H&P - Vital Signs and I&O's Vital Signs: Temperature 98.1 F Pulse Rate [Apical] 104 Pulse Rate [Left Brachial] 111 Pulse Rate 108 Respiratory Rate 26 Blood Pressure [Right Arm] 130/62 Blood Pressure [Left Arm] 140/80 Blood Pressure 134/64 O2 Sat by Pulse Oximetry 100 Intake and Output: Intake & Output 06/12/17 06/13/17 06/14/17 06/15/17 11:59 11:59 11:59 11:59 Intake Total 2943 4666 1996 2905 Output Total 1450 9943 879 0373 Balance 887 160 0124 1556 - Physical Exam Oriented: Unable to test Eyes: Normal Ear: Normal Nose: Normal Throat: Normal, Dry Respiratory: Generalized, Diminished, Wheezes, Rhonchi Cardiovascular: Tachycardia, Edema : Normal Auscultation: Bowel Sounds: Normal Palpation: Normal Tenderness: Normal Skin: Red, Tender, Wound Musculoskeletal: Left, Leg, Ankle, Foot, Tender Psychiatric: Normal Mood Description: Calm Affect: Normal Speech Pattern: Unclear, Delayed - Laboratory and Diagnostics Result Diagrams: 06/15/17 05:30 06/15/17 05:30 Labs: 06/11/17 16:10 Urine,[place] Urine Culture - Final 06/10/17 10:51 Foot - Left Gram Stain - Final 06/10/17 10:51 Foot - Left Wound Culture - Final 06/01/17 10:15 Sputum - Expectorated Sputum Sputum Culture - Final 06/01/17 10:15 Sputum - Expectorated Sputum - Final 05/29/17 17:25 Leg - Left Gram Stain - Final 05/29/17 17:25 Leg - Left Wound Culture - Final 05/30/17 09:33 Stool Stool Culture - Final 05/30/17 09:33 Stool - Final Laboratory WBC 10.5 X10^3/uL (3.6-10.0) H 06/15/17 05:30 RBC 3.08 X10^6/uL (3.5-5.4) L 06/15/17 05:30 Hgb 9.7 g/dL (12.0-16.0) L 06/15/17 05:30 Hct 28.7 % (36.0-47.0) L 06/15/17 05:30 MCV 93.3 fL (80.0-100.0) 06/15/17 05:30 MCH 31.4 pg (27.0-34.0) 06/15/17 05:30 MCHC 33.7 g/dL (33.0-35.0) 06/15/17 05:30 RDW 16.5 % (11.6-16.5) 06/15/17 05:30 Plt Count 469 X10^3/uL (150.0-450.0) H 06/15/17 05:30 Plt Count Comment Adequate (ADEQUATE) 06/10/17 05:34 MPV 9.3 fL (7.4-11.0) 06/15/17 05:30 Neut % (Auto) 79.2 % (42.0-75.0) H 06/15/17 05:30 Lymph % (Auto) 7.8 % (21.0-51.0) L 06/15/17 05:30 [place] % (Auto) 9.5 % (0.0-13.0) 06/15/17 05:30 Eos % (Auto) 2.4 % (0.9-2.9) 06/15/17 05:30 Baso % (Auto) 1.1 % (0.2-1.0) H 06/15/17 05:30 Neut # (Auto) 8.3 x10^3/uL (2.2-4.8) H 06/15/17 05:30 Lymph # (Auto) 0.8 X10^3/uL (1.3-2.9) L 06/15/17 05:30 [place] # (Auto) 1.0 x10^3/uL (0.3-0.8) H 06/15/17 05:30 Eos # (Auto) 0.3 x10^3/uL (0.0-0.2) H 06/15/17 05:30 Baso # (Auto) 0.1 X10^3/uL (0.0-0.1) 06/15/17 05:30 Absolute Nucleated RBC 0.0 /100WBC 06/15/17 05:30 Hypochromasia 1+ A 06/07/17 05:20 Anisocytosis 1+ A 06/07/17 05:20 Plt Morphology Comment Normal (NORMAL) 06/10/17 05:34 RBC Morphology Normal (NORMAL) 06/10/17 05:34 Sample Site Rrad 06/10/17 05:38 ABG pH 7.540 (7.35-7.45) H 06/10/17 05:38 ABG pCO2 40.0 mmHg (35.0-45.0) 06/10/17 05:38 ABG pO2 77.0 mmHg (80.0-100.0) L 06/10/17 05:38 ABG HCO3 34.2 mmol/L (22-26) H* 06/10/17 05:38 ABG O2 Saturation 97.0 % (90-100) 06/10/17 05:38 ABG Base Excess 10.7 mmol/L (-2.0-2.0) H 06/10/17 05:38 Kvng Test Pos 06/10/17 05:38 A-a Gradient 123.0 mmHg 06/10/17 05:38 FiO2 35.000 06/10/17 05:38 Blood Gas Comments Miguel abg well-mtf 06/10/17 05:38 Sodium 143 mmol/L (136-145) 06/15/17 05:30 Corrected Sodium TNP 06/15/17 05:30 Potassium 3.7 mmol/L (3.5-5.1) 06/15/17 05:30 Chloride 107 mmol/L (98-107) 06/15/17 05:30 Carbon Dioxide 24.1 mmol/L (21-32) 06/15/17 05:30 BUN 19 mg/dL (7-18) H 06/15/17 05:30 Creatinine 0.68 mg/dL (0.55-1.02) 06/15/17 05:30 POC Glucose (mg/dL) 141 mg/dL (65-99) H 06/08/17 05:23 Est GFR (MDRD) Af Amer > 60 (>60) 06/15/17 05:30 Est GFR (MDRD) Non-Af > 60 (>60) 06/15/17 05:30 Glucose 103 mg/dL (65-99) H 06/15/17 05:30 Lactic Acid 1.6 mmol/L (0.4-2.0) 06/08/17 06:15 Iron 21 ug/dL (50-175) L 06/07/17 05:25 Transferrin 139 mg/dL (202-364) L 06/07/17 05:25 Ferritin 107 ng/mL (8-252) 06/07/17 05:25 Calcium 7.8 mg/dL (8.5-10.1) L 06/15/17 05:30 Corrected Calcium TNP 06/15/17 05:30 Magnesium 2.1 mg/dL (1.7-2.9) 06/14/17 04:28 Creatine Kinase 688 Units/L (26-192) H 06/08/17 04:45 CK-MB (CK-2) 1.6 ng/mL (0-4.0) 06/08/17 04:45 Total Bilirubin 1.00 mg/dL (0.2-1.0) 06/15/17 05:30 CK/CKMB % Calc 0.2 % (<4) 06/08/17 04:45 Troponin I 0.16 ng/mL (0-1.5) 06/08/17 04:45 AST 73 Units/L (15-37) H 06/15/17 05:30 ALT 68 Units/L (12-78) 06/15/17 05:30 Alkaline Phosphatase 72 Units/L (46-116) 06/15/17 05:30 Total Protein 6.7 g/dL (6.4-8.2) 06/15/17 05:30 Albumin 3.9 g/dL (3.4-5.0) 06/15/17 05:30 Globulin 2.8 g/dL (2.5-4.5) 06/15/17 05:30 Albumin/Globulin Ratio 1.4 Ratio (1.1-2.1) 06/15/17 05:30 Vitamin B12 832 pg/mL (193-986) 06/07/17 05:25 Folate 19.0 ng/mL (>8.6) 06/07/17 05:25 Specimen Type Catherized urine 06/11/17 16:10 Urine Color Yellow (YELLOW) 06/11/17 16:10 Urine Appearance Clear (CLEAR) 06/11/17 16:10 Urine pH 8.0 (5.0 - 8.0) 06/11/17 16:10 Ur Specific [place] 1.015 (1.000-1.030) 06/11/17 16:10 Urine Protein 2+ (NEGATIVE) 06/11/17 16:10 Urine Glucose (UA) Negative (NEGATIVE) 06/11/17 16:10 Urine Ketones 1+ (NEGATIVE) 06/11/17 16:10 Urine Occult Blood 5+ (NEGATIVE) 06/11/17 16:10 Urine Nitrite Negative (NEGATIVE) 06/11/17 16:10 Urine Bilirubin Negative (NEGATIVE) 06/11/17 16:10 Urine Urobilinogen Normal (NORMAL) 06/11/17 16:10 Ur Leukocyte Esterase Negative (NEGATIVE) 06/11/17 16:10 Urine RBC 25-30 /HPF (NONE SEEN) 06/11/17 16:10 Urine WBC 0-2 /HPF (NONE SEEN) 06/11/17 16:10 Ur Squamous Epith Cells Rare /HPF (NEGATIVE) 06/11/17 16:10 Amorphous Sediment 1+ /HPF (NEGATIVE) 06/11/17 16:10 Urine Bacteria Trace /HPF (NEGATIVE) 06/11/17 16:10 Ur Culture Indicated? Yes/culture set up 06/11/17 16:10 Stool for White Cells Positive (NEGATIVE) A 05/30/17 09:02 Stool Description 3g,dk brown,mucoid 06/14/17 11:22 Stl Occult Blood (IFOB) Negative (NEGATIVE) 06/14/17 11:22 Stl C. diff Tox B Gene Negative (NEGATIVE) 06/14/17 11:22 Stl C. diff [id number] Negative (NEGATIVE) 06/14/17 11:22 Cryptosporid parvum Ag Negative (NEGATIVE) 05/30/17 09:33 E. histolytica Antigen Negative (NEGATIVE) 05/30/17 09:33 Giardia lamblia Ag Negative (NEGATIVE) 05/30/17 09:33 Tissue Pathology To follow 05/29/17 18:00 Blood Type O POSITIVE 06/10/17 19:00 Antibody Screen Negative 06/10/17 19:00 Crossmatch See Detail 06/10/17 19:00 - Plan (1) Pneumonia Status: Acute Qualifiers: Pneumonia type: due to unspecified organism Laterality: right Lung location: lower lobe of lung Qualified Code(s): J18.1 - Lobar pneumonia, unspecified organism Plan: PNEUMONIA PATHWAY, CONTINUE IV ANTIBIOTICS, RESPIRATORY TREATMENTS, AND SUPPLEMENTAL OXYGEN, CONTINUE TO MONITOR (2) Intermittent confusion Status: Acute Plan: CONTINUE TO MONITOR (3) Anemia Status: Acute Qualifiers: Anemia type: iron deficiency Iron deficiency anemia type: unspecified iron deficiency Qualified Code(s): D50.9 - Iron deficiency anemia, unspecified Plan: CONTINUE TO MONITOR (4) Bimalleolar ankle fracture Status: Acute Qualifiers: Encounter type: initial encounter Fracture type: open Laterality: left Plan: S/P ORIF CONTINUE IV PAIN MEDICATION, CONTINUE TO MONITOR (5) Fibula fracture Status: Acute Qualifiers: Encounter type: initial encounter Fibula location: distal Fracture type: open Fracture morphology: unspecified fracture morphology Laterality: left Plan: OCL SPLINT, TORADOL 15MG IV Q6H, PERCOCET 5/325 2 TABS Q4H PRN PAIN, CONTINUE TO MONITOR (6) Tibia fracture Status: Acute Qualifiers: Encounter type: initial encounter Tibia location: distal Fracture type: open Fracture morphology: unspecified fracture morphology Laterality: left Plan: ORTHOPEDIC CONSULT, TORADOL 15MG IV Q6H, PERCOCET 5/325 2 TABS Q4H PRN PAIN, CONTINUE TO MONITOR (7) Laceration of left lower leg Status: Acute Qualifiers: Encounter type: initial encounter Qualified Code(s): S81.812A - Laceration without foreign body, left lower leg, initial encounter Plan: WOUND CARE, CONTINUE TO MONITOR (8) Compartment syndrome of left lower extremity Status: Acute Qualifiers: Encounter type: initial encounter Qualified Code(s): T79.A22A - Traumatic compartment syndrome of left lower extremity, initial encounter Plan: ORTHOPEDIC CONSULT, CONTINUE TO MONITOR (9) Depression Status: Chronic Qualifiers: Depression Type: major depressive disorder Major depression recurrence: recurrent Active/Remission status: currently active Major depression episode severity: unspecified Qualified Code(s): F33.9 - Major depressive disorder, recurrent, unspecified Plan: CONTINUE CYMBALTA, CONTINUE TO MONITOR (10) Hx of Crohn's disease Status: Chronic Plan: CONTINUE IMURAN, CONTINUE TO MONITOR (11) Hyperlipidemia Status: Chronic Qualifiers: Hyperlipidemia type: mixed hyperlipidemia Qualified Code(s): E78.2 - Mixed hyperlipidemia Plan: CONTINUE LIPITOR, CONTINUE TO MONITOR (12) Hypothyroidism Status: Chronic Qualifiers: Hypothyroidism type: subclinical iodine-deficiency Qualified Code(s): E02 - Subclinical iodine-deficiency hypothyroidism Plan: CONTINUE SYNTHROID, CONTINUE TO MONITOR (13) COPD (chronic obstructive pulmonary disease) Status: Chronic Plan: RESP THERAPY, SUPPLEMENTAL O2. JET NEBS, AM CXR
[2017-06-15] MEDS: LIPITOR TAB 40 MG PO SCH (21:23)
[2017-06-15] MEDS: NEURONTIN TAB 600 MG PO SCH (21:24)
[2017-06-16] MEDS: DILAUDID INJ IVP PRN ×5 (01:07→20:49)
[2017-06-16] MEDS ORDERED: NS 100 ML IV + SPIKE MINIBAG* 100 ML IV ONE ×3 (05:36→20:42)
[2017-06-16] MEDS: PROCALAMINE 3 % 1,000 ML IV SCH (05:39)
[2017-06-16] MEDS: ZOSYN VIAL 3.375 GM IV SCH ×3 (05:41→21:13)
[2017-06-16 06:14] LABS: BASOPHILS # (AUTO) 0.1 X10^3/uL (0.0-0.1); BASOPHILS % (AUTO) 1.3 % (0.2-1.0); EOSINOPHILS # (AUTO) 0.5 x10^3/uL (0.0-0.2); EOSINOPHILS % (AUTO) 5.5 % (0.9-2.9); HEMATOCRIT 27.1 % (36.0-47.0); HEMOGLOBIN 9.1 g/dL (12.0-16.0); LYMPHOCYTES # (AUTO) 0.9 X10^3/uL (1.3-2.9); LYMPHOCYTES % (AUTO) 9.8 % (21.0-51.0); MEAN CORPUSCULAR HEMOGLOBIN 31.7 pg (27.0-34.0); MEAN CORPUSCULAR HGB CONC 33.6 g/dL (33.0-35.0); MEAN CORPUSCULAR VOLUME 94.3 fL (80.0-100.0); MEAN PLATELET VOLUME 9.4 fL (7.4-11.0); MONOCYTES # (AUTO) 0.7 x10^3/uL (0.3-0.8); NEUTROPHILS % (AUTO) 75.4 % (42.0-75.0); PLATELET COUNT 353 X10^3/uL (150.0-450.0); RED BLOOD COUNT 2.88 X10^6/uL (3.5-5.4); RED CELL DISTRIBUTION WIDTH 16.9 % (11.6-16.5); WHITE BLOOD COUNT 9.3 X10^3/uL (3.6-10.0)
[2017-06-16 06:35] LABS: ALANINE AMINOTRANSFERASE 54 Units/L (12-78); ALBUMIN 3.7 g/dL (3.4-5.0); ALKALINE PHOSPHATASE 63 Units/L (46-116); ASPARTATE AMINO TRANSFERASE 50 Units/L (15-37); BLOOD UREA NITROGEN 16 mg/dL (7-18); CALCIUM 7.7 mg/dL (8.5-10.1); CARBON DIOXIDE 24.2 mmol/L (21-32); CHLORIDE 107 mmol/L (98-107); CREATININE 0.63 mg/dL (0.55-1.02); SODIUM 142 mmol/L (136-145); TOTAL PROTEIN 6.4 g/dL (6.4-8.2); eGFR BLACK RACES > 60 (>60); eGFR NON BLACK RACES > 60 (>60)
--- NOTE | 2017-06-16 07:23 | RAD ---
Exam: Chest, frontal view History: Shortness of breath. Pneumonia. Comparison: Previous chest radiograph from 06/15/2017 Findings: A right subclavian line is seen with the tip extending to the superior vena cava. Cardiomeg glenroy with mild vascular congestion is seen. Since previous exam, there has been interval development o f extensive infiltrate on the right. Right pleural effusion is noted as well. Mild cardiomegaly is pr esent. Impression: Cardiomegaly with mild vascular congestion. Interval development of right mid and lower lung infiltrate Enlarging right pleural effusion Reported By:
[2017-06-16] MEDS: PULMICORT NEB TX 0.5 MG NEB SCH ×2 (08:25→21:15)
[2017-06-16] MEDS: XOPENEX 1.25 MG/3 ML NEBULE NEB SCH ×4 (08:25→21:15)
[2017-06-16] MEDS: BROVANA IN SCH ×2 (08:25→21:15)
[2017-06-16] MEDS: NICOTINE PATCH TD SCH (08:28)
[2017-06-16] MEDS: DIFLUCAN 200 MG IV PREMIX* 200 MG/100 ML BAG IV SCH (08:28)
[2017-06-16] MEDS: ALBUMIN HUMAN 25%- 100ML 100 ML IV SCH (08:28)
[2017-06-16] MEDS: LOVENOX INJ 30 MG SYR SC SCH ×2 (08:28→21:02)
[2017-06-16] MEDS: PROTONIX INJ 40 MG VIAL IVP SCH ×2 (08:29→20:57)
[2017-06-16] MEDS: OSCAL+D or CALTRATE+D PO SCH (08:30)
[2017-06-16] MEDS: SYNTHROID 100 mcg TAB PO SCH (08:30)
[2017-06-16] MEDS: MILK OF MAGNESIA PO SCH ×2 (08:31→22:26)
[2017-06-16] MEDS: CYMBALTA PO SCH (08:31)
[2017-06-16] MEDS: NEURONTIN CAP 300 MG PO SCH (08:31)
[2017-06-16] MEDS: PEPCID 20 MG IV PREMIX* 20 MG/50 ML BAG IV SCH ×3 (08:31→21:00)
[2017-06-16] MEDS: MEGACE PO SCH ×2 (08:31→22:26)
[2017-06-16] MEDS: COLACE CAP 100 MG PO SCH ×2 (08:31→22:24)
[2017-06-16] MEDS: MAGIC MOUTHWASH MT SCH ×4 (08:32→22:25)
[2017-06-16] MEDS: IMURAN PO SCH (08:32)
[2017-06-16] MEDS: ESTRACE PO SCH (08:32)
[2017-06-16] MEDS: ATIVAN INJ 2 MG VIAL IVP PRN ×4 (09:05→22:44)
[2017-06-16] MEDS: LIPITOR TAB 40 MG PO SCH (22:25)
[2017-06-16] MEDS: NS 1000 ML 1,000 ML IV SCH (22:25)
[2017-06-16] MEDS: NEURONTIN TAB 600 MG PO SCH (22:26)
[2017-06-17] MEDS: DILAUDID INJ IVP PRN ×3 (00:38→09:20)
[2017-06-17] MEDS: ATIVAN INJ 2 MG VIAL IVP PRN ×2 (02:30→06:23)
[2017-06-17] MEDS ORDERED: NS 100 ML IV + SPIKE MINIBAG* 100 ML IV ONE (06:12)
[2017-06-17 06:19] LABS: BASOPHILS # (AUTO) 0.1 X10^3/uL (0.0-0.1); BASOPHILS % (AUTO) 0.9 % (0.2-1.0); EOSINOPHILS # (AUTO) 0.6 x10^3/uL (0.0-0.2); EOSINOPHILS % (AUTO) 6.5 % (0.9-2.9); HEMATOCRIT 26.7 % (36.0-47.0); LYMPHOCYTES # (AUTO) 0.7 X10^3/uL (1.3-2.9); LYMPHOCYTES % (AUTO) 7.5 % (21.0-51.0); MEAN CORPUSCULAR HEMOGLOBIN 31.6 pg (27.0-34.0); MEAN CORPUSCULAR HGB CONC 33.6 g/dL (33.0-35.0); MEAN CORPUSCULAR VOLUME 94.1 fL (80.0-100.0); MEAN PLATELET VOLUME 9.4 fL (7.4-11.0); MONOCYTES # (AUTO) 0.6 x10^3/uL (0.3-0.8); MONOCYTES % (AUTO) 5.9 % (0.0-13.0); NEUTROPHILS # (AUTO) 7.9 x10^3/uL (2.2-4.8); NEUTROPHILS % (AUTO) 79.2 % (42.0-75.0); PLATELET COUNT 342 X10^3/uL (150.0-450.0); RED BLOOD COUNT 2.84 X10^6/uL (3.5-5.4); RED CELL DISTRIBUTION WIDTH 16.4 % (11.6-16.5)
[2017-06-17] MEDS: ZOSYN VIAL 3.375 GM IV SCH (06:22)
[2017-06-17] MEDS: PROCALAMINE 3 % 1,000 ML IV SCH (06:22)
[2017-06-17] MEDS: NS 1000 ML 1,000 ML IV SCH (06:22)
[2017-06-17 06:37] LABS: ALANINE AMINOTRANSFERASE 41 Units/L (12-78); ALBUMIN 3.7 g/dL (3.4-5.0); ALKALINE PHOSPHATASE 76 Units/L (46-116); ASPARTATE AMINO TRANSFERASE 38 Units/L (15-37); BLOOD UREA NITROGEN 17 mg/dL (7-18); CALCIUM 7.9 mg/dL (8.5-10.1); CARBON DIOXIDE 26.1 mmol/L (21-32); CHLORIDE 107 mmol/L (98-107); CREATININE 0.62 mg/dL (0.55-1.02); SODIUM 143 mmol/L (136-145); TOTAL PROTEIN 6.6 g/dL (6.4-8.2); eGFR BLACK RACES > 60 (>60); eGFR NON BLACK RACES > 60 (>60)
[2017-06-17] MEDS: BROVANA IN SCH (09:19)
[2017-06-17] MEDS: XOPENEX 1.25 MG/3 ML NEBULE NEB SCH (09:19)
[2017-06-17] MEDS: PULMICORT NEB TX 0.5 MG NEB SCH (09:19)
[2017-06-17] MEDS: NEURONTIN CAP 300 MG PO SCH (09:24)
[2017-06-17] MEDS: SYNTHROID 100 mcg TAB PO SCH (09:24)
[2017-06-17] MEDS: COLACE CAP 100 MG PO SCH (09:24)
[2017-06-17] MEDS: OSCAL+D or CALTRATE+D PO SCH (09:25)
[2017-06-17] MEDS: CYMBALTA PO SCH (09:25)
[2017-06-17] MEDS: MILK OF MAGNESIA PO SCH (09:25)
[2017-06-17] MEDS: ESTRACE PO SCH (09:25)
[2017-06-17] MEDS: IMURAN PO SCH (09:25)
[2017-06-17] MEDS: MEGACE PO SCH (09:26)
[2017-06-17] MEDS: MAGIC MOUTHWASH MT SCH (09:26)
[2017-06-17] MEDS ORDERED: VERSED 100 MG in NS 100 ML IV 80 ML IV PRN ×2 (09:27→15:35)
[2017-06-17] MEDS ORDERED: MORPHINE SULFATE PCA 30 MG IVP PRN (09:27)
[2017-06-17] MEDS: DIFLUCAN 200 MG IV PREMIX* 200 MG/100 ML BAG IV SCH (09:30)
[2017-06-17] MEDS: PEPCID 20 MG IV PREMIX* 20 MG/50 ML BAG IV SCH (09:30)
[2017-06-17] MEDS: NICOTINE PATCH TD SCH (09:30)
[2017-06-17] MEDS: ALBUMIN HUMAN 25%- 100ML 100 ML IV SCH (09:30)
[2017-06-17] MEDS: LOVENOX INJ 30 MG SYR SC SCH (09:30)
[2017-06-17] MEDS: PROTONIX INJ 40 MG VIAL IVP SCH (09:31)
[2017-06-17] MEDS: MORPHINE SULFATE PCA 30 MG IVP PRN ×2 (16:50→17:55)
[2017-06-17 18:01] VITALS: BP 108/63
--- NOTE | 2017-06-17 21:52 | PCM.PROG ---
Progress Note - Progress Note for Day of Date: 06/16/17 - Subjective Subjective: IS BEING TREATED FOR PNEUMONIA, CHF, OPEN TIBIA/ FIBULA FRACTURES OF THE LEFT LEG, LEFT LEG LACERATION, AND COMPARTMENT SYNDROME. SHE IS STATUS POST ORIF OF THE LEFT ANKLE AND SKIN GRAFT. TODAY, SHE IS LYING IN BED WITH EYES CLOSED, UTILIZING THE BIPAP. PATIENT IS MOANING LOUDLY , BUT DOES NOT OPEN EYES OR RESPOND TO VERBAL STIMULI. FAMILY REPORTS THAT PATIENT HAS BEEN IN THIS STATE FOR MOST OF THE NIGHT ON EXAMINATION, HEART IS REGULAR IN RATE AND RHYTHM. BILATERAL LUNGS CONTINUE WITH SCATTERED WHEEZING AND RHONCHI THROUGHOUT. SHALLOW RESPIRATIONS ARE NOTED. ABDOMEN IS ROUND, SOFT, AND NON-TENDER WITH NORMAL BOWEL SOUNDS NOTED IN ALL QUADRANTS. LEFT LEG IS NOTED WITH A DRESSING, DRY AND INTACT WITHOUT SIGNS OR SYMPTOMS OF INFECTION. STAFF REPORTS THAT PATIENTS OXYGEN SATURATIONS CONTINUE TO FALL INTO THE 70S WHEN ATTEMPTING TO WEAN OFF OF BIPAP. HER VITALS THIS MORNING ARE 97.5-107-33-99 %-149/71. LABS WERE OBTAINED THIS MORNING. ABNORMAL LAB VALUES INCLUDE THE FOLLOWING: RBC 2.88, HGB 9.1, HCT 27.1, CALCIUM 7.7, AST 50. A CHEST XRAY WAS OBTAINED THIS MORNING AND REPORTS CARDIOMEGALY WITH MILD VASCULAR CONGESTION. INTERVAL DEVELOPMENT OF RIGHT MID AND LOWER LUNG INFILTRATE. ENLARGING RIGHT PLEURAL EFFUSION. WE DISCUSSED PATIENTS DECLINE IN CONDITION WITH HER FAMILY. WE DISCUSSED COMFORT MEASURES AND FAMILY WOULD LIKE TO DISCUSS THIS WITH EACH OTHER TODAY. WE ARE IN AGREEMENT WITH THEIR WISHES. WE WILL CONTINUE WITH CURRENT PLAN OF CARE AND FOLLOW UP WITH AM LABS AND CONTINUE TO MONITOR PATIENT. - Past Medical Family Social History Past Med/Fam/Surg Hx: No changes since H&P Allergies: Allergies prochlorperazine Allergy (Verified 05/29/17 10:22) - Review of Systems ROS: No change since H&P - Vital Signs and I&O's Vital Signs: Temperature 97.7 F Pulse Rate [Apical] 102 Pulse Rate [Left Brachial] 100 Pulse Rate 113 Respiratory Rate 24 Blood Pressure [Right Arm] 130/62 Blood Pressure [Left Arm] 108/63 Blood Pressure 134/64 O2 Sat by Pulse Oximetry 89 Intake and Output: Intake & Output 06/15/17 06/16/17 06/17/17 06/18/17 11:59 11:59 11:59 11:59 Intake Total 2906 1769 2054 172 Output Total 1350 Balance 1556 1769 2054 172 - Physical Exam Oriented: Unable to test Eyes: Normal Ear: Normal Nose: Normal Throat: Normal, Dry Respiratory: Generalized, Diminished, Wheezes, Rhonchi Cardiovascular: Normal, Edema : Normal Auscultation: Bowel Sounds: Normal Palpation: Normal Tenderness: Normal Skin: Red, Tender, Wound Musculoskeletal: Left, Leg, Ankle, Foot, Tender Psychiatric: Normal Mood Description: Calm Affect: Normal Speech Pattern: Aphasic - Laboratory and Diagnostics Result Diagrams: 06/17/17 05:30 06/17/17 05:30 Labs: 06/11/17 16:10 Urine,[place] Urine Culture - Final 06/10/17 10:51 Foot - Left Gram Stain - Final 06/10/17 10:51 Foot - Left Wound Culture - Final 06/01/17 10:15 Sputum - Expectorated Sputum Sputum Culture - Final 06/01/17 10:15 Sputum - Expectorated Sputum - Final 05/29/17 17:25 Leg - Left Gram Stain - Final 05/29/17 17:25 Leg - Left Wound Culture - Final 05/30/17 09:33 Stool Stool Culture - Final 05/30/17 09:33 Stool - Final Laboratory WBC 10.0 X10^3/uL (3.6-10.0) 06/17/17 05:30 RBC 2.84 X10^6/uL (3.5-5.4) L 06/17/17 05:30 Hgb 9.0 g/dL (12.0-16.0) L 06/17/17 05:30 Hct 26.7 % (36.0-47.0) L 06/17/17 05:30 MCV 94.1 fL (80.0-100.0) 06/17/17 05:30 MCH 31.6 pg (27.0-34.0) 06/17/17 05:30 MCHC 33.6 g/dL (33.0-35.0) 06/17/17 05:30 RDW 16.4 % (11.6-16.5) 06/17/17 05:30 Plt Count 342 X10^3/uL (150.0-450.0) 06/17/17 05:30 Plt Count Comment Adequate (ADEQUATE) 06/10/17 05:34 MPV 9.4 fL (7.4-11.0) 06/17/17 05:30 Neut % (Auto) 79.2 % (42.0-75.0) H 06/17/17 05:30 Lymph % (Auto) 7.5 % (21.0-51.0) L 06/17/17 05:30 [place] % (Auto) 5.9 % (0.0-13.0) 06/17/17 05:30 Eos % (Auto) 6.5 % (0.9-2.9) H 06/17/17 05:30 Baso % (Auto) 0.9 % (0.2-1.0) 06/17/17 05:30 Neut # (Auto) 7.9 x10^3/uL (2.2-4.8) H 06/17/17 05:30 Lymph # (Auto) 0.7 X10^3/uL (1.3-2.9) L 06/17/17 05:30 [place] # (Auto) 0.6 x10^3/uL (0.3-0.8) 06/17/17 05:30 Eos # (Auto) 0.6 x10^3/uL (0.0-0.2) H 06/17/17 05:30 Baso # (Auto) 0.1 X10^3/uL (0.0-0.1) 06/17/17 05:30 Absolute Nucleated RBC 0.0 /100WBC 06/17/17 05:30 Hypochromasia 1+ A 06/07/17 05:20 Anisocytosis 1+ A 06/07/17 05:20 Plt Morphology Comment Normal (NORMAL) 06/10/17 05:34 RBC Morphology Normal (NORMAL) 06/10/17 05:34 Sample Site Rrad 06/10/17 05:38 ABG pH 7.540 (7.35-7.45) H 06/10/17 05:38 ABG pCO2 40.0 mmHg (35.0-45.0) 06/10/17 05:38 ABG pO2 77.0 mmHg (80.0-100.0) L 06/10/17 05:38 ABG HCO3 34.2 mmol/L (22-26) H* 06/10/17 05:38 ABG O2 Saturation 97.0 % (90-100) 06/10/17 05:38 ABG Base Excess 10.7 mmol/L (-2.0-2.0) H 06/10/17 05:38 Kvng Test Pos 06/10/17 05:38 A-a Gradient 123.0 mmHg 06/10/17 05:38 FiO2 35.000 06/10/17 05:38 Blood Gas Comments Miguel abg well-mtf 06/10/17 05:38 Sodium 143 mmol/L (136-145) 06/17/17 05:30 Corrected Sodium TNP 06/17/17 05:30 Potassium 3.9 mmol/L (3.5-5.1) 06/17/17 05:30 Chloride 107 mmol/L (98-107) 06/17/17 05:30 Carbon Dioxide 26.1 mmol/L (21-32) 06/17/17 05:30 BUN 17 mg/dL (7-18) 06/17/17 05:30 Creatinine 0.62 mg/dL (0.55-1.02) 06/17/17 05:30 POC Glucose (mg/dL) 141 mg/dL (65-99) H 06/08/17 05:23 Est GFR (MDRD) Af Amer > 60 (>60) 06/17/17 05:30 Est GFR (MDRD) Non-Af > 60 (>60) 06/17/17 05:30 Glucose 107 mg/dL (65-99) H 06/17/17 05:30 Lactic Acid 1.6 mmol/L (0.4-2.0) 06/08/17 06:15 Iron 21 ug/dL (50-175) L 06/07/17 05:25 Transferrin 139 mg/dL (202-364) L 06/07/17 05:25 Ferritin 107 ng/mL (8-252) 06/07/17 05:25 Calcium 7.9 mg/dL (8.5-10.1) L 06/17/17 05:30 Corrected Calcium TNP 06/17/17 05:30 Magnesium 2.1 mg/dL (1.7-2.9) 06/14/17 04:28 Creatine Kinase 688 Units/L (26-192) H 06/08/17 04:45 CK-MB (CK-2) 1.6 ng/mL (0-4.0) 06/08/17 04:45 Total Bilirubin 0.80 mg/dL (0.2-1.0) 06/17/17 05:30 CK/CKMB % Calc 0.2 % (<4) 06/08/17 04:45 Troponin I 0.16 ng/mL (0-1.5) 06/08/17 04:45 AST 38 Units/L (15-37) H 06/17/17 05:30 ALT 41 Units/L (12-78) 06/17/17 05:30 Alkaline Phosphatase 76 Units/L (46-116) 06/17/17 05:30 Total Protein 6.6 g/dL (6.4-8.2) 06/17/17 05:30 Albumin 3.7 g/dL (3.4-5.0) 06/17/17 05:30 Globulin 2.9 g/dL (2.5-4.5) 06/17/17 05:30 Albumin/Globulin Ratio 1.3 Ratio (1.1-2.1) 06/17/17 05:30 Vitamin B12 832 pg/mL (193-986) 06/07/17 05:25 Folate 19.0 ng/mL (>8.6) 06/07/17 05:25 Specimen Type Catherized urine 06/11/17 16:10 Urine Color Yellow (YELLOW) 06/11/17 16:10 Urine Appearance Clear (CLEAR) 06/11/17 16:10 Urine pH 8.0 (5.0 - 8.0) 06/11/17 16:10 Ur Specific [place] 1.015 (1.000-1.030) 06/11/17 16:10 Urine Protein 2+ (NEGATIVE) 06/11/17 16:10 Urine Glucose (UA) Negative (NEGATIVE) 06/11/17 16:10 Urine Ketones 1+ (NEGATIVE) 06/11/17 16:10 Urine Occult Blood 5+ (NEGATIVE) 06/11/17 16:10 Urine Nitrite Negative (NEGATIVE) 06/11/17 16:10 Urine Bilirubin Negative (NEGATIVE) 06/11/17 16:10 Urine Urobilinogen Normal (NORMAL) 06/11/17 16:10 Ur Leukocyte Esterase Negative (NEGATIVE) 06/11/17 16:10 Urine RBC 25-30 /HPF (NONE SEEN) 06/11/17 16:10 Urine WBC 0-2 /HPF (NONE SEEN) 06/11/17 16:10 Ur Squamous Epith Cells Rare /HPF (NEGATIVE) 06/11/17 16:10 Amorphous Sediment 1+ /HPF (NEGATIVE) 06/11/17 16:10 Urine Bacteria Trace /HPF (NEGATIVE) 06/11/17 16:10 Ur Culture Indicated? Yes/culture set up 06/11/17 16:10 Stool for White Cells Positive (NEGATIVE) A 05/30/17 09:02 Stool Description 3g,dk brown,mucoid 06/14/17 11:22 Stl Occult Blood (IFOB) Negative (NEGATIVE) 06/14/17 11:22 Stl C. diff Tox B Gene Negative (NEGATIVE) 06/14/17 11:22 Stl C. diff [id number] Negative (NEGATIVE) 06/14/17 11:22 Cryptosporid parvum Ag Negative (NEGATIVE) 05/30/17 09:33 E. histolytica Antigen Negative (NEGATIVE) 05/30/17 09:33 Giardia lamblia Ag Negative (NEGATIVE) 05/30/17 09:33 Tissue Pathology To follow 05/29/17 18:00 Blood Type O POSITIVE 06/10/17 19:00 Antibody Screen Negative 06/10/17 19:00 Crossmatch See Detail 06/10/17 19:00 - Plan (1) Pneumonia Status: Acute Qualifiers: Pneumonia type: due to unspecified organism Laterality: right Lung location: lower lobe of lung Qualified Code(s): J18.1 - Lobar pneumonia, unspecified organism Plan: PNEUMONIA PATHWAY, CONTINUE IV ANTIBIOTICS, RESPIRATORY TREATMENTS, AND SUPPLEMENTAL OXYGEN, CONTINUE TO MONITOR (2) Intermittent confusion Status: Acute Plan: CONTINUE TO MONITOR (3) Anemia Status: Acute Qualifiers: Anemia type: iron deficiency Iron deficiency anemia type: unspecified iron deficiency Qualified Code(s): D50.9 - Iron deficiency anemia, unspecified Plan: CONTINUE TO MONITOR (4) Bimalleolar ankle fracture Status: Acute Qualifiers: Encounter type: initial encounter Fracture type: open Laterality: left Plan: S/P ORIF CONTINUE IV PAIN MEDICATION, CONTINUE TO MONITOR (5) Fibula fracture Status: Acute Qualifiers: Encounter type: initial encounter Fibula location: distal Fracture type: open Fracture morphology: unspecified fracture morphology Laterality: left Plan: OCL SPLINT, TORADOL 15MG IV Q6H, PERCOCET 5/325 2 TABS Q4H PRN PAIN, CONTINUE TO MONITOR (6) Tibia fracture Status: Acute Qualifiers: Encounter type: initial encounter Tibia location: distal Fracture type: open Fracture morphology: unspecified fracture morphology Laterality: left Plan: ORTHOPEDIC CONSULT, TORADOL 15MG IV Q6H, PERCOCET 5/325 2 TABS Q4H PRN PAIN, CONTINUE TO MONITOR (7) Laceration of left lower leg Status: Acute Qualifiers: Encounter type: initial encounter Qualified Code(s): S81.812A - Laceration without foreign body, left lower leg, initial encounter Plan: WOUND CARE, CONTINUE TO MONITOR (8) Compartment syndrome of left lower extremity Status: Acute Qualifiers: Encounter type: initial encounter Qualified Code(s): T79.A22A - Traumatic compartment syndrome of left lower extremity, initial encounter Plan: ORTHOPEDIC CONSULT, CONTINUE TO MONITOR (9) Depression Status: Chronic Qualifiers: Depression Type: major depressive disorder Major depression recurrence: recurrent Active/Remission status: currently active Major depression episode severity: unspecified Qualified Code(s): F33.9 - Major depressive disorder, recurrent, unspecified Plan: CONTINUE CYMBALTA, CONTINUE TO MONITOR (10) Hx of Crohn's disease Status: Chronic Plan: CONTINUE IMURAN, CONTINUE TO MONITOR (11) Hyperlipidemia Status: Chronic Qualifiers: Hyperlipidemia type: mixed hyperlipidemia Qualified Code(s): E78.2 - Mixed hyperlipidemia Plan: CONTINUE LIPITOR, CONTINUE TO MONITOR (12) Hypothyroidism Status: Chronic Qualifiers: Hypothyroidism type: subclinical iodine-deficiency Qualified Code(s): E02 - Subclinical iodine-deficiency hypothyroidism Plan: CONTINUE SYNTHROID, CONTINUE TO MONITOR (13) COPD (chronic obstructive pulmonary disease) Status: Chronic Plan: RESP THERAPY, SUPPLEMENTAL O2. JET NEBS, AM CXR
== END 2017-06-17 22:30 | disposition expired | DRG 576 ==
LOC: MED/SURG 09:40 → OBSVTOIN 09:40 → OBS 09:40 → MED/SURG 16:05 → ICU 06-05 09:10 → MED/SURG 06-17 15:05
PROVIDERS: ADMIT Internal Medicine; ATTEND Internal Medicine
PROC: 0JBP0ZZ Excision of Left Lower Leg Subcutaneous Tissue and Fascia, Open Approach (ICD-10-PCS; principal; 2017-05-29 20:00)
PROC: 0HRLX74 Replacement of Left Lower Leg Skin with Autologous Tissue Substitute, Partial Thickness, External Approach (ICD-10-PCS; 2017-06-03)
PROC: 0HBJXZZ Excision of Left Upper Leg Skin, External Approach (ICD-10-PCS; 2017-06-03)
PROC: 0KNW0ZZ Release Left Foot Muscle, Open Approach (ICD-10-PCS; 2017-06-03)
PROC: 30233N1 Transfusion of Nonautologous Red Blood Cells into Peripheral Vein, Percutaneous Approach (ICD-10-PCS; 2017-06-03)
PROC: 0HDLXZZ Extraction of Left Lower Leg Skin, External Approach (ICD-10-PCS; 2017-06-03 11:00)
DX: S81.811A Laceration without foreign body, right lower leg, initial encounter (principal); S82.62XA Displaced fracture of lateral malleolus of left fibula, initial encounter for closed fracture; S82.52XA Displaced fracture of medial malleolus of left tibia, initial encounter for closed fracture; W23.0XXA Caught, crushed, jammed, or pinched between moving objects, initial encounter; S92.322A Displaced fracture of second metatarsal bone, left foot, initial encounter for closed fracture; S92.332A Displaced fracture of third metatarsal bone, left foot, initial encounter for closed fracture; T79.A22A Traumatic compartment syndrome of left lower extremity, initial encounter; G89.11 Acute pain due to trauma; M79.605 Pain in left leg; R60.0 Localized edema; I25.10 Atherosclerotic heart disease of native coronary artery without angina pectoris; E78.2 Mixed hyperlipidemia; R19.7 Diarrhea, unspecified; E02 Subclinical iodine-deficiency hypothyroidism; Z85.41 Personal history of malignant neoplasm of cervix uteri; F33.8 Other recurrent depressive disorders; F41.8 Other specified anxiety disorders; K92.1 Melena; R06.02 Shortness of breath; J18.1 Lobar pneumonia, unspecified organism; D64.89 Other specified anemias; J44.9 Chronic obstructive pulmonary disease, unspecified; J90 Pleural effusion, not elsewhere classified; I50.9 Heart failure, unspecified; R26.89 Other abnormalities of gait and mobility; R41.0 Disorientation, unspecified; W06.XXXA Fall from bed, initial encounter; Y92.230 Patient room in hospital as the place of occurrence of the external cause
CPT/HCPCS: 29515; 36415; 36430; 36600; 70450; 71045; 71275; 73590; 73610; 80053; 81001; 82274; 82550; 82553; 82607; 82728; 82746; 82803; 83540; 83605; 83630; 83735; 84132; 84466; 84484; 85014; 85018; 85025; 86850; 86900; 86901; 86922; 87045; 87070; 87075; 87086; 87205; 87328; 87329; 87336; 87427; 87449; 87493; 88304; 93005; 94640; 94660; 94762; 97535; 99100; A4216; A4222; A4618; A7030; B5200; C9113; P9016; P9047; S0020; S0028; S0179; J0170; J0330; J0456; J0690; J1170; J1200; J1450; J1650; J1940; J2060; J2250; J2271; J2370; J2405; J2543; J2765; J2920; J3010; J3490; J7120; J7620; J7626